=== PATIENT | female | born 1975 | race Caucasian/White ===

== ENCOUNTER 2023-01-22 12:26 | Outpatient (REF) | payer OTHER, SELFPAY ==
[2023-01-23 13:19] LABS: Candida species Negative (Negative); Gardnerella vaginalis Negative (Negative); Trichomonas vaginalis Negative (Negative)
[2023-01-25 17:07] LABS: Age Gdln ACOG Testing Note (.); HPV Aptima Positive (Negative); IGP, Aptima HPV, rfx 16/18,45 Note (.)
== END 2023-01-22 12:27 | disposition home or self-care (01) ==
LOC: LAB 12:26
PROVIDERS: PCP Family Medicine; Visit Provider Nurse Practitioner
DX: Z01.419 Encounter for gynecological examination (general) (routine) without abnormal findings (principal); N89.8 Other specified noninflammatory disorders of vagina
CPT/HCPCS: 87480; 87491; 87510; 87591; 87660; G0145

== ENCOUNTER 2023-01-30 09:51 | Outpatient (OUT) | payer OTHER, SELFPAY ==
[2023-01-30 10:27] LABS: Estimated Average Glucose 137 mg/dL; Glycohemoglobin A1C 6.4 % (4.5-6.2)
[2023-01-30 10:36] LABS: Basophils Absolute Auto 0.1 10^3/uL (0.0-0.1); Basophils Percent Auto 1.1 % (0.2-2.0); Eosinophils Absolute Auto 0.2 10^3/uL (0.0-0.7); Hematocrit 44.4 % (36.0-48.0); Hemoglobin 14.5 g/dL (12.0-16.0); Immature Granulocytes Abs Auto 0.04 10^3/uL (0.00-0.03); Immature Granulocytes Pct Auto 0.5 % (0.0-0.5); Lymphocytes Absolute Auto 2.1 10^3/uL (1.2-3.8); Lymphocytes Percent Auto 25.6 % (20.5-60.0); Mean Corpuscular HGB Conc 32.7 g/dL (29.9-35.2); Mean Corpuscular Hemoglobin 27.6 pg (26.7-34.0); Mean Corpuscular Volume 84.6 fL (81.0-99.0); Monocytes Absolute Auto 0.7 10^3/uL (0.3-0.8); Monocytes Percent Auto 8.4 % (1.7-12.0); Neutrophils Absolute Auto 5.1 10^3/uL (1.4-6.5); Neutrophils Percent Auto 62.4 % (43.0-75.0); Platelet Count 279 10^3/uL (150-450); Red Blood Count 5.25 10^6/uL (4.20-5.40); Red Cell Distribution Width 14.6 % (11.0-15.0); White Blood Count 8.1 10^3/uL (4.0-11.0)
[2023-01-30 11:03] LABS: Free T4 1.07 ng/dL (0.76-1.46)
[2023-01-30 11:07] LABS: Alanine Aminotransferase 24 U/L (14-59); Albumin Globulin Ratio 0.9; Albumin Level 3.6 g/dL (3.4-5.0); Alkaline Phosphatase 93 U/L (46-116); Aspartate Amino Transferase 13 U/L (15-37); BUN Creatinine Ratio 19.5; Bilirubin Direct 0.1 mg/dL (0.0-0.2); Bilirubin Total 0.3 mg/dL (0.2-1.0); Calcium 9.5 mg/dL (8.5-10.1); Carbon Dioxide 29.5 mmol/L (21.0-32.0); Chloride 100 mmol/L (98-107); Chol HDL Ratio 5.8; Cholesterol 261 mg/dL (<=200); Estimated GFR (African America >60 (>=60); Estimated GFR (Non-African Ame >60 (>=60); Free T3 2.87 pg/mL (2.18-3.98); Globulin 4.2 g/dL; Glucose 107 mg/dL (74-106); HDL Cholesterol 45 mg/dL (40-60); Potassium 4.5 mmol/L (3.5-5.1); Sodium 137 mmol/L (136-145); Thyroid Stimulating Hormone 1.911 uIU/mL (0.358-3.740); Total Protein 7.8 g/dL (6.4-8.2); Triglycerides 177 mg/dL (<=150); VLDL CHOLESTEROL 35.4 mg/dL
== END 2023-01-30 09:52 | disposition home or self-care (01) ==
LOC: LAB 09:53
PROVIDERS: PCP Family Medicine; Visit Provider Family Medicine
DX: Z00.00 Encounter for general adult medical examination without abnormal findings (principal); E55.9 Vitamin D deficiency, unspecified
CPT/HCPCS: 36415; 80048; 80061; 80076; 82306; 83036; 84439; 84443; 84481; 85025

== ENCOUNTER 2023-02-05 18:36 | Outpatient (OUT) | payer OTHER, SELFPAY ==
--- NOTE | 2023-02-05 19:08 | US_ITS ---
The [address] [address] Patient Name: JANET DIOP MRN: [id number] date: 1975 Sex: F Assigned Patient Location: US Current Patient Location: Accession/Order Number: [id number] Exam Date: 02/05/2023 19:10 Report Date: 02/06/2023 07:13 At the request of: STEPHIE REYES Procedure: US pelvis w/ transvaginal EXAM: US pelvis w/ transvaginal HISTORY: AMENORRHEA N91.2 COMPARISON: None. TECHNIQUE: Pelvic sonography was performed utilizing grayscale and color Doppler technique. FINDINGS: Anteverted uterus measures 6.7 x 3.5 x 3.9 cm. Uterine endometrial stripe measures 0.2 cm in thickness. Right ovary not visualized. Left ovary measures 1.7 x 1.7 x 1.2 cm. Normal left ovarian parenchyma. No significant free fluid within the pelvis. US/US pelvis w/ transvaginal IMPRESSION: 1. Normal uterus and left upper. 2. Right ovary not visualized. Electronically authenticated by: ROSALINDA MA Date: 02/06/2023 07:13
== END 2023-02-05 18:37 | disposition home or self-care (01) ==
PROVIDERS: PCP Family Medicine; Visit Provider Nurse Practitioner
DX: Z12.31 Encounter for screening mammogram for malignant neoplasm of breast (principal); N91.2 Amenorrhea, unspecified
CPT/HCPCS: 76830; 76856

== ENCOUNTER 2023-03-16 09:17 | Outpatient (OUT) | payer OTHER, SELFPAY ==
--- NOTE | 2023-03-16 09:20 | MM_ITS ---
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 Order #: [id number] CLICK HERE TO VIEW EXAM RADIOLOGY REPORT PROCEDURE: MM TOMOSYNTHESIS SCREENING BI COMPARISON: MG MAMM SCREEN 3D PILY CAD, 03/13/2022. INDICATIONS: Screening Calculator Name NCI Breast Cancer Risk Assessment Tool 5 Year Breast Cancer Risk 1.00% Lifetime Breast Cancer Risk 9.10% Personal Breast Cancer No Personal Ovarian Cancer No Treatments None Family Cancers None LOCATION: [facility] BREAST COMPOSITION: Scattered areas fibroglandular density. FINDINGS: DIAGNOSTIC CATEGORY 2--BENIGN FINDING. NO CHANGE FROM COMPARISON. Scattered benign-appearing nodules are present. Scattered benign-appearing calcifications are present. Scattered benign-appearing lymph nodes are present. RIGHT BREAST: No significant suspicious finding. LEFT BREAST: No significant suspicious finding. RECOMMENDATIONS: ROUTINE MAMMOGRAM AND CLINICAL EVALUATION IN 12 MONTHS. PLEASE NOTE: A NORMAL MAMMOGRAM DOES NOT EXCLUDE THE POSSIBILITY OF BREAST CANCER. A CLINICALLY SUSPICIOUS PALPABLE LUMP SHOULD BE BIOPSIED. Dictated by: Iggy Patterson MD on 03/16/2023 at 12:16 Approved by: Iggy Patterson MD on 03/16/2023 at 12:20
== END 2023-03-16 09:18 | disposition home or self-care (01) ==
LOC: MAMMO 09:17
PROVIDERS: PCP Family Medicine; Visit Provider Nurse Practitioner
DX: Z12.31 Encounter for screening mammogram for malignant neoplasm of breast (principal)
CPT/HCPCS: 77063; 77067

== ENCOUNTER 2023-04-27 07:37 | Outpatient (OUT) | payer OTHER, SELFPAY ==
--- NOTE | 2023-04-27 07:58 | XR_ITS ---
The [address] [address] Patient Name: AJNET DIOP MRN: [id number] date: 1975 Sex: F Assigned Patient Location: [facility] Current Patient Location: [facility] Accession/Order Number: [id number] Exam Date: 04/27/2023 08:50 Report Date: 04/27/2023 09:36 At the request of: JOSI YOUSIF Procedure: XR chest 2V EXAM: XR chest 2V HISTORY: Preop exam COMPARISON: None. TECHNIQUE: PA and lateral views of the chest. FINDINGS: The cardiomediastinal silhouette is normal. No focal consolidation is identified. There is no pneumothorax. No pleural effusion is noted. The osseous structures are intact. XR/XR chest 2V IMPRESSION: No acute cardiopulmonary process. Electronically authenticated by: MILKA BENITEZ Date: 04/27/2023 09:36
--- NOTE | 2023-04-27 07:58 | ECG_ITS ---
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
[2023-04-27 08:57] LABS: Anion Gap 13.6; BUN Creatinine Ratio 12.7; Calcium 9.1 mg/dL (8.5-10.1); Carbon Dioxide 26.8 mmol/L (21.0-32.0); Chloride 101 mmol/L (98-107); Estimated GFR (African America >60 (>=60); Estimated GFR (Non-African Ame >60 (>=60); Glucose 106 mg/dL (74-106); Potassium 4.4 mmol/L (3.5-5.1); Sodium 137 mmol/L (136-145)
== END 2023-04-27 07:38 | disposition home or self-care (01) ==
LOC: PST 07:37
PROVIDERS: PCP Family Medicine; Visit Provider Obstetrics & Gynecology
DX: Z01.812 Encounter for preprocedural laboratory examination (principal); Z01.810 Encounter for preprocedural cardiovascular examination; R87.612 Low grade squamous intraepithelial lesion on cytologic smear of cervix (LGSIL); J44.9 Chronic obstructive pulmonary disease, unspecified
CPT/HCPCS: 36415; 71046; 80048; 93005

== ENCOUNTER 2023-05-11 07:17 | Day surgery (SDC) | payer OTHER, SELFPAY ==
[2023-04-27 08:35] VITALS: BP 129/81; PULSE 79; RESP 20; TEMP 36.3; O2SAT 94; BMI 41.0
[2023-05-11] VITALS (13 sets, daily range): BP systolic 115–165; BP diastolic 66–107; PULSE 75–104; RESP 10–21; TEMP 36.1–36.6; O2SAT 86–96; BMI 42.1
[2023-05-11 07:27] LABS: Basophils Absolute Auto 0.1 10^3/uL (0.0-0.1); Basophils Percent Auto 0.8 % (0.2-2.0); Eosinophils Absolute Auto 0.1 10^3/uL (0.0-0.7); Eosinophils Percent Auto 0.4 % (0.9-7.0); Hematocrit 47.1 % (36.0-48.0); Hemoglobin 15.1 g/dL (12.0-16.0); Immature Granulocytes Abs Auto 0.05 10^3/uL (0.00-0.03); Immature Granulocytes Pct Auto 0.4 % (0.0-0.5); Lymphocytes Absolute Auto 2.2 10^3/uL (1.2-3.8); Lymphocytes Percent Auto 16.9 % (20.5-60.0); Mean Corpuscular HGB Conc 32.1 g/dL (29.9-35.2); Mean Corpuscular Hemoglobin 27.2 pg (26.7-34.0); Mean Corpuscular Volume 84.9 fL (81.0-99.0); Mean Platelet Volume 9.5 fL (9.5-13.5); Monocytes Absolute Auto 0.5 10^3/uL (0.3-0.8); Monocytes Percent Auto 3.6 % (1.7-12.0); Neutrophils Absolute Auto 10.3 10^3/uL (1.4-6.5); Neutrophils Percent Auto 77.9 % (43.0-75.0); Platelet Count 319 10^3/uL (150-450); Red Blood Count 5.55 10^6/uL (4.20-5.40); Red Cell Distribution Width 14.9 % (11.0-15.0); White Blood Count 13.2 10^3/uL (4.0-11.0)
[2023-05-11] MEDS: LACTATED RINGER'S SOLUTION 1,000 ML 50 ML IV (07:41)
[2023-05-11 07:45] LABS: HCG Quantitative 2 mIU/mL
[2023-05-11] MEDS: IODINE/POTASSIUM IODIDE 8 ML SOLUTION TOPICAL (09:34)
[2023-05-11] MEDS: FERRIC SUBSULFATE 8 ML SOLUTION TOPICAL (09:42)
--- NOTE | 2023-05-11 09:49 | PM.ONB ---
Brief Operative Note Date of procedure: 05/11/23 Pre-op diagnosis: cervical dysplasia Post-op diagnosis: same as pre-op Procedure: NAME OF PROCEDURE: [leep ] PROCEDURE: Patient was taken back to the Operating Room where she was given general anesthesia without difficulty. She was then placed in the dorsal lithotomy position. She was then prepped and draped in the normal sterile fashion. A weighted speculum was placed into the patient's vagina. The anterior lip of the cervix was identified and grasped with a single-tooth tenaculum. The patient's cervix was then copiously irrigated using vinegar.? Then, a Lugol Solution was also placed onto the patient's cervix which demonstrated increased uptake of the Lugol solution at the [3? ] o?clock and [?9 ] o?clock positions.? At that time, the LEEP portion of the procedure was performed, including both the [?3 ] o?clock and [?9] o?clock positions. The ectocervix was sent out to Pathology. The patient's cervix was then coagulated using suction cautery. Excellent hemostasis was assured.? Monsel Solution was then placed onto the patient's cervix to help maintain adequate hemostasis. All instruments were removed from the patient's vagina. The anterior lip of the cervix demonstrated excellent hemostasis.? The patient tolerated the procedure well. Sponge, lap, and needle counts were correct x 2. The patient was taken to Recovery Room in stable condition. Anesthesia: JOANN Surgeon: Chandrakant Pereyra Estimated blood loss (mL): 5 Pathology: other (ectocervical tissue) Condition: stable Disposition: PACU
== END 2023-05-11 10:53 | disposition home or self-care (01) ==
PROVIDERS: PCP Family Medicine; Visit Provider Obstetrics & Gynecology
PROC: (CPT 940; principal; 2023-05-11 08:40)
DX: R87.612 Low grade squamous intraepithelial lesion on cytologic smear of cervix (LGSIL) (principal); E11.9 Type 2 diabetes mellitus without complications; J44.9 Chronic obstructive pulmonary disease, unspecified; Z79.84 Long term (current) use of oral hypoglycemic drugs; M50.30 Other cervical disc degeneration, unspecified cervical region; M51.36 Other intervertebral disc degeneration, lumbar region; E78.5 Hyperlipidemia, unspecified; F41.1 Generalized anxiety disorder; K21.9 Gastro-esophageal reflux disease without esophagitis; F32.9 Major depressive disorder, single episode, unspecified; N39.46 Mixed incontinence; N92.4 Excessive bleeding in the premenopausal period; Z68.41 Body mass index [BMI] 40.0-44.9, adult; E66.01 Morbid (severe) obesity due to excess calories
CPT/HCPCS: 57522; 36415; 84702; 85025; 88307; 88341; 88342; J2704

== ENCOUNTER 2023-05-28 12:04 | Outpatient (OUT) | payer OTHER, SELFPAY ==
--- NOTE | 2023-05-28 | ECG_ITS ---
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
== END 2023-05-28 12:05 | disposition home or self-care (01) ==
PROVIDERS: PCP Family Medicine; Visit Provider Family Medicine
DX: R94.31 Abnormal electrocardiogram [ECG] [EKG] (principal)
CPT/HCPCS: 93005

== ENCOUNTER 2023-08-09 09:47 | Outpatient (OUT) | payer OTHER, SELFPAY ==
[2023-08-09 10:24] LABS: Basophils Absolute Auto 0.1 10^3/uL (0.0-0.1); Eosinophils Absolute Auto 0.1 10^3/uL (0.0-0.7); Eosinophils Percent Auto 1.3 % (0.9-7.0); Hematocrit 45.1 % (36.0-48.0); Hemoglobin 14.5 g/dL (12.0-16.0); Immature Granulocytes Abs Auto 0.03 10^3/uL (0.00-0.03); Immature Granulocytes Pct Auto 0.3 % (0.0-0.5); Lymphocytes Percent Auto 30.2 % (20.5-60.0); Mean Corpuscular HGB Conc 32.2 g/dL (29.9-35.2); Mean Corpuscular Hemoglobin 27.1 pg (26.7-34.0); Mean Corpuscular Volume 84.3 fL (81.0-99.0); Mean Platelet Volume 9.3 fL (9.5-13.5); Monocytes Absolute Auto 0.6 10^3/uL (0.3-0.8); Monocytes Percent Auto 6.3 % (1.7-12.0); Neutrophils Absolute Auto 6.1 10^3/uL (1.4-6.5); Neutrophils Percent Auto 60.9 % (43.0-75.0); Platelet Count 293 10^3/uL (150-450); Red Blood Count 5.35 10^6/uL (4.20-5.40); Red Cell Distribution Width 15.6 % (11.0-15.0)
[2023-08-09 10:59] LABS: Alanine Aminotransferase 20 U/L (14-59); Albumin Globulin Ratio 0.9; Albumin Level 3.4 g/dL (3.4-5.0); Alkaline Phosphatase 81 U/L (46-116); Aspartate Amino Transferase 10 U/L (15-37); BUN Creatinine Ratio 15.9; Bilirubin Direct 0.1 mg/dL (0.0-0.2); Bilirubin Total 0.3 mg/dL (0.2-1.0); Calcium 9.2 mg/dL (8.5-10.1); Carbon Dioxide 27.3 mmol/L (21.0-32.0); Chloride 103 mmol/L (98-107); Estimated GFR (African America >60 (>=60); Estimated GFR (Non-African Ame >60 (>=60); Glucose 106 mg/dL (74-106); Potassium 4.3 mmol/L (3.5-5.1); Sodium 137 mmol/L (136-145); Total Protein 7.4 g/dL (6.4-8.2)
[2023-08-09 11:08] LABS: INR 0.93; Partial Thromboplastin Time 29.4 sec (22.3-36.2); Prothrombin Time 9.9 sec (9.0-11.6)
== END 2023-08-09 09:48 | disposition home or self-care (01) ==
LOC: PST 09:47
PROVIDERS: PCP Family Medicine; Visit Provider Obstetrics & Gynecology
DX: Z01.812 Encounter for preprocedural laboratory examination (principal); R10.2 Pelvic and perineal pain; N92.0 Excessive and frequent menstruation with regular cycle; N94.6 Dysmenorrhea, unspecified; N94.10 Unspecified dyspareunia; Z98.890 Other specified postprocedural states; R87.612 Low grade squamous intraepithelial lesion on cytologic smear of cervix (LGSIL)
CPT/HCPCS: 80048; 80076; 85025; 85610; 85730

== ENCOUNTER 2023-08-20 09:01 | Outpatient (OUT) | payer OTHER, SELFPAY ==
--- OUTSIDE RECORDS SUMMARY | 2023-08-20 09:05 | XMS_ITS | CCD ---
Author Name Unknown Address [address] [place] [id number] Organization [facility] Care Team Providers Care Machine Operations Supervisor Name Role Phone MARISELA, DR JADEN Ledesma Primary Care Unavailable MARISELA, DR JADEN Ledesma Admitting Unavailable MARISELA, DR JADEN Ledesma Attending Unavailable MARISELA, DR JADEN Ledesma Consulting Unavailable MARISELA, DR JADEN Ledesma Primary Care Unavailable MARISELA, DR JADEN Ledesma Admitting Unavailable MARISELA, DR JADEN Ledesma Attending Unavailable DORON, DR NATE Morales Consulting Unavailable MARISELA, DR JADEN Ledesma Consulting Unavailable Kimberly Scott Unavailable JOSI PEREYRA Attending Unavailable YULY JARQUIN Attending Unavailable MARISELA, JADEN Attending Unavailable Jaden Antonio MD Primary Care Provider Allergies Allergy Classification Reported Allergen(s) Allergy Type Date of Onset Reaction(s) Facility (2 sources) predniSONE Drug Allergy Unknown [facility] Other Medications Current Medications Medication Drug Class(es) Dates Sig (Normalized) Sig (Original) albuterol 0.83 mg/ml inhalation solution (8 sources) beta2-Adrenergic Agonist Start: 06-18-2023 albuterol (2.5 MG/3ML) 0.083% nebulizer solution Indications: Chronic obstructive pulmonary disease, unspecified COPD type ([facility]/HCC) Take 3 mL (2.5 mg) by nebulization every 4 (four) hours if needed for wheezing 75 mL 3 06/18/2023 Active take 2 puff(s) by in halation every four hours for wheezing albuterol HFA 90 mcg/act inhaler Inhale 2 puffs every 4 (four) hours if needed for wheezing 0 Active Albuterol Sulfat e (2.5 MG/3ML) 0.083% 3 mL as needed Inhalation every 6 hrs Active take 1 puff(s) by in halation every four hours as needed Ventolin HFA 108 (90 Base) MCG/ACT 1 puf f as needed Inhalation every 4 hrs Active Albuterol Sulfat e (2.5 MG/3ML) 0.083% 3 mL as needed Inhalation every 6 hrs Active ALPRAZolam 0.5 mg oral tablet (4 sources) Benzodiazepine Start: 06-18-2023 take 1 tablet by mouth three times daily as needed for anxiety ALPRAZolam (Xanax) 0.5 MG tablet Indications: Generalized anxiety disorder (CMS/HCC) Take 1 tablet (0.5 mg) by mouth 3 (three) times a day as needed for anxiety 30 tablet 0 06/18/2023 Active take 1 tablet by ramakrishna th every twelve hours ALPRAZolam 0.5 MG 1 tablet Orally Twice a day Active celecoxib 200 mg oral capsule (1 source) Nonsteroidal Anti-inflammatory Drug Start: 06-18-2023 take 1 capsule by mouth twice daily as needed for pain celecoxib (CeleBREX) 200 MG capsule Indications: DDD (degenerative disc disease), cervical Take 1 capsule (200 mg) by mouth 2 (two) times a day as needed for mild pain 60 capsule 3 06/18/2023 Active cetirizine hydrochloride 10 mg oral tablet (3 sources) Histamine-1 Receptor Antagonist Start: 12-05-2022 take 1 tablet by mouth every twelve hours Cetirizine HCl 10 MG 1 tablet Orally Twice a day for 7 days Nov, Active cholecalciferol 0.125 mg oral tablet (2 sources) Vitamin D take 1 tablet by mouth once daily Vitamin D3 125 MCG (5000 UT) TAKE 1 TABLET BY MOUTH DAILY Oral for 30 Days Active dextromethorphan hydrobromide 15 mg / guaiFENesin 400 mg / pseudoephedrine hydrochloride 60 mg oral tablet (2 sources) alpha-Adrenergic Agonist, Uncompetitive T-xnhops-E-aspartate Receptor Antagonist, Sigma-1 Agonist Start: 07-03-2023 take 4 tablets by mouth every twenty-four hours as needed Capmist DM 60-15-400 MG as needed Orally every 4-6 hours as needed, max 4 tablets in 24 hours for 5 days Jul, Active estradiol 0.5 mg oral tablet (3 sources) Estrogen Start: 05-28-2023 End: 05-27-2024 take 1 tablet by mouth in the morning estradiol (Estrace) 0.5 MG tablet Indications: Hormone imbalance Take 1 tablet (0.5 mg) by mouth in the morning. 30 tablet 11 05/28/2023 05/27/2024 Active famotidine 20 mg oral tablet (4 sources) Histamine-2 Receptor Antagonist famotidine (Pepcid) 20 MG tablet Take 20 mg by mouth if needed for heartburn 0 Active fluticasone propionate 0.05 mg/actuat metered dose nasal spray (4 sources) Corticosteroid take 2 spray(s) nasal route once daily fluticasone (Flonase) 50 MCG/ACT nasal spray instill 2 (TWO) spray nasally DAILY 0 Active Fluticasone Prop ionate 50 MCG/ACT Nasal for 30 Days Active Fluticasone Prop ionate 50 MCG/ACT Nasal for 30 Days Active loratadine 10 mg oral tablet (4 sources) take 1 tablet by ramakrishna th in the morning loratadine (Claritin) 10 MG tablet Take 10 mg by mouth in the morning. 0 Active Loratadine 10 MG Oral for 30 Days Active 24 hr metFORMIN hydrochloride 500 mg extended release oral tablet (1 source) Biguanide Start: 03-08-2023 End: 03-07-2024 take 1 tablet by mouth every twenty-four hours at mealtime metFORMIN XR (Glucophage-XR) 500 MG 24 hr tablet Indications: Insulin resistance Take 1 tablet (500 mg) by mouth in the evening. Take with meals. Do not crush, chew, or split. 30 tablet 11 03/08/2023 03/07/2024 Active 24 hr mirabegron 50 mg extended release oral tablet (1 source) beta3-Adrenergic Agonist take 1 tablet by mouth at bedtime, then take 1 tablet by mouth every twenty-four hours mirabegron ER (Myrbetriq) 50 MG 24 hr tablet Take 50 mg by mouth at bedtime Do not crush, chew, or split. 0 Active montelukast 10 mg oral tablet (1 source) Leukotriene Receptor Antagonist Start: 06-24-2023 take 1 tablet by mouth at bedtime montelukast (Singulair) 10 MG tablet Indications: Allergic rhinitis due to pollen TAKE 1 TABLET BY MOUTH AT BEDTIME 30 tablet 5 06/24/2023 Active naproxen 500 mg oral tablet (3 sources) Nonsteroidal Anti-inflammatory Drug take 1 tablet by mouth every twelve hours at mealtime as needed Naproxen 500 MG 1 tablet with food or milk as needed Orally every 12 hrs Active norethindrone 0.35 mg oral tablet (4 sources) Start: 07-16-2023 take 1 tablet by mouth once daily norethindrone (Milagros) 0.35 MG tablet Indications: Excessive bleeding in the premenopausal period TAKE 1 TABLET BY MOUTH DAILY 28 tablet 12 07/16/2023 Active Deblitane 0.35 M G Oral for 28 Days Active omeprazole 40 mg delayed release oral capsule (4 sources) Proton Pump Inhibitor take 1 capsule by mouth in the morning omeprazole (PriLOSEC) [address] capsule Take 40 mg by mouth in the morning. 0 Active 24 hr oxybutynin chloride 15 mg extended release oral tablet (1 source) Cholinergic Muscarinic Antagonist take 1 tablet by mouth every twenty-four hours in the morning oxybutynin XL (Ditropan-XL) 15 MG 24 hr tablet Take 15 mg by mouth in the morning. Do not crush, chew, or split.. 0 Active Respiratory Therapy Supplies (Full Kit Nebulizer Set) misc (1 source) Start: 07-13-19 Respiratory Therapy Supplies (Full Kit Nebulizer Set) misc Indications: Chronic obstructive pulmonary disease, unspecified COPD type (CMS/HCC) USE DIRECTED WITH compressor 1 each 0 07/13/2023 Active tiotropium 0.018 mg inhalation powder (4 sources) Anticholinergic Start: 08-06-19 take 1 capsule by inhalation once daily Spiriva HandiHaler 18 MCG inhalation capsule Indications: Chronic obstructive pulmonary disease, unspecified (CMS/HCC) INHALE CONTENTS OF 1 (ONE) CAPSULE VIA HANDIHALER DAILY 30 capsule 5 08/06/2023 Active Spiriva HandiHal er 18 MCG Inhalation for 30 Days Active Spiriva HandiHal er 18 MCG Inhalation for 30 Days Active Vitamin D3 125 MCG (5000 UT) (1 source) take 1 tablet by ramakrishna th once daily Vitamin D3 125 MCG (5000 UT) TAKE 1 TABLET BY MOUTH DAILY Oral for 30 Days Active Completed/Discontinued Medications Medication Drug Class(es) Dates Sig (Normalized) Sig (Original) methylPREDNISolone 4 mg oral tablet (3 sources) Corticosteroid Start: 06-06-202 3 methylPREDNISolone 4 MG as directed Orally for daily dose take half with breakfast, half with dinner for 6 days Nov, Not-Taking/PRN Problems Active Problems Problem Classification Problem Date Documented Date Episodic/Chronic Anxiety disorders (1 source) Generalized anxiety disorder; Translations: [Generalized anxiety disorder] Onset: 06-18-2023 06-18-2023 Chronic Chronic obstructive pulmonary disease and bronchiectasis (1 source) Chronic obstructive lung disease; Translations: [Chronic obstructive pulmonary disease, unspecified] Onset: 06-18-2023 06-18-2023 Chronic Diabetes mellitus without complication (1 source) Prediabetes; Translations: [Prediabetes] Onset: 06-18-2023 06-18-2023 Episodic Disorders of lipid metabolism (1 source) Dyslipidemia; Translations: [Hyperlipidemia, unspecified] Onset: 06-18-2023 06-18-2023 Chronic Esophageal disorders (1 source) Gastroesophageal reflux disease without esophagitis; Translations: [Gastro-esophageal reflux disease without esophagitis] Onset: 06-18-2023 06-18-2023 Chronic Genitourinary symptoms and ill-defined conditions (1 source) Incontinence; Translations: [Mixed incontinence] Onset: 06-18-2023 06-18-2023 Chronic Headache; including migraine (1 source) Migraine without aura, not refractory ; Translations: [Chronic migraine without aura, not intractable, without status migrainosus] Onset: 06-18-2023 06-18-2023 Chronic Menopausal disorders (1 source) Menorrhagia; Translations: [Excessive bleeding in the premenopausal period] Onset: 06-18-2023 06-18-2023 Chronic Menstrual disorders (1 source) Amenorrhea; Translations: [Amenorrhea, unspecified] Onset: 06-18-2023 06-18-2023 Chronic Mood disorders (1 source) Recurrent major depressive episodes, mild ; Translations: [Major depressive disorder, recurrent, mild] Onset: 06-18-2023 06-18-2023 Chronic Nutritional deficiencies (2 sources) Vitamin D deficiency, unspecified; Translations: [Vitamin D deficiency] Onset: 05-28-2021 06-18-2023 Chronic Other non-traumatic joint disorders (1 source) Pain in left knee; Translations: [Pain in joint, lower leg] Onset: 06-18-2023 06-18-2023 Episodic Other screening for suspected conditions (not mental disorders or infectious disease) (4 sources) Encounter for screening mammogram for malignant neoplasm of breast; Translations: [ENC SCR MAMMO MALIG NEOPLASM BREAST] Onset: 03-13-2022 Episodic Other skin disorders (1 source) Rash and other nonspecific skin eruption Episodic Other skin disorders (1 source) Hidradenitis suppurativa; Translations: [Hidradenitis suppurativa] Onset: 06-18-2023 06-18-2023 Episodic Other upper respiratory disease (1 source) Allergic rhinitis due to pollen; Translations: [Allergic rhinitis due to pollen] Onset: 06-18-2023 06-18-2023 Chronic Residual codes; unclassified (2 sources) Generalized aches and pains; Translations: [Pain, unspecified] Episodic Residual codes; unclassified (1 source) Pain, unspecified Episodic Spondylosis; intervertebral disc disorders; other back problems (2 sources) Degeneration of cervical intervertebral disc; Translations: [Other cervical disc degeneration, unspecified cervical region] Onset: 06-18-2023 06-18-2023 Chronic Past or Other Problems Problem Classification Problem Date Documented Da te Episodic/Chronic Viral infection (1 source) COVID-19 Results Test Name Value Interpretation Reference Range Facility ALL CBC WITH AUTO DIFFon BASOPHILS ABSOLUTE AUTO 0.1 [facility] Basophils/100 WBC (Bld) 1.0 % 0.2 - 2.0 % [facility] Eosinophils/100 WBC (Bld) 1.3 % 0.9 - 7.0 % [facility] Erythrocyte distribution width (RBC) [Ratio] 15.6 % High 11.0 - 15.0 % [facility] Hematocrit (Bld) [Volume fraction] 45.1 % 36.0 - 48.0 % [facility] [Mass/Vol] 14.5 g/dL 12.0 - 16.0 g/dL [facility] IMMATURE GRANULOCYTES ABS AUTO 0.03 [facility] Immature granulocytes/100 WBC (Bld) 0.3 % 0.0 - 0.5 % [facility] Interpretation and review of laboratory results Abnormal [facility] LYMPHOCYTES ABSOLUTE AUTO 3.0 [facility] Lymphocytes/100 WBC (Bld) 30.2 % 20.5 - 60.0 % [facility] MCH (RBC) [Entitic mass] 27.1 pg 26.7 - 34.0 pg [facility] MCHC (RBC) [Mass/Vol] 32.2 g/dL 29.9 - 35.2 g/dL [facility] MCV (RBC) [Entitic vol] 84.3 fL 81.0 - 99.0 fL [facility] MONOCYTES ABSOLUTE AUTO 0.6 [facility] Monocytes/100 WBC (Bld) 6.3 % 1.7 - 12.0 % [facility] NEUTROPHILS ABSOLUTE AUTO 6.1 [facility] Neutrophils/100 WBC (Bld) 60.9 % 43.0 - 75.0 % [facility] Platelet mean volume (Bld) [Entitic vol] 9.3 fL Low 9.5 - 13.5 fL [facility] EO # 0.1 [facility] PLT 293 [facility] RBC 5.35 [facility] WBC 10.0 [facility] COVID + FLU Quick Testingon 07-03-2023 SARS-CoV-2 (COVID-19) RNA JESSIE+probe Ql (Unsp spec) Positive [facility] Other COVID + FLU Quick Testing Negative [facility] Other MG MAMM SCREEN 3D PILY CADon 03-13-2022 MG MAMM SCREEN 3D PILY CAD Patient: JENN MCCANN Exam Date: 03/13/2022 : 1975 Gender:F Ordering : DR JADEN ANTONIO . Admission #: [id number] Family : Order #: [id number] CLICK HERE TO VIEW EXAM RADIOLOGY REPORT PROCEDURE: MAMMOGRAM SCREENING 3D BILATERAL CAD COMPARISON: MG MAMM SCREEN PILY W CAD, 03/09/2020. MG MAMM SCREEN PILY W CAD, 03/04/2019. MAMMO PILY SCREEN, 02/22/2015. MG MAMM SCREEN 3D PILY CAD, 03/10/2021. INDICATIONS: Screening mammography Calculator Name NCI Breast Cancer Risk Assessment Tool 5 Year Breast Cancer Risk 0.90% Lifetime Breast Cancer Risk 9.20% Personal Breast Cancer No Personal Ovarian Cancer No Treatments None Family Cancers None LOCATION: [facility] BREAST COMPOSITION: Scattered areas fibroglandular density. FINDINGS: DIAGNOSTIC CATEGORY 2--BENIGN FINDING: RIGHT BREAST: No significant suspicious finding. Scattered benign-appearing nodules are present. No significant change has occurred. LEFT BREAST: No significant suspicious finding. No significant change has occurred. RECOMMENDATIONS: ROUTINE MAMMOGRAM AND CLINICAL EVALUATION IN 12 MONTHS. PLEASE NOTE: A NORMAL MAMMOGRAM DOES NOT EXCLUDE THE POSSIBILITY OF BREAST CANCER. A CLINICALLY SUSPICIOUS PALPABLE LUMP SHOULD BE BIOPSIED. Dictated by: Nate Duran M.D. on 03/14/2022 at 08:48 Approved by: Nate Duran M.D. on 03/14/2022 at 08:50 Normal [facility] CBC AUTO DIFFon 05-19-2021 BASO # 0.1 103/ul Normal 0.0-0.1 [facility] Comment on above: Performed By: #### C BC #### [facility] [address] [address] [address] Dashawn Mayo Basophils/100 WBC (Bld) 0.9 % Normal 0.2-2.0 [facility] Comment on above: Performed By: #### C BC #### [facility] [address] [address] [address] Dashawn Mayo EO # 0.2 103/ul Normal 0.0-0.7 [facility] Comment on above: Performed By: #### C BC #### [facility] [address] [address] [address] Dashawn Mayo Eosinophils/100 WBC (Bld) 2.3 % Normal 0.9-7.0 [facility] Comment on above: Performed By: #### C BC #### [facility] [address] [address] [address] Dashawn Mayo Erythrocyte distribution width (RBC) [Ratio] 15.2 % Critically high 11.0-15.0 [facility] Comment on above: Performed By: #### C BC #### [facility] [address] [place] [address] Dr. Dashawn Mayo Hematocrit (Bld) [Volume fraction] 45.5 % Normal 36.0-48.0 [facility] Comment on above: Performed By: #### C BC #### [facility] [address] [place] [address] Dr. Dashawn Mayo Hemoglobin (Bld) [Mass/Vol] 14.4 g/dL Normal 12.0-16.0 [facility] Comment on above: Performed By: #### C BC #### [facility] [address] [place] [address] Dr. Dashawn Mayo IG # 0.03 10e3/ul Normal 0.00-0.03 [facility] Comment on above: Performed By: #### C BC #### [facility] [address] [place] [address] Dr. Dashawn Mayo IG % 0.3 % Normal 0.0-0.5 [facility] Comment on above: Performed By: #### C BC #### [facility] [address] [place] [address] Dr. Dashawn Mayo LYMPH # 2.8 103/ul Normal 1.2-3.8 [facility] Comment on above: Performed By: #### C BC #### [facility] [address] [place] [address] Dr. Dashwan Mayo Lymphocytes/100 WBC (Bld) 27.4 % Normal 20.5-60.0 [facility] Comment on above: Performed By: #### C BC #### [facility] [address] [place] [address] Dr. Dashawn Mayo MANUAL DIFF REQ NO Normal [facility] Comment on above: Performed By: #### C BC #### [facility] [address] [place] [address] Dr. Dashawn Mayo MCH (RBC) [Entitic mass] 27.2 pg Normal 26.7-34.0 [facility] Comment on above: Performed By: #### C BC #### [facility] [address] [place] [address] Dr. Dashawn Mayo MCHC (RBC) [Mass/Vol] 31.6 g/dL Normal 29.9-35.2 [facility] Comment on above: Performed By: #### C BC #### [facility] [address] [place] [address] Dr. Dashawn Mayo MCV (RBC) [Entitic vol] 85.8 fL Normal 81.0-99.0 [facility] Comment on above: Performed By: #### C BC #### [facility] [address] [place] [address] Dr. Dashawn Mayo MONO # 0.5 103/ul Normal 0.3-0.8 [facility] Comment on above: Performed By: #### C BC #### [facility] [address] [place] [address] Dr. Dashawn Mayo Monocytes/100 WBC (Bld) 4.5 % Normal 1.7-12.0 [facility] Comment on above: Performed By: #### C BC #### [facility] [address] [place] [address] Dr. Dashawn Mayo NEUT # 6.7 103/ul Critically high 1.4-6.5 [facility] Comment on above: Performed By: #### C BC #### [facility] [address] [place] [address] Dr. Dashawn Mayo Neutrophils/100 WBC (Bld) 64.6 % Normal 43.0-75.0 [facility] Comment on above: Performed By: #### C BC #### [facility] [address] [place] [address] Dr. Dashawn Mayo Platelet mean volume (Bld) [Entitic vol] 10.3 fL Normal 9.5-13.5 [facility] Comment on above: Performed By: #### C BC #### [facility] [address] [place] [address] Dr. Dashawn Mayo PLT 295 103/ul Normal 150-450 [facility] Comment on above: Performed By: #### C BC #### [facility] [address] [place] [address] Dr. Dashawn Mayo RBC 5.30 106/ul Normal 4.20-5.40 [facility] Comment on above: Performed By: #### C BC #### [facility] [address] [place] [address] Dr. Dashawn Mayo WBC 10.4 103/ul Normal 4.0-11.0 [facility] Comment on above: Performed By: #### C BC #### [facility] [address] [address] [address] Dashawn Mayo FREE T3on 05-19-2021 FREE T3 2.20 pg/mlL Critically low 2.77-5.27 [facility] Comment on above: Performed By: #### L IVER, LIPID, FT3, BMP, TSH #### [facility] [address] [address] [address] Dashawn Mayo FREE T4on 05-19-2021 Free T4 [Mass/Vol] 0.97 ng/dL Normal 0.78-2.19 [facility] Comment on above: Performed By: #### V ITAD, FT4 #### [facility] [address] [address] [address] Dashawn Mayo GLYCOHEMOGLOBIN A1Con 2020 ADA RECOMMENDATION ADA THERAPEUTIC TARGET 6.0 - 7.0 ACTION SUGGESTED > 7.0 Normal [facility] Comment on above: Performed By: #### A 1C #### [facility] [address] [address] [address] Dashawn Mayo Glucose [Mass/Vol] 126 mg/dL Normal [facility] Comment on above: Performed By: #### A 1C #### [facility] [address] [place] [address] Dr. Dashawn Mayo HbA1c (Bld) [Mass fraction] 6.0 % Normal <=6.0 [facility] Comment on above: Performed By: #### A 1C #### [facility] [address] [place] [address] Dr. Dashawn Mayo LIPID PROFILEon 05-19-2021 CHOL-HDL RATIO NORM SEE BELOW Normal [facility] Comment on above: Result Comment: 3.3 - 4.4 LOW RISK 4.4 - 7.1 AVERAGE RISK 7.1 - 11.0 MODERATE RISK >11.0 HIGH RISK Performed By: #### L IVER, LIPID, FT3, BMP, TSH #### [facility] [address] [place] [address] Dr. Dashawn Mayo Cholesterol [Mass/Vol] 250 mg/dL Critically high <=200 [facility] Comment on above: Performed By: #### L IVER, LIPID, FT3, BMP, TSH #### [facility] [address] [address] [address] Dashawn Mayo Cholesterol in HDL [Mass/Vol] 41 mg/dL Normal [facility] Comment on above: Performed By: #### L IVER, LIPID, FT3, BMP, TSH #### [facility] [address] [address] [address] Dashawn Mayo Cholesterol in LDL [Mass/Vol] 188.2 mg/dL Normal [facility] Comment on above: Performed By: #### L IVER, LIPID, FT3, BMP, TSH #### [facility] [address] [place] [address] Dr. Dashawn Mayo Cholesterol.total/Ch olesterol in HDL [Mass ratio] 6.1 {ratio} Normal [facility] Comment on above: Performed By: #### L IVER, LIPID, FT3, BMP, TSH #### [facility] [address] [address] [address] Dashawn Mayo HDL NORMAL > or = 60 mg/dl - LOW CARDIOVASCULAR RISK <40 mg/dl - HIGH CARDIOVASCULAR RISK Normal [facility] Comment on above: Performed By: #### L IVER, LIPID, FT3, BMP, TSH #### [facility] [address] [place] [address] Dr. Dashawn Mayo LDL CALC NORMAL SEE BELOW Normal [facility] Comment on above: Result Comment: <100 mg/dl OPTIMAL 100 - 129 mg/dl NEAR OR ABOVE OPTIMAL 130 - 159 mg/dl BORDERLINE HIGH 160 - 189 mg/dl HIGH >190 mg/dl VERY HIGH Performed By: #### L IVER, LIPID, FT3, BMP, TSH #### [facility] [address] [address] [address] Dashawn Mayo Triglyceride [Mass/Vol] 104 mg/dL Normal <=150 [facility] Comment on above: Performed By: #### L IVER, LIPID, FT3, BMP, TSH #### [facility] [address] [address] [address] Dashawn Mayo VLDL CALC 20.8 mg/dL Normal [facility] Comment on above: Performed By: #### L IVER, LIPID, FT3, BMP, TSH #### [facility] [address] [address] [address] Dashawn Mayo LIVER PROFILEon 05-19-2021 Albumin [Mass/Vol] 3.6 g/dL Normal 3.5-5.0 [facility] Comment on above: Performed By: #### L IVER, LIPID, FT3, BMP, TSH #### [facility] [address] [place] [address] Dr. Dashawn Mayo Albumin/Globulin [Mass ratio] 0.9 {ratio} Normal [facility] Comment on above: Performed By: #### L IVER, LIPID, FT3, BMP, TSH #### [facility] [address] [place] [address] Dr. Dashawn Mayo ALP [Catalytic activity/Vol] 72 U/L Normal 38-126 [facility] Comment on above: Performed By: #### L IVER, LIPID, FT3, BMP, TSH #### [facility] [address] [place] [address] Dr. Dashawn Mayo ALT [Catalytic activity/Vol] 16 U/L Normal 9-52 [facility] Comment on above: Performed By: #### L IVER, LIPID, FT3, BMP, TSH #### [facility] [address] [place] [address] Dr. Dashawn Mayo AST [Catalytic activity/Vol] 13 U/L Critically low 14-36 [facility] Comment on above: Performed By: #### L IVER, LIPID, FT3, BMP, TSH #### [facility] [address] [place] [address] Dr. Dashawn Mayo BILI, CONJUGATED 0.0 mg/dL Normal 0.0-0.3 [facility] Comment on above: Performed By: #### L IVER, LIPID, FT3, BMP, TSH #### [facility] [address] [place] [address] Dr. Dashawn Mayo Bilirubin [Mass/Vol] 0.3 mg/dL Normal 0.2-1.3 [facility] Comment on above: Performed By: #### L IVER, LIPID, FT3, BMP, TSH #### [facility] [address] [place] [address] Dr. Dashawn Mayo Globulin (S) [Mass/Vol] 4.0 g/dL Normal [facility] Comment on above: Performed By: #### L IVER, LIPID, FT3, BMP, TSH #### [facility] [address] [place] [address] Dr. Dashawn Mayo Protein [Mass/Vol] 7.6 g/dL Normal 6.1-8.2 [facility] Comment on above: Performed By: #### L IVER, LIPID, FT3, BMP, TSH #### [facility] [address] [place] [address] Dr. Dashawn Mayo PROF CHEM 8 (BAS METB)on Anion gap [Moles/Vol] 12.6 mmol/L Normal [facility] Comment on above: Performed By: #### L IVER, LIPID, FT3, BMP, TSH #### [facility] [address] [place] [address] Dr. Dashawn Mayo Calcium [Mass/Vol] 9.1 mg/dL Normal 8.4-10.2 [facility] Comment on above: Performed By: #### L IVER, LIPID, FT3, BMP, TSH #### [facility] [address] [place] [address] Dr. Dashawn Mayo Chloride [Moles/Vol] 102 mmol/L Normal 98-107 [facility] Comment on above: Performed By: #### L IVER, LIPID, FT3, BMP, TSH #### [facility] [address] [place] [address] Dr. Dashawn Mayo CO2 [Moles/Vol] 27.9 mmol/L Normal 22.0-30.0 [facility] Comment on above: Performed By: #### L IVER, LIPID, FT3, BMP, TSH #### [facility] [address] [place] [address] Dr. Dashawn Mayo Creatinine [Mass/Vol] 0.81 mg/dL Normal 0.52-1.04 [facility] Comment on above: Performed By: #### L IVER, LIPID, FT3, BMP, TSH #### [facility] [address] [place] [address] Dr. Dashwan Mayo EGFR-AF MACANESE >60 Normal >=60 [facility] Comment on above: Performed By: #### L IVER, LIPID, FT3, BMP, TSH #### [facility] [address] [place] [address] Dr. Dashawn Mayo EGFR-NON AF MACANESE >60 Normal >=60 [facility] Comment on above: Performed By: #### L IVER, LIPID, FT3, BMP, TSH #### [facility] [address] [place] [address] Dr. Dashawn Mayo Glucose [Mass/Vol] 94 mg/dL Normal 74-106 [facility] Comment on above: Performed By: #### L IVER, LIPID, FT3, BMP, TSH #### [facility] [address] [place] [address] Dr. Dashawn Mayo Potassium [Moles/Vol] 4.5 mmol/L Normal 3.4-5.0 [facility] Comment on above: Performed By: #### L IVER, LIPID, FT3, BMP, TSH #### [facility] [address] [place] [address] Dr. Dashawn Mayo Sodium [Moles/Vol] 138 mmol/L Normal 137-145 [facility] Comment on above: Performed By: #### L IVER, LIPID, FT3, BMP, TSH #### [facility] [address] [place] [address] Dr. Dashawn Mayo Urea nitrogen [Mass/Vol] 8.0 mg/dL Normal 7.0-17.0 [facility] Comment on above: Performed By: #### L IVER, LIPID, FT3, BMP, TSH #### [facility] [address] [address] [address] Dashawn Mayo Urea nitrogen/Creatinine [Mass ratio] 9.9 mg/mg Normal [facility] Comment on above: Performed By: #### L IVER, LIPID, FT3, BMP, TSH #### [facility] [address] [place] [address] Dr. Dashawn Mayo TSHon 05-19-2021 TSH 1.888 uIU/mL Normal 0.470-4.680 [facility] Comment on above: Performed By: #### L IVER, LIPID, FT3, BMP, TSH #### [facility] [address] [place] [address] Dr. Dashawn Mayo TSH RANGE SEE BELOW Normal [facility] Comment on above: Result Comment: <0.3 4 UIU/ml HYPERTHYROID 0.34-5.60 UIU/ml EUTHYROID >5.60 UIU/ml HYPOTHYROID Performed By: #### L IVER, LIPID, FT3, BMP, TSH #### [facility] [address] [place] [address] Dr. Dashawn Mayo VITAMIN D 25 OHon 05-19-2021 VIT D 25-OH 97.4 ng/mL Normal [facility] Comment on above: Performed By: #### V ITAD, FT4 #### [facility] [address] [place] [address] Dr. Dashawn Mayo VIT D RANGES SEE BELOW Normal [facility] Comment on above: Result Comment: <20 ng/mL Vit D deficient 20 - <30 ng/mL Vit D insufficient 30 - 100 ng/mL Vit D sufficient >100 ng/mL Potential Toxicity Performed By: #### V ITAD, FT4 #### [facility] [address] [place], [place] [id number] Dr. Dashawn Mayo Vital Signs Date Time Vital Sign Value Performing Clinician Facility 07-03-2023 14:40-0500 Body height 160.02 cm Kimberly Scott Other [facility] Other 07-03-2023 14:40-0500 Body mass index (BMI) [Ratio] 41.45 kg/m2 Kimberly Scott Other [facility] Other 07-03-2023 14:40-0500 Body temperature 100.9 [degF] Kimberly Scott Other [facility] Other 07-03-2023 14:40-0500 Body weight 106.14 kg Kimberly Scott Other [facility] Other 07-03-2023 14:40-0500 Respiratory rate 18 /min Kimberly Scott Other [facility] Other 07-03-2023 14:40-0500 SaO2% (BldA) [Mass fraction] 95 % Kimberly Scott Other [facility] Other 12-05-2022 17:40-0400 Body height 160.02 cm Kimberly Scott Other [facility] Other 12-05-2022 17:40-0400 Body mass index (BMI) [Ratio] 45.7 kg/m2 Kimberly Scott Other [facility] Other 12-05-2022 17:40-0400 Body temperature 98.6 [degF] Kimberly Scott Other [facility] Other 12-05-2022 17:40-0400 Body weight 117.03 kg Kimberly Scott Other [facility] Other 12-05-2022 17:40-0400 Diastolic blood pressure 86 mm[Hg] Kimberly Scott Other [facility] Other 12-05-2022 17:40-0400 Respiratory rate 18 /min Kimberly Scott Other [facility] Other 12-05-2022 17:40-0400 SaO2% (BldA) [Mass fraction] 97 % Kimberly Scott Other [facility] Other 12-05-2022 17:40-0400 Systolic blood pressure 145 mm[Hg] Kimberly Scott Other [facility] Other Encounters Encounter Date Encounter Type Care Provider Facility Start: 08-09-2023 [facility] Result Encounter Generic External Data Provider [facility] External Department Unsolicited Start: 08-09-2023 [facility] Result Encounter Generic External Data Provider [facility] External Department Unsolicited Start: 07-24-2023 End: 07-24-2023 ambulatory JOSI VELARDEO Not Available Start: 07-03-2023 End: 07-03-2023 ambulatory Kimberly Scott Other [facility] Other Start: 07-03-2023 Office outpatient vi sit 25 minutes Kimberly Scott [facility] Start: 07-03-2023 Telephone encounter Kimberly Scott [facility] [address] Start: 06-18-2023 End: 06-18-2023 ambulatory JADEN ANTONIO Not Available Start: 05-28-2023 End: 05-28-2023 ambulatory YULY JARQUIN Not Available Start: 12-05-2022 End: 12-05-2022 ambulatory Kimberly Scott Other [facility] Other Start: 12-05-2022 Office outpatient ne w 20 minutes Kimberly Scott [facility] Start: 03-13-2022 End: 03-14-[address] JADEN ANTONIO Facility:[facility] Start: 05-28-2021 Encounter for genera l adult medical examination without abnormal findings DR JADEN ANTONIO [facility] Start: 05-19-2021 End: 05-20-[address] JADEN ANTONIO Facility:[facility] Start: 05-19-2021 End: 05-20-2021 Encounter for general adult medical examination without abnormal findings DR JADEN ANTONIO Facility:[facility] Procedures Date Procedure Procedure Detail Performing Clinician Start: 08-09-2023 ALL CBC WITH AUTO DIFF Josi Pereyra DO Work Phone: Start: 01-22-2023 Microscopic observat ion [Identifier] in Cervix by Cyto stain Generic Provider Plan of Treatment Date Care Activity Detail Author Start: 02-01-2026 Screening for malign ant neoplasm of colon [facility] Start: 01-22-2026 Screening for malign ant neoplasm of cervix [facility] Start: 09-10-2023 End: 09-10-2023 Patient encounter procedure 09/10/2023 9:45 AM EDT Office Visit [facility] [address] [place] [id number] Jaden Antonio MD [address] [place] [phone] [facility] Start: 08-30-2023 End: 08-30-2023 Patient encounter procedure 08/30/2023 10:30 AM EST Office Visit [facility] [address] [address] Yuly Jarquin PA [address] [place], [place] [id number] [facility] Start: 2023 Influenza vaccination Influenza Vacc ine (#1) [facility] Start: 2013 Screening for malign ant neoplasm of breast Mammogram [facility] Start: 2003 Screening for malign ant neoplasm of cervix HPV/Cotest [facility] Start: 1973 Screening for malign ant neoplasm of colon [facility] Payers Date Payer Category Payer Medicaid [id number] 2016 Medicaid [employer] [place] [id number] 2016-Present [address] [place] [address] [id number] 1973 Unknown [id number] 1973 Unknown [id number] 1973 Unknown [id number] 1973 Unknown [id number] 1973 Unknown [id number] 1959 Unknown [id number] Unknown [id number] Social History Date Type Detail Facility Start: 06-18-2023 Sex Assigned At N [facility] Other Start: 06-18-2023 Tobacco smoking stat [facility] Smokes tobacco daily [facility] History of tobacco use Cigarette Smoker N [facility] Start: 06-18-2023 Cigarettes smoked current (pack per day) - Reported 1.5 [facility] Start: 06-18-2023 Tobacco use and exposure Smokeless tobacco non-user [facility] Start: 07-20-2023 Alcohol intake Lifetime non-d marva (finding) [facility] Start: 1975 Sex Assigned At Not on file N [facility] Evaluation note 07-03-2023 Note Date & Type Note Facility 07-03-2023 Evaluation note Encounter Date Diagnosis Assessment Notes Jul, Body aches (ICD-10 - R52) Jul, COVID-19 (ICD-10 - U07.1) Rapid COVID test performed in office today. Advised patient that test was positive. Instructed patient to isolate per CDC guidelines for 5 days from symptom onset, mask 5 days following. May return to work/activities outside home after isolation period as long as symptoms are improving and has been afebrile for 24 hours without use of antipyretic. Advised patient that treatment of COVID is with viral supportive care, rx of Capmist, Tylenol/Motrin as needed for body aches/fever. Increase fluids and rest. Encouraged use of cool mist humidifier. Follow-up with PCP to advise of positive result and further management. Immediate eval for SOB, difficulty, chest pain, fevers that do not break with antipyretic or any other concerning symptoms as reviewed on patient education handout. Patient verbalizes understanding and is agreeable to treatment plan. Patient left in stable condition [facility] Other Evaluation note 12-05-2022 Note Date & Type Note Facility 12-05-2022 Evaluation note Encounter Date Diagnosis Assessment Notes Nov, Rash and nonspecific skin eruption (ICD-10 - R21) Discussed diagnosis with patient today in office. Advised patient that I only appreciate mild reaction, however, since rash is present on face patient requesting oral steroids in case that it gets worse. Advised to start with cetirizine, and take steroid if needed. Advised patient to avoid hot water, may use cool compresses. Follow-up with PCP if symptoms do not improve. Immediate evaluation in ER for signs/symptoms as discussed. Patient verbalizes understanding and is agreeable with treatment plan [facility] Other Evaluation note Note Date & Type Note Facility Evaluation note No Information [employer] Other History general Narrative - Reported Note Date & Type Note Facility History general Narrative - Reported Type Medical History Asthma Medical History acid reflux Medical History seasonal allergies Medical History ptsd Medical History depression/anxiety [facility] Other History general Narrative - Reported Note Date & Type Note Facility History general Narrative - Reported Type Medical History Asthma Medical History acid reflux Medical History seasonal allergies Medical History ptsd Medical History depression/anxiety Medical History lupus Surgical History uterine ablation [facility] Other Summary Purpose Family History No Family History Records FoundNo Family History Records Found Advance Directives No Advanced Directives Records FoundNo Advanced Directives Records Found Additional Source Comments INFORMATION SOURCE (unrecogn ized section and content) DATE CREATED AUTHOR 04/01/2022 [facility] DATE CREATED AUTHOR AUTHOR'S ORGANIZ ATION 07/25/2023 [facility] EPIC REASON FOR VISIT (unrecogniz ed section and content) Rash on facePRESCRIPTIONSHEA DACHE, COLD, BONES HURT, COUGHING UP PHLEM Care Teams (unrecognized sec tion and content) 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 This clinical summary was aggregated from multiple sources. Caution should be exercised in using it in the provision of clinical care. This summary normalizes information from multiple sources, and as a consequence, information in this document may materially change the coding, format and clinical context of patient data. In addition, data may be omitted in some cases. CLINICAL DECISIONS SHOULD BE BASED ON THE PRIMARY CLINICAL RECORDS. [employer] provides no warranty or guarantee of the accuracy or completeness of information in this document.
== END 2023-08-20 09:02 | disposition home or self-care (01) ==
LOC: LAB 09:01
PROVIDERS: PCP Family Medicine; Visit Provider Obstetrics & Gynecology
DX: Z01.812 Encounter for preprocedural laboratory examination (principal); R10.2 Pelvic and perineal pain; N92.0 Excessive and frequent menstruation with regular cycle; N94.6 Dysmenorrhea, unspecified; N94.10 Unspecified dyspareunia; Z98.890 Other specified postprocedural states; R87.612 Low grade squamous intraepithelial lesion on cytologic smear of cervix (LGSIL)
CPT/HCPCS: 36415; 86850; 86900; 86901

== ENCOUNTER 2023-08-23 10:44 | Day surgery (SDC) | payer OTHER, SELFPAY ==
[2023-08-09 10:18] VITALS: BP 130/80; PULSE 95; RESP 20; TEMP 36.5; O2SAT 95; BMI 41.2
[2023-08-09 16:45] VITALS: BP 119/71; PULSE 59; RESP 18; O2SAT 90
[2023-08-23] VITALS (23 sets, daily range): BP systolic 113–165; BP diastolic 67–100; PULSE 59–103; RESP 15–23; TEMP 36.3–36.7; O2SAT 80–95; BMI 39.0
--- OUTSIDE RECORDS SUMMARY | 2023-08-23 10:48 | XMS_ITS | CCD ---
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 Name Role Phone MARISELA, DR JADEN Ledesma [...] Facility (2 sources) pred[facility]SONE Drug Allergy Unknown [facility] Other Medications Current Medications Medication Drug Class(es) Dates Sig (Normalized) Sig (Original) albuterol 0.83 mg/ml inhalation solution (8 sources) beta2-Adrenergic Agonist Start: 06-18-2023 albuterol (2.5 MG/3ML) 0.083% nebulizer solution Indications: Chronic obstructive pulmonary disease, unspecified COPD type ([facility]/HCC) Take 3 mL (2.5 mg) by nebulization [...] oral tablet (2 sources) alpha-Adrenergic Agonist, Uncompetitive D-rwrcld-L-aspartate Receptor Antagonist, Sigma-1 Agonist Start: 07-03-2023 take [...] WITH AUTO DIFFon BASOPHILS ABSOLUTE AUTO 0.1 [facility] Basophils/100 WBC (Bld) 1.0 % 0.2 - 2.0 % [facility] Eosinophils/100 WBC (Bld) 1.3 % 0.9 - 7.0 % [facility] Erythrocyte distribution width (RBC) [Ratio] 15.6 % High 11.0 - 15.0 % [facility] Hematocrit (Bld) [Volume fraction] 45.1 % 36.0 - 48.0 % [facility] (Bld[facility] [Mass/Vol] 14.5 g/dL 12.0 - 16.0 g/dL [facility] IMMATURE GRANULOCYTES ABS AUTO 0.03 [facility] Immature granulocytes/100 WBC (Bld) 0.3 % 0.0 - 0.5 % [facility] Interpretation and review of laboratory results Abnormal [facility] LYMPHOCYTES ABSOLUTE AUTO 3.0 [facility] Lymphocytes/100 WBC (Bld) 30.2 % 20.5 - 60.0 % [facility] MCH (RBC) [Entitic mass] 27.1 pg 26.7 - 34.0 pg [facility] MCHC (RBC) [Mass/Vol] 32.2 g/dL 29.9 - 35.2 g/dL [facility] MCV (RBC) [Entitic vol] 84.3 fL 81.0 - 99.0 fL [facility] MONOCYTES ABSOLUTE AUTO 0.6 [facility] Monocytes/100 WBC (Bld) 6.3 % 1.7 - 12.0 % [facility] NEUTROPHILS ABSOLUTE AUTO 6.1 [facility] Neutrophils/100 WBC (Bld) 60.9 % 43.0 - 75.0 % [facility] Platelet mean volume (Bld) [Entitic vol] 9.3 fL Low 9.5 - 13.5 fL [facility] EO # 0.1 [facility] PLT 293 [facility] RBC 5.35 [facility] WBC 10.0 [facility] COVID + FLU Quick Testingon 07-03-2023 SARS-CoV-2 (COVID-19) RNA JESSIE+probe Ql (Unsp spec) Positive [facility] Other COVID + FLU Quick Testing Negative [facility] Other MG MAMM SCREEN 3D PILY CADon 03-13-2022 MG MAMM SCREEN 3D PILY CAD Patient: JENN MCCANN Exam Date: 03/13/2022 : 1975 Gender:F Ordering : DR JADEN ANTONIO . Admission #: [id number] Family : Order #: [id number] CLICK HERE TO VIEW EXAM RADIOLOGY REPORT [...] Treatments None Family Cancers None LOCATION: [facility] BREAST COMPOSITION: Scattered areas fibroglandular density. FINDINGS: [...] M.D. on 03/14/2022 at 08:50 Normal [facility] CBC AUTO DIFFon 05-19-2021 BASO # 0.1 103/ul Normal 0.0-0.1 [facility] Comment on above: Performed By: #### C BC #### [facility] [address] [address] [address] Dashawn Mayo Basophils/100 WBC (Bld) 0.9 % Normal 0.2-2.0 [facility] Comment on above: Performed By: #### C BC #### [facility] [address] [address] [address] Dashawn Mayo EO # 0.2 103/ul Normal 0.0-0.7 [facility] Comment on above: Performed By: #### C BC #### [facility] [address] [address] [address] Dashawn Mayo Eosinophils/100 WBC (Bld) 2.3 % Normal 0.9-7.0 [facility] Comment on above: Performed By: #### C BC #### [facility] [address] [address] [address] Dashawn Mayo Erythrocyte distribution width (RBC) [Ratio] 15.2 % Critically high 11.0-15.0 [facility] Comment on above: Performed By: #### C BC #### [facility] [address] [place] [address] Dr. Dashawn Mayo Hematocrit (Bld) [Volume fraction] 45.5 % Normal 36.0-48.0 [facility] Comment on above: Performed By: #### C BC #### [facility] [address] [place] [address] Dr. Dashawn Mayo Hemoglobin (Bld) [Mass/Vol] 14.4 g/dL Normal 12.0-16.0 [facility] Comment on above: Performed By: #### C BC #### [facility] [address] [place] [address] Dr. Dashawn Mayo IG # 0.03 10e3/ul Normal 0.00-0.03 [facility] Comment on above: Performed By: #### C BC #### [facility] [address] [place] [address] Dr. Dashawn Mayo IG % 0.3 % Normal 0.0-0.5 [facility] Comment on above: Performed By: #### C BC #### [facility] [address] [place] [address] Dr. Dashawn Mayo LYMPH # 2.8 103/ul Normal 1.2-3.8 [facility] Comment on above: Performed By: #### C BC #### [facility] [address] [place] [address] Dr. Dashawn Mayo Lymphocytes/100 WBC (Bld) 27.4 % Normal 20.5-60.0 [facility] Comment on above: Performed By: #### C BC #### [facility] [address] [place] [address] Dr. Dashawn Mayo MANUAL DIFF REQ NO Normal [facility] Comment on above: Performed By: #### C BC #### [facility] [address] [place] [address] Dr. Dashawn Mayo MCH (RBC) [Entitic mass] 27.2 pg Normal 26.7-34.0 [facility] Comment on above: Performed By: #### C BC #### [facility] [address] [place] [address] Dr. Dashawn Mayo MCHC (RBC) [Mass/Vol] 31.6 g/dL Normal 29.9-35.2 [facility] Comment on above: Performed By: #### C BC #### [facility] [address] [place] [address] Dr. Dashawn Mayo MCV (RBC) [Entitic vol] 85.8 fL Normal 81.0-99.0 [facility] Comment on above: Performed By: #### C BC #### [facility] [address] [place] [address] Dr. Dashawn Mayo MONO # 0.5 103/ul Normal 0.3-0.8 [facility] Comment on above: Performed By: #### C BC #### [facility] [address] [place] [address] Dr. Dashawn Mayo Monocytes/100 WBC (Bld) 4.5 % Normal 1.7-12.0 [facility] Comment on above: Performed By: #### C BC #### [facility] [address] [place] [address] Dr. Dashawn Mayo NEUT # 6.7 103/ul Critically high 1.4-6.5 [facility] Comment on above: Performed By: #### C BC #### [facility] [address] [place] [address] Dr. Dashawn Mayo Neutrophils/100 WBC (Bld) 64.6 % Normal 43.0-75.0 [facility] Comment on above: Performed By: #### C BC #### [facility] [address] [place] [address] Dr. Dashawn Mayo Platelet mean volume (Bld) [Entitic vol] 10.3 fL Normal 9.5-13.5 [facility] Comment on above: Performed By: #### C BC #### [facility] [address] [place] [address] Dr. Dashawn Mayo PLT 295 103/ul Normal 150-450 [facility] Comment on above: Performed By: #### C BC #### [facility] [address] [place] [address] Dr. Dashawn Mayo RBC 5.30 106/ul Normal 4.20-5.40 [facility] Comment on above: Performed By: #### C BC #### [facility] [address] [place] [address] Dr. Dashawn Mayo WBC 10.4 103/ul Normal 4.0-11.0 [facility] Comment on above: Performed By: #### C BC #### [facility] [address] [address] [address] Dashawn Mayo FREE T3on 05-19-2021 FREE T3 2.20 pg/mlL Critically low 2.77-5.27 [facility] Comment on above: Performed By: #### L IVER, LIPID, FT3, BMP, TSH #### [facility] [address] [address] [address] Dashawn Mayo FREE T4on 05-19-2021 Free T4 [Mass/Vol] 0.97 ng/dL Normal 0.78-2.19 [facility] Comment on above: Performed By: #### V ITAD, FT4 #### [facility] [address] [address] [address] Dashawn Mayo GLYCOHEMOGLOBIN A1Con 2020 ADA RECOMMENDATION ADA THERAPEUTIC TARGET 6.0 - 7.0 ACTION SUGGESTED > 7.0 Normal [facility] Comment on above: Performed By: #### A 1C #### [facility] [address] [address] [address] Dashawn Mayo Glucose [Mass/Vol] 126 mg/dL Normal [facility] Comment on above: Performed By: #### A 1C #### [facility] [address] [place] [address] Dr. Dashawn Mayo HbA1c (Bld) [Mass fraction] 6.0 % Normal <=6.0 [facility] Comment on above: Performed By: #### A 1C #### [facility] [address] [place] [address] Dr. Dashawn Mayo LIPID PROFILEon 05-19-2021 CHOL-HDL RATIO NORM SEE BELOW Normal [facility] Comment on above: Result Comment: 3.3 - 4.4 LOW RISK 4.4 - 7.1 AVERAGE RISK 7.1 - 11.0 MODERATE RISK >11.0 HIGH RISK Performed By: #### L IVER, LIPID, FT3, BMP, TSH #### [facility] [address] [place] [address] Dr. Dashawn Mayo Cholesterol [Mass/Vol] 250 mg/dL Critically high <=200 [facility] Comment on above: Performed By: #### L IVER, LIPID, FT3, BMP, TSH #### [facility] [address] [address] [address] Dashawn Mayo Cholesterol in HDL [Mass/Vol] 41 mg/dL Normal [facility] Comment on above: Performed By: #### L IVER, LIPID, FT3, BMP, TSH #### [facility] [address] [address] [address] Dashawn Mayo Cholesterol in LDL [Mass/Vol] 188.2 mg/dL Normal [facility] Comment on above: Performed By: #### L IVER, LIPID, FT3, BMP, TSH #### [facility] [address] [place] [address] Dr. Dashawn Mayo Cholesterol.total/Ch olesterol in HDL [Mass ratio] 6.1 {ratio} Normal [facility] Comment on above: Performed By: #### L IVER, LIPID, FT3, BMP, TSH #### [facility] [address] [address] [address] Dashawn Mayo HDL NORMAL > or = 60 mg/dl - LOW CARDIOVASCULAR RISK <40 mg/dl - HIGH CARDIOVASCULAR RISK Normal [facility] Comment on above: Performed By: #### L IVER, LIPID, FT3, BMP, TSH #### [facility] [address] [place] [address] Dr. Dashawn Mayo LDL CALC NORMAL SEE BELOW Normal [facility] Comment on above: Result Comment: <100 mg/dl OPTIMAL 100 - 129 mg/dl NEAR OR ABOVE OPTIMAL 130 - 159 mg/dl BORDERLINE HIGH 160 - 189 mg/dl HIGH >190 mg/dl VERY HIGH Performed By: #### L IVER, LIPID, FT3, BMP, TSH #### [facility] [address] [address] [address] Dashawn Mayo Triglyceride [Mass/Vol] 104 mg/dL Normal <=150 [facility] Comment on above: Performed By: #### L IVER, LIPID, FT3, BMP, TSH #### [facility] [address] [address] [address] Dashawn Mayo VLDL CALC 20.8 mg/dL Normal [facility] Comment on above: Performed By: #### L IVER, LIPID, FT3, BMP, TSH #### [facility] [address] [address] [address] Dashawn Mayo LIVER PROFILEon 05-19-2021 Albumin [Mass/Vol] 3.6 g/dL Normal 3.5-5.[address] [facility] Comment on above: Performed By: #### L IVER, LIPID, FT3, BMP, TSH #### [facility] [address] [place] [address] Dr. Dashawn Mayo Albumin/Globulin [Mass ratio] 0.9 {ratio} Normal [facility] Comment on above: Performed By: #### L IVER, LIPID, FT3, BMP, TSH #### [facility] [address] [place] [address] Dr. Dashawn Mayo ALP [Catalytic activity/Vol] 72 U/L Normal 38-126 [facility] Comment on above: Performed By: #### L IVER, LIPID, FT3, BMP, TSH #### [facility] [address] [place] [address] Dr. Dashawn Mayo ALT [Catalytic activity/Vol] 16 U/L Normal 9-52 [facility] Comment on above: Performed By: #### L IVER, LIPID, FT3, BMP, TSH #### [facility] [address] [place] [address] Dr. Dashawn Mayo AST [Catalytic activity/Vol] 13 U/L Critically low 14-36 [facility] Comment on above: Performed By: #### L IVER, LIPID, FT3, BMP, TSH #### [facility] [address] [place] [address] Dr. Dashawn Mayo BILI, CONJUGATED 0.0 mg/dL Normal 0.0-0.3 [facility] Comment on above: Performed By: #### L IVER, LIPID, FT3, BMP, TSH #### [facility] [address] [place] [address] Dr. Dashawn Mayo Bilirubin [Mass/Vol] 0.3 mg/dL Normal 0.2-1.3 [facility] Comment on above: Performed By: #### L IVER, LIPID, FT3, BMP, TSH #### [facility] [address] [place] [address] Dr. Dashawn Mayo Globulin (S) [Mass/Vol] 4.0 g/dL Normal [facility] Comment on above: Performed By: #### L IVER, LIPID, FT3, BMP, TSH #### [facility] [address] [place] [address] Dr. Dashawn Mayo Protein [Mass/Vol] 7.6 g/dL Normal 6.1-8.2 [facility] Comment on above: Performed By: #### L IVER, LIPID, FT3, BMP, TSH #### [facility] [address] [place] [address] Dr. Dashawn Mayo PROF CHEM 8 (BAS METB)on Anion gap [Moles/Vol] 12.6 mmol/L Normal [facility] Comment on above: Performed By: #### L IVER, LIPID, FT3, BMP, TSH #### [facility] [address] [place] [address] Dr. Dashawn Mayo Calcium [Mass/Vol] 9.1 mg/dL Normal 8.4-10.2 [facility] Comment on above: Performed By: #### L IVER, LIPID, FT3, BMP, TSH #### [facility] [address] [place] [address] Dr. Dashawn Mayo Chloride [Moles/Vol] 102 mmol/L Normal 98-107 [facility] Comment on above: Performed By: #### L IVER, LIPID, FT3, BMP, TSH #### [facility] [address] [place] [address] Dr. Dashawn Mayo CO2 [Moles/Vol] 27.9 mmol/L Normal 22.0-30.0 [facility] Comment on above: Performed By: #### L IVER, LIPID, FT3, BMP, TSH #### [facility] [address] [place] [address] Dr. Dashawn Mayo Creatinine [Mass/Vol] 0.81 mg/dL Normal 0.52-1.04 [facility] Comment on above: Performed By: #### L IVER, LIPID, FT3, BMP, TSH #### [facility] [address] [place] [address] Dr. Dashawn Mayo EGFR-AF EGYPTIAN >60 Normal >=60 [facility] Comment on above: Performed By: #### L IVER, LIPID, FT3, BMP, TSH #### [facility] [address] [place] [address] Dr. Dashawn Mayo EGFR-NON AF EGYPTIAN >60 Normal >=60 [facility] Comment on above: Performed By: #### L IVER, LIPID, FT3, BMP, TSH #### [facility] [address] [place] [address] Dr. Dashawn Mayo Glucose [Mass/Vol] 94 mg/dL Normal 74-106 [facility] Comment on above: Performed By: #### L IVER, LIPID, FT3, BMP, TSH #### [facility] [address] [place] [address] Dr. Dashawn Mayo Potassium [Moles/Vol] 4.5 mmol/L Normal 3.4-5.0 [facility] Comment on above: Performed By: #### L IVER, LIPID, FT3, BMP, TSH #### [facility] [address] [place] [address] Dr. Dashawn Mayo Sodium [Moles/Vol] 138 mmol/L Normal 137-145 [facility] Comment on above: Performed By: #### L IVER, LIPID, FT3, BMP, TSH #### [facility] [address] [place] [address] Dr. Dashawn Mayo Urea nitrogen [Mass/Vol] 8.0 mg/dL Normal 7.0-17.0 [facility] Comment on above: Performed By: #### L IVER, LIPID, FT3, BMP, TSH #### [facility] [address] [address] [address] Dashawn Mayo Urea nitrogen/Creatinine [Mass ratio] 9.9 mg/mg Normal [facility] Comment on above: Performed By: #### L IVER, LIPID, FT3, BMP, TSH #### [facility] [address] [place] [address] Dr. Dashawn Mayo TSHon 05-19-2021 TSH 1.888 uIU/mL Normal 0.470-4.680 [facility] Comment on above: Performed By: #### L IVER, LIPID, FT3, BMP, TSH #### [facility] [address] [place] [address] Dr. Dashawn Mayo TSH RANGE SEE BELOW Normal [facility] Comment on above: Result Comment: <0.3 4 UIU/ml HYPERTHYROID 0.34-5.60 UIU/ml EUTHYROID >5.60 UIU/ml HYPOTHYROID Performed By: #### L IVER, LIPID, FT3, BMP, TSH #### [facility] [address] [place] [address] Dr. Dashawn Mayo VITAMIN D 25 OHon 05-19-2021 VIT D 25-OH 97.4 ng/mL Normal [facility] Comment on above: Performed By: #### V ITAD, FT4 #### [facility] [address] [place] [address] Dr. Dashawn Mayo VIT D RANGES SEE BELOW Normal [facility] Comment on above: Result Comment: <20 ng/mL Vit D deficient 20 - <30 ng/mL Vit D insufficient 30 - 100 ng/mL Vit D sufficient >100 ng/mL Potential Toxicity Performed By: #### V ITAD, FT4 #### [facility] [address] [place], [place] [id number] Dr. Dashawn Mayo Vital Signs Date Time Vital Sign Value Performing Clinician Facility 07-03-2023 14:40-0500 Body height 160.02 cm Kimberly Scott Other [facility] Other 07-03-2023 14:40-0500 Body mass index (BMI) [Ratio] 41.45 kg/m2 Kimberly Scott Other [facility] Other 07-03-2023 14:40-0500 Body temperature 100.9 [degF] Kimberly Scott Other [facility] Other 07-03-2023 14:40-0500 Body weight 106.14 kg Kimberly Scott Other [facility] Other 07-03-2023 14:40-0500 Respiratory rate 18 /min Kimberly Scott Other [facility] Other 07-03-2023 14:40-0500 SaO2% (BldA) [Mass fraction] 95 % Kimberly Scott Other [facility] Other 12-05-2022 17:40-0400 Body height 160.02 cm Kimberly Scott Other [facility] Other 12-05-2022 17:40-0400 Body mass index (BMI) [Ratio] 45.7 kg/m2 Kimberly Scott Other [facility] Other 12-05-2022 17:40-0400 Body temperature 98.6 [degF] Kimberly Scott Other [facility] Other 12-05-2022 17:40-0400 Body weight 117.03 kg Kimberly Scott Other [facility] Other 12-05-2022 17:40-0400 Diastolic blood pressure 86 mm[Hg] Kimberly Scott Other [facility] Other 12-05-2022 17:40-0400 Respiratory rate 18 /min Kimberly Scott Other [facility] Other 12-05-2022 17:40-0400 SaO2% (BldA) [Mass fraction] 97 % Kimberly Scott Other [facility] Other 12-05-2022 17:40-0400 Systolic blood pressure 145 mm[Hg] Kimberly Scott Other [facility] Other Encounters Encounter Date Encounter Type Care Provider Facility Start: 08-09-2023 [facility] Result Encounter Generic External Data Provider [facility] External Department Unsolicited Start: 08-09-2023 [facility] Result Encounter Generic External Data Provider [facility] External Department Unsolicited Start: 07-24-2023 End: 07-24-2023 ambulatory JOSI VELARDEO Not Available Start: 07-03-2023 End: 07-03-2023 ambulatory Kimberly Scott Other [facility] Other Start: 07-03-2023 Office outpatient vi sit 25 minutes Kimberly Scott [facility] Start: 07-03-2023 Telephone encounter Kimberly Scott [facility] [address] Start: 06-18-2023 End: 06-18-2023 ambulatory JADEN ANTONIO Not Available Start: 05-28-2023 End: 05-28-2023 ambulatory YULY JARQUIN Not Available Start: 12-05-2022 End: 12-05-2022 ambulatory Kimberly Scott Other [facility] Other Start: 12-05-2022 Office outpatient ne w 20 minutes Kimberly Scott [facility] Start: 03-13-2022 End: 03-14-[address] JADEN ANTONIO Facility:[facility] Start: 05-28-2021 Encounter for genera l adult medical examination without abnormal findings DR JADEN ANTONIO [facility] Start: 05-19-2021 End: 05-20-[address] JADEN [...] Screening for malign ant neoplasm of colon [facility] Start: 01-22-2026 Screening for malign ant neoplasm of cervix [facility] Start: 09-10-2023 End: 09-10-2023 Patient encounter procedure 09/10/2023 9:45 AM EDT Office Visit [facility] [address] [place] [id number] Jaden Antonio MD [address] [place] [phone] [facility] Start: 08-30-2023 End: 08-30-2023 Patient encounter procedure 08/30/2023 10:30 AM EST Office Visit [facility] [address] [place] [address] Yuly Jarquin PA [address] [place], [place] [id number] [facility] Start: 2023 Influenza vaccination Influenza Vacc ine (#1) [facility] Start: 2013 Screening for malign ant neoplasm of breast Mammogram [facility] Start: 2003 Screening for malign ant neoplasm of cervix HPV/Cotest [facility] Start: 1973 Screening for malign ant neoplasm of colon [facility] Payers Date Payer Category Payer Medicaid [id number] 2016 Medicaid [employer] [place] [id number] 2016-Present [address] [place] [address] [id number] 1975 Unknown [id number] 1975 Unknown [id number] 1975 Unknown [id number] 1975 Unknown [id number] 1975 Unknown [id number] 1961 Unknown [id number] Unknown [id number] Social History Date Type Detail Facility Start: 06-18-2023 Sex Assigned At N [facility] Other Start: 06-18-2023 Tobacco smoking stat [facility] Smokes tobacco daily [facility] History of tobacco use Cigarette Smoker N [facility] Start: 06-18-2023 Cigarettes smoked current (pack per day) - Reported 1.5 [facility] Start: 06-18-2023 Tobacco use and exposure Smokeless tobacco non-user [facility] Start: 07-20-2023 Alcohol intake Lifetime non-d marva (finding) [facility] Start: 1975 Sex Assigned At Not on file N [facility] Evaluation note 07-03-2023 Note Date & [...] treatment plan. Patient left in stable condition [facility] Other Evaluation note 12-05-2022 Note Date & [...] understanding and is agreeable with treatment plan [facility] Other Evaluation note Note Date & Type Note Facility Evaluation note No Information [facility] Other History general Narrative - Reported Note Date & Type Note Facility History general Narrative - Reported Type Medical History Asthma Medical History acid reflux Medical History seasonal allergies Medical History ptsd Medical History depression/anxiety [facility] Other History general Narrative - Reported Note Date & Type Note Facility History general Narrative - Reported Type Medical History Asthma Medical History acid reflux Medical History seasonal allergies Medical History ptsd Medical History depression/anxiety Medical History lupus Surgical History uterine ablation [facility] Other Summary Purpose Family History No Family History Records FoundNo Family History Records Found Advance Directives No Advanced Directives Records FoundNo Advanced Directives Records Found Additional Source Comments INFORMATION SOURCE (unrecogn ized section and content) DATE CREATED AUTHOR 04/01/2022 [facility] DATE CREATED AUTHOR AUTHOR'S ORGANIZ ATION 07/25/2023 [facility] EPIC REASON FOR VISIT (unrecogniz ed section and content) Rash on facePRESCRIPTIONSHEA DACHE, COLD, BONES HURT, COUGHING UP PHLEM Care Teams (unrecognized sec tion and content) 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 [employer] provides no warranty or guarantee of the accuracy or completeness of information in this document.
[2023-08-23 10:56] LABS: Basophils Absolute Auto 0.1 10^3/uL (0.0-0.1); Basophils Percent Auto 0.9 % (0.2-2.0); Eosinophils Absolute Auto 0.1 10^3/uL (0.0-0.7); Eosinophils Percent Auto 0.7 % (0.9-7.0); Hematocrit 47.3 % (36.0-48.0); Hemoglobin 15.2 g/dL (12.0-16.0); Immature Granulocytes Abs Auto 0.02 10^3/uL (0.00-0.03); Immature Granulocytes Pct Auto 0.2 % (0.0-0.5); Lymphocytes Absolute Auto 2.4 10^3/uL (1.2-3.8); Lymphocytes Percent Auto 23.4 % (20.5-60.0); Mean Corpuscular HGB Conc 32.1 g/dL (29.9-35.2); Mean Corpuscular Hemoglobin 27.1 pg (26.7-34.0); Mean Corpuscular Volume 84.3 fL (81.0-99.0); Mean Platelet Volume 9.2 fL (9.5-13.5); Monocytes Absolute Auto 0.5 10^3/uL (0.3-0.8); Monocytes Percent Auto 4.6 % (1.7-12.0); Neutrophils Absolute Auto 7.1 10^3/uL (1.4-6.5); Neutrophils Percent Auto 70.2 % (43.0-75.0); Platelet Count 319 10^3/uL (150-450); Red Blood Count 5.61 10^6/uL (4.20-5.40); Red Cell Distribution Width 15.3 % (11.0-15.0); White Blood Count 10.1 10^3/uL (4.0-11.0)
[2023-08-23 11:20] LABS: Glucometer 114 mg/dL (74-106)
[2023-08-23 11:24] LABS: HCG Quantitative 3 mIU/mL
[2023-08-23] MEDS: LACTATED RINGER'S SOLUTION 1,000 ML 50 ML IV ×2 (11:31→14:07)
[2023-08-23] MEDS: CEFAZOLIN SODIUM/DEXTROSE,ISO 2 GM/50 ML PIGGYBACK IV ×2 (12:54→18:12)
[2023-08-23] MEDS: ALBUTEROL SULFATE 2.5 MG/3 ML VIAL NEB IH (13:09)
--- NOTE | 2023-08-23 14:44 | P.ON_ITS ---
Brief Operative Note Date of procedure: 08/23/23 Pre-op diagnosis: menorrhagia, dysemenorrhea Post-op diagnosis: same as pre-op Procedure: NAME OF PROCEDURE: ? Robotic assisted laparoscopic hysterectomy with cystoscopy, bilateral salpingectomy PROCEDURE:? The patient was taken back to the operating room, where she was prepped and draped in the normal sterile fashion after being placed in the dorsal lithotomy position.? Patient?s anesthesia was found to be adequate.? Surgical timeout was performed using two patient identifiers.? SCDs were on and in place.? Two grams of Ancef were given prior to the surgery.? Sterile Lombardi catheter was inserted.? Standard size VCare was secured to the uterine cervix and the surgeon changed gloves.? Attention then was turned to the patient's abdomen, where a supraumbilical incision was then made.? Two S retractors were used to identify the patient?s fascia.? The fascia was then tented up using Arias clamps and the patient?s fascia was incised sharply.? Patient?s abdomen was identified and entered bluntly.? The patient had the trocar placed and a pneumoperitoneum was obtained.? Approximately 4 liters of CO2 gas was used.? The camera was then placed through the trocar.? At this time, two robot trocars were placed in the patient?s left and right side, two hand widths from the midline, and this was placed under direct visualization.? The patient?s tube on the right side was tented up and the vessel sealer was then used to come across the mesosalpinx, and this was carried down to the uterine ovarian ligament.? The vessel sealer was carried down serially to the broad ligament, to the area of the bladder flap, which was then created anteriorly, and the uterine arteries were skeletonized and sealed using the vessel sealer.? The colpotomy was made using the monopolar cautery on cut, and this was carried circumferentially, posteriorly to anteriorly, until the uterus was amputated.? The specimen was then removed intact through the vagina, without difficulty.? The vagina was then closed using two running V-Loc in a non-lock fashion.? The robot was undocked.? The abdomen was desufflated.? The skin defects were closed using 4-0 Vicryl.? Please note, the fascia was closed using 0 Vicryl.? Sponge, lap and needle counts were correct x2.? Patient was taken to recovery room in stable condition.? The patient was awakened by Anesthesia first.? Patient tolerated procedure well.??Please note left ovarian cystectomy was performed using the vessel sealer Anesthesia: JOANN Surgeon: Chandrakant Pereyra [employer] Production Technician: Gaby Vargas Estimated blood loss (mL): 100 Pathology: other (uterus and tubwes) Condition: stable Disposition: PACU Urinary Catheter Management Urinary Catheter Management Urethral: Cath placed during this visit: no
[2023-08-23] MEDS: LACTATED RINGER'S SOLUTION 1,000 ML 125 ML IV (19:12)
[2023-08-23] MEDS: IBUPROFEN 400 MG TABLET 800 MG PO (20:16)
[2023-08-23 20:33] LABS: Basophils Percent Auto 0.3 % (0.2-2.0); Hemoglobin 14.2 g/dL (12.0-16.0); Immature Granulocytes Abs Auto 0.07 10^3/uL (0.00-0.03); Immature Granulocytes Pct Auto 0.5 % (0.0-0.5); Lymphocytes Absolute Auto 0.9 10^3/uL (1.2-3.8); Lymphocytes Percent Auto 6.2 % (20.5-60.0); Mean Corpuscular HGB Conc 32.3 g/dL (29.9-35.2); Mean Corpuscular Hemoglobin 27.5 pg (26.7-34.0); Mean Corpuscular Volume 85.1 fL (81.0-99.0); Mean Platelet Volume 9.6 fL (9.5-13.5); Monocytes Absolute Auto 0.2 10^3/uL (0.3-0.8); Monocytes Percent Auto 1.5 % (1.7-12.0); Neutrophils Absolute Auto 13.8 10^3/uL (1.4-6.5); Neutrophils Percent Auto 91.5 % (43.0-75.0); Platelet Count 302 10^3/uL (150-450); Red Blood Count 5.17 10^6/uL (4.20-5.40); Red Cell Distribution Width 15.5 % (11.0-15.0); White Blood Count 15.1 10^3/uL (4.0-11.0)
== END 2023-08-23 22:11 | disposition home or self-care (01) ==
LOC: SURGOUT 12:53 → MS 15:58
PROVIDERS: PCP Family Medicine; Visit Provider Obstetrics & Gynecology
PROC: (CPT 840; principal; 2023-08-23 12:30)
DX: R10.2 Pelvic and perineal pain (principal); N92.0 Excessive and frequent menstruation with regular cycle; N94.6 Dysmenorrhea, unspecified; J44.9 Chronic obstructive pulmonary disease, unspecified; E78.5 Hyperlipidemia, unspecified; F41.1 Generalized anxiety disorder; K21.9 Gastro-esophageal reflux disease without esophagitis; E55.9 Vitamin D deficiency, unspecified; F33.9 Major depressive disorder, recurrent, unspecified; R73.03 Prediabetes; F17.210 Nicotine dependence, cigarettes, uncomplicated; E66.01 Morbid (severe) obesity due to excess calories; Z68.41 Body mass index [BMI] 40.0-44.9, adult
CPT/HCPCS: 58571; 36415; 82948; 84702; 85025; 88307; 94640; 94667; 99999; J1094; J1170; J2704

== ENCOUNTER 2024-02-11 19:11 | Outpatient (REF) | payer OTHER, SELFPAY ==
--- OUTSIDE RECORDS SUMMARY | 2024-02-11 19:17 | XMS_ITS | CCD ---
Author Organization [facility] Care Team Providers Care Marketing Support Manager Name Role Phone DR JADEN ANTONIO Primary Care Unavailable MARISELA, DR JADEN Ledesma Admitting Unavailable MARISELA, DR JADEN Ledesma Attending Unavailable MARISELA, DR JADEN Ledesma Consulting Unavailable MARISELA, DR JADEN Ledesma Primary Care Unavailable MARISELA, DR JADEN Ledesma Admitting Unavailable MARISELA, DR JADEN Ledesma Attending Unavailable DORON, DR NATE Morales Consulting Unavailable MARISELA, DR JADEN Ledesma Consulting Unavailable Kimberly Scott Unavailable Jaden Antonio MD Primary Care Provider MD Jaden Antonio Primary Care Provider Josi Pereyra Attending Provider Jaden Antonio Primary Care Unavailable Josi Pereyra Attending Unavailable Josi Pereyra Admitting Unavailable JOSI PEREYRA Attending Unavailable YULY JARQUIN Attending Unavailable JADEN ANTONIO Attending Unavailable JOSI PEREYRA Attending Unavailable YULY JARQUIN Attending Unavailable JADEN ANTONIO Attending Unavailable Allergies Allergy Classification Reported Allergen(s) Allergy Type Date of Onset Reaction(s) Facility (3 sources) predniSONE; Translations: [prednisone] Drug Allergy 07-03-2023 Unknown [facility] Repository Medications Current Medications Medication Drug Class(es) Dates Sig (Normalized) Sig (Original) albuterol 0.83 mg/ml inhalation solution (8 sources) beta2-Adrenergic Agonist Start: 06-18-2023 albuterol (2.5 MG/3ML) 0.083% nebulizer solution Indications: Chronic obstructive pulmonary disease, unspecified COPD type ([facility]) Take 3 mL (2.5 mg) by nebulization [...] oral tablet (2 sources) alpha-Adrenergic Agonist, Uncompetitive P-viyzkm-D-aspartate Receptor Antagonist, Sigma-1 Agonist Start: 07-03-2023 take [...] by mouth in the morning. 30 tablet 05/28/2023 05/27/2024 Active famotidine 20 mg oral [...] not crush, chew, or split. 30 tablet 03/08/2023 03/07/2024 Active 24 hr mirabegron 50 [...] Respiratory Therapy Supplies (Full Kit Nebulizer Set) [facility] [place] (1 source) Start: 07-13-19 Respiratory Therapy Supplies (Full Kit Nebulizer Set) [facility] [place] Indications: Chronic obstructive pulmonary disease, unspecified COPD [...] mg oral tablet (3 sources) Corticosteroid Start: methylPREDNISolone 4 MG as directed Orally for [...] Test Name Value Interpretation Reference Range Facility [facility] 08-23-2023 L Specimen: [id number] Received: 08/24/23 Status: BRITTA Lewis Num: [id number] Spec Type: Surgical Subm Dr: Josi Pereyra Tissues: A Uterus w/ or w/o tubes ovaries except neoplastic or prolap (UTERUS PILY FT) Procedures: /12, Gross/Micro L5 Age/ Patient Sex Location Account Attending Physician Jenn Mccann 48/F [place] [id number] Josi Pereyra SPEC NUM: [id number] RECD: 08/24/23 STATUS: BRITTA LEWIS NUM: [id number] EVI: 08/23/[address]: Josi Pereyra ENTERED: 08/24/[address] [facility] [address]: Slade Hadley SPEC TYPE: Surgical DEPT: CIRA MACHADO ORDERED: , Gross/Micro L5 ORDERED: , Gross/Micro L5 Pathological Diagnosis Uterus, Bilateral Tubes, Hystrectomy: Uterus: Unremarkable Cervix: Unremarkable. Fallopian Tubes: Unremarkable. Clinical Information Menorrhagia, pelvic pain Gross Description Received in formalin labeled with the patient's name, date of and uterus, bilateral fallopian tubes is an intact 53.0 g 7.2 x 5 x 3.5 cm uterus. The fallopian tubes are received detached and with no laterality specified. The serosa is landrum-purple and dull. The cervix is 3 cm in diameter with a valentin-landrum dull ectocervical mucosa. There is a 0.3 cm linear os and a discrete transition zone leading into a trabeculated 2.5 cm long endocervical canal. The endometrial cavity is 2.7 cm cornu to cornu by 3.2 cm fundus to lower uterine segment. The endometrium is 0.1 cm thick red-brown and velvety. The myometrium is 1.3 cm thick with no well-circumscribed nodules or areas of markedly prominent trabeculation identified. The detached segments of fallopian tube are 5 x 0.5 cm and 6.2 x 0.5 cm. Bilaterally, the serosa is purple-landrum and dull. The fimbria are soft and unremarkable. Sectioning demonstrates a central lumen. [employer] sections are submitted in 6 cassettes as follows: A1 - Posterior cul-de-sac serosa A2 - Anterior and posterior cervix Specimen: [id number] Received: 08/24/23 Status: BRITTA Lewis Num: [id number] Spec Type: Surgical Subm : Josi Pereyra Tissues: A Uterus w/ or w/o tubes ovaries except neoplastic or prolap (UTERUS PILY FT) Procedures: , Gross/Micro L5 Patient: Jenn Mccann [id number] (Continued) Specimen: [id number] Received: 08/24/23 (Continued) Gross Description (Continued) Signed (signatur e on file) Arminda Vegas MD 08/30/23 2234 Specimen: [id number] Received: 08/24/23 Status: BRITTA Lewis Num: [id number] Spec Type: Surgical Subm Dr: Josi Pereyra Tissues: A Uterus w/ or w/o tubes ovaries except neoplastic or prolap (UTERUS PILY FT) Procedures: , Gross/Micro L5 Patient: Jenn Mccann [id number] (Continued) Specimen: [id number] Received: 08/24/23 (Continued) Gross Description (Continued) A3 - Anterior endomyometrium A4 - Posterior endomyometrium A5 - Pixley segment of fallopian tube with fimbria entirely submitted A6 - Longer segment of fallopian tube with fimbria entirely submitted CPT Codes 65141 Specimen: [id number] Received: 08/24/23 Status: BRITTA Lewis Num: [id number] Spec Type: Surgical Subm Dr: Josi Pereyra Tissues: A Uterus w/ or w/o tubes ovaries except neoplastic or prolap (UTERUS PILY FT) Procedures: , Gross/Micro L5 Patient: Jenn Mccann [id number] (Continued) Signed (signatur e on file) Arminda Vegas MD 08/30/232233 [facility] ALL CBC WITH AUTO DIFFon BASOPHILS ABSOLUTE AUTO 0.1 [facility] Basophils/100 WBC (Bld) 1.0 % 0.2 - 2.0 % [facility] Eosinophils/100 WBC (Bld) 1.3 % 0.9 - 7.0 % [facility] Erythrocyte distribution width (RBC) [Ratio] 15.6 % High 11.0 - 15.0 % [facility] Hematocrit (Bld) [Volume fraction] 45.1 % 36.0 - 48.0 % [facility] Hem[facility] (Bld) [Mass/Vol] 14.5 g/dL 12.0 - 16.0 g/dL [facility] IMMATURE GRANULOCYTES ABS AUTO 0.03 [facility] Immature granulocytes/100 WBC (Bld) 0.3 % 0.0 - 0.5 % [facility] Interpretation and review of laboratory results Abnormal [facility] LYMPHOCYTES ABSOLUTE AUTO 3.0 [facility] Lymphocytes/100 WBC (Bld) 30.2 % 20.5 - 60.0 % [facility] MCH (RBC) [Entitic mass] 27.1 pg 26.7 - 34.0 pg [facility] MCHC (RBC) [Mass/Vol] 32.2 g/dL 29.9 - 35.2 g/dL [facility] MCV (RBC) [Entitic vol] 84.3 fL 81.0 - 99.0 fL [facility] MONOCYTES ABSOLUTE AUTO 0.6 [facility] Monocytes/100 WBC (Bld) 6.3 % 1.7 - 12.0 % [facility] NEUTROPHILS ABSOLUTE AUTO 6.1 [facility] Neutrophils/100 WBC (Bld) 60.9 % 43.0 - 75.0 % [facility] Platelet mean volume (Bld) [Entitic vol] 9.3 fL Low 9.5 - 13.5 fL [facility] EO # 0.1 [facility] PLT 293 [facility] RBC 5.35 [facility] WBC 10.0 [facility] COVID + FLU Quick Testingon 07-03-2023 SARS-CoV-2 (COVID-19) RNA JESSIE+probe Ql (Unsp spec) Positive [facility] Other COVID + FLU Quick Testing Negative [facility] Other MG MAMM SCREEN 3D PILY CADon 03-13-2022 MG MAMM SCREEN 3D PILY CAD Patient: JENN MCCANN Exam Date: 03/13/2022 : 1975 Gender:F Ordering : DR JADEN ANTONIO . Admission #: [id number] Family : Order #: [id number] CLICK HERE TO VIEW EXAM RADIOLOGY REPORT [...] Treatments None Family Cancers None LOCATION: [facility] BREAST COMPOSITION: Scattered areas fibroglandular density. [...] M.D. on 03/14/2022 at 08:50 Normal [facility] CBC AUTO DIFFon 05-19-2021 BASO # 0.1 103/ul Normal 0.0-0.1 [facility] Comment on above: Performed By: #### C BC #### [facility] [address] [address] [address] Dashawn Mayo Basophils/100 WBC (Bld) 0.9 % Normal 0.2-2.0 [facility] Comment on above: Performed By: #### C BC #### [facility] [address] [address] [address] Dashawn Mayo EO # 0.2 103/ul Normal 0.0-0.7 [facility] Comment on above: Performed By: #### C BC #### [facility] [address] [address] [address] Dashawn Mayo Eosinophils/100 WBC (Bld) 2.3 % Normal 0.9-7.0 [facility] Comment on above: Performed By: #### C BC #### [facility] [address] [address] [address] Dashawn Mayo Erythrocyte distribution width (RBC) [Ratio] 15.2 % Critically high 11.0-15.0 [facility] Comment on above: Performed By: #### C BC #### [facility] [address] [address] [address] Dashawn Mayo Hematocrit (Bld) [Volume fraction] 45.5 % Normal 36.0-48.0 [facility] Comment on above: Performed By: #### C BC #### [facility] [address] [address] [address] Dashawn Mayo Hemoglobin (Bld) [Mass/Vol] 14.4 g/dL Normal 12.0-16.0 [facility] Comment on above: Performed By: #### C BC #### [facility] [address] [place] [address] Dr. Dashawn Mayo IG # 0.03 10e3/ul Normal 0.00-0.03 [facility] Comment on above: Performed By: #### C BC #### [facility] [address] [place] [address] Dr. Dashawn Mayo IG % 0.3 % Normal 0.0-0.5 [facility] Comment on above: Performed By: #### C BC #### [facility] [address] [place] [address] Dr. Dashawn Mayo LYMPH # 2.8 103/ul Normal 1.2-3.8 [facility] Comment on above: Performed By: #### C BC #### [facility] [address] [place] [address] Dr. Dashawn Mayo Lymphocytes/100 WBC (Bld) 27.4 % Normal 20.5-60.0 [facility] Comment on above: Performed By: #### C BC #### [facility] [address] [place] [address] Dr. Dashawn Mayo MANUAL DIFF REQ NO Normal [facility] Comment on above: Performed By: #### C BC #### [facility] [address] [place] [address] Dr. Dashawn Mayo MCH (RBC) [Entitic mass] 27.2 pg Normal 26.7-34.0 [facility] Comment on above: Performed By: #### C BC #### [facility] [address] [place] [address] Dr. Dashawn Mayo MCHC (RBC) [Mass/Vol] 31.6 g/dL Normal 29.9-35.2 [facility] Comment on above: Performed By: #### C BC #### [facility] [address] [place] [address] Dr. Dashawn Mayo MCV (RBC) [Entitic vol] 85.8 fL Normal 81.0-99.0 [facility] Comment on above: Performed By: #### C BC #### [facility] [address] [place] [address] Dr. Dashawn Mayo MONO # 0.5 103/ul Normal 0.3-0.8 [facility] Comment on above: Performed By: #### C BC #### [facility] [address] [place] [address] Dr. Dashawn Mayo Monocytes/100 WBC (Bld) 4.5 % Normal 1.7-12.0 [facility] Comment on above: Performed By: #### C BC #### [facility] [address] [place] [address] Dr. Dashawn Mayo NEUT # 6.7 103/ul Critically high 1.4-6.5 [facility] Comment on above: Performed By: #### C BC #### [facility] [address] [place] [address] Dr. Dashawn Mayo Neutrophils/100 WBC (Bld) 64.6 % Normal 43.0-75.0 [facility] Comment on above: Performed By: #### C BC #### [facility] [address] [place] [address] Dr. Dashawn Mayo Platelet mean volume (Bld) [Entitic vol] 10.3 fL Normal 9.5-13.5 [facility] Comment on above: Performed By: #### C BC #### [facility] [address] [place] [address] Dr. Dashawn Mayo PLT 295 103/ul Normal 150-450 [facility] Comment on above: Performed By: #### C BC #### [facility] [address] [place] [address] Dr. Dashawn Mayo RBC 5.30 106/ul Normal 4.20-5.40 [facility] Comment on above: Performed By: #### C BC #### [facility] [address] [place] [address] Dr. Dashawn Mayo WBC 10.4 103/ul Normal 4.0-11.0 [facility] Comment on above: Performed By: #### C BC #### [facility] [address] [address] [address] Dashawn Mayo FREE T3on 05-19-2021 FREE T3 2.20 pg/mlL Critically low 2.77-5.27 [facility] Comment on above: Performed By: #### L IVER, LIPID, FT3, BMP, TSH #### [facility] [address] [address] [address] Dashawn Mayo FREE T4on 05-19-2021 Free T4 [Mass/Vol] 0.97 ng/dL Normal 0.78-2.19 [facility] Comment on above: Performed By: #### V ITAD, FT4 #### [facility] [address] [address] [address] Dashawn Mayo GLYCOHEMOGLOBIN A1Con 2020 ADA RECOMMENDATION ADA THERAPEUTIC TARGET 6.0 - 7.0 ACTION SUGGESTED > 7.0 Normal [facility] Comment on above: Performed By: #### A 1C #### [facility] [address] [place] [address] Dr. Dashawn Mayo Glucose [Mass/Vol] 126 mg/dL Normal [facility] Comment on above: Performed By: #### A 1C #### [facility] [address] [place] [address] Dr. Dashawn Mayo HbA1c (Bld) [Mass fraction] 6.0 % Normal <=6.0 [facility] Comment on above: Performed By: #### A 1C #### [facility] [address] [place] [address] Dr. Dashawn Mayo LIPID PROFILEon 05-19-2021 CHOL-HDL RATIO NORM SEE BELOW Normal [facility] Comment on above: Result Comment: 3.3 - 4.4 LOW RISK 4.4 - 7.1 AVERAGE RISK 7.1 - 11.0 MODERATE RISK >11.0 HIGH RISK Performed By: #### L IVER, LIPID, FT3, BMP, TSH #### [facility] [address] [place] [address] Dr. Dashawn Mayo Cholesterol [Mass/Vol] 250 mg/dL Critically high <=200 [facility] Comment on above: Performed By: #### L IVER, LIPID, FT3, BMP, TSH #### [facility] [address] [address] [address] Dashawn Mayo Cholesterol in HDL [Mass/Vol] 41 mg/dL Normal [facility] Comment on above: Performed By: #### L IVER, LIPID, FT3, BMP, TSH #### [facility] [address] [address] [address] Dashawn Mayo Cholesterol in LDL [Mass/Vol] 188.2 mg/dL Normal [facility] Comment on above: Performed By: #### L IVER, LIPID, FT3, BMP, TSH #### [facility] [address] [address] [address] Dashawn Mayo Cholesterol.total/Ch olesterol in HDL [Mass ratio] 6.1 {ratio} Normal [facility] Comment on above: Performed By: #### L IVER, LIPID, FT3, BMP, TSH #### [facility] [address] [address] [address] Dashawn Myao HDL NORMAL > or = 60 mg/dl - LOW CARDIOVASCULAR RISK <40 mg/dl - HIGH CARDIOVASCULAR RISK Normal [facility] Comment on above: Performed By: #### L IVER, LIPID, FT3, BMP, TSH #### [facility] [address] [address] [address] Dashawn Mayo LDL CALC NORMAL SEE BELOW Normal [facility] Comment on above: Result Comment: <100 mg/dl OPTIMAL 100 - 129 mg/dl NEAR OR ABOVE OPTIMAL 130 - 159 mg/dl BORDERLINE HIGH 160 - 189 mg/dl HIGH >190 mg/dl VERY HIGH Performed By: #### L IVER, LIPID, FT3, BMP, TSH #### [facility] [address] [address] [address] Dashawn Mayo Triglyceride [Mass/Vol] 104 mg/dL Normal <=150 [facility] Comment on above: Performed By: #### L IVER, LIPID, FT3, BMP, TSH #### [facility] [address] [address] [address] Dashawn Mayo VLDL CALC 20.8 mg/dL Normal [facility] Comment on above: Performed By: #### L IVER, LIPID, FT3, BMP, TSH #### [facility] [address] [address] [address] Dashawn Mayo LIVER PROFILEon 05-19-2021 Albumin [Mass/Vol] 3.6 g/dL Normal 3.5-5.0 [facility] Comment on above: Performed By: #### L IVER, LIPID, FT3, BMP, TSH #### [facility] [address] [place] [address] Dr. Dashawn Mayo Albumin/Globulin [Mass ratio] 0.9 {ratio} Normal [facility] Comment on above: Performed By: #### L IVER, LIPID, FT3, BMP, TSH #### [facility] [address] [place] [address] Dr. Dashawn Mayo ALP [Catalytic activity/Vol] 72 U/L Normal 38-126 [facility] Comment on above: Performed By: #### L IVER, LIPID, FT3, BMP, TSH #### [facility] [address] [place] [address] Dr. Dashawn Mayo ALT [Catalytic activity/Vol] 16 U/L Normal 9-52 [facility] Comment on above: Performed By: #### L IVER, LIPID, FT3, BMP, TSH #### [facility] [address] [place] [address] Dr. Dashawn Mayo AST [Catalytic activity/Vol] 13 U/L Critically low 14-36 [facility] Comment on above: Performed By: #### L IVER, LIPID, FT3, BMP, TSH #### [facility] [address] [place] [address] Dr. Dashawn Mayo BILI, CONJUGATED 0.0 mg/dL Normal 0.0-0.3 [facility] Comment on above: Performed By: #### L IVER, LIPID, FT3, BMP, TSH #### [facility] [address] [place] [address] Dr. Dashawn Mayo Bilirubin [Mass/Vol] 0.3 mg/dL Normal 0.2-1.3 [facility] Comment on above: Performed By: #### L IVER, LIPID, FT3, BMP, TSH #### [facility] [address] [address] [address] Dashawn Mayo Globulin (S) [Mass/Vol] 4.0 g/dL Normal [facility] Comment on above: Performed By: #### L IVER, LIPID, FT3, BMP, TSH #### [facility] [address] [place] [address] Dr. Dashawn Mayo Protein [Mass/Vol] 7.6 g/dL Normal 6.1-8.2 [facility] Comment on above: Performed By: #### L IVER, LIPID, FT3, BMP, TSH #### [facility] [address] [place] [address] Dr. Dashawn Mayo PROF CHEM 8 (BAS METB)on Anion gap [Moles/Vol] 12.6 mmol/L Normal [facility] Comment on above: Performed By: #### L IVER, LIPID, FT3, BMP, TSH #### [facility] [address] [place] [address] Dr. Dashawn Mayo Calcium [Mass/Vol] 9.1 mg/dL Normal 8.4-10.2 [facility] Comment on above: Performed By: #### L IVER, LIPID, FT3, BMP, TSH #### [facility] [address] [place] [address] Dr. Dashawn Mayo Chloride [Moles/Vol] 102 mmol/L Normal 98-107 [facility] Comment on above: Performed By: #### L IVER, LIPID, FT3, BMP, TSH #### [facility] [address] [place] [address] Dr. Dashawn Mayo CO2 [Moles/Vol] 27.9 mmol/L Normal 22.0-30.0 [facility] Comment on above: Performed By: #### L IVER, LIPID, FT3, BMP, TSH #### [facility] [address] [place] [address] Dr. Dashawn Mayo Creatinine [Mass/Vol] 0.81 mg/dL Normal 0.52-1.04 [facility] Comment on above: Performed By: #### L IVER, LIPID, FT3, BMP, TSH #### [facility] [address] [address] [address] Dashawn Mayo EGFR-AF BAHRAINI >60 Normal >=60 [facility] Comment on above: Performed By: #### L IVER, LIPID, FT3, BMP, TSH #### [facility] [address] [address] [address] Dashawn Mayo EGFR-NON AF BAHRAINI >60 Normal >=60 [facility] Comment on above: Performed By: #### L IVER, LIPID, FT3, BMP, TSH #### [facility] [address] [address] [address] Dashawn Mayo Glucose [Mass/Vol] 94 mg/dL Normal 74-106 [facility] Comment on above: Performed By: #### L IVER, LIPID, FT3, BMP, TSH #### [facility] [address] [place] [address] Dr. Dashawn Mayo Potassium [Moles/Vol] 4.5 mmol/L Normal 3.4-5.0 [facility] Comment on above: Performed By: #### L IVER, LIPID, FT3, BMP, TSH #### [facility] [address] [address] [address] Dashawn Mayo Sodium [Moles/Vol] 138 mmol/L Normal 137-145 [facility] Comment on above: Performed By: #### L IVER, LIPID, FT3, BMP, TSH #### [facility] [address] [place] [address] Dr. Dashawn Mayo Urea nitrogen [Mass/Vol] 8.0 mg/dL Normal 7.0-17.0 [facility] Comment on above: Performed By: #### L IVER, LIPID, FT3, BMP, TSH #### [facility] [address] [place] [address] Dr. Dashawn Mayo Urea nitrogen/Creatinine [Mass ratio] 9.9 mg/mg Normal [facility] Comment on above: Performed By: #### L IVER, LIPID, FT3, BMP, TSH #### [facility] [address] [address] [address] Dashawn Mayo TSHon 05-19-2021 TSH 1.888 uIU/mL Normal 0.470-4.680 [facility] Comment on above: Performed By: #### L IVER, LIPID, FT3, BMP, TSH #### [facility] [address] [place] [address] Dr. Dashawn Mayo TSH RANGE SEE BELOW Normal [facility] Comment on above: Result Comment: <0.3 4 UIU/ml HYPERTHYROID 0.34-5.60 UIU/ml EUTHYROID >5.60 UIU/ml HYPOTHYROID Performed By: #### L IVER, LIPID, FT3, BMP, TSH #### [facility] [address] [place] [address] Dr. Dashawn Mayo VITAMIN D 25 OHon 05-19-2021 VIT D 25-OH 97.4 ng/mL Normal [facility] Comment on above: Performed By: #### V ITAD, FT4 #### [facility] [address] [place] [address] Dr. Dashawn Mayo VIT D RANGES SEE BELOW Normal [facility] Comment on above: Result Comment: <20 ng/mL Vit D deficient 20 - <30 ng/mL Vit D insufficient 30 - 100 ng/mL Vit D sufficient >100 ng/mL Potential Toxicity Performed By: #### V ITAD, FT4 #### [facility] [address] [place] [address] Dr. Dashawn Mayo Vital Signs Date Time Vital Sign Value Performing Clinician Facility 07-03-2023 14:40-0500 Body height 160.02 cm Kimberly Scott Other [facility] 07-03-2023 14:40-0500 Body mass index (BMI) [Ratio] 41.45 kg/m2 Kimberly Scott Other [facility] Other 07-03-2023 14:40-0500 Body temperature 100.9 [degF] Kimberly Scott Other [facility] Other 07-03-2023 14:40-0500 Body weight 106.14 kg Kimberly Scott Other [facility] 07-03-2023 14:40-0500 Respiratory rate 18 /min Kimberly Scott Other [facility] Other 07-03-2023 14:40-0500 SaO2% (BldA) [Mass fraction] 95 % Kimberly Scott Other [facility] Other 12-05-2022 17:40-0400 Body height 160.02 cm Kimberly Scott Other [facility] Other 12-05-2022 17:40-0400 Body mass index (BMI) [Ratio] 45.7 kg/m2 Kimberly Csott Other [facility] Other 12-05-2022 17:40-0400 Body temperature 98.6 [degF] Kimberly Scott Other [facility] Other 12-05-2022 17:40-0400 Body weight 117.03 kg Kimberly Scott Other [facility] Other 12-05-2022 17:40-0400 Diastolic blood pressure 86 mm[Hg] Kimberly Scott Other [facility] Other 12-05-2022 17:40-0400 Respiratory rate 18 /min Kimberly Scott Other [facility] Other 12-05-2022 17:40-0400 SaO2% (BldA) [Mass fraction] 97 % Kimberly Scott Other [employer] Other 12-05-2022 17:40-0400 Systolic blood pressure 145 mm[Hg] Kimberly Scott Other [employer] Other Encounters Encounter Date Encounter Type Care Provider Facility Start: 10-04-2023 End: 10-04-2023 ambulatory JOSI BENJA Not Available Start: 09-10-2023 End: 09-10-2023 ambulatory JADEN ANTONIO Not Available Start: 08-30-2023 End: 08-30-2023 ambulatory YULY MILKA Not Available Start: 08-23-2023 End: 08-23-2023 ambulatory Jaden Antonio Facility:[facility] Start: 08-23-2023 End: 08-23-2023 ambulatory MD Jaden Antonio Work Phone: [facility] Work Phone: Start: 08-23-2023 End: 08-23-2023 Departed Referred MD Jaden Antonio Work Phone: [facility] Start: 08-09-2023 Clinisync Result Encounter Generic External Data Provider [facility] External Department Unsolicited Start: 08-09-2023 Clinisync Result Encounter Generic External Data Provider [facility] External Department Unsolicited Start: 07-24-2023 End: 07-24-2023 ambulatory JOSI BENJA Not Available Start: 07-03-2023 End: 07-03-2023 ambulatory Kimberly Scott Other [employer] Other Start: 07-03-2023 Office outpatient vi sit 25 minutes Kimberly Scott [facility] Start: 07-03-2023 Telephone encounter Kimberly Scott [facility] [address] Start: 07-03-2023 End: 07-03-2023 Patient encounter procedure MD Jaden Antonio Work Phone: [facility] Work Phone: Start: 06-18-2023 End: 06-18-2023 ambulatory JADEN ANTONIO Not Available Start: 05-28-2023 End: 05-28-2023 ambulatory YULY JARQUIN Not Available Start: 12-05-2022 End: 12-05-2022 ambulatory Kimberly Scott Other [place] [employer] Other Start: 12-05-2022 Office outpatient ne w 20 minutes Kimberly Scott [facility] Start: 03-13-2022 End: 03-14-[address] JADEN ANTONIO Facility:[facility] Start: 05-28-2021 Encounter for genera l adult medical examination without abnormal findings DR JADEN ANTONIO [facility] Start: 05-19-2021 End: 05-20-[address] JADEN [...] Screening for malign ant neoplasm of colon [facility] Start: 01-22-2026 Screening for malign ant neoplasm of cervix [facility] Start: 09-10-2023 End: 09-10-2023 Patient encounter procedure 09/10/2023 9:45 AM EDT Office Visit [facility] [address] [place] [id number] Jaden Antonio MD [address] [place] [id number] [facility] Start: 08-30-2023 End: 08-30-2023 Patient encounter procedure 08/30/2023 10:30 AM EST Office Visit [facility] [address] [place] [address] Yuly Jarquin, PA [address] [place] [address] [facility] Start: 2023 Influenza vaccination Influenza Vacc ine (#1) [facility] Start: 2013 Screening for malign ant neoplasm of breast Mammogram [facility] Start: 2003 Screening for malign ant neoplasm of cervix HPV/Cotest [facility] Start: 1973 Screening for malign ant neoplasm of colon [facility] Payers Date Payer Category Payer Self-pay 2016 Medicaid [id number] 2016 Medicaid [employer] [place] [id number] 2016-Present [address] [place] [address] [id number] 1973 Unknown [id number] 1973 Unknown [id number] 1973 Unknown [id number] [id number] 1973 Unknown [id number] [id number] 1973 Unknown [id number] 1973 Unknown [id number] [id number] 1973 Unknown [id number] [id number] 1973 Unknown [id number] 1959 Unknown [id number] Unknown [id number] Social History Date Type Detail Facility Start: 06-18-2023 Sex Assigned At N [facility] [email or web address] Other Start: 06-18-2023 [facility] History of tobacco use Cigarette Smoker [facility] Start: 06-18-2023 Cigarettes smoked current (pack per day) - Reported 1.5 [facility] Start: 06-18-2023 Tobacco use and exposure Smokeless tobacco non-user [facility] Start: 07-20-2023 Alcohol intake Lifetime non-d marva (finding) [facility] Start: 1975 Sex Assigned At Not on file [facility] Start: 1975 Sex Assigned At Female F [facility] Evaluation note 07-03-2023 Note Date & Type [...] treatment plan. Patient left in stable condition [facility] Other Evaluation note 12-05-2022 Note Date & [...] understanding and is agreeable with treatment plan [facility] [email or web address] Other Evaluation note Note Date & Type Note Facility Evaluation note No Information [facility] [employer] Other Evaluation note Note Date & Type Note Facility Evaluation note No assessment information availa [facility] Work Phone: History general Narrative - Reported Note Date & Type Note Facility History general Narrative - Reported Type Medical History Asthma Medical History acid reflux Medical History seasonal allergies Medical History ptsd Medical History depression/anxiety [facility] [email or web address] Other History general Narrative - Reported Note Date & Type Note Facility History general Narrative - Reported Type Medical History Asthma Medical History acid reflux Medical History seasonal allergies Medical History ptsd Medical History depression/anxiety Medical History lupus Surgical History uterine ablation [facility] [email or web address] Other Summary Purpose Family History No Family History Records Found Relationship Condition Age at Onset Recorded Date/T melinda Not Specified Unknown Advance Directives No Advanced Directives Records FoundNo Advanced Directives Records FoundNo Advanced Directives Records Found Additional Source Comments INFORMATION SOURCE (unrecogn ized section and content) DATE CREATED AUTHOR 04/01/2022 [facility] DATE CREATED AUTHOR AUTHOR'S ORGANIZ ATION 09/01/2023 [facility] DATE CREATED AUTHOR AUTHOR'S ORGANIZ ATION 10/05/2023 [facility] EPIC REASON FOR VISIT (unrecogniz ed section and content) Rash on facePRESCRIPTIONSHEA DACHE, COLD, BONES HURT, COUGHING UP PHLEM Care Teams (unrecognized sec tion and content) Marketing Support Manager Relationship Specialty Start Date End Date Jaden Antonio MD [address] [place] [address] PCP - General Family Medicine 07/24/23 Team Status: Active Member Role Status Dates Jaden Antonio MD Primary Care Provider Active Team Status: Inactive Member Role Status Dates Kimberly Scott APRN Attending Provider Active Start: July 03, 2023 End: July 03, 2023 Team Status: Inactive Member Role Status Dates Jaden Antonio MD Primary Care Provider Active S tart: August 23, 2023 End: August 23, 2023 Josi Pereyra Attending Provider Active Start: 2023 End: August 23, 2023 Goals (unrecognized section and content) Goals may be documented in a n alternate section FOR RECORDS PERTAINING TO PATIENTS WHO ARE [...] BE BASED ON THE PRIMARY CLINICAL RECORDS. [employer] provides no warranty or guarantee of the accuracy or completeness of information in this document.
== END 2024-02-11 19:12 | disposition home or self-care (01) ==
LOC: LAB 19:11
PROVIDERS: PCP Family Medicine; Visit Provider Obstetrics & Gynecology
DX: Z01.419 Encounter for gynecological examination (general) (routine) without abnormal findings (principal)
CPT/HCPCS: 87624; 88175

== ENCOUNTER 2024-03-17 07:13 | Outpatient (OUT) | payer OTHER, SELFPAY ==
--- OUTSIDE RECORDS SUMMARY | 2024-03-17 07:16 | XMS_ITS | CCD ---
Author Organization 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 Slotter Feeder Name Role Phone DR JADEN ANTONIO Primary Care Unavailable MARISELA, DR AJDEN Ledesma Admitting Unavailable MARISELA, DR JADEN Ledesma Attending Unavailable MARISELA, DR JADEN Ledesma Consulting Unavailable MARISELA, DR JADEN Ledesma Primary Care Unavailable MARISELA, DR JADEN Ledesma Admitting Unavailable MARISELA, DR JADEN Ledesma Attending Unavailable DORON, DR NATE Morales Consulting Unavailable MARISELA, DR JADEN Ledesma Consulting Unavailable Kimberly Scott Unavailable Jaden Antonio MD Primary Care Provider [phone] MD Jaden Antonio Primary Care Provider [phone] Josi Pereyra Attending Provider [phone] Jaden Antonio Primary Care Unavailable Josi Pereyra Attending Unavailable Josi Pereyra Admitting Unavailable JOSI PEREYRA Attending Unavailable YULY JARQUIN Attending Unavailable JADEN ANTONIO Attending Unavailable JOSI PEREYRA Attending Unavailable YULY JARQUIN Attending Unavailable JOSI PEREYRA Attending Unavailable MARISELA, JADEN Attending Unavailable MARISELA, JADEN Attending Unavailable Allergies Allergy Classification Reported Allergen(s) Allergy Type Date of Onset Reaction(s) Facility (3 sources) predniSONE; Translations: [prednisone] Drug Allergy 07-03-2023 Unknown [facility] Repository Medications Current Medications Medication Drug Class(es) Dates Sig (Normalized) Sig (Original) albuterol 0.83 mg/ml inhalation solution (8 sources) beta2-Adrenergic Agonist Start: 06-18-2023 albuterol (2.5 MG/3ML) 0.083% nebulizer solution Indications: Chronic obstructive pulmonary disease, unspecified COPD type ([facility]/HCC) Take 3 mL (2.5 mg) by nebulization [...] oral tablet (2 sources) alpha-Adrenergic Agonist, Uncompetitive X-jiawwb-Q-aspartate Receptor Antagonist, Sigma-1 Agonist Start: 07-03-2023 take [...] Respiratory Therapy Supplies (Full Kit Nebulizer Set) [facility] (1 source) Start: 07-13-19 Respiratory Therapy Supplies (Full Kit Nebulizer Set) [facility] Indications: Chronic obstructive pulmonary disease, unspecified COPD [...] [place]) (1 source) take 1 tablet by th once daily Vitamin D3 125 MCG [...] Test Name Value Interpretation Reference Range Facility [facility] 08-23-2023 L Specimen: [id number] Received: 08/24/23 Status: BRITTA Lewis Num: [id number] Spec Type: Surgical Subm Dr: Josi Pereyra Tissues: A Uterus w/ or w/o tubes ovaries except neoplastic or prolap (UTERUS PILY FT) Procedures: /, Gross/Micro L5 Age/ Patient Sex Location Account Attending Physician Jenn Mccann 48/F LABELL [id number] Josi Pereyra SPEC NUM: [id number] RECD: 08/24/23 STATUS: BRITTA LEWIS NUM: [id number] EVI: 08/23/[address]: Josi Pereyra ENTERED: 08/24/23 [facility] DR: Slade Hadley SPEC TYPE: [...] and unremarkable. Sectioning demonstrates a central lumen. [employer] sections are submitted in 6 cassettes as follows: A1 - Posterior cul-de-sac serosa A2 - Anterior and posterior cervix Specimen: [id number] Received: 08/24/23 Status: BRITTA Lewis Num: [id number] Spec Type: Surgical Subm Dr: Josi Pereyra Tissues: A Uterus w/ or w/o tubes ovaries except neoplastic or prolap (UTERUS PILY FT) Procedures: Amor/Katarina L5 Patient: Jenn Mccann [id number] (Continued) Specimen: [id number] Received: 08/24/23 (Continued) Gross Description (Continued) Signed (signatur e on file) Arminda Vegas MD 08/30/23 2234 Specimen: [id number] Received: 08/24/23 Status: BRITTA Lewis Num: [id number] Spec Type: Surgical Subm Dr: Josi Pereyra Tissues: A Uterus w/ or w/o tubes ovaries except neoplastic or prolap (UTERUS PILY FT) Procedures: Amor/Katarina L5 Patient: Jenn Mccann [id number] (Continued) Specimen: [id number] Received: 08/24/23 (Continued) Gross Description (Continued) A3 - Anterior endomyometrium A4 - Posterior endomyometrium A5 - [place] segment of fallopian tube with fimbria entirely submitted A6 - Longer segment of fallopian tube with fimbria entirely submitted CPT Codes 00551 Specimen: [id number] Received: 08/24/23 Status: BRITTA Lewis Num: [id number] Spec Type: Surgical Subm Dr: Josi Pereyra Tissues: A Uterus w/ or w/o tubes ovaries except neoplastic or prolap (UTERUS PILY FT) Procedures: , Gross/Micro L5 Patient: Jenn Mccann [id number] (Continued) Signed (signatur e on file) Arminda Vegas MD 08/30/23 2940 [facility] ALL CBC WITH AUTO DIFFon BASOPHILS ABSOLUTE AUTO 0.1 [facility] Basophils/100 WBC (Bld) 1.0 % 0.2 - 2.0 % [facility] Eosinophils/100 WBC (Bld) 1.3 % 0.9 - 7.0 % [facility] Erythrocyte distribution width (RBC) [Ratio] 15.6 % High 11.0 - 15.0 % [facility] Hematocrit (Bld) [Volume fraction] 45.1 % 36.0 - 48.0 % [facility] [Mass/Vol] 14.5 g/dL 12.0 - 16.0 g/dL [facility] IMMATURE GRANULOCYTES ABS AUTO 0.03 [facility] Immature granulocytes/100 WBC (Bld) 0.3 % 0.0 - 0.5 % [facility] Interpretation and review of laboratory results Abnormal [facility] LYMPHOCYTES ABSOLUTE AUTO 3.0 [facility] Lymphocytes/100 WBC (Bld) 30.2 % 20.5 - 60.0 % [facility] MCH (RBC) [Entitic mass] 27.1 pg 26.7 - 34.0 pg [facility] MCHC (RBC) [Mass/Vol] 32.2 g/dL 29.9 - 35.2 g/dL [facility] MCV (RBC) [Entitic vol] 84.3 fL 81.0 - 99.0 fL [facility] MONOCYTES ABSOLUTE AUTO 0.6 [facility] Monocytes/100 WBC (Bld) 6.3 % 1.7 - 12.0 % [facility] NEUTROPHILS ABSOLUTE AUTO 6.1 [facility] Neutrophils/100 WBC (Bld) 60.9 % 43.0 - 75.0 % [facility] Platelet mean volume (Bld) [Entitic vol] 9.3 fL Low 9.5 - 13.5 fL [facility] EO # 0.1 [facility] PLT 293 [facility] RBC 5.35 [facility] WBC 10.0 [facility] COVID + FLU Quick Testingon 07-03-2023 SARS-CoV-2 (COVID-19) RNA JESSIE+probe Ql (Unsp spec) Positive [facility] Other COVID + FLU Quick Testing Negative [facility] Other MG MAMM SCREEN 3D PILY CADon 03-13-2022 MG MAMM SCREEN 3D PILY CAD Patient: JENN MCCANN Exam Date: 03/13/2022 : 1975 Gender:F Ordering : DR JADEN ANTONIO . Admission #: [id number] Family : Order #: [id number] CLICK HERE TO VIEW EXAM RADIOLOGY REPORT [...] Treatments None Family Cancers None LOCATION: [facility] BREAST COMPOSITION: Scattered areas fibroglandular density. [...] M.D. on 03/14/2022 at 08:50 Normal [facility] CBC AUTO DIFFon 05-19-2021 BASO # 0.1 103/ul Normal 0.0-0.1 [facility] Comment on above: Performed By: #### C BC #### [facility] [address] [place] [address] Dr. Dashawn Mayo Basophils/100 WBC (Bld) 0.9 % Normal 0.2-2.0 [facility] Comment on above: Performed By: #### C BC #### [facility] [address] [place] [address] Dr. Dashawn Mayo EO # 0.2 103/ul Normal 0.0-0.7 [facility] Comment on above: Performed By: #### C BC #### [facility] [address] [place] [address] Dr. Dashawn Mayo Eosinophils/100 WBC (Bld) 2.3 % Normal 0.9-7.0 [facility] Comment on above: Performed By: #### C BC #### [facility] [address] [place] [address] Dr. Dashawn Mayo Erythrocyte distribution width (RBC) [Ratio] 15.2 % Critically high 11.0-15.0 [facility] Comment on above: Performed By: #### C BC #### [facility] [address] [place] [address] Dr. Dashawn Mayo Hematocrit (Bld) [Volume fraction] 45.5 % Normal 36.0-48.0 [facility] Comment on above: Performed By: #### C BC #### [facility] [address] [place] [address] Dr. Dashawn Mayo Hemoglobin (Bld) [Mass/Vol] 14.4 g/dL Normal 12.0-16.0 [facility] Comment on above: Performed By: #### C BC #### [facility] [address] [place] [address] Dr. Dashawn Mayo IG # 0.03 10e3/ul Normal 0.00-0.03 [facility] Comment on above: Performed By: #### C BC #### [facility] [address] [place] [address] Dr. Dashawn Mayo IG % 0.3 % Normal 0.0-0.5 [facility] Comment on above: Performed By: #### C BC #### [facility] [address] [place] [address] Dr. Dashawn Mayo LYMPH # 2.8 103/ul Normal 1.2-3.8 [facility] Comment on above: Performed By: #### C BC #### [facility] [address] [place] [address] Dr. Dashawn Mayo Lymphocytes/100 WBC (Bld) 27.4 % Normal 20.5-60.0 [facility] Comment on above: Performed By: #### C BC #### [facility] [address] [place] [address] Dr. Dashawn Mayo MANUAL DIFF REQ NO Normal [facility] Comment on above: Performed By: #### C BC #### [facility] [address] [place] [address] Dr. Dashawn Mayo MCH (RBC) [Entitic mass] 27.2 pg Normal 26.7-34.0 [facility] Comment on above: Performed By: #### C BC #### [facility] [address] [place] [address] Dr. Dashawn Mayo MCHC (RBC) [Mass/Vol] 31.6 g/dL Normal 29.9-35.2 [facility] Comment on above: Performed By: #### C BC #### [facility] [address] [place] [address] Dr. Dashawn Mayo MCV (RBC) [Entitic vol] 85.8 fL Normal 81.0-99.0 [facility] Comment on above: Performed By: #### C BC #### [facility] [address] [address] [address] Dashawn Mayo MONO # 0.5 103/ul Normal 0.3-0.8 [facility] Comment on above: Performed By: #### C BC #### [facility] [address] [address] [address] Dashawn Mayo Monocytes/100 WBC (Bld) 4.5 % Normal 1.7-12.0 [facility] Comment on above: Performed By: #### C BC #### [facility] [address] [place] [address] Dr. Dashawn Mayo NEUT # 6.7 103/ul Critically high 1.4-6.5 [facility] Comment on above: Performed By: #### C BC #### [facility] [address] [place] [address] Dr. Dashawn Mayo Neutrophils/100 WBC (Bld) 64.6 % Normal 43.0-75.0 [facility] Comment on above: Performed By: #### C BC #### [facility] [address] [place] [address] Dr. Dashawn Mayo Platelet mean volume (Bld) [Entitic vol] 10.3 fL Normal 9.5-13.5 [facility] Comment on above: Performed By: #### C BC #### [facility] [address] [place] [address] Dr. Dashawn Mayo PLT 295 103/ul Normal 150-450 [facility] Comment on above: Performed By: #### C BC #### [facility] [address] [place] [address] Dr. Dashawn Mayo RBC 5.30 106/ul Normal 4.20-5.40 [facility] Comment on above: Performed By: #### C BC #### [facility] [address] [place] [address] Dr. Dashawn Mayo WBC 10.4 103/ul Normal 4.0-11.0 [facility] Comment on above: Performed By: #### C BC #### [facility] [address] [address] [address] Dashawn Mayo FREE T3on 05-19-2021 FREE T3 2.20 pg/mlL Critically low 2.77-5.27 [facility] Comment on above: Performed By: #### L IVER, LIPID, FT3, BMP, TSH #### [facility] [address] [address] [address] Dashawn Mayo FREE T4on 05-19-2021 Free T4 [Mass/Vol] 0.97 ng/dL Normal 0.78-2.19 [facility] Comment on above: Performed By: #### V ITAD, FT4 #### [facility] [address] [address] [address] Dashawn Mayo GLYCOHEMOGLOBIN A1Con 2020 ADA RECOMMENDATION ADA THERAPEUTIC TARGET 6.0 - 7.0 ACTION SUGGESTED > 7.0 Normal [facility] Comment on above: Performed By: #### A 1C #### [facility] [address] [address] [address] Dashawn Mayo Glucose [Mass/Vol] 126 mg/dL Normal [facility] Comment on above: Performed By: #### A 1C #### [facility] [address] [address] [address] Dashawn Mayo HbA1c (Bld) [Mass fraction] 6.0 % Normal <=6.0 [facility] Comment on above: Performed By: #### A 1C #### [facility] [address] [address] [address] Dashawn Mayo LIPID PROFILEon 05-19-2021 CHOL-HDL RATIO NORM SEE BELOW Normal [facility] Comment on above: Result Comment: 3.3 - 4.4 LOW RISK 4.4 - 7.1 AVERAGE RISK 7.1 - 11.0 MODERATE RISK >11.0 HIGH RISK Performed By: #### L IVER, LIPID, FT3, BMP, TSH #### [facility] [address] [address] [address] Dashawn Mayo Cholesterol [Mass/Vol] 250 mg/dL Critically high <=200 [facility] Comment on above: Performed By: #### L IVER, LIPID, FT3, BMP, TSH #### [facility] [address] [address] [address] Dashawn Mayo Cholesterol in HDL [Mass/Vol] 41 mg/dL Normal [facility] Comment on above: Performed By: #### L IVER, LIPID, FT3, BMP, TSH #### [facility] [address] [address] [address] Dashawn Mayo Cholesterol in LDL [Mass/Vol] 188.2 mg/dL Normal [facility] Comment on above: Performed By: #### L IVER, LIPID, FT3, BMP, TSH #### [facility] [address] [place] [address] Dr. Dashawn Mayo Cholesterol.total/Ch olesterol in HDL [Mass ratio] 6.1 {ratio} Normal [facility] Comment on above: Performed By: #### L IVER, LIPID, FT3, BMP, TSH #### [facility] [address] [place] [address] Dr. Dashawn Mayo HDL NORMAL > or = 60 mg/dl - LOW CARDIOVASCULAR RISK <40 mg/dl - HIGH CARDIOVASCULAR RISK Normal [facility] Comment on above: Performed By: #### L IVER, LIPID, FT3, BMP, TSH #### [facility] [address] [place] [address] Dr. Dashawn Mayo LDL CALC NORMAL SEE BELOW Normal [facility] Comment on above: Result Comment: <100 mg/dl OPTIMAL 100 - 129 mg/dl NEAR OR ABOVE OPTIMAL 130 - 159 mg/dl BORDERLINE HIGH 160 - 189 mg/dl HIGH >190 mg/dl VERY HIGH Performed By: #### L IVER, LIPID, FT3, BMP, TSH #### [facility] [address] [place] [address] Dr. Dashawn Mayo Triglyceride [Mass/Vol] 104 mg/dL Normal <=150 [facility] Comment on above: Performed By: #### L IVER, LIPID, FT3, BMP, TSH #### [facility] [address] [place] [address] Dr. Dashawn Mayo VLDL CALC 20.8 mg/dL Normal [facility] Comment on above: Performed By: #### L IVER, LIPID, FT3, BMP, TSH #### [facility] [address] [address] [address] Dashawn Mayo LIVER PROFILEon 05-19-2021 Albumin [Mass/Vol] 3.6 g/dL Normal 3.5-5.0 [facility] Comment on above: Performed By: #### L IVER, LIPID, FT3, BMP, TSH #### [facility] [address] [address] [address] Dashawn Mayo Albumin/Globulin [Mass ratio] 0.9 {ratio} Normal [facility] Comment on above: Performed By: #### L IVER, LIPID, FT3, BMP, TSH #### [facility] [address] [place] [address] Dr. Dashawn Mayo ALP [Catalytic activity/Vol] 72 U/L Normal 38-126 [facility] Comment on above: Performed By: #### L IVER, LIPID, FT3, BMP, TSH #### [facility] [address] [address] [address] Dashawn Mayo ALT [Catalytic activity/Vol] 16 U/L Normal 9-52 [facility] Comment on above: Performed By: #### L IVER, LIPID, FT3, BMP, TSH #### [facility] [address] [address] [address] Dashawn Mayo AST [Catalytic activity/Vol] 13 U/L Critically low 14-36 [facility] Comment on above: Performed By: #### L IVER, LIPID, FT3, BMP, TSH #### [facility] [address] [address] [address] Dashawn Mayo BILI, CONJUGATED 0.0 mg/dL Normal 0.0-0.3 [facility] Comment on above: Performed By: #### L IVER, LIPID, FT3, BMP, TSH #### [facility] [address] [address] [address] Dashawn Mayo Bilirubin [Mass/Vol] 0.3 mg/dL Normal 0.2-1.3 [facility] Comment on above: Performed By: #### L IVER, LIPID, FT3, BMP, TSH #### [facility] [address] [place] [address] Dr. Dashawn Mayo Globulin (S) [Mass/Vol] 4.0 g/dL Normal [facility] Comment on above: Performed By: #### L IVER, LIPID, FT3, BMP, TSH #### [facility] [address] [place] [address] Dr. Dashawn Mayo Protein [Mass/Vol] 7.6 g/dL Normal 6.1-8.2 [facility] Comment on above: Performed By: #### L IVER, LIPID, FT3, BMP, TSH #### [facility] [address] [place] [address] Dr. Dashawn Mayo PROF CHEM 8 (BAS METB)on Anion gap [Moles/Vol] 12.6 mmol/L Normal [facility] Comment on above: Performed By: #### L IVER, LIPID, FT3, BMP, TSH #### [facility] [address] [place] [address] Dr. Dashawn Mayo Calcium [Mass/Vol] 9.1 mg/dL Normal 8.4-10.2 [facility] Comment on above: Performed By: #### L IVER, LIPID, FT3, BMP, TSH #### [facility] [address] [place] [address] Dr. Dashawn Mayo Chloride [Moles/Vol] 102 mmol/L Normal 98-107 [facility] Comment on above: Performed By: #### L IVER, LIPID, FT3, BMP, TSH #### [facility] [address] [place] [address] Dr. Dashawn Mayo CO2 [Moles/Vol] 27.9 mmol/L Normal 22.0-30.0 [facility] Comment on above: Performed By: #### L IVER, LIPID, FT3, BMP, TSH #### [facility] [address] [place] [address] Dr. Dashawn Mayo Creatinine [Mass/Vol] 0.81 mg/dL Normal 0.52-1.04 [facility] Comment on above: Performed By: #### L IVER, LIPID, FT3, BMP, TSH #### [facility] [address] [address] [address] Dashawn Mayo EGFR-AF SINGAPOREAN >60 Normal >=60 [facility] Comment on above: Performed By: #### L IVER, LIPID, FT3, BMP, TSH #### [facility] [address] [address] [address] Dashawn Mayo EGFR-NON AF SINGAPOREAN >60 Normal >=60 [facility] Comment on above: Performed By: #### L IVER, LIPID, FT3, BMP, TSH #### [facility] [address] [address] [address] Dashawn Mayo Glucose [Mass/Vol] 94 mg/dL Normal 74-106 [facility] Comment on above: Performed By: #### L IVER, LIPID, FT3, BMP, TSH #### [facility] [address] [address] [address] Dashawn Mayo Potassium [Moles/Vol] 4.5 mmol/L Normal 3.4-5.0 [facility] Comment on above: Performed By: #### L IVER, LIPID, FT3, BMP, TSH #### [facility] [address] [address] [address] Dashawn Mayo Sodium [Moles/Vol] 138 mmol/L Normal 137-145 [facility] Comment on above: Performed By: #### L IVER, LIPID, FT3, BMP, TSH #### [facility] [address] [address] [address] Dashawn Mayo Urea nitrogen [Mass/Vol] 8.0 mg/dL Normal 7.0-17.0 [facility] Comment on above: Performed By: #### L IVER, LIPID, FT3, BMP, TSH #### [facility] [address] [address] [address] Dashawn Mayo Urea nitrogen/Creatinine [Mass ratio] 9.9 mg/mg Normal [facility] Comment on above: Performed By: #### L IVER, LIPID, FT3, BMP, TSH #### [facility] [address] [place] [address] Dr. Dashawn Mayo TSHon 05-19-2021 TSH 1.888 uIU/mL Normal 0.470-4.680 [facility] Comment on above: Performed By: #### L IVER, LIPID, FT3, BMP, TSH #### [facility] [address] [place] [address] Dr. Dashawn Mayo TSH RANGE SEE BELOW Normal [facility] Comment on above: Result Comment: <0.3 4 UIU/ml HYPERTHYROID 0.34-5.60 UIU/ml EUTHYROID >5.60 UIU/ml HYPOTHYROID Performed By: #### L IVER, LIPID, FT3, BMP, TSH #### [facility] [address] [place] [address] Dr. Dashawn Mayo VITAMIN D 25 OHon 05-19-2021 VIT D 25-OH 97.4 ng/mL Normal [facility] Comment on above: Performed By: #### V ITAD, FT4 #### [facility] [address] [place] [address] Dr. Dashawn Mayo VIT D RANGES SEE BELOW Normal [facility] Comment on above: Result Comment: <20 ng/mL Vit D deficient 20 - <30 ng/mL Vit D insufficient 30 - 100 ng/mL Vit D sufficient >100 ng/mL Potential Toxicity Performed By: #### V ITAD, FT4 #### [facility] [address] [place] [address] Dr. Dashawn Mayo Vital Signs Date Time Vital Sign Value Performing Clinician Facility 07-03-2023 14:40-0500 Body height 160.02 cm Kimberly Scott Other [facility] 07-03-2023 14:40-0500 Body mass index (BMI) [Ratio] 41.45 kg/m2 Kimberly Scott Other [facility] Other 07-03-2023 14:40-0500 Body temperature 100.9 [degF] Kimberly Scott Other [facility] Other 07-03-2023 14:40-0500 Body weight 106.14 kg Kimberly Scott Other [facility] 07-03-2023 14:40-0500 Respiratory rate 18 /min Kimberly Scott Other [facility] Other 07-03-2023 14:40-0500 SaO2% (BldA) [Mass fraction] 95 % Kimberly Scott Other [facility] Other 12-05-2022 17:40-0400 Body height 160.02 cm Kimberly Scott Other [facility] Other 12-05-2022 17:40-0400 Body mass index (BMI) [Ratio] 45.7 kg/m2 Kimberly Scott Other [facility] Other 12-05-2022 17:40-0400 Body temperature 98.6 [degF] Kimberly Scott Other [facility] Other 12-05-2022 17:40-0400 Body weight 117.03 kg Kimberly Scott Other [facility] Other 12-05-2022 17:40-0400 Diastolic blood pressure 86 mm[Hg] Kimberly Scott Other [facility] Other 12-05-2022 17:40-0400 Respiratory rate 18 /min Kimberly Scott Other [facility] Other 12-05-2022 17:40-0400 SaO2% (BldA) [Mass fraction] 97 % Kimberly Scott Other [facility] Other 12-05-2022 17:40-0400 Systolic blood pressure 145 mm[Hg] Kimberly Scott Other [facility] Other Encounters Encounter Date Encounter Type Care Provider Facility Start: 03-04-2024 End: 03-04-2024 ambulatory JADEN ANTONIO Not Available Start: 02-11-2024 End: 02-11-2024 ambulatory JOSI BENJA Not Available Start: 10-04-2023 End: 10-04-2023 ambulatory JOSI BENJA Not Available Start: 09-10-2023 End: 09-10-2023 ambulatory JADEN ANTONIO Not Available Start: 08-30-2023 End: 08-30-2023 ambulatory YULY JARQUIN Not Available Start: 08-23-2023 End: 08-23-2023 ambulatory Jaden Antonio Facility:[facility] Start: 08-23-2023 End: 08-23-2023 ambulatory MD Jaden Antonio Work Phone: [facility] Work Phone: Start: 08-23-2023 End: 08-23-2023 Departed Referred MD Jaden Antonio Work Phone: [facility] Start: 08-09-2023 [facility] Result Encounter Generic External Data Provider [facility] Unsolicited Start: 08-09-2023 [facility] Result Encounter Generic External Data Provider [facility] Unsolicited Start: 07-24-2023 End: 07-24-2023 ambulatory JOSI BENJA Not Available Start: 07-03-2023 End: 07-03-2023 ambulatory Kimberly Scott Other [facility] Other Start: 07-03-2023 Office outpatient vi sit 25 minutes Kimberly Scott [facility] Start: 07-03-2023 Telephone encounter Kimberly Scott [facility] [address] Start: 07-03-2023 End: 07-03-2023 Patient encounter procedure MD Jaden Antonio Work Phone: [facility] Work Phone: Start: 06-18-2023 End: 06-18-2023 ambulatory JADEN ANTONIO Not Available Start: 05-28-2023 End: 05-28-2023 ambulatory YULY JARQUIN Not Available Start: 12-05-2022 End: 12-05-2022 ambulatory Kimberly Scott Other [facility] Other Start: 12-05-2022 Office outpatient ne w 20 minutes Kimberly Tyler [facility] Start: 03-13-2022 End: 03-14-[address] JADEN ANTONIO Facility:[facility] Start: 05-28-2021 Encounter for genera l adult medical examination without abnormal findings DR JADEN ANTONIO [facility] Start: 05-19-2021 End: 05-20-[address] [...] Screening for malign ant neoplasm of colon [facility] Start: 01-22-2026 Screening for malign ant neoplasm of cervix [facility] Start: 09-10-2023 End: 09-10-2023 Patient encounter procedure 09/10/2023 9:45 AM EDT Office Visit [facility] [address] [place] [id number] Jaden Antonio MD [address] [place] [phone] [facility] Start: 08-30-2023 End: 08-30-2023 Patient encounter procedure 08/30/2023 10:30 AM EST Office Visit [facility] [address] [address] [facility] [address] [place], [place] [id number] Yuly Jarquin PA [address] [place] [address] [facility] Start: 2023 Influenza vaccination Influenza Vacc ine (#1) [facility] Start: 2013 Screening for malign ant neoplasm of breast Mammogram [facility] Start: 2003 Screening for malign ant neoplasm of cervix HPV/Cotest [facility] Start: 1973 Screening for malign ant neoplasm of colon [facility] Payers Date Payer Category Payer Self-pay 2016 Medicaid [facility] [employer] [place] [id number] 2016-Present [address] [place] [address] [id number] 2016 Medicaid [id number] [id number] 1973 Unknown [id number] 2.16.840.1.624570.3.579.2.593 1973 Unknown [id number] 2.16.840.1.939443.3.579.2.593 1973 Unknown [id number] 2.16.840.1.732524.3.579.2.1259 1973 Unknown [id number] 2.16.840.1.864178.3.579.2.9 1973 Unknown [id number] 2.16.840.1.115017.3.579.2.9 1973 Unknown [id number] 2.16.840.1.357389.3.579.2.9 1973 Unknown [id number] 2.16.840.1.676208.3.579.2.1259 1973 Unknown [id number] 2.16.840.1.470609.3.579.2.9 1973 Unknown [id number] 2.16.840.1.125550.3.579.2.9 1973 Unknown [id number] 2.16.840.1.814383.3.579.2.9 1959 Unknown [id number] Unknown [id number] 2.16.840.1.328366.19 Social History Date Type Detail Facility Start: 06-18-2023 Sex Assigned At N [facility] [employer] Other Start: 06-18-2023 Tobacco smoking stat [facility] Smokes tobacco daily [facility] History of [...] Start: 1975 Sex Assigned At Female F [facility] Evaluation note 07-03-2023 Note Date & Type [...] treatment plan. Patient left in stable condition [facility] Other Evaluation note 12-05-2022 Note Date & [...] understanding and is agreeable with treatment plan [facility] Other Evaluation note Note Date & Type Note Facility Evaluation note No Information [facility] [employer] Other Evaluation note Note Date & Type Note Facility Evaluation note No assessment [facility]: History general Narrative - Reported Note Date & Type Note Facility History general Narrative - Reported Type Medical History Asthma Medical History acid reflux Medical History seasonal allergies Medical History ptsd Medical History depression/anxiety [facility] Other History general Narrative - Reported Note Date & Type Note Facility History general Narrative - Reported Type Medical History Asthma Medical History acid reflux Medical History seasonal allergies Medical History ptsd Medical History depression/anxiety Medical History lupus Surgical History uterine ablation [facility] Other Summary Purpose Family History No Family History Records Found Relationship Condition Age at Onset Recorded Date/T melinda Not Specified Unknown Advance Directives No Advanced Directives Records FoundNo Advanced Directives Records FoundNo Advanced Directives Records Found Additional Source Comments INFORMATION SOURCE (unrecogn ized section and content) DATE CREATED AUTHOR 04/01/2022 [facility] DATE CREATED AUTHOR AUTHOR'S ORGANIZ ATION 09/01/2023 [facility] DATE CREATED AUTHOR AUTHOR'S ORGANIZ ATION 03/04/2024 [facility] EPIC REASON FOR VISIT (unrecogniz ed section and content) Rash on facePRESCRIPTIONSHEA DACHE, COLD, BONES HURT, COUGHING UP PHLEM Care Teams (unrecognized sec tion and content) [employer] Relationship Specialty Start Date End Date Jaden Antonio MD [address] [place] [id number] PCP - General Family Medicine 07/24/23 Team [...] 2023 Josi Pereyra Attending Provider Active Start: [facility] 2023 End: August 23, 2023 Goals (unrecognized [...] BE BASED ON THE PRIMARY CLINICAL RECORDS. [employer] provides no warranty or guarantee of the accuracy or completeness of information in this document.
--- NOTE | 2024-03-17 07:40 | MM_ITS ---
Patient Name: JANET DIPO MR#: [id number] : 1975 Exam Date: 03/17/2024 Ordering Doctor: DR Chandrakant Pereyra . RADIOLOGY REPORT PROCEDURE: MM TOMOSYNTHESIS SCREENING BI COMPARISON: MG MAMM SCREEN 3D PILY CAD, 03/13/2022. MM TOMOSYNTHESIS SCREENING BI, 03/16/2023. INDICATIONS: Screening Calculator Name NCI Breast Cancer Risk Assessment Tool 5 Year Breast Cancer Risk 1.00% Lifetime Breast Cancer Risk 8.90% Personal Breast Cancer No Personal Ovarian Cancer No Treatments None Family Cancers None LOCATION: [facility] BREAST COMPOSITION: There are scattered areas of fibroglandular density. FINDINGS: DIAGNOSTIC CATEGORY 2--BENIGN FINDING. NO CHANGE FROM COMPARISON. Scattered benign-appearing calcifications are present. Scattered benign-appearing lymph nodes are present. Scattered benign-appearing nodules are present. RIGHT BREAST: No significant suspicious finding. LEFT BREAST: No significant suspicious finding. RECOMMENDATIONS: ROUTINE MAMMOGRAM AND CLINICAL EVALUATION IN 12 MONTHS. PLEASE NOTE: A NORMAL MAMMOGRAM DOES NOT EXCLUDE THE POSSIBILITY OF BREAST CANCER. A CLINICALLY SUSPICIOUS PALPABLE LUMP SHOULD BE BIOPSIED. Dictated by: Iggy Patterson MD on 03/17/2024 at 10:52 Approved by: Iggy Patterson MD on 03/17/2024 at 10:54
== END 2024-03-17 07:14 | disposition home or self-care (01) ==
LOC: MAMMO 07:13
PROVIDERS: PCP Family Medicine; Visit Provider Obstetrics & Gynecology
DX: Z00.00 Encounter for general adult medical examination without abnormal findings (principal); Z12.31 Encounter for screening mammogram for malignant neoplasm of breast; M81.0 Age-related osteoporosis without current pathological fracture
CPT/HCPCS: 36415; 77063; 77067; 80048; 80061; 80076; 83036; 84443; 85025

== ENCOUNTER 2024-03-17 07:17 | Outpatient (OUT) | payer OTHER, SELFPAY ==
--- OUTSIDE RECORDS SUMMARY | 2024-03-17 07:20 | XMS_ITS | CCD ---
Author Organization [facility] Care Team Providers Care Public Housing Interviewer Name Role Phone DR JADEN ANTONIO Primary Care Unavailable MARISELA, DR JADEN Ledesma Admitting Unavailable MARISELA, DR JADEN Ledesma Attending Unavailable MARISELA, DR JDAEN Ledesma Consulting Unavailable MARISELA, DR JADEN Ledesma [...] predniSONE; Translations: [prednisone] Drug Allergy 07-03-2023 Unknown [facility] Repository Medications Current Medications Medication Drug Class(es) Dates Sig (Normalized) Sig (Original) albuterol 0.83 mg/ml inhalation solution (8 sources) beta2-Adrenergic Agonist Start: 06-18-2023 albuterol (2.5 MG/3ML) 0.083% nebulizer solution Indications: Chronic obstructive pulmonary disease, unspecified COPD type ([facility]/HCC) Take 3 mL (2.5 mg) by nebulization [...] oral tablet (2 sources) alpha-Adrenergic Agonist, Uncompetitive H-bjjqse-P-aspartate Receptor Antagonist, Sigma-1 Agonist Start: 07-03-2023 take [...] Respiratory Therapy [place] [facility] [place] Start: 07-13-19 Respiratory Therapy Supplies (Full Kit Nebulizer Set[place] [facility] [place] Indications: Chronic obstructive pulmonary disease, unspecified COPD [...] Test Name Value Interpretation Reference Range Facility [facility] 08-23-2023 L Specimen: [id number] Received: 08/24/23 Status: BRITTA Lewis Num: [id number] Spec Type: Surgical Subm Dr: Josi Pereyra Tissues: A Uterus w/ or w/o tubes ovaries except neoplastic or prolap (UTERUS PILY FT) Procedures: /, Gross/Micro L5 Age/ Patient Sex Location Account Attending Physician Jenn Mccann 48/F [place]ELL [id number] Josi Pereyra SPEC NUM: [id number] RECD: 08/24/23 STATUS: BRITTA LEWIS NUM: [id number] EVI: 08/23/[address]: Josi Pereyra ENTERED: 08/24/23 [facility] DR: Slade Hadley SPEC TYPE: [...] and unremarkable. Sectioning demonstrates a central lumen. Burnishing Machine Operator sections are submitted in 6 cassettes as follows: A1 - Posterior cul-de-sac serosa A2 - Anterior and posterior cervix Specimen: [id number] Received: 08/24/23 Status: BRITTA Lewis Num: [id number] Spec Type: Surgical Subm Dr: Josi Pereyra Tissues: A Uterus w/ or w/o tubes ovaries except neoplastic or prolap (UTERUS PILY FT) Procedures: Amor/Katarina L5 Patient: Jenn Mccann [id number] (Continued) Specimen: [id number] Received: 08/24/23 (Continued) Gross Description (Continued) Signed (signatur e on file) Arminda Vegas MD 08/30/23 2234 Specimen: [id number] Received: 08/24/23 Status: BRITTA Lewis Num: [id number] Spec Type: Surgical Subm Dr: Josi Pereyra Tissues: A Uterus w/ or w/o tubes ovaries except neoplastic or prolap (UTERUS PILY FT) Procedures: Amor/Ktaarina L5 Patient: Jenn Mccann [id number] (Continued) Specimen: [id number] Received: 08/24/23 (Continued) Gross Description (Continued) A3 - Anterior endomyometrium A4 - Posterior endomyometrium A5 - [place] segment of fallopian tube with fimbria entirely submitted A6 - Longer segment of fallopian tube with fimbria entirely submitted CPT Codes 24566 Specimen: [id number] Received: 08/24/23 Status: BRITTA Lewis Num: [id number] Spec Type: Surgical Subm Dr: Josi Pereyra Tissues: A Uterus w/ or w/o tubes ovaries except neoplastic or prolap (UTERUS PILY FT) Procedures: , Gross/Micro L5 Patient: Jenn Mccann [id number] (Continued) Signed (signatur e on file) Arminda Vegas MD 08/30/23 1019 [facility] ALL CBC WITH AUTO DIFFon BASOPHILS ABSOLUTE AUTO 0.1 [facility] Basophils/100 WBC (Bld) 1.0 % 0.2 - 2.0 % [facility] Eosinophils/100 WBC (Bld) 1.3 % 0.9 - 7.0 % [facility] Erythrocyte distribution width (RBC) [Ratio] 15.6 % High 11.0 - 15.0 % [facility] Hematocrit (Bld) [Volume fraction] 45.1 % 36.0 - 48.0 % [facility] ([facility]ld[facility] [Mass/Vol] 14.5 g/dL 12.0 - 16.0 g/dL [facility] IMMATURE GRANULOCYTES ABS AUTO 0.03 [facility] Immature granulocytes/100 WBC (Bld) 0.3 % 0.0 - 0.5 % [facility] Interpretation and review of laboratory results Abnormal [facility] LYMPHOCYTES ABSOLUTE AUTO 3.0 [facility] Lymphocytes/100 WBC (Bld) 30.2 % 20.5 - 60.0 % [facility] MCH (RBC) [Entitic mass] 27.1 pg 26.7 - 34.0 pg [facility] MCHC (RBC) [Mass/Vol] 32.2 g/dL 29.9 [...] (COVID-19) RNA JESSIE+probe Ql (Unsp spec) Positive [facility] Other COVID + FLU Quick Testing Negative [facility] Other MG MAMM SCREEN 3D PILY CADon 03-13-2022 MG MAMM SCREEN 3D PILY CAD Patient: JENN MCCANN Exam Date: 03/13/2022 : 1975 Gender:F Ordering : DR JADEN ANTONIO . Admission #: [id number] Family : Order #: [id number] CLICK HERE TO VIEW EXAM RADIOLOGY REPORT [...] Treatments None Family Cancers None LOCATION: [facility] BREAST COMPOSITION: Scattered areas fibroglandular density. FINDINGS: [...] M.D. on 03/14/2022 at 08:50 Normal [facility] CBC AUTO DIFFon 05-19-2021 BASO # 0.1 103/ul Normal 0.0-0.1 [facility] Comment on above: Performed By: #### C BC #### [facility] [address] [place] [address] Dr. Dashawn Mayo Basophils/100 WBC (Bld) 0.9 % Normal 0.2-2.0 [facility] Comment on above: Performed By: #### C BC #### [facility] [address] [place] [address] Dr. Dashawn Mayo EO # 0.2 103/ul Normal 0.0-0.7 [facility] Comment on above: Performed By: #### C BC #### [facility] [address] [place] [address] Dr. Dashawn Mayo Eosinophils/100 WBC (Bld) 2.3 % Normal 0.9-7.0 [facility] Comment on above: Performed By: #### C BC #### [facility] [address] [place] [address] Dr. Dashawn Mayo Erythrocyte distribution width (RBC) [Ratio] 15.2 % Critically high 11.0-15.0 [facility] Comment on above: Performed By: #### C BC #### [facility] [address] [place] [address] Dr. Dashawn Mayo Hematocrit (Bld) [Volume fraction] 45.5 % Normal 36.0-48.0 [facility] Comment on above: Performed By: #### C BC #### [facility] [address] [place] [address] Dr. Dashawn Mayo Hemoglobin (Bld) [Mass/Vol] 14.4 g/dL Normal 12.0-16.0 [facility] Comment on above: Performed By: #### C BC #### [facility] [address] [place] [address] Dr. Dashawn Mayo IG # 0.03 10e3/ul Normal 0.00-0.03 [facility] Comment on above: Performed By: #### C BC #### [facility] [address] [place] [address] Dr. Dashawn Mayo IG % 0.3 % Normal 0.0-0.5 [facility] Comment on above: Performed By: #### C BC #### [facility] [address] [place] [address] Dr. Dashawn Mayo LYMPH # 2.8 103/ul Normal 1.2-3.8 [facility] Comment on above: Performed By: #### C BC #### [facility] [address] [place] [address] Dr. Dashawn Mayo Lymphocytes/100 WBC (Bld) 27.4 % Normal 20.5-60.0 [facility] Comment on above: Performed By: #### C BC #### [facility] [address] [place] [address] Dr. Dashawn Mayo MANUAL DIFF REQ NO Normal [facility] Comment on above: Performed By: #### C BC #### [facility] [address] [place] [address] Dr. Dashawn Mayo MCH (RBC) [Entitic mass] 27.2 pg Normal 26.7-34.0 [facility] Comment on above: Performed By: #### C BC #### [facility] [address] [place] [address] Dr. Dashawn Mayo MCHC (RBC) [Mass/Vol] 31.6 g/dL Normal 29.9-35.2 [facility] Comment on above: Performed By: #### C BC #### [facility] [address] [place] [address] Dr. Dashawn Mayo MCV (RBC) [Entitic vol] 85.8 fL Normal 81.0-99.0 [facility] Comment on above: Performed By: #### C BC #### [facility] [address] [address] [address] Dashawn Mayo MONO # 0.5 103/ul Normal 0.3-0.8 [facility] Comment on above: Performed By: #### C BC #### [facility] [address] [address] [address] Dashawn Mayo Monocytes/100 WBC (Bld) 4.5 % Normal 1.7-12.0 [facility] Comment on above: Performed By: #### C BC #### [facility] [address] [place] [address] Dr. Dashawn Mayo NEUT # 6.7 103/ul Critically high 1.4-6.5 [facility] Comment on above: Performed By: #### C BC #### [facility] [address] [place] [address] Dr. Dashawn Mayo Neutrophils/100 WBC (Bld) 64.6 % Normal 43.0-75.0 [facility] Comment on above: Performed By: #### C BC #### [facility] [address] [place] [address] Dr. Dashawn Mayo Platelet mean volume (Bld) [Entitic vol] 10.3 fL Normal 9.5-13.5 [facility] Comment on above: Performed By: #### C BC #### [facility] [address] [place] [address] Dr. Dashawn Mayo PLT 295 103/ul Normal 150-450 [facility] Comment on above: Performed By: #### C BC #### [facility] [address] [place] [address] Dr. Dashawn Mayo RBC 5.30 106/ul Normal 4.20-5.40 [facility] Comment on above: Performed By: #### C BC #### [facility] [address] [place] [address] Dr. Dashawn Mayo WBC 10.4 103/ul Normal 4.0-11.0 [facility] Comment on above: Performed By: #### C BC #### [facility] [address] [address] [address] Dashawn Mayo FREE T3on 05-19-2021 FREE T3 2.20 pg/mlL Critically low 2.77-5.27 [facility] Comment on above: Performed By: #### L IVER, LIPID, FT3, BMP, TSH #### [facility] [address] [address] [address] Dashawn Mayo FREE T4on 05-19-2021 Free T4 [Mass/Vol] 0.97 ng/dL Normal 0.78-2.19 [facility] Comment on above: Performed By: #### V ITAD, FT4 #### [facility] [address] [address] [address] Dashawn Mayo GLYCOHEMOGLOBIN A1Con 2020 ADA RECOMMENDATION ADA THERAPEUTIC TARGET 6.0 - 7.0 ACTION SUGGESTED > 7.0 Normal [facility] Comment on above: Performed By: #### A 1C #### [facility] [address] [address] [address] Dashawn Mayo Glucose [Mass/Vol] 126 mg/dL Normal [facility] Comment on above: Performed By: #### A 1C #### [facility] [address] [address] [address] Dashawn Mayo HbA1c (Bld) [Mass fraction] 6.0 % Normal <=6.0 [facility] Comment on above: Performed By: #### A 1C #### [facility] [address] [address] [address] Dashawn Mayo LIPID PROFILEon 05-19-2021 CHOL-HDL RATIO NORM SEE BELOW Normal [facility] Comment on above: Result Comment: 3.3 - 4.4 LOW RISK 4.4 - 7.1 AVERAGE RISK 7.1 - 11.0 MODERATE RISK >11.0 HIGH RISK Performed By: #### L IVER, LIPID, FT3, BMP, TSH #### [facility] [address] [address] [address] Dashawn Mayo Cholesterol [Mass/Vol] 250 mg/dL Critically high <=200 [facility] Comment on above: Performed By: #### L IVER, LIPID, FT3, BMP, TSH #### [facility] [address] [address] [address] Dashawn Mayo Cholesterol in HDL [Mass/Vol] 41 mg/dL Normal [facility] Comment on above: Performed By: #### L IVER, LIPID, FT3, BMP, TSH #### [facility] [address] [address] [address] Dashawn Mayo Cholesterol in LDL [Mass/Vol] 188.2 mg/dL Normal [facility] Comment on above: Performed By: #### L IVER, LIPID, FT3, BMP, TSH #### [facility] [address] [place] [address] Dr. Dashawn Mayo Cholesterol.total/Ch olesterol in HDL [Mass ratio] 6.1 {ratio} Normal [facility] Comment on above: Performed By: #### L IVER, LIPID, FT3, BMP, TSH #### [facility] [address] [place] [address] Dr. Dashawn aMyo HDL NORMAL > or = 60 mg/dl - LOW CARDIOVASCULAR RISK <40 mg/dl - HIGH CARDIOVASCULAR RISK Normal [facility] Comment on above: Performed By: #### L IVER, LIPID, FT3, BMP, TSH #### [facility] [address] [place] [address] Dr. Dashawn Mayo LDL CALC NORMAL SEE BELOW Normal [facility] Comment on above: Result Comment: <100 mg/dl OPTIMAL 100 - 129 mg/dl NEAR OR ABOVE OPTIMAL 130 - 159 mg/dl BORDERLINE HIGH 160 - 189 mg/dl HIGH >190 mg/dl VERY HIGH Performed By: #### L IVER, LIPID, FT3, BMP, TSH #### [facility] [address] [place] [address] Dr. Dashawn Mayo Triglyceride [Mass/Vol] 104 mg/dL Normal <=150 [facility] Comment on above: Performed By: #### L IVER, LIPID, FT3, BMP, TSH #### [facility] [address] [place] [address] Dr. Dashawn Mayo VLDL CALC 20.8 mg/dL Normal [facility] Comment on above: Performed By: #### L IVER, LIPID, FT3, BMP, TSH #### [facility] [address] [address] [address] Dashawn Mayo LIVER PROFILEon 05-19-2021 Albumin [Mass/Vol] 3.6 g/dL Normal 3.5-5.0 [facility] Comment on above: Performed By: #### L IVER, LIPID, FT3, BMP, TSH #### [facility] [address] [address] [address] Dashawn Mayo Albumin/Globulin [Mass ratio] 0.9 {ratio} Normal [facility] Comment on above: Performed By: #### L IVER, LIPID, FT3, BMP, TSH #### [facility] [address] [place] [address] Dr. Dashawn Mayo ALP [Catalytic activity/Vol] 72 U/L Normal 38-126 [facility] Comment on above: Performed By: #### L IVER, LIPID, FT3, BMP, TSH #### [facility] [address] [address] [address] Dashawn Mayo ALT [Catalytic activity/Vol] 16 U/L Normal 9-52 [facility] Comment on above: Performed By: #### L IVER, LIPID, FT3, BMP, TSH #### [facility] [address] [address] [address] Dashawn Mayo AST [Catalytic activity/Vol] 13 U/L Critically low 14-36 [facility] Comment on above: Performed By: #### L IVER, LIPID, FT3, BMP, TSH #### [facility] [address] [address] [address] Dashawn Mayo BILI, CONJUGATED 0.0 mg/dL Normal 0.0-0.3 [facility] Comment on above: Performed By: #### L IVER, LIPID, FT3, BMP, TSH #### [facility] [address] [address] [address] Dashawn Mayo Bilirubin [Mass/Vol] 0.3 mg/dL Normal 0.2-1.3 [facility] Comment on above: Performed By: #### L IVER, LIPID, FT3, BMP, TSH #### [facility] [address] [place] [address] Dr. Dashawn Mayo Globulin (S) [Mass/Vol] 4.0 g/dL Normal [facility] Comment on above: Performed By: #### L IVER, LIPID, FT3, BMP, TSH #### [facility] [address] [place] [address] Dr. Dashawn Mayo Protein [Mass/Vol] 7.6 g/dL Normal 6.1-8.2 [facility] Comment on above: Performed By: #### L IVER, LIPID, FT3, BMP, TSH #### [facility] [address] [place] [address] Dr. Dashawn Mayo PROF CHEM 8 (BAS METB)on Anion gap [Moles/Vol] 12.6 mmol/L Normal [facility] Comment on above: Performed By: #### L IVER, LIPID, FT3, BMP, TSH #### [facility] [address] [place] [address] Dr. Dashawn Mayo Calcium [Mass/Vol] 9.1 mg/dL Normal 8.4-10.2 [facility] Comment on above: Performed By: #### L IVER, LIPID, FT3, BMP, TSH #### [facility] [address] [place] [address] Dr. Dashawn Mayo Chloride [Moles/Vol] 102 mmol/L Normal 98-107 [facility] Comment on above: Performed By: #### L IVER, LIPID, FT3, BMP, TSH #### [facility] [address] [place] [address] Dr. Dashawn Mayo CO2 [Moles/Vol] 27.9 mmol/L Normal 22.0-30.0 [facility] Comment on above: Performed By: #### L IVER, LIPID, FT3, BMP, TSH #### [facility] [address] [place] [address] Dr. Dashawn Mayo Creatinine [Mass/Vol] 0.81 mg/dL Normal 0.52-1.04 [facility] Comment on above: Performed By: #### L IVER, LIPID, FT3, BMP, TSH #### [facility] [address] [address] [address] Dashawn Mayo EGFR-AF SOMALI >60 Normal >=60 [facility] Comment on above: Performed By: #### L IVER, LIPID, FT3, BMP, TSH #### [facility] [address] [address] [address] Dashawn Mayo EGFR-NON AF SOMALI >60 Normal >=60 [facility] Comment on above: Performed By: #### L IVER, LIPID, FT3, BMP, TSH #### [facility] [address] [address] [address] Dashawn Mayo Glucose [Mass/Vol] 94 mg/dL Normal 74-106 [facility] Comment on above: Performed By: #### L IVER, LIPID, FT3, BMP, TSH #### [facility] [address] [address] [address] Dashawn Mayo Potassium [Moles/Vol] 4.5 mmol/L Normal 3.4-5.0 [facility] Comment on above: Performed By: #### L IVER, LIPID, FT3, BMP, TSH #### [facility] [address] [address] [address] Dashawn Mayo Sodium [Moles/Vol] 138 mmol/L Normal 137-145 [facility] Comment on above: Performed By: #### L IVER, LIPID, FT3, BMP, TSH #### [facility] [address] [address] [address] Dashawn Mayo Urea nitrogen [Mass/Vol] 8.0 mg/dL Normal 7.0-17.0 [facility] Comment on above: Performed By: #### L IVER, LIPID, FT3, BMP, TSH #### [facility] [address] [address] [address] Dashawn Mayo Urea nitrogen/Creatinine [Mass ratio] 9.9 mg/mg Normal [facility] Comment on above: Performed By: #### L IVER, LIPID, FT3, BMP, TSH #### [facility] [address] [place] [address] Dr. Dashawn Mayo TSHon 05-19-2021 TSH 1.888 uIU/mL Normal 0.470-4.680 [facility] Comment on above: Performed By: #### L IVER, LIPID, FT3, BMP, TSH #### [facility] [address] [place] [address] Dr. Dashawn Mayo TSH RANGE SEE BELOW Normal [facility] Comment on above: Result Comment: <0.3 4 UIU/ml HYPERTHYROID 0.34-5.60 UIU/ml EUTHYROID >5.60 UIU/ml HYPOTHYROID Performed By: #### L IVER, LIPID, FT3, BMP, TSH #### [facility] [address] [place] [address] Dr. Dashawn Mayo VITAMIN D 25 OHon 05-19-2021 VIT D 25-OH 97.4 ng/mL Normal [facility] Comment on above: Performed By: #### V ITAD, FT4 #### [facility] [address] [place] [address] Dr. Dashawn Mayo VIT D RANGES SEE BELOW Normal [facility] Comment on above: Result Comment: <20 ng/mL Vit D deficient 20 - <30 ng/mL Vit D insufficient 30 - 100 ng/mL Vit D sufficient >100 ng/mL Potential Toxicity Performed By: #### V ITAD, FT4 #### [facility] [address] [place] [address] Dr. Dashawn Mayo Vital Signs Date Time Vital Sign Value Performing Clinician Facility 07-03-2023 14:40-0500 Body height 160.02 cm Kimberly Scott Other [facility] 07-03-2023 14:40-0500 Body mass index (BMI) [Ratio] 41.45 kg/m2 Kimberly Scott Other [facility] Other 07-03-2023 14:40-0500 Body temperature 100.9 [degF] Kimberly Scott Other [facility] Other 07-03-2023 14:40-0500 Body weight 106.14 kg Kimberly Scott Other [facility] 07-03-2023 14:40-0500 Respiratory rate 18 /min Kimberly Scott Other [facility] Other 07-03-2023 14:40-0500 SaO2% (BldA) [Mass fraction] 95 % Kimberly Scott Other [facility] Other 12-05-2022 17:40-0400 Body height 160.02 cm Kimberly Scott Other [facility] Other 12-05-2022 17:40-0400 Body mass index (BMI) [Ratio] 45.7 kg/m2 Kimberly Scott Other [facility] Other 12-05-2022 17:40-0400 Body temperature 98.6 [degF] Kimberly Scott Other [facility] Other 12-05-2022 17:40-0400 Body weight 117.03 kg Kimberly Scott Other [facility] Other 12-05-2022 17:40-0400 Diastolic blood pressure 86 mm[Hg] Kimberly Scott Other [facility] Other 12-05-2022 17:40-0400 Respiratory rate 18 /min Kimberly Scott Other [facility] Other 12-05-2022 17:40-0400 SaO2% (BldA) [Mass fraction] 97 % Kimberly Scott Other [facility] Other 12-05-2022 17:40-0400 Systolic blood pressure 145 mm[Hg] Kimberly Scott Other [facility] Other Encounters Encounter Date Encounter Type Care Provider Facility Start: 03-04-2024 End: 03-04-2024 ambulatory JADEN ANTONIO Not Available Start: 02-11-2024 End: 02-11-2024 ambulatory JOSI BENJA Not Available Start: 10-04-2023 End: 10-04-2023 ambulatory JOSI BENJA Not Available Start: 09-10-2023 End: 09-10-2023 ambulatory JADEN ANTONIO Not Available Start: 08-30-2023 End: 08-30-2023 ambulatory YULY JARQUIN Not Available Start: 08-23-2023 End: 08-23-2023 ambulatory Jaden Antonio Facility:[facility] Start: 08-23-2023 End: 08-23-2023 ambulatory MD Jaden Antonio Work Phone: [facility] Work Phone: Start: 08-23-2023 End: 08-23-2023 Departed Referred MD Jaden Antonio Work Phone: [facility] Start: 08-09-2023 [facility] Result Encounter Generic External Data Provider [facility] External Department Unsolicited Start: 08-09-2023 [facility] Result Encounter Generic External Data Provider [facility] External Department Unsolicited Start: 07-24-2023 End: 07-24-2023 ambulatory JOSI BENJA Not Available Start: 07-03-2023 End: 07-03-2023 ambulatory Kimberly Scott Other [facility] Other Start: 07-03-2023 Office outpatient vi sit 25 minutes Kimberly Scott [facility] Start: 07-03-2023 Telephone encounter Kimberly Scott [facility] Start: 07-03-2023 End: 07-03-2023 Patient encounter procedure MD Jaden Antonio Work Phone: [facility] Work Phone: Start: 06-18-2023 End: 06-18-2023 ambulatory JADEN ANTONIO Not Available Start: 05-28-2023 End: 05-28-2023 ambulatory YULY JARQUIN Not Available Start: 12-05-2022 End: 12-05-2022 ambulatory Kimberly Scott Other [facility] Other Start: 12-05-2022 Office outpatient ne w 20 minutes Kimberly Tyler [facility] Start: 03-13-2022 End: 03-14-[address] JADEN ANTONIO Facility:[facility] Start: 05-28-2021 Encounter for genera l adult medical examination without abnormal findings DR JADEN ANTONIO [facility] [facility] Start: 05-19-2021 End: 05-20-[address] [...] Screening for malign ant neoplasm of colon [facility] Start: 01-22-2026 Screening for malign ant neoplasm of cervix [facility] Start: 09-10-2023 End: 09-10-2023 Patient encounter procedure 09/10/2023 9:45 AM EDT Office Visit [facility] [address] [place] [phone] Jaden Antonio MD [address] [place] [phone] [facility] Start: 08-30-2023 End: 08-30-2023 Patient encounter procedure 08/30/2023 10:30 AM EST Office Visit [facility] [address] [place] [phone] Yuly Jarquin PA [address] [place] [address] [facility] Start: 2023 Influenza vaccination Influenza Vacc ine (#1) [facility] Start: 2013 Screening for malign ant neoplasm of breast Mammogram [facility] Start: 2003 Screening for malign ant neoplasm of cervix HPV/Cotest [facility] Start: 1973 Screening for malign ant neoplasm of colon [facility] Payers Date Payer Category Payer Self-pay 2016 Medicaid [facility] [employer] [place] [id number] 2016-Present [address] [id number] 2016 Medicaid [id number] 1973 Unknown [id number] 2.16.840.1.890108.3.579.2.593 1973 Unknown [id number] 2.16.840.1.651152.3.579.2.593 1973 Unknown [id number] 2.16.840.1.613895.3.579.2.1259 1973 Unknown [id number] 2.16.840.1.931615.3.579.2.9 1973 Unknown [id number] 2.16.840.1.177845.3.579.2.9 1973 Unknown [id number] 2.16.840.1.421890.3.579.2.9 1973 Unknown [id number] 2.16.840.1.442760.3.579.2.1259 1973 Unknown [id number] 2.16.840.1.496828.3.579.2.9 1973 Unknown [id number] 2.16.840.1.587741.3.579.2.9 1973 Unknown [id number] 2.16.840.1.869837.3.579.2.9 1959 Unknown [id number] Unknown [id number] 2.16.840.1.507564.19 Social History Date Type Detail Facility Start: 06-18-2023 Sex Assigned At N [facility] [place] Other Start: 06-18-2023 Tobacco smoking stat [facility] Smokes tobacco daily [facility] History of [...] Start: 1975 Sex Assigned At Female F [facility] Evaluation note 07-03-2023 Note Date & Type [...] treatment plan. Patient left in stable condition [facility] Other Evaluation note 12-05-2022 Note Date & [...] understanding and is agreeable with treatment plan [facility] Other Evaluation note Note Date & Type Note Facility Evaluation note No Information [facility] [employer] Other Evaluation note Note Date & Type Note Facility Evaluation note [facility]: History general Narrative - Reported Note Date & Type Note Facility History general Narrative - Reported Type Medical History Asthma Medical History acid reflux Medical History seasonal allergies Medical History ptsd Medical History depression/anxiety [facility] Other History general Narrative - Reported Note Date & Type Note Facility History general Narrative - Reported Type Medical History Asthma Medical History acid reflux Medical History seasonal allergies Medical History ptsd Medical History depression/anxiety Medical History lupus Surgical History uterine ablation [facility] Other Summary Purpose Family History No Family History Records Found Relationship Condition Age at Onset Recorded Date/T melinda Not Specified Unknown Advance Directives No Advanced Directives Records FoundNo Advanced Directives Records FoundNo Advanced Directives Records Found Additional Source Comments INFORMATION SOURCE (unrecogn ized section and content) DATE CREATED AUTHOR 04/01/2022 [facility] DATE CREATED AUTHOR AUTHOR'S ORGANIZ ATION 09/01/2023 [facility] DATE CREATED AUTHOR AUTHOR'S ORGANIZ ATION 03/04/2024 [facility] EPIC REASON FOR VISIT (unrecogniz ed section and content) Rash on facePRESCRIPTIONSHEA DACHE, COLD, BONES HURT, COUGHING UP PHLEM Care Teams (unrecognized sec tion and content) Public Housing Interviewer Relationship Specialty Start Date End Date Jaden Antonio MD [address] [place] [phone] PCP - General Family Medicine 07/24/23 Team [...] 2023 Josi Pereyra Attending Provider Active Start: [facility] 2023 End: August 23, 2023 Goals (unrecognized [...] BE BASED ON THE PRIMARY CLINICAL RECORDS. [employer] provides no warranty or guarantee of the accuracy or completeness of information in this document.
[2024-03-17 07:39] LABS: Basophils Absolute Auto 0.1 10^3/uL (0.0-0.1); Basophils Percent Auto 1.1 % (0.2-2.0); Eosinophils Absolute Auto 0.2 10^3/uL (0.0-0.7); Eosinophils Percent Auto 2.1 % (0.9-7.0); Hemoglobin 14.3 g/dL (12.0-16.0); Immature Granulocytes Abs Auto 0.02 10^3/uL (0.00-0.03); Immature Granulocytes Pct Auto 0.2 % (0.0-0.5); Lymphocytes Absolute Auto 2.5 10^3/uL (1.2-3.8); Lymphocytes Percent Auto 30.8 % (20.5-60.0); Mean Corpuscular HGB Conc 32.5 g/dL (29.9-35.2); Mean Corpuscular Hemoglobin 27.8 pg (26.7-34.0); Mean Corpuscular Volume 85.4 fL (81.0-99.0); Mean Platelet Volume 9.5 fL (9.5-13.5); Monocytes Absolute Auto 0.5 10^3/uL (0.3-0.8); Monocytes Percent Auto 5.4 % (1.7-12.0); Neutrophils Percent Auto 60.4 % (43.0-75.0); Platelet Count 280 10^3/uL (150-450); Red Blood Count 5.15 10^6/uL (4.20-5.40); Red Cell Distribution Width 15.2 % (11.0-15.0); White Blood Count 8.3 10^3/uL (4.0-11.0)
[2024-03-17 07:48] LABS: Estimated Average Glucose 120 mg/dL; Glycohemoglobin A1C 5.8 % (4.5-6.2)
[2024-03-17 08:44] LABS: Alanine Aminotransferase 21 U/L (14-59); Albumin Level 3.6 g/dL (3.4-5.0); Alkaline Phosphatase 75 U/L (46-116); Anion Gap 14.5; Aspartate Amino Transferase 13 U/L (15-37); BUN Creatinine Ratio 14.3; Bilirubin Direct 0.1 mg/dL (0.0-0.2); Bilirubin Total 0.3 mg/dL (0.2-1.0); Calcium 9.1 mg/dL (8.5-10.1); Carbon Dioxide 25.7 mmol/L (21.0-32.0); Chloride 101 mmol/L (98-107); Cholesterol 288 mg/dL (<=200); Estimated GFR (African America >60 (>=60); Estimated GFR (Non-African Ame >60 (>=60); Globulin 3.7 g/dL; Glucose 107 mg/dL (74-106); HDL Cholesterol 48 mg/dL (40-60); Potassium 4.2 mmol/L (3.5-5.1); Sodium 137 mmol/L (136-145); Total Protein 7.3 g/dL (6.4-8.2); Triglycerides 114 mg/dL (<=150); VLDL CHOLESTEROL 22.8 mg/dL
== END 2024-03-17 07:18 | disposition home or self-care (01) ==
LOC: LAB 07:17
PROVIDERS: PCP Family Medicine; Visit Provider Family Medicine
DX: Z00.00 Encounter for general adult medical examination without abnormal findings (principal)
CPT/HCPCS: 36415; 80048; 80061; 80076; 83036; 84443; 85025

== ENCOUNTER 2024-04-10 08:45 | Outpatient (OUT) | payer OTHER, SELFPAY ==
--- NOTE | 2024-04-10 08:49 | XR_ITS ---
The [address] [address] Patient Name: JANET DIOP MRN: [id number] date: 1975 Sex: F Assigned Patient Location: [facility] Current Patient Location: [facility] Accession/Order Number: [id number] Exam Date: 04/10/2024 08:53 Report Date: 04/10/2024 09:11 At the request of: JOSI YOUSIF Procedure: XR DEXA axial skeleton EXAMINATION: XR DEXA axial skeleton HISTORY: Osteoporosis COMPARISON: No relevant comparison available. TECHNIQUE: Dual-energy X-ray absorptiometry (DXA) was performed. FINDINGS: SPINE ANALYSIS: Average bone mineral density is 1.379 g/cm2. T-score (standard deviation relative to young adult mean): 1.7 . HIP ANALYSIS: Lowest bone mineral density is within the left femoral neck, 0.974 g/cm2. T-score (standard deviation relative to young adult mean): -0.5 . XR/XR DEXA axial skeleton IMPRESSION: World Health Organization Classification: Normal - Low Fracture Risk FRAX: Cannot be calculated. Pharmacologic treatment recommendations * No uniform recommendation applies to all patients. Management plans must be individualized. * Consider initiating pharmacologic treatment in postmenopausal women and men >= 50 years of age who have the following: Primary fracture prevention: * T-score <= - 2.5 at the femoral neck, total hip, lumbar spine, 33% radius (some uncertainty with existing data) by DXA. * Low bone mass (osteopenia: T-score between - 1.0 and - 2.5) at the femoral neck or total hip by DXA with a 10-year hip fracture risk >= 3% or a 10-year major osteoporosis-related fracture risk >= 20% (i.e., clinical vertebral, hip, forearm, or proximal humerus) based on the [place]-adapted FRAXregistered model. Secondary fracture prevention: * Fracture of the hip or vertebra regardless of BMD [4, 5]. * Fracture of proximal humerus, pelvis, or distal forearm in persons with low bone mass (osteopenia: T-score between - 1.0 and - 2.5). The decision to treat should be individualized in persons with a fracture of the proximal humerus, pelvis, or distal forearm who do not have osteopenia or low BMD [12, 13]. Gael MS, Alma SL, Kimi KL, Ellen EM, Brendan KG, AJ, Radha ES. The clinician's guide to prevention and treatment of osteoporosis. Osteoporos Int. 2021;33(10):4748-4566. doi: 10.1007/e39740-101-14329-a. Epub 2021Oct 27. Erratum in: Osteoporos Int. 2021Jan 26;: PMID: [id number]; PMCID: [id number]. Electronically authenticated by: ZEINAB SAL Date: 04/10/2024 09:11
--- OUTSIDE RECORDS SUMMARY | 2024-04-10 08:50 | XMS_ITS | CCD ---
Author Organization [facility] Care Team Providers Care Clinical Trials Manager Name Role Phone DR JADEN ANTONIO [...] Primary Care Provider Josi Pereyra Attending Provider [phone] Jaden Antonio Primary Care Unavailable Josi [...] predniSONE; Translations: [prednisone] Drug Allergy 07-03-2023 Unknown [facility] Medications Current Medications Medication Drug Class(es) Dates Sig (Normalized) Sig (Original) albuterol 0.83 mg/ml inhalation solution (8 sources) beta2-Adrenergic Agonist Start: 06-18-2023 albuterol (2.5 MG/3ML) 0.083% nebulizer solution Indications: Chronic obstructive pulmonary disease, unspecified COPD type ([facility]/HCC) Take 3 mL (2.5 mg) by [...] oral tablet (2 sources) alpha-Adrenergic Agonist, Uncompetitive A-elmaqw-Y-aspartate Receptor Antagonist, Sigma-1 Agonist Start: 07-03-2023 take [...] Respiratory Therapy [place] [facility] [place] Start: 07-13-19 Respiratory Therapy Supp[place] [facility] [place] Indications: Chronic obstructive pulmonary disease, unspecified COPD [...] Test Name Value Interpretation Reference Range Facility [facility] 08-23-2023 L Specimen: [id number] Received: 08/24/23 Status: BRITTA Lewis Num: [id number] Spec Type: Surgical Subm Dr: Josi Pereyra Tissues: A Uterus w/ or w/o tubes ovaries except neoplastic or prolap (UTERUS PILY FT) Procedures: /, Gross/Micro L5 Age/ Patient Sex Location Account Attending Physician Jenn Mccann 48/F LABELL [id number] Josi Pereyra SPEC NUM: [id number] RECD: 08/24/23 STATUS: BRITTA LEWIS NUM: [id number] EVI: 08/23/[address]: Josi Pereyra ENTERED: 08/24/[address] [facility] [address]: Slade Hadley SPEC TYPE: Surgical DEPT: [...] and unremarkable. Sectioning demonstrates a central lumen. Marine Engineering Consultant sections are submitted in 6 cassettes as follows: A1 - Posterior cul-de-sac serosa A2 - Anterior and posterior cervix Specimen: [id number] Received: 08/24/23 Status: BRITTA Lewis Num: [id number] Spec Type: Surgical Subm Dr: Josi Pereyra Tissues: A Uterus w/ or w/o tubes ovaries except neoplastic or prolap (UTERUS PILY FT) Procedures: Amor/Katarina L5 Patient: Jenn Mccann [id number] (Continued) Specimen: [id number] Received: 08/24/23 (Continued) Gross Description (Continued) Signed (signatur e on file) Arminda Vegas MD 08/30/23 2234 Specimen: [id number] Received: 08/24/23 Status: BRITTA Lewis Num: [id number] Spec Type: Surgical Subm Dr: Josi Pereyra Tissues: A Uterus w/ or w/o tubes ovaries except neoplastic or prolap (UTERUS PILY FT) Procedures: Amor/Katarina L5 Patient: Jenn Mccann [id number] (Continued) Specimen: [id number] Received: 08/24/23 (Continued) Gross Description (Continued) A3 - Anterior endomyometrium A4 - Posterior endomyometrium A5 - [place] segment of fallopian tube with fimbria entirely submitted A6 - Longer segment of fallopian tube with fimbria entirely submitted CPT Codes 79886 Specimen: [id number] Received: 08/24/23 Status: BRITTA Lewis Num: [id number] Spec Type: Surgical Subm Dr: Josi Pereyra Tissues: A Uterus w/ or w/o tubes ovaries except neoplastic or prolap (UTERUS PILY FT) Procedures: , Gross/Micro L5 Patient: Jenn Mccann [id number] (Continued) Signed (signatur e on file) Arminda Vegas MD 08/30/23 8651 [facility] ALL CBC WITH AUTO DIFFon BASOPHILS ABSOLUTE [...] fraction] 45.1 % 36.0 - 48.0 % [facility] (Bld[facility] [Mass/Vol] 14.5 g/dL 12.0 [...] mass] 27.1 pg 26.7 - 34.0 pg [facility] MCHC (RBC) [Mass/Vol] 32.2 g/dL [...] (COVID-19) RNA JESSIE+probe Ql (Unsp spec) Positive [facility] Other COVID + FLU Quick Testing Negative [facility] Other MG MAMM SCREEN 3D PILY CADon 03-13-2022 MG MAMM SCREEN 3D PILY CAD Patient: JENN MCCANN Exam Date: 03/13/2022 : 1975 Gender:F Ordering : DR JADEN ANTONIO . Admission #: [id number] Family : Order #: [id number] CLICK HERE TO VIEW EXAM RADIOLOGY REPORT [...] Treatments None Family Cancers None LOCATION: [facility] BREAST COMPOSITION: Scattered areas fibroglandular [...] M.D. on 03/14/2022 at 08:50 Normal [facility] CBC AUTO DIFFon 05-19-2021 BASO # 0.1 103/ul Normal 0.0-0.1 [facility] Comment on above: Performed By: #### C BC #### [facility] [address] [place] [address] Dr. Dashawn Mayo Basophils/100 WBC (Bld) 0.9 % Normal 0.2-2.0 [facility] Comment on above: Performed By: #### C BC #### [facility] [address] [place] [address] Dr. Dashawn Mayo EO # 0.2 103/ul Normal 0.0-0.7 [facility] Comment on above: Performed By: #### C BC #### [facility] [address] [place] [address] Dr. Dashawn Mayo Eosinophils/100 WBC (Bld) 2.3 % Normal 0.9-7.0 [facility] Comment on above: Performed By: #### C BC #### [facility] [address] [place] [address] Dr. Dashawn Mayo Erythrocyte distribution width (RBC) [Ratio] 15.2 % Critically high 11.0-15.0 [facility] Comment on above: Performed By: #### C BC #### [facility] [address] [place] [address] Dr. Dashawn Mayo Hematocrit (Bld) [Volume fraction] 45.5 % Normal 36.0-48.0 [facility] Comment on above: Performed By: #### C BC #### [facility] [address] [place] [address] Dr. Dashawn Mayo Hemoglobin (Bld) [Mass/Vol] 14.4 g/dL Normal 12.0-16.0 [facility] Comment on above: Performed By: #### C BC #### [facility] [address] [place] [address] Dr. Dashawn Maoy IG # 0.03 10e3/ul Normal 0.00-0.03 [facility] Comment on above: Performed By: #### C BC #### [facility] [address] [place] [address] Dr. Dashawn Mayo IG % 0.3 % Normal 0.0-0.5 [facility] Comment on above: Performed By: #### C BC #### [facility] [address] [place] [address] Dr. Dashawn Mayo LYMPH # 2.8 103/ul Normal 1.2-3.8 [facility] Comment on above: Performed By: #### C BC #### [facility] [address] [place] [address] Dr. Dashawn Mayo Lymphocytes/100 WBC (Bld) 27.4 % Normal 20.5-60.0 [facility] Comment on above: Performed By: #### C BC #### [facility] [address] [place] [address] Dr. Dashawn Mayo MANUAL DIFF REQ NO Normal [facility] Comment on above: Performed By: #### C BC #### [facility] [address] [place] [address] Dr. Dashawn Mayo MCH (RBC) [Entitic mass] 27.2 pg Normal 26.7-34.0 [facility] Comment on above: Performed By: #### C BC #### [facility] [address] [place] [address] Dr. Dashawn Mayo MCHC (RBC) [Mass/Vol] 31.6 g/dL Normal 29.9-35.2 [facility] Comment on above: Performed By: #### C BC #### [facility] [address] [place] [address] Dr. Dashawn Mayo MCV (RBC) [Entitic vol] 85.8 fL Normal 81.0-99.0 [facility] Comment on above: Performed By: #### C BC #### [facility] [address] [address] [address] Dashawn Mayo MONO # 0.5 103/ul Normal 0.3-0.8 [facility] Comment on above: Performed By: #### C BC #### [facility] [address] [address] [address] Dashawn Mayo Monocytes/100 WBC (Bld) 4.5 % Normal 1.7-12.0 [facility] Comment on above: Performed By: #### C BC #### [facility] [address] [place] [address] Dr. Dashawn Mayo NEUT # 6.7 103/ul Critically high 1.4-6.5 [facility] Comment on above: Performed By: #### C BC #### [facility] [address] [place] [address] Dr. Dashawn Mayo Neutrophils/100 WBC (Bld) 64.6 % Normal 43.0-75.0 [facility] Comment on above: Performed By: #### C BC #### [facility] [address] [place] [address] Dr. Dashawn Mayo Platelet mean volume (Bld) [Entitic vol] 10.3 fL Normal 9.5-13.5 [facility] Comment on above: Performed By: #### C BC #### [facility] [address] [place] [address] Dr. Dashawn Mayo PLT 295 103/ul Normal 150-450 [facility] Comment on above: Performed By: #### C BC #### [facility] [address] [place] [address] Dr. Dashawn Mayo RBC 5.30 106/ul Normal 4.20-5.40 [facility] Comment on above: Performed By: #### C BC #### [facility] [address] [place] [address] Dr. Dashawn Mayo WBC 10.4 103/ul Normal 4.0-11.0 [facility] Comment on above: Performed By: #### C BC #### [facility] [address] [address] [address] Dashawn Mayo FREE T3on 05-19-2021 FREE T3 2.20 pg/mlL Critically low 2.77-5.27 [facility] Comment on above: Performed By: #### L IVER, LIPID, FT3, BMP, TSH #### [facility] [address] [address] [address] Dashawn Mayo FREE T4on 05-19-2021 Free T4 [Mass/Vol] 0.97 ng/dL Normal 0.78-2.19 [facility] Comment on above: Performed By: #### V ITAD, FT4 #### [facility] [address] [address] [address] Dashawn Mayo GLYCOHEMOGLOBIN A1Con 2020 ADA RECOMMENDATION ADA THERAPEUTIC TARGET 6.0 - 7.0 ACTION SUGGESTED > 7.0 Normal [facility] Comment on above: Performed By: #### A 1C #### [facility] [address] [address] [address] Dashawn Mayo Glucose [Mass/Vol] 126 mg/dL Normal [facility] Comment on above: Performed By: #### A 1C #### [facility] [address] [address] [address] Dashawn Mayo HbA1c (Bld) [Mass fraction] 6.0 % Normal <=6.0 [facility] Comment on above: Performed By: #### A 1C #### [facility] [address] [address] [address] Dashawn Mayo LIPID PROFILEon 05-19-2021 CHOL-HDL RATIO NORM SEE BELOW Normal [facility] Comment on above: Result Comment: 3.3 - 4.4 LOW RISK 4.4 - 7.1 AVERAGE RISK 7.1 - 11.0 MODERATE RISK >11.0 HIGH RISK Performed By: #### L IVER, LIPID, FT3, BMP, TSH #### [facility] [address] [address] [address] Dashawn Mayo Cholesterol [Mass/Vol] 250 mg/dL Critically high <=200 [facility] Comment on above: Performed By: #### L IVER, LIPID, FT3, BMP, TSH #### [facility] [address] [address] [address] Dashawn Mayo Cholesterol in HDL [Mass/Vol] 41 mg/dL Normal [facility] Comment on above: Performed By: #### L IVER, LIPID, FT3, BMP, TSH #### [facility] [address] [address] [address] Dashawn Mayo Cholesterol in LDL [Mass/Vol] 188.2 mg/dL Normal [facility] Comment on above: Performed By: #### L IVER, LIPID, FT3, BMP, TSH #### [facility] [address] [place] [address] Dr. Dashawn Mayo Cholesterol.total/Ch olesterol in HDL [Mass ratio] 6.1 {ratio} Normal [facility] Comment on above: Performed By: #### L IVER, LIPID, FT3, BMP, TSH #### [facility] [address] [place] [address] Dr. Dashawn Mayo HDL NORMAL > or = 60 mg/dl - LOW CARDIOVASCULAR RISK <40 mg/dl - HIGH CARDIOVASCULAR RISK Normal [facility] Comment on above: Performed By: #### L IVER, LIPID, FT3, BMP, TSH #### [facility] [address] [place] [address] Dr. Dashawn Mayo LDL CALC NORMAL SEE BELOW Normal [facility] Comment on above: Result Comment: <100 mg/dl OPTIMAL 100 - 129 mg/dl NEAR OR ABOVE OPTIMAL 130 - 159 mg/dl BORDERLINE HIGH 160 - 189 mg/dl HIGH >190 mg/dl VERY HIGH Performed By: #### L IVER, LIPID, FT3, BMP, TSH #### [facility] [address] [place] [address] Dr. Dashawn Mayo Triglyceride [Mass/Vol] 104 mg/dL Normal <=150 [facility] Comment on above: Performed By: #### L IVER, LIPID, FT3, BMP, TSH #### [facility] [address] [place] [address] Dr. Dashawn Mayo VLDL CALC 20.8 mg/dL Normal [facility] Comment on above: Performed By: #### L IVER, LIPID, FT3, BMP, TSH #### [facility] [address] [address] [address] Dashawn Mayo LIVER PROFILEon 05-19-2021 Albumin [Mass/Vol] 3.6 g/dL Normal 3.5-5.0 [facility] Comment on above: Performed By: #### L IVER, LIPID, FT3, BMP, TSH #### [facility] [address] [address] [address] Dashawn Mayo Albumin/Globulin [Mass ratio] 0.9 {ratio} Normal [facility] Comment on above: Performed By: #### L IVER, LIPID, FT3, BMP, TSH #### [facility] [address] [place] [address] Dr. Dashawn Mayo ALP [Catalytic activity/Vol] 72 U/L Normal 38-126 [facility] Comment on above: Performed By: #### L IVER, LIPID, FT3, BMP, TSH #### [facility] [address] [address] [address] Dashawn Mayo ALT [Catalytic activity/Vol] 16 U/L Normal 9-52 [facility] Comment on above: Performed By: #### L IVER, LIPID, FT3, BMP, TSH #### [facility] [address] [address] [address] Dashawn Mayo AST [Catalytic activity/Vol] 13 U/L Critically low 14-36 [facility] Comment on above: Performed By: #### L IVER, LIPID, FT3, BMP, TSH #### [facility] [address] [address] [address] Dashawn Mayo BILI, CONJUGATED 0.0 mg/dL Normal 0.0-0.3 [facility] Comment on above: Performed By: #### L IVER, LIPID, FT3, BMP, TSH #### [facility] [address] [address] [address] Dashawn Mayo Bilirubin [Mass/Vol] 0.3 mg/dL Normal 0.2-1.3 [facility] Comment on above: Performed By: #### L IVER, LIPID, FT3, BMP, TSH #### [facility] [address] [place] [address] Dr. Dashawn Mayo Globulin (S) [Mass/Vol] 4.0 g/dL Normal [facility] Comment on above: Performed By: #### L IVER, LIPID, FT3, BMP, TSH #### [facility] [address] [place] [address] Dr. Dashawn Mayo Protein [Mass/Vol] 7.6 g/dL Normal 6.1-8.2 [facility] Comment on above: Performed By: #### L IVER, LIPID, FT3, BMP, TSH #### [facility] [address] [place] [address] Dr. Dashawn Mayo PROF CHEM 8 (BAS METB)on Anion gap [Moles/Vol] 12.6 mmol/L Normal [facility] Comment on above: Performed By: #### L IVER, LIPID, FT3, BMP, TSH #### [facility] [address] [place] [address] Dr. Dashawn Mayo Calcium [Mass/Vol] 9.1 mg/dL Normal 8.4-10.2 [facility] Comment on above: Performed By: #### L IVER, LIPID, FT3, BMP, TSH #### [facility] [address] [place] [address] Dr. Dashawn Mayo Chloride [Moles/Vol] 102 mmol/L Normal 98-107 [facility] Comment on above: Performed By: #### L IVER, LIPID, FT3, BMP, TSH #### [facility] [address] [place] [address] Dr. Dashawn Mayo CO2 [Moles/Vol] 27.9 mmol/L Normal 22.0-30.0 [facility] Comment on above: Performed By: #### L IVER, LIPID, FT3, BMP, TSH #### [facility] [address] [place] [address] Dr. Dashawn Mayo Creatinine [Mass/Vol] 0.81 mg/dL Normal 0.52-1.04 [facility] Comment on above: Performed By: #### L IVER, LIPID, FT3, BMP, TSH #### [facility] [address] [address] [address] Dashawn Mayo EGFR-AF MOZAMBICAN >60 Normal >=60 [facility] Comment on above: Performed By: #### L IVER, LIPID, FT3, BMP, TSH #### [facility] [address] [address] [address] Dashawn Mayo EGFR-NON AF MOZAMBICAN >60 Normal >=60 [facility] Comment on above: Performed By: #### L IVER, LIPID, FT3, BMP, TSH #### [facility] [address] [address] [address] Dashawn Mayo Glucose [Mass/Vol] 94 mg/dL Normal 74-106 [facility] Comment on above: Performed By: #### L IVER, LIPID, FT3, BMP, TSH #### [facility] [address] [address] [address] Dashawn Mayo Potassium [Moles/Vol] 4.5 mmol/L Normal 3.4-5.0 [facility] Comment on above: Performed By: #### L IVER, LIPID, FT3, BMP, TSH #### [facility] [address] [address] [address] Dashawn Myao Sodium [Moles/Vol] 138 mmol/L Normal 137-145 [facility] Comment on above: Performed By: #### L IVER, LIPID, FT3, BMP, TSH #### [facility] [address] [address] [address] Dashawn Mayo Urea nitrogen [Mass/Vol] 8.0 mg/dL Normal 7.0-17.0 [facility] Comment on above: Performed By: #### L IVER, LIPID, FT3, BMP, TSH #### [facility] [address] [address] [address] Dashawn Mayo Urea nitrogen/Creatinine [Mass ratio] 9.9 mg/mg Normal [facility] Comment on above: Performed By: #### L IVER, LIPID, FT3, BMP, TSH #### [facility] [address] [place] [address] Dr. Dashawn Mayo TSHon 05-19-2021 TSH 1.888 uIU/mL Normal 0.470-4.680 [facility] Comment on above: Performed By: #### L IVER, LIPID, FT3, BMP, TSH #### [facility] [address] [place] [address] Dr. Dashawn Mayo TSH RANGE SEE BELOW Normal [facility] Comment on above: Result Comment: <0.3 4 UIU/ml HYPERTHYROID 0.34-5.60 UIU/ml EUTHYROID >5.60 UIU/ml HYPOTHYROID Performed By: #### L IVER, LIPID, FT3, BMP, TSH #### [facility] [address] [place] [address] Dr. Dashawn Mayo VITAMIN D 25 OHon 05-19-2021 VIT D 25-OH 97.4 ng/mL Normal [facility] Comment on above: Performed By: #### V ITAD, FT4 #### [facility] [address] [place] [address] Dr. Dashawn Mayo VIT D RANGES SEE BELOW Normal [facility] Comment on above: Result Comment: <20 ng/mL Vit D deficient 20 - <30 ng/mL Vit D insufficient 30 - 100 ng/mL Vit D sufficient >100 ng/mL Potential Toxicity Performed By: #### V ITAD, FT4 #### [facility] [address] [place] [address] Dr. Dashawn Mayo Vital Signs Date Time Vital Sign Value Performing Clinician Facility 07-03-2023 14:40-0500 Body height 160.02 cm Kimberly Scott Other [facility] 07-03-2023 14:40-0500 Body mass index (BMI) [Ratio] 41.45 kg/m2 Kimberly Scott Other [facility] Other 07-03-2023 14:40-0500 Body temperature 100.9 [degF] Kimberly Scott Other [facility] Other 07-03-2023 14:40-0500 Body weight 106.14 kg Kimberly Scott Other [facility] 07-03-2023 14:40-0500 Respiratory rate 18 /min Kimberly Scott Other [facility] Other 07-03-2023 14:40-0500 SaO2% (BldA) [Mass fraction] 95 % Kimberly Scott Other [facility] Other 12-05-2022 17:40-0400 Body height 160.02 cm Kimberly Scott Other [facility] Other 12-05-2022 17:40-0400 Body mass index (BMI) [Ratio] 45.7 kg/m2 Kimberly Scott Other [facility] Other 12-05-2022 17:40-0400 Body temperature 98.6 [degF] Kimberly Scott Other [facility] Other 12-05-2022 17:40-0400 Body weight 117.03 kg Kimberly Scott Other [facility] Other 12-05-2022 17:40-0400 Diastolic blood pressure 86 mm[Hg] Kimberly Scott Other [facility] Other 12-05-2022 17:40-0400 Respiratory rate 18 /min Kimberly Scott Other [facility] Other 12-05-2022 17:40-0400 SaO2% (BldA) [Mass fraction] 97 % Kimberly Scott Other [facility] Other 12-05-2022 17:40-0400 Systolic blood pressure 145 mm[Hg] Kimberly Scott Other [facility] Other Encounters Encounter Date Encounter Type Care Provider Facility Start: 03-04-2024 End: 03-04-2024 ambulatory JADEN ANTONIO Not Available Start: 02-11-2024 End: 02-11-2024 ambulatory JOSI BENJA Not Available Start: 10-04-2023 End: 10-04-2023 ambulatory JOSI BENJA Not Available Start: 09-10-2023 End: 09-10-2023 ambulatory JADEN ANTONIO Not Available Start: 08-30-2023 End: 08-30-2023 ambulatory YULY JARQUIN Not Available Start: 08-23-2023 End: 08-23-2023 ambulatory Jaden Antonio Facility:[facility] Start: 08-23-2023 End: 08-23-2023 ambulatory MD Jaden Antonio Work Phone: [facility] Work Phone: Start: 08-23-2023 End: 08-23-2023 Departed Referred MD Jaden Antonio Work Phone: [facility] Start: 08-09-2023 [facility] Result Encounter Generic External Data Provider [facility] External Department Unsolicited Start: 08-09-2023 [facility] Result Encounter Generic External Data Provider [facility] External Department Unsolicited Start: 07-24-2023 End: 07-24-2023 ambulatory JOSI BENJA Not Available Start: 07-03-2023 End: 07-03-2023 ambulatory Kimberly Scott Other [facility] Other Start: 07-03-2023 Office outpatient vi sit 25 minutes Kimberly Scott [facility] Start: 07-03-2023 Telephone encounter Kimberly Scott [facility] [address] Start: 07-03-2023 End: 07-03-2023 Patient encounter procedure MD Jaden Antonio Work Phone: [facility] [place] Work Phone: Start: 06-18-2023 End: 06-18-2023 ambulatory JADEN ANTONIO Not Available Start: 05-28-2023 End: 05-28-2023 ambulatory YULY JARQUIN Not Available Start: 12-05-2022 End: 12-05-2022 ambulatory Kimberly Scott Other [facility] Other Start: 12-05-2022 Office outpatient ne w 20 minutes Kibmerly Tyler [facility] Start: 03-13-2022 End: 03-14-[address] JADEN ANTONIO Facility:[facility] Start: 05-28-2021 Encounter for genera l adult medical examination without abnormal findings DR JADEN ANTONIO [facility] Start: 05-19-2021 End: 05-20-[address] JADEN [...] Screening for malign ant neoplasm of colon [facility] Start: 01-22-2026 Screening for malign ant neoplasm of cervix [facility] Start: 09-10-2023 End: 09-10-2023 Patient encounter procedure 09/10/2023 9:45 AM EDT Office Visit [facility] [address] [place] [phone] Jaden Antonio MD [address] [place] [phone] [facility] Start: 08-30-2023 End: 08-30-2023 Patient encounter procedure 08/30/2023 10:30 AM EST Office Visit [facility] [address] [place] [id number] Yuly Jarquin PA [address] [place] [address] [facility] Start: 2023 Influenza vaccination Influenza Vacc ine (#1) [facility] Start: 2013 Screening for malign ant neoplasm of breast Mammogram [facility] Start: 2003 Screening for malign ant neoplasm of cervix HPV/Cotest [facility] Start: 1973 Screening for malign ant neoplasm of colon [facility] Payers Date Payer Category Payer Self-pay 2016 Medicaid [facility] [employer] [place] [id number] 2016-Present [address] [place] [address] [id number] 2016 Medicaid [id number] 1973 Unknown [id number] 2.16.840.1.335418.3.579.2.593 1973 Unknown [id number] 2.16.840.1.389749.3.579.2.593 1973 Unknown [id number] 2.16.840.1.653728.3.579.2.1259 1973 Unknown [id number] 2.16.840.1.690397.3.579.2.9 1973 Unknown [id number] 2.16.840.1.773155.3.579.2.9 1973 Unknown [id number] 2.16.840.1.189955.3.579.2.9 1973 Unknown [id number] 2.16.840.1.633931.3.579.2.1259 1973 Unknown [id number] 2.16.840.1.480691.3.579.2.9 1973 Unknown [id number] 2.16.840.1.272804.3.579.2.9 1973 Unknown [id number] 2.16.840.1.531945.3.579.2.9 1959 Unknown [id number] Unknown [id number] 2.16.840.1.577712.19 Social History Date Type Detail Facility Start: 06-18-2023 Sex Assigned At N [facility] Other Start: 06-18-2023 Tobacco smoking stat [facility] Smokes tobacco daily [facility] History [...] Start: 1975 Sex Assigned At Female F [facility] Evaluation note 07-03-2023 Note Date & [...] treatment plan. Patient left in stable condition [facility] Other Evaluation note 12-05-2022 Note Date & [...] understanding and is agreeable with treatment plan [facility] Other Evaluation note Note Date & Type Note Facility Evaluation note No Information [facility] Other Evaluation note Note Date & Type Note Facility Evaluation note [facility] Phone: History general Narrative - Reported Note Date & Type Note Facility History general Narrative - Reported Type Medical History Asthma Medical History acid reflux Medical History seasonal allergies Medical History ptsd Medical History depression/anxiety [facility] Other History general Narrative - Reported Note Date & Type Note Facility History general Narrative - Reported Type Medical History Asthma Medical History acid reflux Medical History seasonal allergies Medical History ptsd Medical History depression/anxiety Medical History lupus Surgical History uterine ablation [facility] Other Summary Purpose Family History No Family History Records Found Relationship Condition Age at Onset Recorded Date/T melinda Not Specified Unknown Advance Directives No Advanced Directives Records FoundNo Advanced Directives Records FoundNo Advanced Directives Records Found Additional Source Comments INFORMATION SOURCE (unrecogn ized section and content) DATE CREATED AUTHOR 04/01/2022 [facility] DATE CREATED AUTHOR AUTHOR'S ORGANIZ ATION 09/01/2023 [facility] DATE CREATED AUTHOR AUTHOR'S ORGANIZ ATION 03/04/2024 [facility] EPIC REASON FOR VISIT (unrecogniz ed section and content) Rash on facePRESCRIPTIONSHEA DACHE, COLD, BONES HURT, COUGHING UP PHLEM Care Teams (unrecognized sec tion and content) Clinical Trials Manager Relationship Specialty Start Date End Date Jaden Antonio MD [address] [place] [id number] PCP - General Family Medicine 07/24/23 Team Status: Active Member Role Status Dates Jaden Antonio MD Primary Care Provider Active Team Status: Inactive Member Role Status Dates Kimebrly Scott APRN Attending Provider Active Start: July 03, 2023 End: July 03, 2023 Team Status: Inactive Member Role Status Dates Jaden Antonio MD Primary Care Provider Active S tart: August 23, 2023 End: August 23, 2023 Josi Pereyra Attending Provider Active Start: [facility] 2023 End: August 23, 2023 [...] BE BASED ON THE PRIMARY CLINICAL RECORDS. [employer] provides no warranty or guarantee of the accuracy or completeness of information in this document.
== END 2024-04-10 08:46 | disposition home or self-care (01) ==
LOC: RAD 08:45
PROVIDERS: PCP Family Medicine; Visit Provider Obstetrics & Gynecology
DX: M81.0 Age-related osteoporosis without current pathological fracture (principal)
CPT/HCPCS: 77080

== ENCOUNTER 2024-06-13 10:56 | Outpatient (OUT) | payer OTHER, SELFPAY ==
--- OUTSIDE RECORDS SUMMARY | 2024-06-13 11:17 | XMS_ITS | CCD ---
Author Organization [facility] Care Team Providers Care Broadcast Program Director Name Role Phone DR JADEN ANTONIO Primary [...] PEREYRA Attending Unavailable YULY JARQUIN Attending Unavailable YULY JARQUIN Attending Unavailable JADEN ANTONIO Attending Unavailable JOSI PEREYRA Attending Unavailable JOSI PEREYRA Attending Unavailable MARISELA, JADEN Attending Unavailable MARISELA, JADEN Attending Unavailable Allergies Allergy Classification Reported Allergen(s) Allergy Type Date of Onset Reaction(s) Facility (3 sources) predniSONE; Translations: [prednisone] Drug Allergy 07-03-2023 Unknown [facility] Repository Medications Current Medications Medication Drug Class(es) Dates Sig (Normalized) Sig (Original) albuterol 0.83 mg/ml inhalation solution (12 sources) beta2-Adrenergic Agonist Start: 06-18-2023 albuterol (2.5 MG/3ML) 0.083% nebulizer solution Indications: Chronic obstructive pulmonary disease, unspecified COPD type ([facility]/HCC) Take 3 mL (2.5 mg) by nebulization every 4 (four) hours if needed for wheezing 75 mL 3 06/18/2023 Active take 2 puff(s) by in halation every four hours for wheezing albuterol HFA 90 mcg/act inhaler Inhale 2 puffs every 4 (four) hours if needed for wheezing Active Albuterol Sulfat e (2.5 MG/3ML) 0.083% 3 mL as needed Inhalation every 6 hrs Active take 1 puff(s) by in halation every four hours as needed Ventolin HFA 108 (90 Base) MCG/ACT 1 puf f as needed Inhalation every 4 hrs Active Albuterol Sulfat e (2.5 MG/3ML) 0.083% 3 mL as needed Inhalation every 6 hrs Active ALPRAZolam 0.5 mg oral tablet (6 sources) Benzodiazepine Start: 06-18-2023 take 1 tablet by mouth three times daily as needed for anxiety ALPRAZolam (Xanax) 0.5 MG tablet Indications: Generalized anxiety disorder (CMS/HCC) Take 1 tablet (0.5 mg) by mouth 3 (three) times a day as needed for anxiety 30 tablet 06/18/2023 Active take 1 tablet by ramakrishna every twelve hours ALPRAZolam 0.5 MG 1 tablet Orally Twice a day Active atorvastatin 40 mg oral tablet (1 source) HMG-CoA Reductase Inhibitor Start: 03-17-2024 take 1 tablet by mouth at bedtime atorvastatin (Lipitor) 40 MG tablet Indications: Dyslipidemia (CMS/HCC) Take 1 tablet (40 mg) by mouth at bedtime 30 tablet 5 03/17/2024 Active celecoxib 200 mg oral capsule (3 sources) Nonsteroidal Anti-inflammatory Drug Start: 01-14-2024 take 1 capsule by mouth twice daily as needed for pain celecoxib (CeleBREX) 200 MG capsule Indications: DDD (degenerative disc disease), cervical TAKE 1 CAPSULE BY MOUTH TWICE DAILY NEEDED for mild pain 60 capsule 3 01/14/2024 Active Start: 06-18-2023 take 1 capsule by mo [facility] twice daily as needed for pain celecoxib [...] Nov, Active cholecalciferol 0.125 mg oral tablet (4 sources) Vitamin D Start: 12-17-2023 take 1 tablet by mouth once daily D-5000 125 MCG (5000 UT) tablet Indications: Vitamin D deficiency, unspecified TAKE 1 TABLET BY MOUTH DAILY 30 tablet 5 12/17/2023 Active take 1 tablet by mouth once cheng y Vitamin D3 125 MCG (5000 UT) TAKE 1 TABLET BY MOUTH DAILY Oral for 30 Days Active dextromethorphan hydrobromide 15 mg / guaiFENesin 400 mg / pseudoephedrine hydrochloride 60 mg oral tablet (2 sources) alpha-Adrenergic Agonist, Uncompetitive X-nfdbem-W-aspartate Receptor Antagonist, Sigma-1 Agonist Start: 07-03-2023 take 4 tablets by mouth every twenty-four hours as needed Capmist DM 60-15-400 MG as needed Orally every 4-6 hours as needed, max 4 tablets in 24 hours for 5 days Jul, Active estradiol 0.5 mg oral tablet (5 sources) Estrogen Start: 05-28-2023 End: 05-27-2024 take 1 tablet by mouth in the morning estradiol (Estrace) 0.5 MG tablet Indications: Hormone imbalance Take 1 tablet (0.5 mg) by mouth in the morning. 30 tablet 05/28/2023 05/27/2024 Active famotidine 20 mg oral tablet (6 sources) Histamine-2 Receptor Antagonist Start: 11-13-2023 famotidine (Pepcid) 20 MG tablet Indications: Gastroesophageal reflux disease without esophagitis Take 1 tablet (20 mg) by mouth if needed for heartburn 30 tablet 5 11/13/2023 Active famotidine (Pepc id) 20 MG tablet Take 20 mg by mouth if needed for heartburn 0 Active fluticasone propionate 0.05 mg/actuat metered dose nasal spray (6 sources) Corticosteroid take 2 spray(s) nasa l route once daily fluticasone (Flonase) 50 MCG/ACT nasal spray instill 2 (TWO) spray nasally DAILY Active Fluticasone Prop ionate 50 MCG/ACT Nasal for 30 Days Active Fluticasone Prop ionate 50 MCG/ACT Nasal for 30 Days Active loratadine 10 mg oral tablet (6 sources) Start: 10-16-2023 End: 10-15-2024 take 1 tablet by mouth once daily loratadine (Claritin) 10 MG tablet Indications: Seasonal allergic rhinitis due to pollen Take 1 tablet (10 mg) by mouth Daily 30 tablet 11 10/16/2023 10/15/2024 Active take 1 tablet by mouth in the mo rning loratadine (Claritin) 10 MG tablet Take 10 mg by mouth in the morning. 0 Active 24 hr metFORMIN hydrochloride 500 mg extended release oral tablet (3 sources) Biguanide Start: 03-08-2023 End: 03-07-2024 take 1 tablet by mouth every twenty-four hours at mealtime metFORMIN XR (Glucophage-XR) 500 MG 24 hr tablet Indications: Insulin resistance TAKE 1 TABLET BY MOUTH IN THE EVENING WITH A MEAL *do not crush, chew, or split* 30 tablet 11 02/21/2024 Active 24 hr mirabegron 50 mg extended release oral tablet (3 sources) beta3-Adrenergi c Agonist Start: 09-10-2023 take 1 tablet by mouth every twenty-four hours at bedtime mirabegron ER (Myrbetriq) 50 MG 24 hr tablet Indications: Mixed incontinence urge and stress (male)(female) Take 1 tablet (50 mg) by mouth at bedtime Do not crush, chew, or split. 30 tablet 5 09/10/2023 Active take 1 tablet by ramakrishna th at bedtime, then take 1 tablet by mouth every twenty-four hours mirabegron ER (Myrbetriq) 50 MG 24 hr tablet Take 50 mg by mouth at bedtime Do not crush, chew, or split. 0 Active montelukast 10 mg oral tablet (3 sources) Leukotriene Receptor Antagonist Start: 12-24-2023 take 1 tablet by mouth at bedtime montelukast (Singulair) 10 MG tablet Indications: Allergic rhinitis due to pollen TAKE 1 TABLET BY MOUTH AT BEDTIME 30 tablet 5 12/24/2023 Active Start: 06-24-2023 take 1 tablet by ramakrishna th at bedtime montelukast (Singulair) 10 MG tablet [...] 0.35 mg oral tablet (4 sources) Start: take 1 tablet by mouth once daily norethindrone (Milagros) 0.35 MG tablet Indications: Excessive bleeding in the premenopausal period TAKE 1 TABLET BY MOUTH DAILY 28 tablet 12 07/16/2023 Active Deblitane 0.35 M G Oral for 28 Days Active omeprazole 40 mg delayed release oral capsule (6 sources) Proton Pump Inhibitor Start: 03-04-2024 take 1 capsule by mouth once daily omeprazole (PriLOSEC) [address] capsule Indications: Seasonal allergic rhinitis due to pollen TAKE 1 CAPSULE BY MOUTH DAILY 30 capsule 3 03/04/2024 Active take 1 capsule by mouth in the m orning omeprazole (PriLOSEC) [address] capsule Take [...] Respiratory Therapy Supplies (Full Kit Nebulizer Set) [facility] (3 sources) Start: 07-13-19 Respiratory Therapy Supplies (Full Kit Nebulizer Set) [facility] Indications: Chronic obstructive pulmonary disease, unspecified COPD type (CMS/HCC) USE DIRECTED WITH compressor 1 each 07/13/2023 Active Start: 07-13-2023 Respiratory Th erapy Supplies (Full Kit Nebulizer Set) [facility] Indications: Chronic obstructive pulmonary disease, unspecified COPD type (CMS/HCC) USE DIRECTED WITH compressor 1 each 0 07/13/2023 Active tiotropium 0.018 mg inhalation powder (6 sources) Anticholinergic Start: 01-21-2024 take 1 capsule by inhalation once daily Spiriva HandiHaler 18 MCG inhalation capsule Indications: Chronic obstructive pulmonary disease, unspecified (CMS/HCC) INHALE CONTENTS OF 1 (ONE) CAPSULE VIA HANDIHALER DAILY 30 capsule 5 01/21/2024 Active Start: 08-06-2023 take 1 capsule by in halation once daily Spiriva HandiHaler 18 MCG inhalation [...] Problem Date Documented Date Episodic/Chronic Anxiety disorders (3 sources) Generalized anxiety disorder; Translations: [Generalized anxiety disorder] Onset: 06-18-2023 06-18-2023 Chronic Chronic obstructive pulmonary disease and bronchiectasis (3 sources) Chronic obstructive lung disease; Translations: [Chronic obstructive pulmonary disease, unspecified] Onset: 06-18-2023 06-18-2023 Chronic Disorders of lipid metabolism (4 sources) Dyslipidemia; Translations: [Hyperlipidemia, unspecified] Onset: 06-18-2023 06-18-2023 Chronic Esophageal disorders (3 sources) Gastroesophageal reflux disease without esophagitis; Translations: [Gastro-esophageal reflux disease without esophagitis] Onset: 06-18-2023 06-18-2023 Chronic Genitourinary symptoms and ill-defined conditions (3 sources) Incontinence; Translations: [Mixed incontinence] Onset: 06-18-2023 06-18-2023 Chronic Headache; including migraine (3 sources) Migraine without aura, not refractory ; Translations: [Chronic migraine without aura, not intractable, without status migrainosus] Onset: 06-18-2023 06-18-2023 Chronic Menopausal disorders (3 sources) Menorrhagia; Translations: [Excessive bleeding in the premenopausal period] Onset: 06-18-2023 06-18-2023 Chronic Menstrual disorders (3 sources) Amenorrhea; Translations: [Amenorrhea, unspecified] Onset: 06-18-2023 06-18-2023 Chronic Mood disorders (3 sources) Recurrent major depressive episodes, mild ; Translations: [Major depressive disorder, recurrent, mild] Onset: 06-18-2023 06-18-2023 Chronic Nutritional deficiencies (4 sources) Vitamin D deficiency, unspecified; Translations: [Vitamin D deficiency] Onset: 05-28-2021 06-18-2023 Chronic Other nutritional; endocrine; and metabolic disorders (2 sources) Body mass index 30+ - obesity; Translations: [Obesity, unspecified] Onset: 09-10-2023 09-10-2023 Chronic Other screening for suspected conditions (not mental disorders or infectious disease) (4 sources) Encounter for screening mammogram for malignant neoplasm of breast; Translations: [ENC SCR MAMMO MALIG NEOPLASM BREAST] Onset: 03-13-2022 Episodic Other skin disorders (1 source) Rash and other nonspecific skin eruption Episodic Other upper respiratory disease (3 sources) Allergic rhinitis due to pollen; Translations: [Allergic rhinitis due to pollen] Onset: 06-18-2023 06-18-2023 Chronic Residual codes; unclassified (2 sources) Generalized aches and pains; Translations: [Pain, unspecified] Episodic Residual codes; unclassified (1 source) Pain, unspecified Episodic Spondylosis; intervertebral disc disorders; other back problems (6 sources) Degeneration of cervical intervertebral disc; Translations: [Other cervical disc degeneration, unspecified cervical region] Onset: 06-18-2023 06-18-2023 Chronic Past or Other Problems Problem Classification Problem Date Documented Da te Episodic/Chronic Diabetes mellitus without complication (3 sources) Prediabetes; Translations: [Prediabetes] Onset: 06-18-2023 06-18-2023 Episodic Other non-traumatic joint disorders (3 sources) Pain in left knee; Translations: [Pain in joint, lower leg] Onset: 06-18-2023 06-18-2023 Episodic Other skin disorders (3 sources) Hidradenitis suppurativa; Translations: [Hidradenitis suppurativa] Onset: 06-18-2023 06-18-2023 Episodic Viral infection (1 source) COVID-19 Results Test Name Value Interpretation Reference Range Facility ALL CBC WITH AUTO DIFFon BASOPHILS ABSOLUTE AUTO 0.1 [facility] Basophils/100 WBC (Bld) 1.1 % 0.2 - 2.0 % [facility] Eosinophils/100 WBC (Bld) 2.1 % 0.9 - 7.0 % [facility] Erythrocyte distribution width (RBC) [Ratio] 15.2 % High 11.0 - 15.0 % [facility] Hematocrit (Bld) [Volume fraction] 44.0 % 36.0 - 48.0 % [facility] Hemoglobin (Bld) [Mass/Vol] 14.3 g/dL 12.0 - 16.0 g/dL [facility] IMMATURE GRANULOCYTES ABS AUTO 0.02 [facility] Immature granulocytes/100 WBC (Bld) 0.2 % 0.0 - 0.5 % [facility] Interpretation and review of laboratory results Abnormal [facility] LYMPHOCYTES ABSOLUTE AUTO 2.5 [facility] Lymphocytes/100 WBC (Bld) 30.8 % 20.5 - 60.0 % [facility] MCH (RBC) [Entitic mass] 27.8 pg 26.7 - 34.0 pg [facility] MCHC (RBC) [Mass/Vol] 32.5 g/dL 29.9 - 35.2 g/dL [facility] MCV (RBC) [Entitic vol] 85.4 fL 81.0 - 99.0 fL [facility] MONOCYTES ABSOLUTE AUTO 0.5 [facility] Monocytes/100 WBC (Bld) 5.4 % 1.7 - 12.0 % [facility] NEUTROPHILS ABSOLUTE AUTO 5.0 [facility] Neutrophils/100 WBC (Bld) 60.4 % 43.0 - 75.0 % [facility] Platelet mean volume (Bld) [Entitic vol] 9.5 fL 9.5 - 13.5 fL [facility] PLT 280 [facility] RBC 5.15 [facility] WBC 8.3 [facility] MLR HEMOGLOBIN A1Con 024 Glucose [Mass/Vol] 120 mg/dL [facility] HbA1c (Bld) [Mass fraction] 5.8 % 4.5 - 6.2 % [facility] Comment on above: ADA RECOMMENDED LIMI T 4.0 - 6.0 ADA THERAPEUTIC TARGET < 7.0 ACTION SUGGESTED > 7.0 [facility] [place] 08-23-2023 L Specimen: [id number] Received: 08/24/23 Status: BRITTA Lewis Num: [id number] Spec Type: Surgical Subm Dr: Josi Pereyra Tissues: A Uterus w/ or w/o tubes ovaries except neoplastic or prolap (UTERUS PILY FT) Procedures: HE/12, Gross/Micro L5 Age/ Patient Sex Location Account Attending Physician RamyJenn Ledesma 48/F LABELL [id number] Josi Pereyra SPEC NUM: [id number] RECD: 08/24/23 STATUS: BRITTA LEWIS NUM: [id number] EVI: 08/23/[address]: Josi Pereyra ENTERED: 08/24/[address]: Leonie,Lab SPEC TYPE: Surgical DEPT: CIRA MACHADO ORDERED: HE/12, Gross/Micro L5 ORDERED: HE/12, Gross/Micro L5 Pathological Diagnosis Uterus, Bilateral Tubes, [...] and unremarkable. Sectioning demonstrates a central lumen. Vegetable Preparer sections are submitted in 6 cassettes as follows: A1 - Posterior cul-de-sac serosa A2 - Anterior and posterior cervix Specimen: [id number] Received: 08/24/23 Status: BRITTA Lewis Num: [id number] Spec Type: Surgical Subm Dr: Josi Pereyra Tissues: A Uterus w/ or w/o tubes ovaries except neoplastic or prolap (UTERUS PILY FT) Procedures: , Gross/Micro L5 Patient: Jenn Mccann [id number] (Continued) Specimen: [id number] Received: 08/24/23 (Continued) Gross Description (Continued) Signed (signatur e on file) Arminda Vegas MD 08/30/23 2234 Specimen: [id number] Received: 08/24/23 Status: BRITTA Lewis Num: [id number] Spec Type: Surgical Subm Dr: Josi Pereyra Tissues: A Uterus w/ or w/o tubes ovaries except neoplastic or prolap (UTERUS PILY FT) Procedures: , Gross/Micro L5 Patient: Jenn Mccann [id number] (Continued) Specimen: [id number] Received: 08/24/23 (Continued) Gross Description (Continued) A3 - Anterior endomyometrium A4 - Posterior endomyometrium A5 - Fenwick segment of fallopian tube with fimbria entirely submitted A6 - Longer segment of fallopian tube with fimbria entirely submitted CPT Codes 79065 Specimen: [id number] Received: 08/24/23-124 Status: BRITTA Lewis Num: [id number] Spec Type: Surgical Subm Dr: Josi Pereyra Tissues: A Uterus w/ or w/o tubes ovaries except neoplastic or prolap (UTERUS PILY FT) Procedures: , Gross/Micro L5 Patient: Jenn Mccann [id number] (Continued) Signed (signatur e on file) Arminda Vegas MD 08/30/239 [facility] ALL CBC WITH AUTO DIFFon BASOPHILS ABSOLUTE AUTO 0.1 [facility] Basophils/100 WBC (Bld) 1.0 % 0.2 - 2.0 % [facility] Eosinophils/100 WBC (Bld) 1.3 % 0.9 - 7.0 % [facility] Erythrocyte distribution width (RBC) [Ratio] 15.6 % High 11.0 - 15.0 % [facility] Hematocrit (Bld) [Volume fraction] 45.1 % 36.0 - 48.0 % [facility] Hemoglobin (Bld) [Mass/Vol] 14.5 g/dL 12.0 - 16.0 g/dL [facility] IMMATURE GRANULOCYTES ABS AUTO 0.03 [facility] Immature granulocytes/100 WBC (Bld) 0.3 % 0.0 - 0.5 % [facility] Interpretation and review of laboratory results [facility] LYMPH[facility]TES ABSOLUTE AUTO 3.0 [facility] Lymphocytes/100 WBC (Bld) 30.2 % 20.5 - 60.0 % [facility] MCH (RBC) [Entitic mass] 27.1 pg 26.7 - 34.0 pg [facility] MCHC (RBC) [Mass/Vol] 32.2 g/dL 29.9 - 35.2 g/dL [facility] MCV (RBC) [Entitic vol] 84.3 fL 81.0 - 99.0 fL [facility] MONOCYTES ABSOLUTE AUTO 0.6 [facility] Monocytes/100 WBC (Bld) 6.3 % 1.7 - 12.0 % [facility] NEUTROPHILS ABSOLUTE AUTO 6.1 [facility] Neutrophils/100 WBC (Bld) 60.9 % 43.0 - 75.0 % [facility] Platelet mean volume (Bld) [Entitic vol] 9.3 fL Low 9.5 - 13.5 fL [facility] EO # 0.1 [facility] TB PLT 293 [facility] TB RBC 5.35 [facility] TB WBC 10.0 [facility] COVID + FLU Quick Testingon 07-03-2023 SARS-CoV-2 (COVID-19) RNA JESSIE+probe Ql (Unsp spec) Positive ensembli Other COVID + FLU Quick Testing Negative ensembli Other MG MAMM SCREEN 3D PILY CADon 03-13-2022 MG MAMM SCREEN 3D PILY CAD Patient: JENN MCCANN Exam Date: 03/13/2022 : 1975 Gender:F Ordering : DR JADEN ANTONIO . Admission #: [id number] Family : Order #: [id number] CLICK HERE TO VIEW EXAM RADIOLOGY REPORT [...] Treatments None Family Cancers None LOCATION: [facility] BREAST COMPOSITION: Scattered areas fibroglandular density. FINDINGS: [...] M.D. on 03/14/2022 at 08:50 Normal [facility] CBC AUTO DIFFon 05-19-2021 BASO # 0.1 103/ul Normal 0.0-0.1 [facility] Comment on above: Performed By: #### C BC #### [facility] [address] [address] [address] Dashawn Mayo Basophils/100 WBC (Bld) 0.9 % Normal 0.2-2.0 [facility] Comment on above: Performed By: #### C BC #### [facility] [address] [address] [address] Dashawn Mayo EO # 0.2 103/ul Normal 0.0-0.7 [facility] Comment on above: Performed By: #### C BC #### [facility] [address] [address] [address] Dashawn Mayo Eosinophils/100 WBC (Bld) 2.3 % Normal 0.9-7.0 [facility] Comment on above: Performed By: #### C BC #### [facility] [address] [place] [address] Dr. Dashawn Mayo Erythrocyte distribution width (RBC) [Ratio] 15.2 % Critically high 11.0-15.0 [facility] Comment on above: Performed By: #### C BC #### [facility] [address] [place] [address] Dr. Dashawn Mayo Hematocrit (Bld) [Volume fraction] 45.5 % Normal 36.0-48.0 [facility] Comment on above: Performed By: #### C BC #### [facility] [address] [place] [address] Dr. Dashawn Mayo Hemoglobin (Bld) [Mass/Vol] 14.4 g/dL Normal 12.0-16.0 [facility] Comment on above: Performed By: #### C BC #### [facility] [address] [place] [address] Dr. Dashawn Mayo IG # 0.03 10e3/ul Normal 0.00-0.03 [facility] Comment on above: Performed By: #### C BC #### [facility] [address] [place] [address] Dr. Dashawn Mayo IG % 0.3 % Normal 0.0-0.5 [facility] Comment on above: Performed By: #### C BC #### [facility] [address] [place] [address] Dr. Dashawn Mayo LYMPH # 2.8 103/ul Normal 1.2-3.8 [facility] Comment on above: Performed By: #### C BC #### [facility] [address] [place] [address] Dr. Dashawn Mayo Lymphocytes/100 WBC (Bld) 27.4 % Normal 20.5-60.0 [facility] Comment on above: Performed By: #### C BC #### [facility] [address] [place] [address] Dr. Dashawn Mayo MANUAL DIFF REQ NO Normal [facility] Comment on above: Performed By: #### C BC #### [facility] [address] [address] [address] Dashawn Mayo MCH (RBC) [Entitic mass] 27.2 pg Normal 26.7-34.0 [facility] Comment on above: Performed By: #### C BC #### [facility] [address] [place] [address] Dr. Dashawn Mayo MCHC (RBC) [Mass/Vol] 31.6 g/dL Normal 29.9-35.2 [facility] Comment on above: Performed By: #### C BC #### [facility] [address] [place] [address] Dr. Dashawn Mayo MCV (RBC) [Entitic vol] 85.8 fL Normal 81.0-99.0 [facility] Comment on above: Performed By: #### C BC #### [facility] [address] [place] [address] Dr. Dashawn Mayo MONO # 0.5 103/ul Normal 0.3-0.8 [facility] Comment on above: Performed By: #### C BC #### [facility] [address] [place] [address] Dr. Dashawn Mayo Monocytes/100 WBC (Bld) 4.5 % Normal 1.7-12.0 [facility] Comment on above: Performed By: #### C BC #### [facility] [address] [place] [address] Dr. Dashawn Mayo NEUT # 6.7 103/ul Critically high 1.4-6.5 [facility] Comment on above: Performed By: #### C BC #### [facility] [address] [place] [address] Dr. Dashawn Mayo Neutrophils/100 WBC (Bld) 64.6 % Normal 43.0-75.0 [facility] Comment on above: Performed By: #### C BC #### [facility] [address] [place] [address] Dr. Dashawn Mayo Platelet mean volume (Bld) [Entitic vol] 10.3 fL Normal 9.5-13.5 [facility] Comment on above: Performed By: #### C BC #### [facility] [address] [address] [address] Dashawn Mayo PLT 295 103/ul Normal 150-450 [facility] Comment on above: Performed By: #### C BC #### [facility] [address] [address] [address] Dashawn Mayo RBC 5.30 106/ul Normal 4.20-5.40 [facility] Comment on above: Performed By: #### C BC #### [facility] [address] [address] [address] Dashawn Mayo WBC 10.4 103/ul Normal 4.0-11.0 [facility] Comment on above: Performed By: #### C BC #### [facility] [address] [address] [address] Dashawn Mayo FREE T3on 05-19-2021 FREE T3 2.20 pg/mlL Critically low 2.77-5.27 [facility] Comment on above: Performed By: #### L IVER, LIPID, FT3, BMP, TSH #### [facility] [address] [address] [address] Dashawn Mayo FREE T4on 05-19-2021 Free T4 [Mass/Vol] 0.97 ng/dL Normal 0.78-2.19 [facility] Comment on above: Performed By: #### V ITAD, FT4 #### [facility] [address] [address] [address] Dashawn Mayo GLYCOHEMOGLOBIN A1Con 2020 ADA RECOMMENDATION ADA THERAPEUTIC TARGET 6.0 - 7.0 ACTION SUGGESTED > 7.0 Normal [facility] Comment on above: Performed By: #### A 1C #### [facility] [address] [address] [address] Dashawn Mayo Glucose [Mass/Vol] 126 mg/dL Normal [facility] Comment on above: Performed By: #### A 1C #### [facility] [address] [address] [address] Dashawn Mayo HbA1c (Bld) [Mass fraction] 6.0 % Normal <=6.0 [facility] Comment on above: Performed By: #### A 1C #### [facility] [address] [address] [address] Dashawn Mayo LIPID PROFILEon 05-19-2021 CHOL-HDL RATIO NORM SEE BELOW Normal [facility] Comment on above: Result Comment: 3.3 - 4.4 LOW RISK 4.4 - 7.1 AVERAGE RISK 7.1 - 11.0 MODERATE RISK >11.0 HIGH RISK Performed By: #### L IVER, LIPID, FT3, BMP, TSH #### [facility] [address] [address] [address] Dashawn Mayo Cholesterol [Mass/Vol] 250 mg/dL Critically high <=200 [facility] Comment on above: Performed By: #### L IVER, LIPID, FT3, BMP, TSH #### [facility] [address] [place] [address] Dr. Dashawn Mayo Cholesterol in HDL [Mass/Vol] 41 mg/dL Normal [facility] Comment on above: Performed By: #### L IVER, LIPID, FT3, BMP, TSH #### [facility] [address] [address] [address] Dashawn Mayo Cholesterol in LDL [Mass/Vol] 188.2 mg/dL Normal [facility] Comment on above: Performed By: #### L IVER, LIPID, FT3, BMP, TSH #### [facility] [address] [place] [address] Dr. Dashawn Mayo Cholesterol.total/Ch olesterol in HDL [Mass ratio] 6.1 {ratio} Normal [facility] Comment on above: Performed By: #### L IVER, LIPID, FT3, BMP, TSH #### [facility] [address] [place] [address] Dr. Dashawn Mayo HDL NORMAL > or = 60 mg/dl - LOW CARDIOVASCULAR RISK <40 mg/dl - HIGH CARDIOVASCULAR RISK Normal [facility] Comment on above: Performed By: #### L IVER, LIPID, FT3, BMP, TSH #### [facility] [address] [place] [address] Dr. Dashawn Mayo LDL CALC NORMAL SEE BELOW Normal [facility] Comment on above: Result Comment: <100 mg/dl OPTIMAL 100 - 129 mg/dl NEAR OR ABOVE OPTIMAL 130 - 159 mg/dl BORDERLINE HIGH 160 - 189 mg/dl HIGH >190 mg/dl VERY HIGH Performed By: #### L IVER, LIPID, FT3, BMP, TSH #### [facility] [address] [address] [address] Dashawn Mayo Triglyceride [Mass/Vol] 104 mg/dL Normal <=150 [facility] Comment on above: Performed By: #### L IVER, LIPID, FT3, BMP, TSH #### [facility] [address] [address] [address] Dashawn Mayo VLDL CALC 20.8 mg/dL Normal [facility] Comment on above: Performed By: #### L IVER, LIPID, FT3, BMP, TSH #### [facility] [address] [place] [address] Dr. Dashawn Mayo LIVER PROFILEon 05-19-2021 Albumin [Mass/Vol] 3.6 g/dL Normal 3.5-5.0 [facility] Comment on above: Performed By: #### L IVER, LIPID, FT3, BMP, TSH #### [facility] [address] [address] [address] Dashawn Mayo Albumin/Globulin [Mass ratio] 0.9 {ratio} Normal [facility] Comment on above: Performed By: #### L IVER, LIPID, FT3, BMP, TSH #### [facility] [address] [address] [address] Dashawn Mayo ALP [Catalytic activity/Vol] 72 U/L Normal 38-126 [facility] Comment on above: Performed By: #### L IVER, LIPID, FT3, BMP, TSH #### [facility] [address] [address] [address] Dashawn Mayo ALT [Catalytic activity/Vol] 16 U/L Normal 9-52 [facility] Comment on above: Performed By: #### L IVER, LIPID, FT3, BMP, TSH #### [facility] [address] [place] [address] Dr. Dashawn Mayo AST [Catalytic activity/Vol] 13 U/L Critically low 14-36 [facility] Comment on above: Performed By: #### L IVER, LIPID, FT3, BMP, TSH #### [facility] [address] [place] [address] Dr. Dashawn Mayo BILI, CONJUGATED 0.0 mg/dL Normal 0.0-0.3 [facility] Comment on above: Performed By: #### L IVER, LIPID, FT3, BMP, TSH #### [facility] [address] [place] [address] Dr. Dashawn Mayo Bilirubin [Mass/Vol] 0.3 mg/dL Normal 0.2-1.3 The [facility] Comment on above: Performed By: #### L IVER, LIPID, FT3, BMP, TSH #### [facility] [address] [place] [address] Dr. Dashawn Mayo Globulin (S) [Mass/Vol] 4.0 g/dL Normal The [facility] Comment on above: Performed By: #### L IVER, LIPID, FT3, BMP, TSH #### [facility] [address] [place] [address] Dr. Dashawn Mayo Protein [Mass/Vol] 7.6 g/dL Normal 6.1-8.2 [facility] Comment on above: Performed By: #### L IVER, LIPID, FT3, BMP, TSH #### [facility] [address] [place] [address] Dr. Dashawn Mayo PROF CHEM 8 (BAS METB)on Anion gap [Moles/Vol] 12.6 mmol/L Normal The [facility] Comment on above: Performed By: #### L IVER, LIPID, FT3, BMP, TSH #### [facility] [address] [place] [address] Dr. Dashawn Mayo Calcium [Mass/Vol] 9.1 mg/dL Normal 8.4-10.2 [facility] Comment on above: Performed By: #### L IVER, LIPID, FT3, BMP, TSH #### [facility] [address] [address] [address] Dashawn Mayo Chloride [Moles/Vol] 102 mmol/L Normal 98-107 [facility] Comment on above: Performed By: #### L IVER, LIPID, FT3, BMP, TSH #### [facility] [address] [address] [address] Dashawn Mayo CO2 [Moles/Vol] 27.9 mmol/L Normal 22.0-30.0 [facility] Comment on above: Performed By: #### L IVER, LIPID, FT3, BMP, TSH #### [facility] [address] [address] [address] Dashawn Mayo Creatinine [Mass/Vol] 0.81 mg/dL Normal 0.52-1.04 [facility] Comment on above: Performed By: #### L IVER, LIPID, FT3, BMP, TSH #### [facility] [address] [address] [address] Dashawn Mayo EGFR-AF SAMMARINESE >60 Normal >=60 [facility] Comment on above: Performed By: #### L IVER, LIPID, FT3, BMP, TSH #### [facility] [address] [place] [address] Dr. Dashawn Mayo EGFR-NON AF SAMMARINESE >60 Normal >=60 [facility] Comment on above: Performed By: #### L IVER, LIPID, FT3, BMP, TSH #### [facility] [address] [address] [address] Dashawn Mayo Glucose [Mass/Vol] 94 mg/dL Normal 74-106 [facility] Comment on above: Performed By: #### L IVER, LIPID, FT3, BMP, TSH #### [facility] [address] [place] [address] Dr. Dashawn Mayo Potassium [Moles/Vol] 4.5 mmol/L Normal 3.4-5.0 [facility] Comment on above: Performed By: #### L IVER, LIPID, FT3, BMP, TSH #### [facility] [address] [address] [address] Dashawn Mayo Sodium [Moles/Vol] 138 mmol/L Normal 137-145 [facility] Comment on above: Performed By: #### L IVER, LIPID, FT3, BMP, TSH #### [facility] [address] [place] [address] Dr. Dashawn Mayo Urea nitrogen [Mass/Vol] 8.0 mg/dL Normal 7.0-17.0 [facility] Comment on above: Performed By: #### L IVER, LIPID, FT3, BMP, TSH #### [facility] [address] [address] [address] Dashawn Mayo Urea nitrogen/Creatinine [Mass ratio] 9.9 mg/mg Normal [facility] Comment on above: Performed By: #### L IVER, LIPID, FT3, BMP, TSH #### [facility] [address] [place] [address] Dr. Dashawn Mayo TSHon 05-19-2021 TSH 1.888 uIU/mL Normal 0.470-4.680 [facility] Comment on above: Performed By: #### L IVER, LIPID, FT3, BMP, TSH #### [facility] [address] [place] [address] Dr. Dashawn Mayo TSH RANGE SEE BELOW Normal [facility] Comment on above: Result Comment: <0.3 4 UIU/ml HYPERTHYROID 0.34-5.60 UIU/ml EUTHYROID >5.60 UIU/ml HYPOTHYROID Performed By: #### L IVER, LIPID, FT3, BMP, TSH #### [facility] [address] [place] [address] Dr. Dashawn Mayo VITAMIN D 25 OHon 05-19-2021 VIT D 25-OH 97.4 ng/mL Normal [facility] Comment on above: Performed By: #### V ITAD, FT4 #### [facility] [address] [place] [address] Dr. Dashawn Mayo VIT D RANGES SEE BELOW Normal [facility] Comment on above: Result Comment: <20 ng/mL Vit D deficient 20 - <30 ng/mL Vit D insufficient 30 - 100 ng/mL Vit D sufficient >100 ng/mL Potential Toxicity Performed By: #### V ITAD, FT4 #### [facility] [address] [place] [address] Dr. Dashawn Mayo Vital Signs Date Time Vital Sign Value Performing Clinician Facility 07-03-2023 14:40-0500 Body height 160.02 cm Kimberly Scott Other [facility] 07-03-2023 14:40-0500 Body mass index (BMI) [Ratio] 41.45 kg/m2 Kimberly Scott Other [facility] Other 07-03-2023 14:40-0500 Body temperature 100.9 [degF] Kimberly Scott Other [facility] Other 07-03-2023 14:40-0500 Body weight 106.14 kg Kimberly Scott Other [facility] 07-03-2023 14:40-0500 Respiratory rate 18 /min Kimberly Scott Other [facility] Other 07-03-2023 14:40-0500 SaO2% (BldA) [Mass fraction] 95 % Kimberly Scott Other [facility] Other 12-05-2022 17:40-0400 Body height 160.02 cm Kimberly Scott Other [facility] Other 12-05-2022 17:40-0400 Body mass index (BMI) [Ratio] 45.7 kg/m2 Kimberly Scott Other [facility] Other 12-05-2022 17:40-0400 Body temperature 98.6 [degF] Kimberly Scott Other [facility] Other 12-05-2022 17:40-0400 Body weight 117.03 kg Kimberly Scott Other [facility] Other 12-05-2022 17:40-0400 Diastolic blood pressure 86 mm[Hg] Kimberly Scott Other [facility] Other 12-05-2022 17:40-0400 Respiratory rate 18 /min Kimberly Scott Other [facility] Other 12-05-2022 17:40-0400 SaO2% (BldA) [Mass fraction] 97 % Kimberly Scott Other [facility] Other 12-05-2022 17:40-0400 Systolic blood pressure 145 mm[Hg] Kimberly Scott Other [facility] Other Encounters Encounter Date Encounter Type Care Provider Facility Start: 04-11-2024 End: 04-11-2024 ambulatory JOSI RODDY Not Available Start: 03-17-2024 End: 03-17-2024 Clinisync Result Encounter Jaden Antonio MD Work Phone: [facility] Unsolicited Start: 03-17-2024 End: 03-17-2024 Clinisync Result Encounter Jaden Antonio MD Work Phone: [facility] Unsolicited Start: 03-17-2024 End: 03-17-2024 Orders Only Jaden Antonio MD Work Phone: [facility] Comment on above: Dyslipidemia (CMS/HC C) (Primary Dx) Start: 03-04-2024 Patient encounter procedure Jaden Antonio MD Work Phone: [facility] Start: 03-04-2024 End: 03-04-2024 ambulatory JADEN ANTONIO Not Available Start: 02-11-2024 End: 02-11-2024 ambulatory JOSI RODDY Not Available Start: 10-04-2023 End: 10-04-2023 ambulatory JOSI RODDY Not Available Start: 09-10-2023 End: 09-10-2023 ambulatory JADEN ANTONIO Not Available Start: 08-30-2023 End: 08-30-2023 ambulatory YULY JARQUIN Not Available Start: 08-23-2023 End: 08-23-2023 ambulatory Jaden Antonio Facility:[facility] Start: 08-23-2023 End: 08-23-2023 ambulatory MD Jaden Antonio Work Phone: [facility] Work Phone: Start: 08-23-2023 End: 08-23-2023 Departed Referred MD Jaden Antonio Work Phone: [facility] Start: 08-09-2023 Clinisync Result Encounter Generic External Data Provider [facility] Unsolicited Start: 08-09-2023 Clinisync Result Encounter Generic External Data Provider [facility] Unsolicited Start: 07-24-2023 End: 07-24-2023 ambulatory JOSI RODDY Not Available Start: 07-03-2023 End: 07-03-2023 ambulatory Kimberly Scott Other [facility] Other Start: 07-03-2023 Office outpatient vi sit 25 minutes Kimberly Scott [facility] Start: 07-03-2023 Telephone encounter Kimberly Scott [facility] [address] Start: 07-03-2023 End: 07-03-2023 Patient encounter procedure MD Jaden Antonio Work Phone: [facility] Work Phone: Start: 06-18-2023 End: 06-18-2023 ambulatory JADEN ANTONIO Not Available Start: 05-28-2023 End: 05-28-2023 ambulatory YULY JARQUIN Not Available Start: 12-05-2022 End: 12-05-2022 ambulatory Kimberly Scott Other [facility] Other Start: 12-05-2022 Office outpatient ne w 20 minutes Kimberly Scott [facility] Start: 03-13-2022 End: 03-14-[address] JADEN ANTONIO Facility:[facility] Start: 05-28-2021 Encounter for genera l adult medical examination without abnormal findings DR JADEN ANTONIO [facility] Start: 05-19-2021 End: 05-20-[address] JADEN ANTONIO Facility:[facility] Start: 05-19-2021 End: 05-20-2021 Encounter for general adult medical examination without abnormal findings DR JADEN ANTONIO Facility:[facility] Procedures Date Procedure Procedure Detail Performing Clinician Start: 03-17-2024 ALL CBC WITH AUTO DIFF Jaden Antonio MD Work Phone: Start: 03-17-2024 MLR HEMOGLOBIN A1C Jaden Antonio MD Work Phone: Start: 03-17-2024 Mammography Jaden swanson MD Work Phone: Start: 08-09-2023 ALL CBC WITH AUTO DIFF Josi Roddy DO Work Phone: Start: 03-16-2023 Mammography Jaden swanson MD Work Phone: Start: 01-22-2023 Microscopic observat ion [Identifier] in Cervix by Cyto stain Generic Provider Plan of Treatment Date Care Activity Detail Author Start: 02-01-2026 Screening for malign ant neoplasm of colon [facility] Start: 01-22-2026 Screening for malign ant neoplasm of cervix [facility] Start: 03-17-2025 Screening for malign ant neoplasm of breast Mammogram [facility] Start: 02-10-2025 End: 02-10-2025 Patient encounter procedure 02/10/2025 9:00 AM EDT Office Visit [facility] [address] [place] [phone] Josi Pereyra, DO [address] [place] [address] [facility] Start: 09-02-2024 End: 09-02-2024 Patient encounter procedure 09/02/2024 9:00 AM EST [facility] [address] [place] [phone] Jaden Antonio MD [address] [place] [phone] [facility] Start: 03-16-2024 Screening for malign ant neoplasm of breast Mammogram [facility] Start: 2024 Influenza vaccination Influenza Vacc ine (#1) [facility] Start: 09-10-2023 End: 09-10-2023 Patient encounter procedure 09/10/2023 9:45 AM EDT Office Visit [facility] [address] [place] [phone] Jaden Antonio MD [address] [place] [phone] [facility] Start: 08-30-2023 End: 08-30-2023 Patient encounter procedure 08/30/2023 10:30 AM EST Office Visit [facility] [address] [place] [phone] Yuly Jarquin PA [address] [facility] [place] [address] [facility] Start: 2023 Influenza vaccination Influenza Vacc ine (#1) [facility] Start: 2013 Screening for malign ant neoplasm of breast Mammogram [facility] Start: 2003 Screening for malign ant neoplasm of cervix HPV/Cotest [facility] Start: 1973 Screening for malign ant neoplasm of colon [facility] Payers Date Payer Category Payer Self-pay 2016 Medicaid [employer] [place] [id number] 2016-Present [address] [place] [address] [id number] 2016 Medicaid [id number] 1973 Unknown [id number] 1973 Unknown [id number] 1973 Unknown [id number] 1973 Unknown [id number] 1973 Unknown [id number] [id number] 1973 Unknown [id number] [id number] 1973 Unknown [id number] [id number] 1973 Unknown [id number] [id number] 1973 Unknown [id number] [id number] 1973 Unknown [id number] [id number] 1973 Unknown [id number] [id number] 1959 Unknown [id number] Unknown [id number] Social History Date Type Detail Facility Start: 06-18-2023 End: 03-04-2024 Sex Assigned At [facility] [email or web address] Other Start: 06-18-2023 End: 02-11-2024 Tobacco smoking status [facility] Smokes tobacco daily [facility] History of tobacco use Cigarette Smoker [facility] Start: 06-18-2023 End: 03-04-2024 Cigarettes smoked current (pack per day) - Reported 1.5 [facility] Start: 06-18-2023 End: 02-11-2024 Tobacco use and exposure Smokeless tobacco non-user [facility] Start: 07-20-2023 End: 03-04-2024 Alcohol intake Lifetime non-drinker (finding) [facility] Start: 1975 Sex Assigned At Not on file N [facility] Start: 1975 Sex Assigned At Female F [facility] Medical Equipment Procedure Code Equipment Code Equipment Origin al Text Equipment Identifier Dates USE DIRECTED DAILY [id number] Start: 10-09-2023 Evaluation note 07-03-2023 Note Date & Type [...] treatment plan. Patient left in stable condition [facility] Other Evaluation note 12-05-2022 Note Date & [...] understanding and is agreeable with treatment plan [facility] Other Evaluation note Note Date & Type Note Facility Evaluation note No Information [facility] Other Evaluation note Note Date & Type Note Facility Evaluation note No assessment information availa [facility] Work Phone: Evaluation note Note Date & Type Note Facility Evaluation note Diagnosis Dyslipidemia (CMS/HCC)- Primary Other and unspecified hyperlipidemia documented in this encounter [facility] History general Narrative - Reported Note Date & Type Note Facility History general Narrative - Reported Type Medical History Asthma Medical History acid reflux Medical History seasonal allergies Medical History ptsd Medical History depression/anxiety [employer] [facility] [employer] Other History general Narrative - Reported Note Date & Type Note Facility History general Narrative - Reported Type Medical History Asthma Medical History acid reflux Medical History seasonal allergies Medical History ptsd Medical History depression/anxiety Medical History lupus Surgical History uterine ablation [facility] [employer] Other Summary Purpose Family History Relationship Condition Age at Onset Recorded Date/T melinda Not Specified Unknown Advance Directives No Advanced Directives Records FoundNo Advanced Directives Records FoundNo Advanced Directives Records Found Additional Source Comments INFORMATION SOURCE (unrecogn ized section and content) DATE CREATED AUTHOR 04/01/2022 [facility] DATE CREATED AUTHOR AUTHOR'S ORGANIZ ATION 09/01/2023 [facility] DATE CREATED AUTHOR AUTHOR'S ORGANIZ ATION 04/13/2024 [facility] EPIC REASON FOR VISIT (unrecogniz ed section and content) Rash on facePRESCRIPTIONSHEA DACHE, COLD, BONES HURT, COUGHING UP PHLEM Care Teams (unrecognized sec tion and content) Broadcast Program Director Relationship Specialty Start Date End Date Jaden Antonio MD [address] [place] [address] PCP - General Family Medicine 07/24/23 Team [...] 23, 2023 End: August 23, 2023 Josi Roddy Attending Provider Active Start: [facility] 2023 End: August 23, 2023 Broadcast Program Director Relationship Specialty Start Date End Date Jaden Antonio MD [address] [place] [phone] PCP - General Family Medicine 07/24/23 Broadcast Program Director Relationship Specialty Start Date End Date Jaden Antonio MD [address] [place] [phone] PCP - General Family Medicine 07/24/23 Goals (unrecognized section and content) Goals may [...] BE BASED ON THE PRIMARY CLINICAL RECORDS. [facility] [employer] [facility]. provides no warranty or guarantee of the accuracy or completeness of information in this document.
[2024-06-13 11:22] LABS: Bilirubin Urine NEGATIVE (NEGATIVE); Blood Urine NEGATIVE (NEGATIVE); Clarity Urine CLEAR (CLEAR); Color Urine LT. YELLOW (YELLOW); Glucose Urine UA NEGATIVE (NEGATIVE); Ketones Urine NEGATIVE (NEGATIVE); Leukocyte Esterase Urine NEGATIVE (NEGATIVE); Nitrite Urine NEGATIVE (NEGATIVE); Protein Urine NEGATIVE (NEG/TRACE); Specific Gravity Urine <=1.005 (1.005-1.025); Urobilinogen Urine 0.2 EU/dL (0.2-1.0); pH Urine 6.5 (5.0-9.0)
[2024-06-13 11:27] LABS: Urine Microscopic Indicated NO
== END 2024-06-13 10:57 | disposition home or self-care (01) ==
LOC: LAB 10:57
PROVIDERS: PCP Family Medicine; Visit Provider Family Medicine
DX: N39.0 Urinary tract infection, site not specified (principal)
CPT/HCPCS: 81003; 87086

== ENCOUNTER 2024-07-25 11:18 | Emergency (ER) | payer OTHER, SELFPAY ==
[2024-07-25 11:27] VITALS: BP 153/100; PULSE 99; TEMP 36.5; O2SAT 99; BMI 42.9
--- NOTE | 2024-07-25 11:38 | XR_ITS ---
The [address] [address] Patient Name: JANET DIOP MRN: [id number] date: 1975 Sex: F Assigned Patient Location: ER Current Patient Location: ER Accession/Order Number: [id number] Exam Date: 07/25/2024 11:44 Report Date: 07/25/2024 12:06 At the request of: ROCHELLE SOARES Procedure: XR foot RT min 3V EXAM: XR foot RT min 3V HISTORY: injury, pain COMPARISON: Right ankle series dated 07/25/2024. TECHNIQUE: AP, oblique and lateral views of the right foot performed. FINDINGS: The bony alignment and mineralization are normal. There is no fracture. The joint spaces are maintained. Small foci of cortical hypertrophy along the dorsal margin of the talar head and navicular. Small enthesophytes at the calcaneal attachment of the Achilles tendon and plantar fascia. There is no soft tissue abnormality. XR/XR foot RT min 3V IMPRESSION: There is no acute process. There is no fracture. Electronically authenticated by: ZAFAR GOMEZ Date: 07/25/2024 12:06
--- NOTE | 2024-07-25 11:38 | XR_ITS ---
The [address] [address] Patient Name: JANET DIOP MRN: [id number] date: 1975 Sex: F Assigned Patient Location: ER Current Patient Location: ER Accession/Order Number: [id number] Exam Date: 07/25/2024 11:44 Report Date: 07/25/2024 12:03 At the request of: ROCHELLE SOARES Procedure: XR ankle RT min 3V EXAM: XR ankle RT min 3V HISTORY: injury, pain COMPARISON: Right foot series dated 07/25/2024. TECHNIQUE: AP, mortise and lateral views of the right ankle performed. FINDINGS: The bony alignment and mineralization are normal. There is no fracture. The plafond and talar dome are smoothly marginated. The ankle mortise is anatomic. There is mild cortical hypertrophy along the dorsal margin of the talar head and navicular. There are small enthesophytes at the calcaneal attachment of the Achilles tendon and plantar fascia. The soft tissues are unremarkable. XR/XR ankle RT min 3V IMPRESSION: There is no acute process. There is no fracture. Electronically authenticated by: ZAFAR GOMEZ Date: 07/25/2024 12:03
--- NOTE | 2024-07-25 11:43 | ED.LOWEXI1 ---
HPI HPI - Extremity Injury (Lower) General Chief Complaint: Extremity Injury, Lower Stated Complaint: pain in lower extremity Time Seen by Provider: 07/25/24 11:25 Source: patient Mode of arrival: walk-in Limitations: no limitations History of Present Illness HPI Narrative: 2 weeks ago the patient slipped in the snow and twisted her right foot and ankle. She continues to have pain to the midfoot extending into the ankle. She is prescribed Celebrex for pain and last filled a prescription on July 20, 2024. She told me she has not taken anything else for pain and did not take anything this morning for pain. No additional injuries. She has not had any other evaluation for this. Related Data Home Medications ?Medication ?Instructions ?Recorded ?Confirmed albuterol sulfate 90 mcg/actuation 2 inh inhalation Q6H PRN shortness 04/27/23 08/09/23 aerosol inhaler (ProAir HFA) of breath or wheezing celecoxib 200 mg capsule 200 mg PO Q12H 04/27/23 08/09/23 cholecalciferol (vitamin D3) 125 125 mcg PO DAILY 04/27/23 08/09/23 mcg (5,000 unit) tablet fluticasone propionate 50 1 spray intranasal Q12H 04/27/23 08/09/23 mcg/actuation nasal spray,suspension loratadine 10 mg tablet 10 mg PO Q24H 04/27/23 08/09/23 metformin 500 mg tablet,extended 500 mg PO DAILY 04/27/23 08/09/23 release 24 hr montelukast 10 mg tablet 10 mg PO QDAY 04/27/23 08/09/23 norethindrone (contraceptive) 0.35 0.35 mg PO DAILY 04/27/23 08/09/23 mg tablet (Milagros) tiotropium bromide 18 mcg capsule 1 cap inhalation DAILY 04/27/23 08/09/23 with inhalation device (Spiriva with HandiHaler) albuterol sulfate 2.5 mg/3 mL 2.5 mg inhalation Q4H PRN 08/09/23 08/09/23 (0.083 %) solution for nebulization shortness of breath or wheezing alprazolam 0.5 mg tablet 0.5 mg PO TID PRN anxiety 08/09/23 08/09/23 calcium 100 mg capsule mg PO 08/09/23 docusate sodium 50 mg capsule 50 mg PO DAILY 08/09/23 08/09/23 (Stool Softener) estradiol 0.5 mg tablet 0.5 mg PO DAILY 08/09/23 08/09/23 magnesium 200 mg tablet 400 mg PO DAILY 08/09/23 08/09/23 omega 1-wif-ldy-fish oil 1,000 mg 1 cap PO DAILY 08/09/23 08/09/23 (120 mg-180 mg) capsule (Fish Oil) Previous Rx's ?Medication ?Instructions ?Recorded ibuprofen 800 mg tablet 800 mg PO Q8H PRN pain 14 days #40 08/23/23 tabs oxycodone-acetaminophen 5 mg-325 1 tab PO Q6H PRN pain 7 days #28 08/23/23 mg tablet (Percocet) tabs Allergies Allergy/AdvReac Type Severity Reaction Status Date / Time No Known Drug Allergies Allergy Verified 07/25/24 11:30 Opioid HPI Opioid Management Most Recent Pain and Opioid Data: Last Pain Scale 0 08/23/23 21:35 08/23/23 [facility] Medical History (Updated 07/25/24 @ 12:21 by Corbin Dobbins) DDD (degenerative disc disease) Back pain ?M54.9 - Dorsalgia, unspecified (ICD-10) Seasonal allergies ?J30.2 - Other seasonal allergic rhinitis (ICD-10) Anemia ?D64.9 - Anemia, unspecified (ICD-10) Depression ?F32.A - Depression, unspecified (ICD-10) Anxiety ?F41.9 - Anxiety disorder, unspecified (ICD-10) Bronchitis ?J40 - Bronchitis, not specified as acute or chronic (ICD-10) Chronic obstructive pulmonary disease ?J44.9 - Chronic obstructive pulmonary disease, unspecified (ICD-10) Asthma ?J45.909 - Unspecified asthma, uncomplicated (ICD-10) GERD (gastroesophageal reflux disease) ?K21.9 - Gastro-esophageal reflux disease without esophagitis (ICD-10) Prediabetes ?R73.03 - Prediabetes (ICD-10) LGSIL on Pap smear of cervix ?R87.612 - Low grade squamous intraepithelial lesion on cytologic smear of cervix (LGSIL) (ICD-10) Surgical History (Updated 08/09/23 @ 09:58 by Elizabeth Frederick NP) H/O LEEP (05/11/23) ?Z98.890 - Other specified postprocedural states (ICD-10) History of foot surgery ?Z98.890 - Other specified postprocedural states (ICD-10) History of dilation and curettage ?Z98.890 - Other specified postprocedural states (ICD-10) Social History (Updated 04/27/23 @ 08:22 by Elizabeth Frederick NP) Within the past year, how often did you have a drink containing alcohol: never Score interpretation: A score less than 3 is consistent with normal alcohol consumption. Smoking status: Current every day smoker What tobacco products do you use: cigarettes Cigarettes per day: 30 Years smoked: 30 Smoking pack-years: 45.00 Highest level of school completed/degree received: high school graduate Little interest or pleasure in doing things: not at all Feeling down, depressed, or hopeless: not at all Exam Narrative Exam Narrative: Vital signs reviewed and nurse's notes. The patient is not hypoxic. General: Alert, no acute distress, patient resting comfortably Skin: warm, intact, no pallor noted Head: Normocephalic, atraumatic Eye: Normal conjunctiva Respiratory: No acute distress Musculoskeletal: No evidence of deformity to the R foot or ankle. There is no swelling. There is no ecchymosis, erythema or warmth noted. DP and PT pulses are intact 2+. Normal sensation, normal capillary refill less than 2 seconds. There is no cyanosis or mottling noted. The patient has tenderness to the medial and lateral malleolus of the ankle as well as the midfoot of the right lower extremity. The patient was able to dorsiflex and plantarflex although with pain. Patient was able to extend leg off the cart without difficulty. No tenderness noted to the 5th MT or proximal fibular area. There is no pain with calcaneal squeeze, achilles tendon is intact and no defect is palpated. Neurological: alert and orient x4, normal sensory and motor observed. Psychiatric: Cooperative Constitutional Vital Signs, click to edit/add: Last Vital Signs Temp 97.7 F 07/25/24 11:27 Pulse 99 H 07/25/24 11:27 Resp 20 07/25/24 11:27 BP 153/100 H 07/25/24 11:27 Pulse Ox 99 07/25/24 11:27 Course Vital Signs Vital signs: Vital Signs Temperature 97.7 F 07/25/24 11:27 Pulse Rate 99 H 07/25/24 11:27 Respiratory Rate 20 07/25/24 11:27 Blood Pressure 153/100 H 07/25/24 11:27 Pulse Oximetry 99 07/25/24 11:27 Temperature 97.7 F 07/25/24 11:27 Pulse Rate 99 H 07/25/24 11:27 Respiratory Rate 20 07/25/24 11:27 Blood Pressure 153/100 H 07/25/24 11:27 Pulse Oximetry 99 07/25/24 11:27 MDM - Extremity Injury (Lower) MDM Narrative Medical decision making narrative: The patient could not remember what pain medicine she is on. We looked online and found that she was prescribed Celebrex. She was given Tylenol in the emergency department for her pain. X-rays of the right foot and right ankle were obtained. N acute fracture or other bony abnormality identified on xrays of the right foot and ankle. ED nurse applied an shyla wrap to the patient's right foot and ankle after pt was informed of negative rad findings. pt discharged home with recommendation to continue to take her celebrex for pain, add tylenol as needed, caution and limitation with weight bearing on right LE until pain subsides. Imaging Data xr foot & xr ankle: Radiologist's impression: ITS Impressions Ankle X-Ray 07/25/24 11:38 IMPRESSION: There is no acute process. There is no fracture. Electronically authenticated by: ZAFAR GOMEZ Date: 07/25/2024 12:03 Foot X-Ray 07/25/24 11:38 IMPRESSION: There is no acute process. There is no fracture. Electronically authenticated by: ZAFAR GOMEZ Date: 07/25/2024 12:06 Discharge Plan Discharge Chief Complaint: Extremity Injury, Lower Clinical Impression: Sprain of foot, right, Ankle sprain and strain Patient Disposition: Home, Self-Care Time of Disposition Decision: 12:21 Prescriptions / Home Meds: No Action celecoxib 200 mg capsule 200 mg PO Q12H cholecalciferol (vitamin D3) 125 mcg (5,000 unit) tablet 125 mcg PO DAILY fluticasone propionate 50 mcg/actuation spray,suspension 1 spray INTRANASAL Q12H loratadine 10 mg tablet 10 mg PO Q24H metformin 500 mg tablet extended release 24 hr 500 mg PO DAILY montelukast 10 mg tablet 10 mg PO QDAY norethindrone (contraceptive) [Milagros] 0.35 mg tablet 0.35 mg PO DAILY tiotropium bromide [Spiriva with HandiHaler] 18 mcg capsule, w/inhalation device 1 cap INHALATION DAILY albuterol sulfate [ProAir HFA] 90 mcg/actuation HFA aerosol inhaler 2 inh inhalation Q6H PRN (Reason: shortness of breath or wheezing) albuterol sulfate 2.5 mg /3 mL (0.083 %) solution for nebulization 2.5 mg inhalation Q4H PRN (Reason: shortness of breath or wheezing) alprazolam 0.5 mg tablet 0.5 mg PO TID PRN (Reason: anxiety) estradiol 0.5 mg tablet 0.5 mg PO DAILY calcium 100 mg capsule PO omega 9-vua-ltt-fish oil [Fish Oil] 1,000 mg (120 mg-180 mg) capsule 1 cap PO DAILY magnesium 200 mg tablet 400 mg PO DAILY Stool Softener 50 mg capsule 50 mg PO DAILY ibuprofen 800 mg tablet 800 mg PO Q8H PRN (Reason: pain) 14 Days Qty: 40 0RF oxycodone-acetaminophen [Percocet] 5-325 mg tablet 1 tab PO Q6H PRN (Reason: pain) 7 Days Qty: 28 0RF Print Language: Moldovan Instructions: Ankle Sprain (ED), Foot Sprain (ED) Referrals: Jaden Chew MD [Primary Care Provider] - 1 week
--- OUTSIDE RECORDS SUMMARY | 2024-07-25 11:51 | XMS_ITS | CCD ---
Author Organization [facility] Care Team Providers Care Horse Shoer Name Role Phone DR JADEN ANTONIO Primary [...] Pereyra Attending Unavailable Josi Pereyra Admitting Unavailable Dino Pereyra DOy Unavailable JOSI PEREYRA Attending Unavailable YULY JARQUIN Attending Unavailable JADEN ANTONIO Attending Unavailable JOSI PEREYRA Attending Unavailable JOSI PEREYRA Attending Unavailable JADEN ANTONIO Attending Unavailable JADEN ANTONIO Attending Unavailable JADEN ANTONIO Attending Unavailable Allergies Allergy Classification Reported Allergen(s) Allergy Type Date of Onset Reaction(s) Facility (3 sources) predniSONE; Translations: [prednisone] Drug Allergy 07-03-2023 Unknown [facility] Repository Medications Current Medications Medication Drug Class(es) Dates Sig (Normalized) Sig (Original) albuterol 0.83 mg/ml inhalation solution (20 sources) beta2-Adrenergic Agonist Start: 06-18-2023 albuterol (2.5 MG/3ML) 0.083% nebulizer solution Indications: Chronic obstructive pulmonary disease, unspecified COPD type ([facility]) Take 3 mL (2.5 mg) by nebulization [...] hrs Active ALPRAZolam 0.5 mg oral tablet (12 sources) Benzodiazepine Start: 06-18-2023 take 1 tablet [...] day Active atorvastatin 40 mg oral tablet (5 sources) HMG-CoA Reductase Inhibitor Start: 03-17-2024 take 1 tablet by mouth at bedtime atorvastatin (Lipitor) 40 MG tablet Indications: Dyslipidemia (CMS/HCC) Take 1 tablet (40 mg) by mouth at bedtime 30 tablet 5 03/17/2024 Active celecoxib 200 mg oral capsule (9 sources) Nonsteroidal Anti-inflammatory Drug Start: 05-13-2024 take 1 capsule by mouth twice daily as needed for pain celecoxib (CeleBREX) 200 MG capsule Indications: DDD (degenerative disc disease), cervical TAKE 1 CAPSULE BY MOUTH TWICE DAILY NEEDED for mild pain 60 capsule 3 05/13/2024 Active Start: 01-14-2024 take 1 capsule by mo uth twice daily as needed for pain celecoxib (CeleBREX) 200 MG capsule Indications: DDD (degenerative disc disease), cervical TAKE 1 CAPSULE BY MOUTH TWICE DAILY NEEDED for mild pain 60 capsule 3 01/14/2024 Active Start: 06-18-2023 take 1 capsule by mo uth twice daily as needed for pain celecoxib [...] Nov, Active cholecalciferol 0.125 mg oral tablet (10 sources) Vitamin D Start: 06-02-2024 take 1 tablet by mouth once daily D-5000 125 MCG (5000 UT) tablet Indications: Vitamin D deficiency, unspecified TAKE 1 TABLET BY MOUTH DAILY 30 tablet 5 06/02/2024 Active Start: 12-17-2023 take 1 tablet by ramakrishna th once daily D-5000 125 MCG (5000 UT) tablet Indications: Vitamin D deficiency, unspecified TAKE 1 TABLET BY MOUTH DAILY 30 tablet 5 12/17/2023 Active take 1 tablet by ramakrishna once daily Vitamin D3 125 MCG (5000 UT) TAKE 1 TABLET BY MOUTH DAILY Oral for 30 Days Active dextromethorphan hydrobromide 15 mg / guaiFENesin 400 mg / pseudoephedrine hydrochloride 60 mg oral tablet (2 sources) alpha-Adrenergic Agonist, Uncompetitive N-uxjpvt-D-aspartate Receptor Antagonist, Sigma-1 Agonist Start: 07-03-2023 take 4 tablets by mouth every twenty-four hours as needed Capmist DM 60-15-400 MG as needed Orally every 4-6 hours as needed, max 4 tablets in 24 hours for 5 days Jul, Active estradiol 0.5 mg oral tablet (11 sources) Estrogen Start: 05-28-2023 End: 05-27-2024 take 1 tablet by mouth in the morning estradiol (Estrace) 0.5 MG tablet Indications: Hormone imbalance TAKE 1 TABLET BY MOUTH IN THE MORNING 30 tablet 05/20/2024 Active famotidine 20 mg oral tablet (12 sources) Histamine-2 Receptor Antagonist Start: 11-13-2023 famotidine (Pepcid) 20 MG tablet Indications: Gastroesophageal reflux disease without esophagitis Take 1 tablet (20 mg) by mouth if needed for heartburn 30 tablet 5 11/13/2023 Active famotidine (Pepc id) 20 MG tablet Take 20 mg by mouth if needed for heartburn 0 Active fluticasone propionate 0.05 mg/actuat metered dose nasal spray (12 sources) Corticosteroid take 2 spray(s) nasa l route once daily fluticasone (Flonase) 50 MCG/ACT nasal spray instill 2 (TWO) spray nasally DAILY Active Fluticasone Prop ionate 50 MCG/ACT Nasal for 30 Days Active Fluticasone Prop ionate 50 MCG/ACT Nasal for 30 Days Active loratadine 10 mg oral tablet (12 sources) Start: 10-16-2023 End: 10-15-2024 take 1 [...] hydrochloride 500 mg extended release oral tablet (9 sources) Biguanide Start: 03-08-2023 End: 03-07-2024 take 1 tablet by mouth every twenty-four hours at mealtime metFORMIN XR (Glucophage-XR) 500 MG 24 hr tablet Indications: Insulin resistance TAKE 1 TABLET BY MOUTH IN THE EVENING WITH A MEAL *do not crush, chew, or split* 30 tablet 11 02/21/2024 Active 24 hr mirabegron 50 mg extended release oral tablet (9 sources) beta3-Adrenergi c Agonist Start: 09-10-2023 take 1 tablet by mouth every twenty-four hours at bedtime Myrbetriq 50 MG 24 hr tablet Indications: Mixed incontinence urge and stress (male)(female) TAKE 1 TABLET BY MOUTH AT BEDTIME DO NOT CRUSH 30 tablet 5 03/18/2024 Active take 1 tablet by ramakrishna th at bedtime, then take 1 tablet by mouth every twenty-four hours mirabegron ER (Myrbetriq) 50 MG 24 hr tablet Take 50 mg by mouth at bedtime Do not crush, chew, or split. 0 Active montelukast 10 mg oral tablet (9 sources) Leukotriene Receptor Antagonist Start: 06-09-2024 take 1 tablet by mouth at bedtime montelukast (Singulair) 10 MG tablet Indications: Allergic rhinitis due to pollen TAKE 1 TABLET BY MOUTH AT BEDTIME 30 tablet 5 06/09/2024 Active Start: 12-24-2023 take 1 tablet by ramakrishna th at [...] as needed Orally every 12 hrs Active nitrofurantoin, macrocrystals 25 mg / nitrofurantoin, monohydrate 75 mg oral capsule (3 sources) Nitrofuran Antibacterial Start: End: take 1 capsule by mouth in the morning nitrofurantoin, macrocrystal-monohy drate, (Macrobid) 100 MG capsule Indications: Acute UTI Take 1 capsule (100 mg) by mouth in the morning and 1 capsule (100 mg) before bedtime. Do all this for 7 days. 14 capsule 06/12/2024 06/19/2024 Active norethindrone 0.35 mg oral tablet (4 sources) Start: take 1 tablet by mouth once daily norethindrone (Milagros) 0.35 MG tablet Indications: Excessive bleeding in the premenopausal period TAKE 1 TABLET BY MOUTH DAILY 28 tablet 12 07/16/2023 Active Deblitane 0.35 M G Oral for 28 Days Active omeprazole 40 mg delayed release oral capsule (12 sources) Proton Pump Inhibitor Start: 11-19-2023 take 1 capsule by mouth once daily [...] Respiratory Therapy Supplies (Full Kit Nebulizer Set) [facility] (9 sources) Start: 07-13-19 Respiratory Therapy Supplies (Full Kit Nebulizer Set) [facility] Indications: Chronic obstructive pulmonary disease, unspecified COPD type (CMS/HCC) USE DIRECTED WITH compressor 1 each 07/13/2023 Active Start: 07-13-2023 Respiratory Th erapy Supplies (Full Kit Nebulizer Set) [facility] Indications: Chronic obstructive pulmonary disease, unspecified COPD type (CMS/HCC) USE DIRECTED WITH compressor 1 each 0 07/13/2023 Active tiotropium 0.018 mg inhalation powder (12 sources) Anticholinergic Start: 01-21-2024 take 1 capsule [...] mg oral tablet (3 sources) Corticosteroid Start: 3 methylPREDNISolone 4 MG as directed Orally for daily dose take half with breakfast, half with dinner for 6 days Nov, Not-Taking/PRN Problems Active Problems Problem Classification Problem Date Documented Date Episodic/Chronic Anxiety disorders (11 sources) Generalized anxiety disorder; Translations: [Generalized anxiety disorder] Onset: 06-18-2023 06-18-2023 Chronic Chronic obstructive pulmonary disease and bronchiectasis (11 sources) Chronic obstructive lung disease; Translations: [Chronic obstructive pulmonary disease, unspecified] Onset: 06-18-2023 06-18-2023 Chronic Disorders of lipid metabolism (12 sources) Dyslipidemia; Translations: [Hyperlipidemia, unspecified] Onset: 06-18-2023 06-18-2023 Chronic Esophageal disorders (11 sources) Gastroesophageal reflux disease without esophagitis; Translations: [Gastro-esophageal reflux disease without esophagitis] Onset: 06-18-2023 06-18-2023 Chronic Genitourinary symptoms and ill-defined conditions (11 sources) Incontinence; Translations: [Mixed incontinence] Onset: 06-18-2023 06-18-2023 Chronic Headache; including migraine (9 sources) Migraine without aura, not refractory ; Translations: [Chronic migraine without aura, not intractable, without status migrainosus] Onset: 06-18-2023 06-18-2023 Chronic Menopausal disorders (9 sources) Menorrhagia; Translations: [Excessive bleeding in the premenopausal period] Onset: 06-18-2023 06-18-2023 Chronic Menstrual disorders (9 sources) Amenorrhea; Translations: [Amenorrhea, unspecified] Onset: 06-18-2023 06-18-2023 Chronic Mood disorders (11 sources) Recurrent major depressive episodes, mild ; Translations: [Major depressive disorder, recurrent, mild] Onset: 06-18-2023 06-18-2023 Chronic Nutritional deficiencies (10 sources) Vitamin D deficiency, unspecified; Translations: [Vitamin D deficiency] Onset: 05-28-2021 06-18-2023 Chronic Other nutritional; endocrine; and metabolic disorders (7 sources) Body mass index 30+ - obesity; Translations: [Obesity, unspecified] Onset: 09-10-2023 09-10-2023 Chronic Other nutritional; endocrine; and metabolic disorders (5 sources) Severe obesity; Translations: [Class 2 severe obesity due to excess calories with serious comorbidity and body mass index (BMI) of 39.0 to 39.9 in adult ([facility])] Onset: 09-10-2023 06-12-2024 Chronic Other screening for suspected conditions (not mental disorders or infectious disease) (4 sources) Encounter for screening mammogram for malignant neoplasm of breast; Translations: [ENC SCR MAMMO MALIG NEOPLASM BREAST] Onset: 03-13-2022 Episodic Other skin disorders (1 source) Rash and other nonspecific skin eruption Episodic Other upper respiratory disease (9 sources) Allergic rhinitis due to pollen; Translations: [Allergic rhinitis due to pollen] Onset: 06-18-2023 06-18-2023 Chronic Residual codes; unclassified (2 sources) Generalized aches and pains; Translations: [Pain, unspecified] Episodic Residual codes; unclassified (1 source) Pain, unspecified Episodic Spondylosis; intervertebral disc disorders; other back problems (20 sources) Degeneration of cervical intervertebral disc; Translations: [Other cervical disc degeneration, unspecified cervical region] Onset: 06-18-2023 06-18-2023 Chronic Urinary tract infections (5 sources) Acute urinary tract infection; Translations: [Urinary tract infection, site not specified] Onset: 06-12-2024 06-12-2024 Episodic Past or Other Problems Problem Classification Problem Date Documented Da te Episodic/Chronic Diabetes mellitus without complication (9 sources) Prediabetes; Translations: [Prediabetes] Onset: 06-18-2023 06-18-2023 Episodic Other non-traumatic joint disorders (9 sources) Pain in left knee; Translations: [Pain in joint, lower leg] Onset: 06-18-2023 06-18-2023 Episodic Other skin disorders (9 sources) Hidradenitis suppurativa; Translations: [Hidradenitis suppurativa] Onset: 06-18-2023 06-18-2023 Episodic Viral infection (1 source) COVID-19 Results Test Name Value Interpretation Reference Range Facility [facility] UA (CLEAN/CATCH) MICROSC OPIC IF INDICATEon 06-13-2024 BILIRUBIN URINE Negative NEGATIVE [facility] BLOOD URINE Negative NEGATIVE [facility] Clarity (U) CLEAR CLEAR [facility] Color (U) LT. YELLOW YELLOW [facility] GLUCOSE URINE UA Negative NEGATIVE mg/dL [facility] Interpretation and review of laboratory results Abnormal [facility] Ketones Ql (U) Negative NEGATIVE mg/dL [facility] Leukocyte esterase Test strip Ql (U) Negative NEGATIVE [facility] NITRITE URINE Negative NEGATIVE [facility] pH (U) 6.5 [pH] 5.0 - 9.0 [facility] PROTEIN URINE Negative NEG/TRACE mg/dL [facility] SPECIFIC GRAVITY URINE <=1.005 Abnormal 1.005 - 1.025 [facility] URINE MICROSCOPIC INDICATED NO [facility] UROBILINOGEN URINE 0.2 EU/dL 0.2 - 1.0 EU/dL [facility] ALL CBC WITH AUTO DIFFon BASOPHILS ABSOLUTE AUTO 0.1 [facility] Basophils/100 WBC (Bld) 1.1 % 0.2 - 2.0 % [facility] Eosinophils/100 WBC (Bld) 2.1 % 0.9 - 7.0 % [facility] Erythrocyte distribution width (RBC) [Ratio] 15.2 % High 11.0 - 15.0 % [facility] Hematocrit (Bld) [Volume fraction] 44.0 % 36.0 - 48.0 % [facility] e Hemoglobin (Bld) [Mass/Vol] 14.3 g/dL 12.0 - 16.0 g/dL [facility] IMMATURE GRANULOCYTES ABS AUTO 0.02 [facility] Immature granulocytes/100 WBC (Bld) 0.2 % 0.0 - 0.5 % [facility] Interpretation and review of laboratory results Abnormal [facility] LYMPHOCYTES ABSOLUTE AUTO 2.5 [facility] Lymphocytes/100 WBC (Bld) 30.8 % 20.5 - 60.0 % [facility] MCH (RBC) [Entitic mass] 27.8 pg 26.7 - 34.0 pg [facility] MCHC (RBC) [Mass/Vol] 32.5 g/dL 29.9 - 35.2 g/dL [facility] MCV (RBC) [Entitic vol] 85.4 fL 81.0 - 99.0 fL [facility] MONOCYTES ABSOLUTE AUTO 0.5 [facility] Monocytes/100 WBC (Bld) 5.4 % 1.7 - 12.0 % [facility] NEUTROPHILS ABSOLUTE AUTO 5.0 [facility] Neutrophils/100 WBC (Bld) 60.4 % 43.0 - 75.0 % [facility] Platelet mean volume (Bld) [Entitic vol] 9.5 fL 9.5 - 13.5 fL [facility] # 0.2 [facility] PLT 280 [facility] RBC 5.15 [facility] WBC 8.3 [facility] MLR HEMOGLOBIN A1Con 024 Glucose [Mass/Vol] 120 mg/dL [facility] HbA1c (Bld) [Mass fraction] 5.8 % 4.5 - 6.2 % [facility] Comment on above: ADA RECOMMENDED LIMI T 4.0 - 6.0 ADA THERAPEUTIC TARGET < 7.0 ACTION SUGGESTED > 7.0 [facility] Ishan 08-23-2023 L Specimen: [id number] Received: 08/24/23 Status: [facility] Num: [id number] Spec Type: Surgical Subm Dr: Josi Pereyra Tissues: A Uterus w/ or w/o tubes ovaries except neoplastic or prolap (UTERUS PILY FT) Procedures: HE/12, Gross/Micro L5 Age/ Patient Sex Location Account Attending Physician Jenn Mccann 48/F LABELL [id number] Josi Pereyra SPEC NUM: [id number] RECD: 08/24/23 STATUS: [facility] NUM: [id number] EVI: 08/23/[address]: Josi Pereyra ENTERED: 08/24/[address]: Leonie,Lab SPEC TYPE: Surgical DEPT: CIRA [...] and unremarkable. Sectioning demonstrates a central lumen. Nurseryman Assistant sections are submitted in 6 cassettes as follows: A1 - Posterior cul-de-sac serosa A2 - Anterior and posterior cervix Specimen: [id number] Received: 08/24/23 Status: [facility] Num: [id number] Spec Type: Surgical Subm Dr: Josi Pereyra Tissues: A Uterus w/ or w/o tubes ovaries except neoplastic or prolap (UTERUS PILY FT) Procedures: , Gross/Micro L5 Patient: MccannJenn A [id number] (Continued) Specimen: [id number] Received: 08/24/23 (Continued) Gross Description (Continued) Signed (signatur e on file) Arminda Vegas MD 08/30/23 2234 Specimen: [id number] Received: 08/24/23 Status: [facility] Num: [id number] Spec Type: Surgical Subm Dr: Josi Pereyra Tissues: A Uterus w/ or w/o tubes ovaries except neoplastic or prolap (UTERUS PILY FT) Procedures: , Gross/Micro L5 Patient: Jenn Mccann [id number] (Continued) Specimen: [id number] Received: 08/24/23 (Continued) Gross Description (Continued) A3 - Anterior endomyometrium A4 - Posterior endomyometrium A5 - [place] segment of fallopian tube with fimbria entirely submitted A6 - Longer segment of fallopian tube with fimbria entirely submitted CPT Codes 74887 Specimen: [id number] Received: 08/24/23 Status: [facility] Num: [id number] Spec Type: Surgical Subm Dr: Josi Pereyra Tissues: A Uterus w/ or w/o tubes ovaries except neoplastic or prolap (UTERUS PILY FT) Procedures: Amor/Micro L5 Patient: Jenn Mccann [id number] (Continued) Signed (signatur e on file) Arminda Vegas MD 08/30/232233 [facility] ALL CBC WITH AUTO DIFFon BASOPHILS [...] fraction] 45.1 % 36.0 - 48.0 % [facility] Health[facility] e Hemoglobin (Bld) [Mass/Vol] 14.5 g/dL [...] [Mass/Vol] 32.2 g/dL 29.9 - 35.2 g/dL [facility] MCV (RBC) [Entitic vol] 84.3 fL 81.0 - 99.0 fL [facility] MONOCYTES ABSOLUTE AUTO 0.6 [facility] Monocytes/100 WBC (Bld) 6.3 % 1.7 - 12.0 % [facility] NEUTROPHILS ABSOLUTE AUTO 6.1 [facility] Neutrophils/100 WBC (Bld) 60.9 % 43.0 - 75.0 % [facility] Platelet mean volume (Bld) [Entitic vol] 9.3 fL Low 9.5 - 13.5 fL [facility] EO # 0.1 [facility] PLT 293 [facility] TB RBC 5.35 [facility] TBH WBC 10.0 [facility] COVID + FLU Quick Testingon 07-03-2023 SARS-CoV-2 (COVID-19) RNA JESSIE+probe Ql (Unsp spec) Positive [employer] Other COVID + FLU Quick Testing Negative [employer] Other MG MAMM SCREEN 3D PILY CADon 03-13-2022 MG MAMM SCREEN 3D PILY CAD Patient: JENN MCCANN Exam Date: 03/13/2022 : 1975 Gender:F Ordering : DR JADEN ANTONIO . Admission #: [id number] Family : Order #: [id number] CLICK HERE TO VIEW EXAM RADIOLOGY REPORT [...] Treatments None Family Cancers None LOCATION: [facility] BREAST COMPOSITION: Scattered areas fibroglandular density. [...] M.D. on 03/14/2022 at 08:50 Normal [facility] CBC AUTO DIFFon 05-19-2021 BASO # 0.1 103/ul Normal 0.0-0.1 [facility] Comment on above: Performed By: #### C BC #### [facility] [address] [address] [address] Dashawn Mayo Basophils/100 WBC (Bld) 0.9 % Normal 0.2-2.0 [facility] Comment on above: Performed By: #### C BC #### [facility] [address] [address] [address] Dashawn Mayo EO # 0.2 103/ul Normal 0.0-0.7 [facility] Comment on above: Performed By: #### C BC #### [facility] [address] [place] [address] Dr. Dashawn Mayo Eosinophils/100 WBC (Bld) 2.3 % Normal 0.9-7.0 [facility] Comment on above: Performed By: #### C BC #### [facility] [address] [place] [address] Dr. Dashawn Mayo Erythrocyte distribution width (RBC) [Ratio] 15.2 % Critically high 11.0-15.0 [facility] Comment on above: Performed By: #### C BC #### [facility] [address] [place] [address] Dr. Dashawn Mayo Hematocrit (Bld) [Volume fraction] 45.5 % Normal 36.0-48.0 [facility] Comment on above: Performed By: #### C BC #### [facility] [address] [place] [address] Dr. Dashawn Mayo Hemoglobin (Bld) [Mass/Vol] 14.4 g/dL Normal 12.0-16.0 [facility] Comment on above: Performed By: #### C BC #### [facility] [address] [place] [address] Dr. Dashawn Mayo IG # 0.03 10e3/ul Normal 0.00-0.03 [facility] Comment on above: Performed By: #### C BC #### [facility] [address] [place] [address] Dr. Dashawn Mayo IG % 0.3 % Normal 0.0-0.5 [facility] Comment on above: Performed By: #### C BC #### [facility] [address] [place] [address] Dr. Dashawn Mayo LYMPH # 2.8 103/ul Normal 1.2-3.8 [facility] Comment on above: Performed By: #### C BC #### [facility] [address] [place] [address] Dr. Dashawn Mayo Lymphocytes/100 WBC (Bld) 27.4 % Normal 20.5-60.0 [facility] Comment on above: Performed By: #### C BC #### [facility] [address] [place] [address] Dr. Dashawn Mayo MANUAL DIFF REQ NO Normal [facility] Comment on above: Performed By: #### C BC #### [facility] [address] [place] [address] Dr. Dashawn Mayo MCH (RBC) [Entitic mass] 27.2 pg Normal 26.7-34.0 [facility] Comment on above: Performed By: #### C BC #### [facility] [address] [place] [address] Dr. Dashawn Mayo MCHC (RBC) [Mass/Vol] 31.6 g/dL Normal 29.9-35.2 [facility] Comment on above: Performed By: #### C BC #### [facility] [address] [place] [address] Dr. Dashawn aMyo MCV (RBC) [Entitic vol] 85.8 fL Normal 81.0-99.0 [facility] Comment on above: Performed By: #### C BC #### [facility] [address] [place] [address] Dr. Dashawn Mayo MONO # 0.5 103/ul Normal 0.3-0.8 [facility] Comment on above: Performed By: #### C BC #### [facility] [address] [place] [address] Dr. Dashawn Mayo Monocytes/100 WBC (Bld) 4.5 % Normal 1.7-12.0 [facility] Comment on above: Performed By: #### C BC #### [facility] [address] [place] [address] Dr. Dashawn Mayo NEUT # 6.7 103/ul Critically high 1.4-6.5 [facility] Comment on above: Performed By: #### C BC #### [facility] [address] [place] [address] Dr. Dashawn Mayo Neutrophils/100 WBC (Bld) 64.6 % Normal 43.0-75.0 [facility] Comment on above: Performed By: #### C BC #### [facility] [address] [address] [address] Dashawn Mayo Platelet mean volume (Bld) [Entitic vol] 10.3 fL Normal 9.5-13.5 [facility] Comment on above: Performed By: #### C BC #### [facility] [address] [address] [address] Dashawn Mayo PLT 295 103/ul Normal 150-450 [facility] Comment on above: Performed By: #### C BC #### [facility] [address] [place] [address] Dr. Dashawn Mayo RBC 5.30 106/ul Normal 4.20-5.40 [facility] Comment on above: Performed By: #### C BC #### [facility] [address] [place] [address] Dr. Dashawn Mayo WBC 10.4 103/ul Normal 4.0-11.0 [facility] Comment on above: Performed By: #### C BC #### [facility] [address] [place] [address] Dr. Dashawn Mayo FREE T3on 05-19-2021 FREE T3 2.20 pg/mlL Critically low 2.77-5.[address] [facility] Comment on above: Performed By: #### L IVER, LIPID, FT3, BMP, TSH #### [facility] [address] [place] [address] Dr. Dashawn Mayo FREE T4on 05-19-2021 Free T4 [Mass/Vol] 0.97 ng/dL Normal 0.78-2.19 [facility] Comment on above: Performed By: #### V ITAD, FT4 #### [facility] [address] [place] [address] Dr. Dashawn Mayo GLYCOHEMOGLOBIN A1Con 2020 ADA RECOMMENDATION ADA THERAPEUTIC TARGET 6.0 - 7.0 ACTION SUGGESTED > 7.0 Normal [facility] Comment on above: Performed By: #### A 1C #### [facility] [address] [place] [address] Dr. Dashawn Mayo Glucose [Mass/Vol] 126 mg/dL Normal [facility] Comment on above: Performed By: #### A 1C #### [facility] [address] [place] [address] Dr. Dashawn Mayo HbA1c (Bld) [Mass fraction] 6.0 % Normal <=6.0 [facility] Comment on above: Performed By: #### A 1C #### [facility] [address] [place] [address] Dr. Dashawn Mayo LIPID PROFILEon 05-19-2021 CHOL-HDL RATIO NORM SEE BELOW Normal [facility] Comment on above: Result Comment: 3.3 - 4.4 LOW RISK 4.4 - 7.1 AVERAGE RISK 7.1 - 11.0 MODERATE RISK >11.0 HIGH RISK Performed By: #### L IVER, LIPID, FT3, BMP, TSH #### [facility] [address] [place] [address] Dr. Dashawn Mayo Cholesterol [Mass/Vol] 250 mg/dL Critically high <=200 [facility] Comment on above: Performed By: #### L IVER, LIPID, FT3, BMP, TSH #### [facility] [address] [place] [address] Dr. Dashawn Mayo Cholesterol in HDL [Mass/Vol] 41 mg/dL Normal [facility] Comment on above: Performed By: #### L IVER, LIPID, FT3, BMP, TSH #### [facility] [address] [place] [address] Dr. Dashawn Mayo Cholesterol in LDL [Mass/Vol] 188.2 mg/dL Normal [facility] Comment on above: Performed By: #### L IVER, LIPID, FT3, BMP, TSH #### [facility] [address] [place] [address] Dr. Dashawn Mayo Cholesterol.total/Ch olesterol in HDL [Mass ratio] 6.1 {ratio} Normal [facility] Comment on above: Performed By: #### L IVER, LIPID, FT3, BMP, TSH #### [facility] [address] [place] [address] Dr. Dashawn Mayo HDL NORMAL > or = 60 mg/dl - LOW CARDIOVASCULAR RISK <40 mg/dl - HIGH CARDIOVASCULAR RISK Normal [facility] Comment on above: Performed By: #### L IVER, LIPID, FT3, BMP, TSH #### [facility] [address] [address] [address] Dashawn Mayo LDL CALC NORMAL SEE BELOW Normal [facility] Comment on above: Result Comment: <100 mg/dl OPTIMAL 100 - 129 mg/dl NEAR OR ABOVE OPTIMAL 130 - 159 mg/dl BORDERLINE HIGH 160 - 189 mg/dl HIGH >190 mg/dl VERY HIGH Performed By: #### L IVER, LIPID, FT3, BMP, TSH #### [facility] [address] [address] [address] Dashawn Mayo Triglyceride [Mass/Vol] 104 mg/dL Normal <=150 [facility] Comment on above: Performed By: #### L IVER, LIPID, FT3, BMP, TSH #### [facility] [address] [address] [address] Dashawn Mayo VLDL CALC 20.8 mg/dL Normal [facility] Comment on above: Performed By: #### L IVER, LIPID, FT3, BMP, TSH #### [facility] [address] [address] [address] Dashawn Mayo LIVER PROFILEon 05-19-2021 Albumin [Mass/Vol] 3.6 g/dL Normal 3.5-5.0 [facility] Comment on above: Performed By: #### L IVER, LIPID, FT3, BMP, TSH #### [facility] [address] [address] [address] Dashawn Mayo Albumin/Globulin [Mass ratio] 0.9 {ratio} Normal [facility] Comment on above: Performed By: #### L IVER, LIPID, FT3, BMP, TSH #### [facility] [address] [address] [address] Dashawn Mayo ALP [Catalytic activity/Vol] 72 U/L Normal 38-126 [facility] Comment on above: Performed By: #### L IVER, LIPID, FT3, BMP, TSH #### [facility] [address] [place] [address] Dr. Dashawn Mayo ALT [Catalytic activity/Vol] 16 U/L Normal 9-52 [facility] Comment on above: Performed By: #### L IVER, LIPID, FT3, BMP, TSH #### [facility] [address] [place] [address] Dr. Dashawn Mayo AST [Catalytic activity/Vol] 13 U/L Critically low 14-36 [facility] Comment on above: Performed By: #### L IVER, LIPID, FT3, BMP, TSH #### [facility] [address] [place] [address] Dr. Dashawn Mayo BILI, CONJUGATED 0.0 mg/dL Normal 0.0-0.[address] [facility] Comment on above: Performed By: #### L IVER, LIPID, FT3, BMP, TSH #### [facility] [address] [place] [address] Dr. Dashawn Mayo Bilirubin [Mass/Vol] 0.3 mg/dL Normal 0.2-1.3 [facility] Comment on above: Performed By: #### L IVER, LIPID, FT3, BMP, TSH #### [facility] [address] [place] [address] Dr. Dashawn Mayo Globulin (S) [Mass/Vol] 4.0 g/dL Normal [facility] Comment on above: Performed By: #### L IVER, LIPID, FT3, BMP, TSH #### [facility] [address] [place] [address] Dr. Dashawn Mayo Protein [Mass/Vol] 7.6 g/dL Normal 6.1-8.2 [facility] Comment on above: Performed By: #### L IVER, LIPID, FT3, BMP, TSH #### [facility] [address] [place] [address] Dr. Dashawn Mayo PROF CHEM 8 (BAS METB)on Anion gap [Moles/Vol] 12.6 mmol/L Normal [facility] Comment on above: Performed By: #### L IVER, LIPID, FT3, BMP, TSH #### [facility] [address] [address] [address] Dashawn Mayo Calcium [Mass/Vol] 9.1 mg/dL Normal 8.4-10.2 [facility] Comment on above: Performed By: #### L IVER, LIPID, FT3, BMP, TSH #### [facility] [address] [address] [address] Dashawn Mayo Chloride [Moles/Vol] 102 mmol/L Normal 98-107 [facility] Comment on above: Performed By: #### L IVER, LIPID, FT3, BMP, TSH #### [facility] [address] [place] [address] Dr. Dashawn Mayo CO2 [Moles/Vol] 27.9 mmol/L Normal 22.0-30.[address] [facility] Comment on above: Performed By: #### L IVER, LIPID, FT3, BMP, TSH #### [facility] [address] [address] [address] Dashawn Mayo Creatinine [Mass/Vol] 0.81 mg/dL Normal 0.52-1.04 [facility] Comment on above: Performed By: #### L IVER, LIPID, FT3, BMP, TSH #### [facility] [address] [place] [address] Dr. Dashawn Mayo EGFR-AF FINNISH >60 Normal >=60 [facility] Comment on above: Performed By: #### L IVER, LIPID, FT3, BMP, TSH #### [facility] [address] [place] [address] Dr. Dashawn Mayo EGFR-NON AF FINNISH >60 Normal >=60 [facility] Comment on above: Performed By: #### L IVER, LIPID, FT3, BMP, TSH #### [facility] [address] [place] [address] Dr. Dashawn Maoy Glucose [Mass/Vol] 94 mg/dL Normal 74-106 [facility] Comment on above: Performed By: #### L IVER, LIPID, FT3, BMP, TSH #### [facility] [address] [place] [address] Dr. Dashawn Mayo Potassium [Moles/Vol] 4.5 mmol/L Normal 3.4-5.0 [facility] Comment on above: Performed By: #### L IVER, LIPID, FT3, BMP, TSH #### [facility] [address] [place] [address] Dr. Dashawn Mayo Sodium [Moles/Vol] 138 mmol/L Normal 137-145 [facility] Comment on above: Performed By: #### L IVER, LIPID, FT3, BMP, TSH #### [facility] [address] [place] [address] Dr. Dashawn Mayo Urea nitrogen [Mass/Vol] 8.0 mg/dL Normal 7.0-17.0 [facility] Comment on above: Performed By: #### L IVER, LIPID, FT3, BMP, TSH #### [facility] [address] [place] [address] Dr. Dashawn Mayo Urea nitrogen/Creatinine [Mass ratio] 9.9 mg/mg Normal [facility] Comment on above: Performed By: #### L IVER, LIPID, FT3, BMP, TSH #### [facility] [address] [place] [address] Dr. Dashawn Mayo TSHon 05-19-2021 TSH 1.888 uIU/mL Normal 0.470-4.680 [facility] Comment on above: Performed By: #### L IVER, LIPID, FT3, BMP, TSH #### [facility] [address] [place] [address] Dr. Dashawn Mayo TSH RANGE SEE BELOW Normal [facility] Comment on above: Result Comment: <0.3 4 UIU/ml HYPERTHYROID 0.34-5.60 UIU/ml EUTHYROID >5.60 UIU/ml HYPOTHYROID Performed By: #### L IVER, LIPID, FT3, BMP, TSH #### [facility] [address] [place] [address] Dr. Dashawn Mayo VITAMIN D 25 OHon 05-19-2021 VIT D 25-OH 97.4 ng/mL Normal [facility] Comment on above: Performed By: #### V ITAD, FT4 #### [facility] [address] [address] [address] Dashawn Mayo VIT D RANGES SEE BELOW Normal [facility] Comment on above: Result Comment: <20 ng/mL Vit D deficient 20 - <30 ng/mL Vit D insufficient 30 - 100 ng/mL Vit D sufficient >100 ng/mL Potential Toxicity Performed By: #### V ITAD, FT4 #### [facility] [address] [id number] Dashawn Mayo Vital Signs Date Time Vital Sign Value Performing Clinician Facility 06-12-2024 14:-0500 Body height 165.1 cm Jaden Antonio MD Work Phone: [facility] 06-12-2024 14:26-0500 Body mass index (BMI) [Ratio] 39.61 kg/m2 Jaden Antonio MD Work Phone: [facility] 06-12-2024 14:26-0500 Body temperature 96.6 [degF] Jaden Antonio MD Work Phone: [facility] 06-12-2024 14:-0500 Body weight 107.96 kg Jaden Antonio MD Work Phone: [facility] 06-12-2024 14:26-0500 Diastolic blood pressure 68 mm[Hg] Jaden Antonio MD Work Phone: [facility] 06-12-2024 14:26-0500 Heart rate 107 /min Jaden Antonio MD Work Phone: [facility] 06-12-2024 14:26-0500 Respiratory rate 20 /min Jaden Antonio MD Work Phone: [facility] 06-12-2024 14:26-0500 SaO2% (BldA) [Mass fraction] 93 % Jaden Antonio MD Work Phone: [facility] 06-12-2024 14:26-0500 Systolic blood pressure 136 mm[Hg] Jaden Antonio MD Work Phone: [facility] 03-04-2024 09:42-0400 Body height 165.1 cm Jaden Antonio MD Work Phone: [facility] 03-04-2024 09:42-0400 Body mass index (BMI) [Ratio] 39.27 kg/m2 Jaden Antonio MD Work Phone: [facility] 03-04-2024 09:42-0400 Body temperature 97.5 [degF] Jaden Antonio MD Work Phone: [facility] 03-04-2024 09:42-0400 Body weight 107.05 kg Jaden Antonio MD Work Phone: [facility] 03-04-2024 09:42-0400 Diastolic blood pressure 72 mm[Hg] Jaden Antonio MD Work Phone: [facility] 03-04-2024 09:42-0400 Heart rate 102 /min Jaden Antonio MD Work Phone: [facility] 03-04-2024 09:42-0400 Respiratory rate 20 /min Jaden Antonio MD Work Phone: [facility] 03-04-2024 09:42-0400 SaO2% (BldA) [Mass fraction] 93 % Jaden Antonio MD Work Phone: [facility] 03-04-2024 09:42-0400 Systolic blood pressure 130 mm[Hg] Jaden Antonio MD Work Phone: [facility] 07-03-2023 14:40-0500 Body height 160.02 cm Kimberly Scott Other [facility] 07-03-2023 14:40-0500 Body mass index (BMI) [Ratio] 41.45 kg/m2 Kimberly Scott Other [facility] [employer] Other 07-03-2023 14:40-0500 Body temperature 100.9 [degF] Kimberly Scott Other [employer] Other 07-03-2023 14:40-0500 Body weight 106.14 kg Kimberly Scott Other [facility] 07-03-2023 14:40-0500 Respiratory rate 18 /min Kimberly Scott Other [employer] Other 07-03-2023 14:40-0500 SaO2% (BldA) [Mass fraction] 95 % Kimberly Scott Other [employer] Other 12-05-2022 17:40-0400 Body height 160.02 cm Kimberly Scott Other [employer] Other 12-05-2022 17:40-0400 Body mass index (BMI) [Ratio] 45.7 kg/m2 Kimberly Scott Other [employer] Other 12-05-2022 17:40-0400 Body temperature 98.6 [degF] Kimberly Scott Other [employer] Other 12-05-2022 17:40-0400 Body weight 117.03 kg Kimberly Scott Other [employer] Other 12-05-2022 17:40-0400 Diastolic blood pressure 86 mm[Hg] Kimberly Scott Other [employer] Other 12-05-2022 17:40-0400 Respiratory rate 18 /min Kimberly Scott Other [employer] Other 12-05-2022 17:40-0400 SaO2% (BldA) [Mass fraction] 97 % Kimberly Scott Other [employer] Other 12-05-2022 17:40-0400 Systolic blood pressure 145 mm[Hg] Kimberly Scott Other [employer] Other Encounters Encounter Date Encounter Type Care Provider Facility Start: 06-13-2024 End: 06-13-2024 Clinisync Result Encounter Jaden Antonio MD Work Phone: [facility] Unsolic[facility] Start: 06-13-2024 End: 06-13-2024 [facility]inisync Result Encounter Jaden Antonio MD Work Phone: [facility] Start: 06-12-2024 End: 06-12-2024 Office outpatient visit 15 minutes Jaden Antonio MD Work Phone: [facility] Comment on above: Acute UTI (Primary D x); Class 2 severe obesity due to excess calories with serious comorbidity and body mass index (BMI) of 39.0 to 39.9 in adult (CMS/HCC); Dyslipidemia (CMS/HCC) Start: 06-12-2024 End: 06-12-2024 Bamboo flowsheet Jaden Antonio MD Work Phone: [facility] Start: 06-12-2024 End: 06-12-2024 Bamboo flowsheet Jaden Antonio MD Work Phone: [facility] Start: 06-12-2024 End: 06-12-2024 ambulatory JADEN ANTONIO Not Available Start: 04-11-2024 End: 04-11-2024 ambulatory JOSI PEREYRA Not Available Start: 03-17-2024 End: 03-17-2024 Clinisync Result Encounter Jaden Antonio MD Work Phone: [facility]solic[facility] Start: 03-17-2024 End: 03-17-2024 Clinisync Result Encounter Jaden Antonio MD Work Phone: [facility]olic[facility] Start: 03-17-2024 End: 03-17-2024 Orders Only Jaden Antonio MD Work Phone: [facility] Comment on above: Dyslipidemia (CMS/HC C) (Primary Dx) Start: 03-04-2024 End: 03-04-2024 Office outpatient visit 25 minutes Jaden Antonio MD Work Phone: [facility] Comment on above: Major depressive dis order, recurrent episode, mild (HCC) (CMS/HCC) (Primary Dx); Generalized anxiety disorder (CMS/HCC); Chronic obstructive pulmonary disease, unspecified COPD type (CMS/HCC); Mixed incontinence urge and stress (male)(female); DDD (degenerative disc disease), cervical; Gastroesophageal reflux disease without esophagitis; Obesity (BMI 30-39.9); Annual physical exam Start: 03-04-2024 End: 03-04-2024 Patient encounter procedure Jaden Antonio MD Work Phone: [facility] Start: 03-04-2024 End: 03-04-2024 ambulatory JADEN ANTONIO Not Available Start: 02-11-2024 End: 02-11-2024 ambulatory JOSI RODDY Not Available Start: 10-04-2023 End: 10-04-2023 ambulatory JOSI RODDY Not Available Start: 09-10-2023 End: 09-10-2023 ambulatory JADEN ANTONIO Not Available Start: 08-30-2023 End: 08-30-2023 ambulatory YULY JARQUIN Not Available Start: 08-23-2023 End: 08-23-2023 ambulatory Jaden Antonio Facility:[facility] Start: 08-23-2023 End: 08-23-2023 ambulatory MD Jaden Antonio Work Phone: [facility] Work Phone: Start: 08-23-2023 End: 08-23-2023 Departed Referred MD Jaden Antonio Work Phone: [facility] Start: 08-09-2023 Clinisync Result Encounter Generic External Data Provider [facility]olic[facility] Start: 08-09-2023 Clinisync Result Encounter Generic External Data Provider [facility]olic[facility] Start: 07-24-2023 End: 07-24-2023 ambulatory JOSI PEREYRA Not Available Start: 07-03-2023 End: 07-03-2023 ambulatory Kimberly Scott Other [employer] Other Start: 07-03-2023 Office outpatient vi sit 25 minutes Kimberly Scott [facility] Start: 07-03-2023 Telephone encounter Kimberly Scott [facility] [address] Start: 07-03-2023 End: 07-03-2023 Patient encounter procedure MD Jaden Antonio Work Phone: [facility] Work Phone: Start: 06-18-2023 End: 06-18-2023 ambulatory JADEN ANTONIO Not Available Start: 12-05-2022 End: 12-05-2022 ambulatory Kimberly Scott Other [employer] Other Start: 12-05-2022 Office outpatient ne w 20 minutes Kimberly Scott [facility] Start: 03-13-2022 End: 03-14-[address] JADEN ANTONIO Facility:[facility] Start: 05-28-2021 Encounter for genera l adult medical examination without abnormal findings DR JADEN ANTONIO [facility] Start: 05-19-2021 End: 05-20-[address] JADEN ANTONIO Facility:[facility] Start: 05-19-2021 End: 05-20-2021 Encounter for general adult medical examination without abnormal findings DR JADEN ANTONIO Facility:[facility] Procedures Date Procedure Procedure Detail Performing Clinician Start: 06-13-2024 TBH UA (CLEAN/CATCH) MICROSCOPIC IF INDICATE Jaden Antonio MD Work Phone: Start: 03-17-2024 ALL CBC WITH AUTO DIFF [...] for malign ant neoplasm of colon [facility] Start: 01-22-2026 Screening for malign ant neoplasm of cervix [facility] Start: 03-17-2025 Screening for malign ant neoplasm of breast Mammogram [facility] Start: 02-10-2025 End: 02-10-2025 Patient encounter procedure 02/10/2025 9:00 AM EDT Office Visit [facility] [address] [place] [id number] Josi Pereyra, DO [address] [place] [address] [facility] Start: 09-02-2024 End: 09-02-2024 Patient encounter procedure 09/02/2024 9:00 AM EST Office Visit [facility] [address] [place] [phone] Jaden Antonio MD [address] [place] [phone] [facility] Start: 06-12-2024 End: 06-12-2024 Patient encounter procedure 06/12/2024 2:30 PM EST Office Visit [facility] [address] [place] [phone] Jaden Antonio MD [address] [place] [phone] Arrived [facility] Comment on above: Arrived Start: 06-12-2024 End: 06-12-2025 Bacteria identified in Urine by Culture Urine culture (clean catch) Microbiology Routine Acute UTI Expected: 06/12/2024 (Approximate), Expires: 06/12/2025 [facility] Work Phone: Comment on above: Expected: 06/12/2024 (Approximate), Expires: 06/12/2025 Start: 06-12-2024 End: 06-12-2025 Urinalysis complete panel - Urine Urinalysis with reflex microscopic (clean catch) Lab Routine Acute UTI Expected: 06/12/2024 (Approximate), Expires: 06/12/2025 [facility] Comment on above: Expected: 06/12/2024 (Approximate), Expires: 06/12/2025 Start: 03-16-2024 Screening for malign ant neoplasm of breast Mammogram [facility] Start: 03-04-2024 End: 03-04-2025 Basic metabolic 1998 panel - Serum or Plasma Basic metabolic panel Lab Routine Annual physical exam Expected: 03/04/2024 (Approximate), Expires: 03/04/2025 [facility] Comment on above: Expected: 03/04/2024 (Approximate), Expires: 03/04/2025 Start: 03-04-2024 End: 03-04-2025 CBC W Auto Differential panel - Blood CBC and differential Lab Routine Annual physical exam Expected: 03/04/2024 (Approximate), Expires: 03/04/2025 [facility] Comment on above: Expected: 03/04/2024 (Approximate), Expires: 03/04/2025 Start: 03-04-2024 End: 03-04-2025 Hemoglobin A1c/Hemoglobin.total in Blood Hemoglobin A1c Lab Routine Annual physical exam Expected: 03/04/2024 (Approximate), Expires: 03/04/2025 [facility] Work Phone: Comment on above: Expected: 03/04/2024 (Approximate), Expires: 03/04/2025 Start: 03-04-2024 End: 03-04-2025 Hepatic function 2000 panel - Serum or Plasma Hepatic function panel Lab Routine Annual physical exam Expected: 03/04/2024 (Approximate), Expires: 03/04/2025 [facility] Comment on above: Expected: 03/04/2024 (Approximate), Expires: 03/04/2025 Start: 03-04-2024 End: 03-04-2025 Lipid 1996 panel - Serum or Plasma Lipid panel Lab Routine Annual physical exam Expected: 03/04/2024 (Approximate), Expires: 03/04/2025 [facility] Comment on above: Expected: 03/04/2024 (Approximate), Expires: 03/04/2025 Start: 03-04-2024 End: 03-04-2025 Thyrotropin [Units/volume] in Serum or Plasma TSH Lab Routine Annual physical exam Expected: 03/04/2024 (Approximate), Expires: 03/04/2025 [facility] Comment on above: Expected: 03/04/2024 (Approximate), Expires: 03/04/2025 Start: 2024 Influenza vaccination Influenza Vacc ine (#1) [facility] Start: 09-10-2023 End: 09-10-2023 Patient encounter procedure 09/10/2023 9:45 AM EDT Office Visit [facility] [address] [place] [address] Jaden Antonio MD [address] [place] [address] [facility] Start: 08-30-2023 End: 08-30-2023 Patient encounter procedure 08/30/2023 10:30 AM EST Office Visit [facility] [address] [place] [phone] Yuly Jarquin PA [address] [place] [address] [facility] Start: 2023 Influenza vaccination Influenza Vacc ine (#1) [facility] Start: 2013 Screening for malign ant neoplasm of breast Mammogram [facility] Start: 2003 Screening for malign ant neoplasm of cervix HPV/Cotest [facility] Start: 1973 Screening for malign ant neoplasm of colon [facility] Payers Date Payer Category Payer Self-pay 2016 Medicaid [employer] [place] [id number] 2016-Present [address] [place] [address] [id number] 2016 Private Health Insurance [facility] MEDICAID [id number] 2016 Medicaid [id number] 1973 Unknown [id number]. 593 1973 Unknown [id number] [id number]. 593 1973 Unknown [id number] [id number]. 1258 1973 Unknown [id number] [id number]. 1258 1973 Unknown [id number] [id number]. 1258 1973 Unknown [id number] [id number]. 1258 1973 Unknown [id number] [id number]. 9 1973 Unknown [id number] [id number]. 1258 1973 Unknown [id number] [id number]. 1259 1973 Unknown [id number] [id number]. 1259 1973 Unknown [id number] [id number]. 1259 1959 Unknown [id number] Unknown [id number] Social History Date Type Detail Facility Start: 06-18-2023 End: 03-04-2024 Sex Assigned At [facility] Other Start: 06-18-2023 End: 02-11-2024 Tobacco smoking status [facility] Smokes tobacco daily [facility] History of tobacco use Cigarette Smoker [facility] Start: 06-18-2023 End: 03-04-2024 Cigarettes smoked current (pack per day) - Reported 1.5 [facility] Start: 06-18-2023 End: 02-11-2024 Tobacco use and exposure Smokeless tobacco non-user [facility] Start: 07-20-2023 End: 03-04-2024 Alcohol intake Lifetime non-drinker (finding) [facility] Start: 1973 Sex Assigned At Not on file N [facility] Start: 1973 Sex Assigned At Female F [facility] Medical Equipment Procedure Code Equipment Code Equipment Origin al Text Equipment Identifier Dates USE DIRECTED DAILY [id number] Start: 10-09-2023 Clinical Notes 12-05-2022 to 06-12-2024 Jaden Antonio MD - 06/12/2024 3:07 PM Yadira Antonio MD - 06/12/2024 3:06 PM Yadira Antonio MD - 06/12/2024 2:30 PM Yadira Antonio MD - 03/04/2024 10:09 AM EDT Note Date & Type Note Facility 06-12-2024 History of Presen t illness Narrative Associated Problem(s): Class 2 severe obesity due to excess calories with serious comorbidity and body mass index (BMI) of 39.0 to 39.9 in adult ([facility]) Weight loss indicated Associated Problem(s): Acute UTI History suggestive UTI and treat. Take macrobid for infection and use pyridium for symptoms. Send urine for culture. Increase water intake and cranberry juice. Use motrin or tylenol for discomfort. Images from the original note were not included. Subjective Patient ID: Jenn Mccann is a 49 y.o. female who presents for UTI (Home test positive for uti). Concerned of UTI. C/o pain and burning with urination for several days. Increased frequency and urgency. Feels like not emptying all the way and occasional hesitancy. Afebrile. No nausea or vomiting. Mild pain in flank. Contacted OB 05/12 and given cipro for possible UTI. Reports symptoms improved with treatment but started to return over past few days. Review of Systems Respiratory: Negative for cough, shortness of breath and wheezing. Cardiovascular: Negative for chest pain and palpitations. Gastrointestinal: Negative for abdominal pain, diarrhea, nausea and vomiting. Genitourinary: Negative for dysuria. Objective Physical Exam Constitutional: General: She is not in acute distress. Appearance: Normal appearance. HENT: Head: Normocephalic. Right Ear: Tympanic membrane normal. Left Ear: Tympanic membrane normal. Eyes: Extraocular Movements: Extraocular movements intact. Pupils: Pupils are equal, round, and reactive to light. Cardiovascular: Rate and Rhythm: Normal rate and regular rhythm. Heart sounds: No murmur heard. No friction rub. No gallop. Pulmonary: Effort: Pulmonary effort is normal. Breath sounds: Normal breath sounds. No wheezing, rhonchi or rales. Abdominal: General: Bowel sounds are normal. There is no distension. Palpations: Abdomen is soft. Tenderness: There is no abdominal tenderness. There is no guarding or rebound. Musculoskeletal: Cervical back: Neck supple. Right lower leg: No edema. Left lower leg: No edema. Neurological: Mental Status: She is alert. Assessment/Plan Problem List Items Addressed This Visit Acute UTI - Primary History suggestive UTI and treat. Take macrobid for infection and use pyridium for symptoms. Send urine for culture. Increase water intake and cranberry juice. Use motrin or tylenol for discomfort. Relevant Medications nitrofurantoin, macrocrystal-monohydrate, (Macrobid) 100 MG capsule Other Relevant Orders Urine culture (clean catch) Urinalysis with reflex microscopic (clean catch) documented in this encounter [facility] 03-04-2024 History of Presen t illness Narrative Associated Problem(s): Mixed incontinence urge and stress (male)(female) Symptoms controlled with myrbetriq and continue. Associated Problem(s): Major depressive disorder, recurrent episode, mild (HCC) (CMS/HCC) Symptoms stable without medication and monitor. Associated Problem(s): Generalized anxiety disorder (CMS/HCC) Symptoms stable and use xanax PRN. Associated Problem(s): Gastroesophageal reflux disease without esophagitis Symptoms controlled with omeprazole and continue. Associated Problem(s): DDD (degenerative disc disease), cervical Pain stable and continue celebrex. Perform home ROM exercises. Associated Problem(s): COPD (chronic obstructive pulmonary disease) (CMS/HCC) Breathing stable and continue spiriva. Use albuterol PRN. Stressed need to stop smoking. Images from the original note were not included. Subjective Patient ID: Jenn Mccann is a 49 y.o. female who presents for Follow-up (6m). Follow up depression, anxiety, COPD, neck pain, incontinence, and GERD. Patient stable today. Depression stable. Occasional symptoms and at times down and sad but mild. Overall feels like symptoms mild and tolerable without medication. Anxiety stable. Not as stressed out or overwhelmed. Not as nervous or worry as much. Not as segura or irritable. Using xanax PRN and helps when needed. COPD unchanged. Mild SOB and fatigue with exertion. Occasional cough but no sputum. Using spiriva daily and albuterol PRN which helps. Continues to smoke over 1 PPD and doesn't want to quit. Neck pain stable. Mild pain in base neck and top shoulders. No radiation into arms or hands. Occasional stiffness and decreased ROM. Using celebrex PRN and pain tolerable. GERD controlled with omeprazole. Denies epigastric pain or burning and not waking up with symptoms. Incontinence controlled with medication. Not having as much urgency or frequency. Not dribbling or leaking. Review of Systems Respiratory: Negative for cough, shortness of breath and wheezing. Cardiovascular: Negative for chest pain and palpitations. Gastrointestinal: Negative for abdominal pain, diarrhea, nausea and vomiting. Genitourinary: Negative for dysuria. Objective Physical Exam Constitutional: General: She is not in acute distress. Appearance: Normal appearance. HENT: Head: Normocephalic. Right Ear: Tympanic membrane normal. Left Ear: Tympanic membrane normal. Eyes: Extraocular Movements: Extraocular movements intact. Pupils: Pupils are equal, round, and reactive to light. Cardiovascular: Rate and Rhythm: Normal rate and regular rhythm. Heart sounds: No murmur heard. No friction rub. No gallop. Pulmonary: Effort: Pulmonary effort is normal. Breath sounds: Normal breath sounds. No wheezing, rhonchi or rales. Abdominal: General: Bowel sounds are normal. There is no distension. Palpations: Abdomen is soft. Tenderness: There is no abdominal tenderness. There is no guarding or rebound. Musculoskeletal: Cervical back: Neck supple. Right lower leg: No edema. Left lower leg: No edema. Neurological: Mental Status: She is alert. Assessment/Plan Problem List Items Addressed This Visit COPD (chronic obstructive pulmonary disease) (CMS/HCC) Breathing stable and continue spiriva. Use albuterol PRN. Stressed need to stop smoking. DDD (degenerative disc disease), cervical Pain stable and continue celebrex. Perform home ROM exercises. Generalized anxiety disorder (CMS/HCC) Symptoms stable and use xanax PRN. Gastroesophageal reflux disease without esophagitis Symptoms controlled with omeprazole and continue. Major depressive disorder, recurrent episode, mild (HCC) (CMS/HCC) - Primary Symptoms stable without medication and monitor. Mixed incontinence urge and stress (male)(female) Symptoms controlled with myrbetriq and continue. Obesity (BMI 30-39.9) Annual physical exam Relevant Orders Hemoglobin A1c Basic metabolic panel CBC and differential Hepatic function panel Lipid panel TSH documented in this encounter [facility] 07-03-2023 Evaluation note Encounter Date Diagnosis Assessment [...] treatment plan. Patient left in stable condition [employer] Other 06-06-2023 Evaluation note* Encounter Date Diagnosis Assessment Notes Treatment Notes Treatment Clinical Notes Nov, Rash and nonspecific skin eruption [...] understanding and is agreeable with treatment plan [place] [employer] Other [facility]No [facility] [employer] Other Evaluation noteNo assessment information available [facility] Work Phone: Evaluation note* Diagnosis Dyslipidemia (CMS/HCC)- Primary Other and unspecified hyperlipidemia documented in this encounter [facility] HealthcareEvaluation note* Diagnosis Major depressive disorder, recurrent episode, mild (HCC) (CMS/HCC)- Primary Major depressive disorder, recurrent episode, mild Generalized anxiety disorder (CMS/HCC) Generalized anxiety disorder Chronic obstructive pulmonary disease, unspecified COPD type (CMS/HCC) DDD (degenerative disc disease), cervical Degeneration of cervical intervertebral disc Gastroesophageal reflux disease without esophagitis Esophageal reflux Seasonal allergic rhinitis due to pollen Major depressive disorder, recurrent episode, mild (HCC) (CMS/HCC)- Primary Major depressive disorder, recurrent episode, mild Generalized anxiety disorder (CMS/HCC) Generalized anxiety disorder Chronic obstructive pulmonary disease, unspecified COPD type (CMS/HCC) DDD (degenerative disc disease), cervical Degeneration of cervical intervertebral disc Mixed incontinence urge and stress (male)(female) Gastroesophageal reflux disease without esophagitis Esophageal reflux Seasonal allergic rhinitis due to pollen Major depressive disorder, recurrent episode, mild (HCC) (CMS/HCC)- Primary Major depressive disorder, recurrent episode, mild Generalized anxiety disorder (CMS/HCC) Generalized anxiety disorder Chronic obstructive pulmonary disease, unspecified COPD type (CMS/HCC) Mixed incontinence urge and stress (male)(female) DDD (degenerative disc disease), cervical Degeneration of cervical intervertebral disc Gastroesophageal reflux disease without esophagitis Esophageal reflux Obesity (BMI 30-39.9) Annual physical exam Routine general medical examination at a health care facility Acute UTI- Primary Urinary tract infection, site not specified Class 2 severe obesity due to excess calories with serious comorbidity and body mass index (BMI) of 39.0 to 39.9 in adult (CMS/HCC) Dyslipidemia (CMS/HCC) Other and unspecified hyperlipidemia documented in this encounter [facility] HealthcareEvaluation note* Diagnosis Major depressive disorder, recurrent episode, mild (HCC) (CMS/HCC)- Primary Major depressive disorder, recurrent episode, mild Generalized anxiety disorder (CMS/HCC) Generalized anxiety disorder Chronic obstructive pulmonary disease, unspecified COPD type (CMS/HCC) Mixed incontinence urge and stress (male)(female) DDD (degenerative disc disease), cervical Degeneration of cervical intervertebral disc Gastroesophageal reflux disease without esophagitis Esophageal reflux Obesity (BMI 30-39.9) Annual physical exam Routine general medical examination at a health care facility documented in this encounter [facility] general Narrative - Reported* Type Description Date Medical History Asthma Medical History acid reflux Medical History seasonal allergies Medical History ptsd Medical History depression/anxiety [employer] [facility] [employer] Other History general Narrative - Reported* Type Description Date Medical History Asthma Medical History acid reflux Medical History seasonal allergies Medical History ptsd Medical History depression/anxiety Medical History lupus Surgical History uterine ablation [employer] [facility] [employer] Other Summary Purpose Family History Relationship Condition Age at Onset Recorded Date/T melinda Not Specified Unknown Advance Directives No Advanced Directives Records FoundNo Advanced Directives Records FoundNo Advanced Directives Records Found Additional Source Comments INFORMATION SOURCE (unrecogn ized section and content) DATE CREATED AUTHOR 04/01/[address] [facility] DATE CREATED AUTHOR AUTHOR'S ORGANIZ ATION 09/01/2023 [facility] DATE CREATED AUTHOR AUTHOR'S ORGANIZ ATION 06/15/2024 [facility] EPIC REASON FOR VISIT (unrecogniz ed section and content) Reason Comments UTI Home test positive f or uti Reason Comments Follow-up 6m Care Teams (unrecognized sec tion and content) [employer] Relationship Specialty Start Date End Date Jaden Antonio MD [address] [place] [address] PCP - General Family Medicine 07/24/23 Team [...] 2023 Josi Pereyra Attending Provider Active Start: Maria Victoria [facility] 2023 End: August 23, 2023 [employer] Relationship Specialty Start Date End Date Jaden Antonio MD [address] [place] [phone] PCP - [facility] 07/24/23 [employer] Relationship Specialty Start Date End Date Jaden Antonio MD [address] [place] [phone] PCP - [facility] 07/24/23 [employer] Relationship Specialty Start Date End Date Jaden Antonio MD [address] [place] [phone] PCP - [facility] 07/24/23 Josi Pereyra DO [address] [place] [address] [place] [address] PCP - [facility] 04/01/24 [employer] Relationship Specialty Start Date End Date Jaden Antonio MD [address] [place] [phone] PCP - [facility] 07/24/23 Josi Pereyar DO [address] [place], [place] [address] [place] [address] PCP [facility] 04/01/24 [employer] Relationship Specialty Start Date End Date Jaden Antonio MD [address] [place] [phone] PCP - General Family Medicine 07/24/23 Josi Pereyra DO [address] [place] [address] [place] [address] PCP - [facility] 04/01/24 [employer] Relationship Specialty Start Date End Date Jaden Antonio MD [address] [place] [address] PCP - General Family [facility] 07/24/23 Goals (unrecognized section and content) Goals [...] BE BASED ON THE PRIMARY CLINICAL RECORDS. [facility] [employer] [facility]. provides no warranty or guarantee of the accuracy or completeness of information in this document.
[2024-07-25] MEDS: ACETAMINOPHEN 500 MG TABLET 1000 MG PO (11:52)
== END 2024-07-25 12:36 | disposition home or self-care (01) ==
PROVIDERS: Emergency Provider Emergency Medicine; PCP Family Medicine
DX: S93.601A Unspecified sprain of right foot, initial encounter (principal); S96.911A Strain of unspecified muscle and tendon at ankle and foot level, right foot, initial encounter; S93.401A Sprain of unspecified ligament of right ankle, initial encounter; F17.210 Nicotine dependence, cigarettes, uncomplicated; X50.1XXA Overexertion from prolonged static or awkward postures, initial encounter
CPT/HCPCS: 73610; 73630; 99283

== ENCOUNTER 2025-01-08 07:57 | Outpatient (OUT) | payer OTHER, SELFPAY ==
--- OUTSIDE RECORDS SUMMARY | 2025-01-08 08:07 | XMS_ITS | CCD ---
Author Organization [facility] Care Team Providers Care Harp Action Assembler Name Role Phone DR JADEN ANTONIO Primary [...] Provider MD Jaden Antonio Primary Care Provider [phone] Josi Pereyra Attending Provider [phone] Jaden Antonio Primary Care Unavailable Josi Pereyra Attending Unavailable Josi Pereyra Admitting Unavailable Josi Pereyra DO Unavailable Jaden Antonio MD Unavailable JADEN ANTONIO Attending Unavailable JADEN ANTONIO Attending Unavailable JOSI PEREYRA Attending Unavailable JADEN ANTONIO Attending Unavailable JADEN ANTONIO Attending Unavailable JADEN ANTONIO Attending Unavailable Allergies Allergy Classification Reported Allergen(s) Allergy Type Date of Onset Reaction(s) Facility (3 sources) predniSONE; Translations: [prednisone] Drug Allergy 07-03-2023 Unknown [facility] Repository Medications Current Medications Medication Drug Class(es) Dates Sig (Normalized) Sig (Original) acetaminophen 325 mg / butalbital 50 mg / caffeine 40 mg oral tablet (5 sources) Barbiturate, Central Nervous System Stimulant, Methylxanthine Start: 09-02-2024 take 1 tablet by mouth four times daily as needed for headache butalbital-acetam inophen-caffeine 50-325-40 MG tablet Indications: Migraine without aura and without status migrainosus, not intractable (CMS/HCC) Take 1 tablet by mouth 4 (four) times a day as needed for headaches 30 tablet 1 09/02/2024 Active albuterol 0.83 mg/ml inhalation solution (20 sources) beta2-Adrenergic Agonist Start: 06-18-2023 albuterol (2.5 MG/3ML) 0.083% nebulizer solution Indications: Chronic obstructive pulmonary disease, unspecified COPD type (CMS/HCC) Take 3 mL (2.5 mg) by nebulization [...] hrs Active ALPRAZolam 0.5 mg oral tablet (20 sources) Benzodiazepine Start: 06-18-2023 End: 09-22-2024 take 1 tablet by mouth three times daily as needed for anxiety ALPRAZolam (Xanax) 0.5 MG tablet Indications: Generalized anxiety disorder (CMS/HCC) Take 1 tablet (0.5 mg) by mouth 3 (three) times a day as needed for anxiety for up to 20 days 60 tablet 1 09/02/2024 Active take 1 tablet by ramakrishna th every twelve hours ALPRAZolam 0.5 MG 1 tablet Orally Twice a day Active atorvastatin 40 mg oral tablet (14 sources) HMG-CoA Reductase Inhibitor Start: 09-01-2024 take 1 tablet by mouth at bedtime atorvastatin (Lipitor) 40 MG tablet Indications: Dyslipidemia (CMS/HCC) TAKE 1 TABLET BY MOUTH at AT BEDTIME 30 tablet 5 09/01/2024 Active Start: 03-17-2024 take 1 tablet by ramakrishna th at bedtime atorvastatin (Lipitor) 40 MG tablet Indications: Dyslipidemia (CMS/HCC) Take 1 tablet (40 mg) by mouth at bedtime 30 tablet 5 03/17/2024 Active celecoxib 200 mg oral capsule (18 sources) Nonsteroidal Anti-inflammatory Drug Start: 09-22-2024 take 1 capsule by mouth twice daily as needed celecoxib (CeleBREX) 200 MG capsule Indications: DDD (degenerative disc disease), cervical TAKE 1 CAPSULE BY MOUTH TWICE DAILY NEEDED 60 capsule 3 09/22/2024 Active Start: 05-13-2024 take 1 capsule by mo uth twice [...] Nov, Active cholecalciferol 0.125 mg oral tablet (19 sources) Vitamin D Start: 06-02-2024 take 1 [...] oral tablet (2 sources) alpha-Adrenergic Agonist, Uncompetitive O-ajakfu-A-aspartate Receptor Antagonist, Sigma-1 Agonist Start: 07-03-2023 take 4 tablets by mouth every twenty-four hours as needed Capmist DM 60-15-400 MG as needed Orally every 4-6 hours as needed, max 4 tablets in 24 hours for 5 days Jul, Active escitalopram 20 mg oral tablet (10 sources) Serotonin Reuptake Inhibitor Start: 09-02-2024 take 1 tablet by mouth once daily escitalopram (Lexapro) 20 MG tablet Indications: Major depressive disorder, recurrent, moderate (CMS/HCC) Take 1 tablet (20 mg) by mouth Daily 30 tablet 5 09/02/2024 Active Start: 08-05-2024 End: 09-02-2024 take 1 tablet by mouth once daily escitalopram (Lexapro) 10 MG tablet Indications: Major depressive disorder, recurrent, moderate (CMS/HCC) Take 1 tablet (10 mg) by mouth Daily 30 tablet 2 08/05/2024 09/02/2024 Discontinued (Reorder) estradiol 0.5 mg oral tablet (20 sources) Estrogen Start: 05-28-2023 End: 05-27-2024 take 1 tablet by mouth in the morning estradiol (Estrace) 0.5 MG tablet Indications: Hormone imbalance TAKE 1 TABLET BY MOUTH IN THE MORNING 30 tablet 11 05/20/2024 Active famotidine 20 mg oral tablet (20 sources) Histamine-2 Receptor Antagonist Start: 11-13-2023 famotidine (Pepcid) 20 MG tablet Indications: Gastroesophageal reflux disease without esophagitis Take 1 tablet (20 mg) by mouth if needed for heartburn 30 tablet 5 11/13/2023 Active famotidine (Pepc id) 20 MG tablet Take 20 mg by mouth if needed for heartburn 0 Active fluticasone propionate 0.05 mg/actuat metered dose nasal spray (20 sources) Corticosteroid take 2 spray(s) nasa l route once daily fluticasone (Flonase) 50 MCG/ACT nasal spray instill 2 (TWO) spray nasally DAILY Active Fluticasone Prop ionate 50 MCG/ACT Nasal for 30 Days Active Fluticasone Prop ionate 50 MCG/ACT Nasal for 30 Days Active loratadine 10 mg oral tablet (20 sources) Start: 10-16-2023 End: 10-15-2024 take 1 tablet by mouth once daily Allergy Relief 10 MG tablet Indications: Seasonal allergic rhinitis due to pollen TAKE 1 TABLET BY MOUTH DAILY 30 tablet 11 10/08/2024 Active take 1 tablet by mouth in the mo rning loratadine (Claritin) 10 MG tablet Take 10 mg by mouth in the morning. 0 Active 24 hr metFORMIN hydrochloride 500 mg extended release oral tablet (18 sources) Biguanide Start: 03-08-2023 End: 03-07-2024 take 1 tablet by mouth every twenty-four hours at mealtime metFORMIN XR (Glucophage-XR) 500 MG 24 hr tablet Indications: Insulin resistance TAKE 1 TABLET BY MOUTH IN THE EVENING WITH A MEAL *do not crush, chew, or split* 30 tablet 11 02/21/2024 Active 24 hr mirabegron 50 mg extended release oral tablet (18 sources) beta3-Adrenergi c Agonist Start: 10-14-2024 take 1 tablet by mouth once daily at bedtime Myrbetriq 50 MG 24 hr tablet Indications: Mixed incontinence urge and stress (male)(female) TAKE 1 TABLET BY MOUTH ONCE DAILY AT BEDTIME DO NOT CRUSH, CHEW, OR SPLIT 30 tablet 5 10/14/2024 Active Start: 09-10-2023 take 1 tablet by ramakrishna th every twenty-four hours at bedtime Myrbetriq 50 [...] 0 Active montelukast 10 mg oral tablet (18 sources) Leukotriene Receptor Antagonist Start: 06-09-2024 take [...] 06/19/2024 Active norethindrone 0.35 mg oral tablet (13 sources) Start: take 1 tablet by mouth once daily Deblitane 0.35 MG tablet Indications: Excessive bleeding in the premenopausal period TAKE 1 TABLET BY MOUTH DAILY 28 tablet 07/14/2024 Active Start: 07-16-2023 take 1 tablet by ramakrishna th once daily norethindrone (Milagros) 0.35 MG tablet Indications: Excessive bleeding in the premenopausal period TAKE 1 TABLET BY MOUTH DAILY 28 tablet 07/16/2023 Active Deblitane 0.35 M G Oral for 28 Days Active omeprazole 40 mg delayed release oral capsule (20 sources) Proton Pump Inhibitor Start: 11-04-2024 take 1 capsule by mouth once daily omeprazole (PriLOSEC) [address] capsule Indications: Seasonal allergic rhinitis due to pollen TAKE 1 CAPSULE BY MOUTH ONCE DAILY 30 capsule 3 11/04/2024 Active Start: 07-03-2024 take 1 capsule by mo [facility] once daily omeprazole (PriLOSEC) [address] capsule Indications: Seasonal allergic rhinitis due to pollen TAKE 1 CAPSULE BY MOUTH DAILY 30 capsule 3 07/03/2024 Active Start: 11-19-2023 take 1 capsule by mo uth once daily omeprazole (PriLOSEC) [address] capsule Indications: Seasonal allergic rhinitis due to pollen TAKE 1 CAPSULE BY MOUTH DAILY 30 capsule 3 03/04/2024 Active take 1 capsule by mo uth in the morning omeprazole (PriLOSEC) [address] capsule Take 40 mg by mouth in the morning. 0 Active OXcarbazepine 150 mg oral tablet (2 sources) Anti-epileptic Agent Start: 12-03-2024 take 1 tablet by mouth in the morning OXcarbazepine (Trileptal) 150 MG tablet Indications: Major depressive disorder, recurrent, moderate (CMS/HCC) Take 1 tablet (150 mg) by mouth in the morning and 1 tablet (150 mg) before bedtime. 60 tablet 2 12/03/2024 Active Start: 12-03-2024 take 1 tablet by ramakrishna th in the morning OXcarbazepine (Trileptal) 150 MG tablet Indications: Major depressive disorder, recurrent, moderate (CMS/HCC) Take 1 tablet (150 mg) by mouth in the morning and 1 tablet (150 mg) before bedtime. 60 tablet 2 12/03/2024 Active 24 hr oxybutynin chloride 15 mg extended release oral tablet (1 source) Cholinergic Muscarinic Antagonist take 1 tablet by mouth every twenty-four hours in the morning oxybutynin XL (Ditropan-XL) 15 MG 24 hr tablet Take 15 mg by mouth in the morning. Do not crush, chew, or split.. 0 Active Respiratory Therapy Supplies (Full Kit Nebulizer Set) [facility] (18 sources) Start: 07-13-19 Respiratory Therapy Supplies (Full Kit Nebulizer Set) [facility] [place] Indications: Chronic obstructive pulmonary disease, unspecified COPD type (CMS/HCC) USE DIRECTED WITH compressor 1 each 07/13/2023 Active Start: 07-13-2023 Respiratory Th erapy Supplies (Full Kit Nebulizer Set) [facility] [place] Indications: Chronic obstructive pulmonary disease, unspecified COPD type (CMS/HCC) USE DIRECTED WITH compressor 1 each 0 07/13/2023 Active tiotropium 0.018 mg inhalation powder (20 sources) Anticholinergic Start: 07-28-2024 take 1 capsule by inhalation once daily Spiriva HandiHaler 18 MCG inhalation capsule Indications: Chronic obstructive pulmonary disease, unspecified INHALE CONTENTS OF ONE CAPSULE VIA HANDIHALER DAILY 30 capsule 5 07/28/2024 Active Start: 01-21-2024 take 1 capsule by in halation once [...] Problem Date Documented Date Episodic/Chronic Anxiety disorders (20 sources) Generalized anxiety disorder; Translations: [Generalized anxiety disorder] Onset: 06-18-2023 06-18-2023 Chronic Chronic obstructive pulmonary disease and bronchiectasis (20 sources) Chronic obstructive lung disease; Translations: [Chronic obstructive pulmonary disease, unspecified] Onset: 06-18-2023 06-18-2023 Chronic Diabetes mellitus without complication (20 sources) Prediabetes; Translations: [Prediabetes] Onset: 06-18-2023 06-18-2023 Episodic Disorders of lipid metabolism (20 sources) Dyslipidemia; Translations: [Hyperlipidemia, unspecified] Onset: 06-18-2023 06-18-2023 Chronic Esophageal disorders (20 sources) Gastroesophageal reflux disease without esophagitis; Translations: [Gastro-esophageal reflux disease without esophagitis] Onset: 06-18-2023 06-18-2023 Chronic Genitourinary symptoms and ill-defined conditions (20 sources) Incontinence; Translations: [Mixed incontinence] Onset: 06-18-2023 06-18-2023 Chronic Headache; including migraine (20 sources) Migraine without aura, not refractory ; Translations: [Chronic migraine without aura, not intractable, without status migrainosus] Onset: 06-18-2023 06-18-2023 Chronic Malaise and fatigue (2 sources) Fatigue; Translations: [Other fatigue] 12-03-2024 Episodic Menopausal disorders (18 sources) Menorrhagia; Translations: [Excessive bleeding in the premenopausal period] Onset: 06-18-2023 06-18-2023 Chronic Menstrual disorders (18 sources) Amenorrhea; Translations: [Amenorrhea, unspecified] Onset: 06-18-2023 06-18-2023 Chronic Mood disorders (20 sources) Recurrent major depressive episodes, mild ; Translations: [Major depressive disorder, recurrent, mild] Onset: 06-18-2023 06-18-2023 Chronic Nutritional deficiencies (19 sources) Vitamin D deficiency, unspecified; Translations: [Vitamin D deficiency] Onset: 05-28-2021 06-18-2023 Chronic Other nutritional; endocrine; and metabolic disorders (7 sources) Body mass index 30+ - obesity; Translations: [Obesity, unspecified] Onset: 09-10-2023 09-10-2023 Chronic Other nutritional; endocrine; and metabolic disorders (18 sources) Severe obesity; Translations: [Class 2 severe obesity due to excess calories with serious comorbidity and body mass index (BMI) of 39.0 to 39.9 in adult ([facility])] Onset: 09-10-2023 06-12-2024 Chronic Other screening for suspected conditions (not mental disorders or infectious disease) (4 sources) Encounter for screening mammogram for malignant neoplasm of breast; Translations: [ENC SCR MAMMO MALIG NEOPLASM BREAST] Onset: 03-13-2022 Episodic Other skin disorders (1 source) Rash and other nonspecific skin eruption Episodic Other upper respiratory disease (18 sources) Allergic rhinitis due to pollen; Translations: [...] Classification Problem Date Documented Da te Episodic/Chronic Other non-traumatic joint disorders (18 sources) Pain in left knee; Translations: [Pain in joint, lower leg] Onset: 06-18-2023 06-18-2023 Episodic Other skin disorders (18 sources) Hidradenitis suppurativa; Translations: [Hidradenitis suppurativa] Onset: 06-18-2023 06-18-2023 Episodic Sprains and strains (10 sources) Sprain of right ankle; Translations: [Sprain of unspecified ligament of right ankle, subsequent encounter] Onset: 08-05-2024 Resolved: 09-02-2024 08-05-2024 Episodic Urinary tract infections (14 sources) Acute urinary tract infection; Translations: [Urinary tract infection, site not specified] Onset: 06-12-2024 Resolved: 08-05-2024 06-12-2024 Episodic Viral infection (1 source) COVID-19 Results Test Name Value Interpretation Reference Range Facility TB UA (CLEAN/CATCH) MICROSC OPIC IF INDICATEon 06-13-2024 BILIRUBIN URINE Negative NEGATIVE [facility] with [facility] thcare BLOOD URINE Negative NEGATIVE [facility] re Clarity (U) CLEAR CLEAR [facility] re Color (U) LT. YELLOW YELLOW [facility] GLUCOSE URINE UA Negative NEGATIVE mg/dL [facility] Healthcare Interpretation and review of laboratory results Abnormal [facility] Healthcare Ketones Ql (U) Negative NEGATIVE mg/dL [facility] H ealthcare Leukocyte esterase Test strip Ql (U) Negative NEGATIVE [facility] NITRITE URINE Negative NEGATIVE [facility] Health care pH (U) 6.5 [pH] 5.0 - 9.0 [facility] PROTEIN URINE Negative NEG/TRACE mg/dL [facility] Healthcare SPECIFIC GRAVITY URINE <=1.005 Abnormal 1.005 - 1.025 [facility] Healthcare URINE MICROSCOPIC INDICATED NO [facility] Healthcare UROBILINOGEN URINE 0.2 EU/dL 0.2 - 1.0 EU/dL [facility]car e ALL CBC WITH AUTO DIFFon BASOPHILS ABSOLUTE AUTO 0.1 [facility] Basophils/100 WBC (Bld) 1.1 % 0.2 - 2.0 % [facility] Eosinophils/100 WBC (Bld) 2.1 % 0.9 - 7.0 % [facility] Erythrocyte distribution width (RBC) [Ratio] 15.2 % High 11.0 - 15.0 % [facility] Hematocrit (Bld) [Volume fraction] 44.0 % 36.0 - 48.0 % [facility] e Hemoglobin (Bld) [Mass/Vol] 14.3 g/dL 12.0 - 16.0 g/dL [facility] IMMATURE GRANULOCYTES ABS AUTO 0.02 [facility] Immature granulocytes/100 WBC (Bld) 0.2 % 0.0 - 0.5 % [facility] Interpretation and review of laboratory results Abnormal [facility] LYMPHOCYTES ABSOLUTE AUTO 2.5 [facility] Lymphocytes/100 WBC (Bld) 30.8 % 20.5 - 60.0 % [facility] MCH (RBC) [Entitic mass] 27.8 pg 26.7 - 34.0 pg [facility] MCHC (RBC) [Mass/Vol] 32.5 g/dL 29.9 - 35.2 g/dL [facility] MCV (RBC) [Entitic vol] 85.4 fL 81.0 - 99.0 fL [facility] MONOCYTES ABSOLUTE AUTO 0.5 [facility] Monocytes/100 WBC (Bld) 5.4 % 1.7 - 12.0 % [facility] NEUTROPHILS ABSOLUTE AUTO 5.0 [facility] Neutrophils/100 WBC (Bld) 60.4 % 43.0 - 75.0 % [facility] Platelet mean volume (Bld) [Entitic vol] 9.5 fL 9.5 - 13.5 fL [facility] Healthc are TBH EO # 0.2 [facility] TBH PLT 280 [facility] TB RBC 5.15 [facility] e TB WBC 8.3 [facility] e [facility] e MLR HEMOGLOBIN A1Con 024 Glucose [Mass/Vol] 120 mg/dL [facility] ealthcare HbA1c (Bld) [Mass fraction] 5.8 % 4.5 - 6.2 % [facility] Comment on above: ADA RECOMMENDED LIMI T 4.0 - 6.0 ADA THERAPEUTIC TARGET < 7.0 ACTION SUGGESTED > 7.0 [facility] [place] 08-23-2023 L Specimen: [id number] Received: 08/24/23 Status: BRITTA Lewis Num: [id number] Spec Type: Surgical Subm Dr: Josi Pereyra Tissues: A Uterus w/ or w/o tubes ovaries except neoplastic or prolap (UTERUS PILY FT) Procedures: HE/12, Gross/Micro L5 Age/ Patient Sex Location Account Attending Physician MccannJenn 48/F [facility] [id number] Josi Pereyra SPEC NUM: [id number] RECD: 08/24/23 STATUS: BRITTA LEWIS NUM: [id number] EVI: 08/23/[address]: Josi Pereyra ENTERED: [...] and unremarkable. Sectioning demonstrates a central lumen. Sales Promotion Representative sections are submitted in 6 cassettes as follows: A1 - Posterior cul-de-sac serosa A2 - Anterior and posterior cervix Specimen: [id number] Received: 08/24/23 Status: BRITTA Lewis Num: [id number] Spec Type: Surgical Subm Dr: Josi Pereyra Tissues: A Uterus w/ or w/o tubes ovaries except neoplastic or prolap (UTERUS PILY FT) Procedures: , Gross/Micro L5 Patient: MccannJenn [id number] (Continued) Specimen: [id number] Received: 08/24/23 (Continued) Gross Description (Continued) Signed (signatur e on file) Arminda Vegas MD 08/30/23 2234 Specimen: [id number] Received: 08/24/23 Status: BRITTA Lewis Num: [id number] Spec Type: Surgical Subm Dr: Josi Pereyra Tissues: A Uterus w/ or w/o tubes ovaries except neoplastic or prolap (UTERUS PILY FT) Procedures: , Gross/Micro L5 Patient: RamyJenn A [id number] (Continued) Specimen: [id number] Received: 08/24/23 (Continued) Gross Description (Continued) A3 - Anterior endomyometrium A4 - Posterior endomyometrium A5 - [place] segment of fallopian tube with fimbria entirely submitted A6 - Longer segment of fallopian tube with fimbria entirely submitted CPT Codes 41007 Specimen: [id number] Received: 08/24/23 Status: BRITTA Lewis Num: [id number] Spec Type: Surgical Subm Dr: Josi Pereyra Tissues: A Uterus w/ or w/o tubes ovaries except neoplastic or prolap (UTERUS PILY FT) Procedures: , Gross/Micro L5 Patient: Jenn Mccann [id number] (Continued) Signed (signatur e on file) Arminda Vegas MD 08/30/232233 [facility] ALL CBC WITH AUTO DIFFon BASOPHILS ABSOLUTE AUTO 0.1 [facility] Basophils/100 WBC (Bld) 1.0 % 0.2 - 2.0 % [facility] Eosinophils/100 WBC (Bld) 1.3 % 0.9 - 7.0 % [facility] Erythrocyte distribution width (RBC) [Ratio] 15.6 % High 11.0 - 15.0 % [facility] Hematocrit (Bld) [Volume fraction] 45.1 % 36.0 - 48.0 % [facility] e Hemoglobin (Bld) [Mass/Vol] 14.5 g/dL 12.0 - 16.0 g/dL [facility] IMMATURE GRANULOCYTES ABS AUTO 0.03 [facility] Immature granulocytes/100 WBC (Bld) 0.3 % 0.0 - 0.5 % [facility] Interpretation and review of laboratory results Abnormal [facility] LYMPHOCYTES ABSOLUTE AUTO 3.0 [facility] Lymphocytes/100 WBC (Bld) 30.2 % 20.5 - 60.0 % [facility] MCH (RBC) [Entitic mass] 27.1 pg 26.7 - 34.0 pg [facility] MCHC (RBC) [Mass/Vol] 32.2 g/dL 29.9 - 35.2 g/dL [facility] MCV (RBC) [Entitic vol] 84.3 fL 81.0 - 99.0 fL [facility] MONOCYTES ABSOLUTE AUTO 0.6 [facility] Monocytes/100 WBC (Bld) 6.3 % 1.7 - 12.0 % [facility] NEUTROPHILS ABSOLUTE AUTO 6.1 [facility] Neutrophils/100 WBC (Bld) 60.9 % 43.0 - 75.0 % [facility] Platelet mean volume (Bld) [Entitic vol] 9.3 fL Low 9.5 - 13.5 [facility]L [facility].1 [facility]T 293 [facility] TB RBC 5.35 [facility] e TB WBC 10.0 [facility] e COVID + FLU Quick Testingon 07-03-2023 SARS-CoV-2 (COVID-19) RNA JESSIE+probe Ql (Unsp spec) Positive [facility] Other COVID + FLU Quick Testing Negative [facility] Other MG MAMM SCREEN 3D PILY CADon 03-13-2022 MG MAMM SCREEN 3D PILY CAD Patient: JENN MCCANN Exam Date: 03/13/2022 : 1975 Gender:F Ordering : DR JADEN ANTONIO . Admission #: [id number] Family : Order #: [id number] CLICK HERE TO VIEW EXAM RADIOLOGY REPORT [...] Treatments None Family Cancers None LOCATION: [facility] BREAST COMPOSITION: Scattered areas fibroglandular density. [...] M.D. on 03/14/2022 at 08:50 Normal [facility] CBC AUTO DIFFon 05-19-2021 BASO # 0.1 103/ul Normal 0.0-0.1 [facility] Comment on above: Performed By: #### C BC #### [facility] [address] [place] [address] Dr. Dashawn Mayo Basophils/100 WBC (Bld) 0.9 % Normal 0.2-2.0 [facility] Comment on above: Performed By: #### C BC #### [facility] [address] [address] [address] Dashawn Mayo EO # 0.2 103/ul Normal 0.0-0.7 [facility] Comment on above: Performed By: #### C BC #### [facility] [address] [address] [address] Dashawn Mayo Eosinophils/100 WBC (Bld) 2.3 % Normal 0.9-7.0 [facility] Comment on above: Performed By: #### C BC #### [facility] [address] [place] [address] Dr. Dashawn Mayo Erythrocyte distribution width (RBC) [Ratio] 15.2 % Critically high 11.0-15.0 [facility] Comment on above: Performed By: #### C BC #### [facility] [address] [place] [address] Dr. Dashawn Mayo Hematocrit (Bld) [Volume fraction] 45.5 % Normal 36.0-48.0 [facility] Comment on above: Performed By: #### C BC #### [facility] [address] [place] [address] Dr. Dashawn Mayo Hemoglobin (Bld) [Mass/Vol] 14.4 g/dL Normal 12.0-16.0 [facility] Comment on above: Performed By: #### C BC #### [facility] [address] [place] [address] Dr. Dashawn Mayo IG # 0.03 10e3/ul Normal 0.00-0.03 [facility] Comment on above: Performed By: #### C BC #### [facility] [address] [place] [address] Dr. Dashawn Mayo IG % 0.3 % Normal 0.0-0.5 [facility] Comment on above: Performed By: #### C BC #### [facility] [address] [place] [address] Dr. Dashawn Mayo LYMPH # 2.8 103/ul Normal 1.2-3.8 [facility] Comment on above: Performed By: #### C BC #### [facility] [address] [place] [address] Dr. Dashawn Mayo Lymphocytes/100 WBC (Bld) 27.4 % Normal 20.5-60.0 [facility] Comment on above: Performed By: #### C BC #### [facility] [address] [place] [address] Dr. Dashawn Mayo MANUAL DIFF REQ NO Normal [facility] Comment on above: Performed By: #### C BC #### [facility] [address] [address] [address] Dashawn Mayo MCH (RBC) [Entitic mass] 27.2 pg Normal 26.7-34.0 [facility] Comment on above: Performed By: #### C BC #### [facility] [address] [address] [address] Dashawn Mayo MCHC (RBC) [Mass/Vol] 31.6 g/dL Normal 29.9-35.2 [facility] Comment on above: Performed By: #### C BC #### [facility] [address] [address] [address] Dashawn Mayo MCV (RBC) [Entitic vol] 85.8 fL Normal 81.0-99.0 [facility] Comment on above: Performed By: #### C BC #### [facility] [address] [place] [address] Dr. Dashawn Mayo MONO # 0.5 103/ul Normal 0.3-0.8 [facility] Comment on above: Performed By: #### C BC #### [facility] [address] [address] [address] Dashawn Mayo Monocytes/100 WBC (Bld) 4.5 % Normal 1.7-12.0 [facility] Comment on above: Performed By: #### C BC #### [facility] [address] [address] [address] Dashawn Mayo NEUT # 6.7 103/ul Critically high 1.4-6.5 [facility] Comment on above: Performed By: #### C BC #### [facility] [address] [address] [address] Dashawn Mayo Neutrophils/100 WBC (Bld) 64.6 % Normal 43.0-75.0 [facility] Comment on above: Performed By: #### C BC #### [facility] [address] [place] [address] Dr. Dashawn Mayo Platelet mean volume (Bld) [Entitic vol] 10.3 fL Normal 9.5-13.5 [facility] Comment on above: Performed By: #### C BC #### [facility] [address] [address] [address] Dashawn Mayo PLT 295 103/ul Normal 150-450 [facility] Comment on above: Performed By: #### C BC #### [facility] [address] [address] [address] Dashawn Mayo RBC 5.30 106/ul Normal 4.20-5.40 [facility] Comment on above: Performed By: #### C BC #### [facility] [address] [address] [address] Dashawn Mayo WBC 10.4 103/ul Normal 4.0-11.0 [facility] Comment on above: Performed By: #### C BC #### [facility] [address] [place] [address] Dr. Dashawn Mayo FREE T3on 05-19-2021 FREE T3 2.20 pg/mlL Critically low 2.77-5.27 [facility] Comment on above: Performed By: #### L IVER, LIPID, FT3, BMP, TSH #### [facility] [address] [place] [address] Dr. Dashawn Mayo FREE T4on 05-19-2021 Free T4 [Mass/Vol] 0.97 ng/dL Normal 0.78-2.19 [facility] Comment on above: Performed By: #### V ITAD, FT4 #### [facility] [address] [place] [address] Dr. Dashawn Mayo GLYCOHEMOGLOBIN A1Con 2020 ADA RECOMMENDATION ADA THERAPEUTIC TARGET 6.0 - 7.0 ACTION SUGGESTED > 7.0 Normal [facility] Comment on above: Performed By: #### A 1C #### [facility] [address] [place] [address] Dr. Dashawn Mayo Glucose [Mass/Vol] 126 mg/dL Normal [facility] Comment on above: Performed By: #### A 1C #### [facility] [address] [place] [address] Dr. Dashawn Mayo HbA1c (Bld) [Mass fraction] 6.0 % Normal <=6.0 [facility] Comment on above: Performed By: #### A 1C #### [facility] [address] [place] [address] Dr. Dashawn Mayo LIPID PROFILEon 05-19-2021 CHOL-HDL RATIO NORM SEE BELOW Normal [facility] Comment on above: Result Comment: 3.3 - 4.4 LOW RISK 4.4 - 7.1 AVERAGE RISK 7.1 - 11.0 MODERATE RISK >11.0 HIGH RISK Performed By: #### L IVER, LIPID, FT3, BMP, TSH #### [facility] [address] [place] [address] Dr. Dashawn Mayo Cholesterol [Mass/Vol] 250 mg/dL Critically high <=200 [facility] Comment on above: Performed By: #### L IVER, LIPID, FT3, BMP, TSH #### [facility] [address] [place] [address] Dr. Dashawn Mayo Cholesterol in HDL [Mass/Vol] 41 mg/dL Normal [facility] Comment on above: Performed By: #### L IVER, LIPID, FT3, BMP, TSH #### [facility] [address] [place] [address] Dr. Dashawn Mayo Cholesterol in LDL [Mass/Vol] 188.2 mg/dL Normal [facility] Comment on above: Performed By: #### L IVER, LIPID, FT3, BMP, TSH #### [facility] [address] [place] [address] Dr. Dashawn Mayo Cholesterol.total/Ch olesterol in HDL [Mass ratio] 6.1 {ratio} Normal [facility] Comment on above: Performed By: #### L IVER, LIPID, FT3, BMP, TSH #### [facility] [address] [place] [address] Dr. Dashawn Mayo HDL NORMAL > or = 60 mg/dl - LOW CARDIOVASCULAR RISK <40 mg/dl - HIGH CARDIOVASCULAR RISK Normal [facility] Comment on above: Performed By: #### L IVER, LIPID, FT3, BMP, TSH #### [facility] [address] [address] [address] Dashawn Mayo LDL CALC NORMAL SEE BELOW Normal [facility] Comment on above: Result Comment: <100 mg/dl OPTIMAL 100 - 129 mg/dl NEAR OR ABOVE OPTIMAL 130 - 159 mg/dl BORDERLINE HIGH 160 - 189 mg/dl HIGH >190 mg/dl VERY HIGH Performed By: #### L IVER, LIPID, FT3, BMP, TSH #### [facility] [address] [address] [address] Dashawn Mayo Triglyceride [Mass/Vol] 104 mg/dL Normal <=150 [facility] Comment on above: Performed By: #### L IVER, LIPID, FT3, BMP, TSH #### [facility] [address] [address] [address] Dashawn Mayo VLDL CALC 20.8 mg/dL Normal [facility] Comment on above: Performed By: #### L IVER, LIPID, FT3, BMP, TSH #### [facility] [address] [place] [address] Dr. Dashawn Mayo LIVER PROFILEon 05-19-2021 Albumin [Mass/Vol] 3.6 g/dL Normal 3.5-5.0 [facility] Comment on above: Performed By: #### L IVER, LIPID, FT3, BMP, TSH #### [facility] [address] [place] [address] Dr. Dashawn Mayo Albumin/Globulin [Mass ratio] 0.9 {ratio} Normal [facility] Comment on above: Performed By: #### L IVER, LIPID, FT3, BMP, TSH #### [facility] [address] [place] [address] Dr. Dashawn Mayo ALP [Catalytic activity/Vol] 72 U/L Normal 38-126 [facility] Comment on above: Performed By: #### L IVER, LIPID, FT3, BMP, TSH #### [facility] [address] [address] [address] Dashawn Mayo ALT [Catalytic activity/Vol] 16 U/L Normal 9-52 [facility] Comment on above: Performed By: #### L IVER, LIPID, FT3, BMP, TSH #### [facility] [address] [place] [address] Dr. Dashawn Mayo AST [Catalytic activity/Vol] 13 U/L Critically low 14-36 [facility] Comment on above: Performed By: #### L IVER, LIPID, FT3, BMP, TSH #### [facility] [address] [place] [address] Dr. Dashawn Mayo BILI, CONJUGATED 0.0 mg/dL Normal 0.0-0.3 [facility] Comment on above: Performed By: #### L IVER, LIPID, FT3, BMP, TSH #### [facility] [address] [place] [address] Dr. Dashawn Mayo Bilirubin [Mass/Vol] 0.3 mg/dL Normal 0.2-1.3 [facility] Comment on above: Performed By: #### L IVER, LIPID, FT3, BMP, TSH #### [facility] [address] [place] [address] Dr. Dashawn Mayo Globulin (S) [Mass/Vol] 4.0 g/dL Normal [facility] Comment on above: Performed By: #### L IVER, LIPID, FT3, BMP, TSH #### [facility] [address] [place] [address] Dr. Dashawn Mayo Protein [Mass/Vol] 7.6 g/dL Normal 6.1-8.2 [facility] Comment on above: Performed By: #### L IVER, LIPID, FT3, BMP, TSH #### [facility] [address] [place] [address] Dr. Dashawn Mayo PROF CHEM 8 (BAS METB)on Anion gap [Moles/Vol] 12.6 mmol/L Normal [facility] Comment on above: Performed By: #### L IVER, LIPID, FT3, BMP, TSH #### [facility] [address] [place] [address] Dr. Dashawn Mayo Calcium [Mass/Vol] 9.1 mg/dL Normal 8.4-10.2 [facility] Comment on above: Performed By: #### L IVER, LIPID, FT3, BMP, TSH #### [facility] [address] [address] [address] Dashawn Mayo Chloride [Moles/Vol] 102 mmol/L Normal 98-107 [facility] Comment on above: Performed By: #### L IVER, LIPID, FT3, BMP, TSH #### [facility] [address] [address] [address] Dashawn Mayo CO2 [Moles/Vol] 27.9 mmol/L Normal 22.0-30.0 [facility] Comment on above: Performed By: #### L IVER, LIPID, FT3, BMP, TSH #### [facility] [address] [place] [address] Dr. Dashawn Mayo Creatinine [Mass/Vol] 0.81 mg/dL Normal 0.52-1.04 [facility] Comment on above: Performed By: #### L IVER, LIPID, FT3, BMP, TSH #### [facility] [address] [place] [address] Dr. Dashawn Mayo EGFR-AF PAKISTANI >60 Normal >=60 [facility] Comment on above: Performed By: #### L IVER, LIPID, FT3, BMP, TSH #### [facility] [address] [place] [address] Dr. Dashawn Mayo EGFR-NON AF PAKISTANI >60 Normal >=60 [facility] Comment on above: Performed By: #### L IVER, LIPID, FT3, BMP, TSH #### [facility] [address] [place] [address] Dr. Dashawn Mayo Glucose [Mass/Vol] 94 mg/dL Normal 74-106 [facility] Comment on above: Performed By: #### L IVER, LIPID, FT3, BMP, TSH #### [facility] [address] [place] [address] Dr. Dashawn Mayo Potassium [Moles/Vol] 4.5 mmol/L Normal 3.4-5.0 [facility] Comment on above: Performed By: #### L IVER, LIPID, FT3, BMP, TSH #### [facility] [address] [address] [address] Dashawn Mayo Sodium [Moles/Vol] 138 mmol/L Normal 137-145 [facility] Comment on above: Performed By: #### L IVER, LIPID, FT3, BMP, TSH #### [facility] [address] [place] [address] Dr. Dashawn Mayo Urea nitrogen [Mass/Vol] 8.0 mg/dL Normal 7.0-17.0 [facility] Comment on above: Performed By: #### L IVER, LIPID, FT3, BMP, TSH #### [facility] [address] [place] [address] Dr. Dashawn Mayo Urea nitrogen/Creatinine [Mass ratio] 9.9 mg/mg Normal [facility] Comment on above: Performed By: #### L IVER, LIPID, FT3, BMP, TSH #### [facility] [address] [place] [address] Dr. Dashawn Mayo TSHon 05-19-2021 TSH 1.888 uIU/mL Normal 0.470-4.680 [facility] Comment on above: Performed By: #### L IVER, LIPID, FT3, BMP, TSH #### [facility] [address] [place] [address] Dr. Dashawn Mayo TSH RANGE SEE BELOW Normal [facility] Comment on above: Result Comment: <0.3 4 UIU/ml HYPERTHYROID 0.34-5.60 UIU/ml EUTHYROID >5.60 UIU/ml HYPOTHYROID Performed By: #### L IVER, LIPID, FT3, BMP, TSH #### [facility] [address] [place] [address] Dr. Dashawn Mayo VITAMIN D 25 OHon 05-19-2021 VIT D 25-OH 97.4 ng/mL Normal [facility] Comment on above: Performed By: #### V ITAD, FT4 #### [facility] [address] [place] [address] Dr. Dashawn Mayo VIT D RANGES SEE BELOW Normal [facility] Comment on above: Result Comment: <20 ng/mL Vit D deficient 20 - <30 ng/mL Vit D insufficient 30 - 100 ng/mL Vit D sufficient >100 ng/mL Potential Toxicity Performed By: #### V ASHLEY, FT4 #### [facility] [address] [place] [address] Dr. Dashawn Mayo Vital Signs Date Time Vital Sign Value Performing Clinician Facility 12-03-2024 08:57-0400 Body height 165.1 cm Jaden Antonio MD Work Phone: [facility] 12-03-2024 08:57-0400 Body mass index (BMI) [Ratio] 40.77 kg/m2 Jaden Antonio MD Work Phone: [facility] 12-03-2024 08:57-0400 Body temperature 97.11 [degF] Jaden Antonio MD Work Phone: [facility] 12-03-2024 08:57-0400 Body weight 111.13 kg Jaden Antonio MD Work Phone: [facility] 12-03-2024 08:57-0400 Diastolic blood pressure 76 mm[Hg] Jaden Antonio MD Work Phone: [facility] 12-03-2024 08:57-0400 Heart rate 88 /min Jaden Antonio MD Work Phone: [facility] 12-03-2024 08:57-0400 Respiratory rate 22 /min Jaden Antonio MD Work Phone: [facility] 12-03-2024 08:57-0400 SaO2% (BldA) [Mass fraction] 93 % Jaden Antonio MD Work Phone: [facility] 12-03-2024 08:57-0400 Systolic blood pressure 144 mm[Hg] Jaden Antonio MD Work Phone: [facility] 09-02-2024 09:08-0500 Body height 165.1 cm Jaden Antonio MD Work Phone: [facility] 09-02-2024 09:08-0500 Body mass index (BMI) [Ratio] 39.61 kg/m2 Jaden Antonio MD Work Phone: [facility] 09-02-2024 09:08-0500 Body temperature 98.2 [degF] Jaden Antonio MD Work Phone: [facility] 09-02-2024 09:08-0500 Body weight 107.96 kg Jaden Antonio MD Work Phone: [facility] 09-02-2024 09:08-0500 Diastolic blood pressure 76 mm[Hg] Jaden Antonio MD Work Phone: [facility] 09-02-2024 09:08-0500 Heart rate 104 /min Jaden Antonio MD Work Phone: [facility] 09-02-2024 09:08-0500 Respiratory rate 20 /min Jaden Antonio MD Work Phone: [facility] 09-02-2024 09:08-0500 SaO2% (BldA) [Mass fraction] 93 % Jaden Antonio MD Work Phone: [facility] 09-02-2024 09:08-0500 Systolic blood pressure 138 mm[Hg] Jaden Antonio MD Work Phone: [facility] 08-05-2024 11:38-0500 Body height 165.1 cm Jaden Antonio MD Work Phone: [facility] 08-05-2024 11:38-0500 Body mass index (BMI) [Ratio] 39.27 kg/m2 Jaden Antonio MD Work Phone: [facility] 08-05-2024 11:38-0500 Body temperature 95.7 [degF] Jaden Antonio MD Work Phone: [facility] 08-05-2024 11:38-0500 Body weight 107.05 kg Jaden Antonio MD Work Phone: [facility] 08-05-2024 11:38-0500 Diastolic blood pressure 74 mm[Hg] Jaden Antonio MD Work Phone: [facility] 08-05-2024 11:38-0500 Heart rate 104 /min Jaden Antonio MD Work Phone: [facility] 08-05-2024 11:38-0500 Respiratory rate 20 /min Jaden Antonio MD Work Phone: [facility] 08-05-2024 11:38-0500 SaO2% (BldA) [Mass fraction] 96 % Jaden Antonio MD Work Phone: [facility] 08-05-2024 11:38-0500 Systolic blood pressure 136 mm[Hg] Jaden Antonio MD Work Phone: [facility] 06-12-2024 14:26-0500 Body height 165.1 cm Jaden Antonio MD Work Phone: [facility] 06-12-2024 14:26-0500 Body mass index (BMI) [Ratio] 39.61 kg/m2 Jaden Antonio MD Work Phone: [facility] 06-12-2024 14:26-0500 Body temperature 96.6 [degF] Jaden Antonio MD Work Phone: [facility] 06-12-2024 14:26-0500 Body weight 107.96 kg Jaden Antonio MD Work Phone: [facility] 06-12-2024 14:26-0500 Diastolic blood pressure 68 mm[Hg] Jaden Antonio MD Work Phone: [facility] 06-12-2024 14:26-0500 Heart rate 107 /min Jaden Antonio MD Work Phone: [facility] 06-12-2024 14:26-0500 Respiratory rate 20 /min Jaden Antonio MD Work Phone: [facility] 06-12-2024 14:26-0500 SaO2% (BldA) [Mass fraction] 93 % Jaden Antonio MD Work Phone: [facility] 06-12-2024 14:26-0500 Systolic blood pressure 136 mm[Hg] Jaden Antonio MD Work Phone: [facility] 03-04-2024 09:42-0400 Body height 165.1 cm Jaden Antonio MD Work Phone: [facility] 03-04-2024 09:42-0400 Body mass index (BMI) [Ratio] 39.27 kg/m2 Jaden Antonio MD Work Phone: [facility] 03-04-2024 09:42-0400 Body temperature 97.5 [degF] Jaden Antonio MD Work Phone: [facility] 03-04-2024 09:42-0400 Body weight 107.05 kg Jaden Antonio MD Work Phone: [facility] 03-04-2024 09:42-0400 Diastolic blood pressure 72 mm[Hg] Jaden Antonio MD Work Phone: [facility] 03-04-2024 09:42-0400 Heart rate 102 /min Jaden Antonio MD Work Phone: [facility] 03-04-2024 09:42-0400 Respiratory rate 20 /min Jaden Antonio MD Work Phone: [facility] 03-04-2024 09:42-0400 SaO2% (BldA) [Mass fraction] 93 % Jaden Antonio MD Work Phone: [facility] 03-04-2024 09:42-0400 Systolic blood pressure 130 mm[Hg] Jaden Antonio MD Work Phone: [facility] 07-03-2023 14:40-0500 Body height 160.02 cm Kimberly Scott Other [facility] 07-03-2023 14:40-0500 Body mass index (BMI) [Ratio] 41.45 kg/m2 Kimberly Scott Other [facility] [employer] Other 07-03-2023 14:40-0500 Body temperature 100.9 [degF] Kimberly Scott Other [facility] Other 07-03-2023 14:40-0500 Body weight 106.14 kg Kimberly Scott Other [facility] 07-03-2023 14:40-0500 Respiratory rate 18 /min Kimberly Scott Other [facility] Other 07-03-2023 14:40-0500 SaO2% (BldA) [Mass fraction] 95 % Kimberly Scott Other [facility] Other 12-05-2022 17:40-0400 Body height 160.02 cm Kimberly Scott Other [facility] Other 12-05-2022 17:40-0400 Body mass index (BMI) [Ratio] 45.7 kg/m2 Kimberly Scott Other [facility] Other 12-05-2022 17:40-0400 Body temperature 98.6 [degF] Kimberly Scott Other [facility] Other 12-05-2022 17:40-0400 Body weight 117.03 kg Kimberly Scott Other [facility] Other 12-05-2022 17:40-0400 Diastolic blood pressure 86 mm[Hg] Kimberly Scott Other [facility] Other 12-05-2022 17:40-0400 Respiratory rate 18 /min Kimberly Scott Other [facility] Other 12-05-2022 17:40-0400 SaO2% (BldA) [Mass fraction] 97 % Kimberly Scott Other [facility] Other 12-05-2022 17:40-0400 Systolic blood pressure 145 mm[Hg] Kimberly Scott Other [facility] Other Encounters Encounter Date Encounter Type Care Provider Facility Start: 12-03-2024 End: 12-03-2024 Bamboo flowsheet Jaden Antonio MD Work Phone: [facility] Start: 12-03-2024 End: 12-03-2024 Bamboo Tiny Postheet Jaden Anotnio MD Work Phone: [facility] Start: 12-03-2024 End: 12-03-2024 Office outpatient visit 25 minutes Jaden Antonio MD Work Phone: [facility] Comment on above: Major depressive dis order, recurrent, moderate (CMS/HCC) (Primary Dx); Generalized anxiety disorder (CMS/HCC); Chronic obstructive pulmonary disease, unspecified COPD type (CMS/HCC); Migraine without aura and without status migrainosus, not intractable (CMS/HCC); Mixed incontinence urge and stress (male)(female); Class 3 severe obesity due to excess calories with serious comorbidity and body mass index (BMI) of 40.0 to 44.9 in adult; Pre-diabetes; Fatigue, unspecified type Start: 12-03-2024 End: 12-03-2024 ambulatory JADEN ANTONIO Not Available Start: 09-02-2024 End: 09-02-2024 Bamboo flowsheet Jaden Antonio MD Work Phone: [facility] Start: 09-02-2024 End: 09-02-2024 Bamboo flowsheet Jaden Antonio MD Work Phone: [facility] Start: 09-02-2024 End: 09-02-2024 Office outpatient visit 25 minutes Jaden Antonio MD Work Phone: [facility] Comment on above: Major depressive dis order, recurrent, moderate (CMS/HCC) (Primary Dx); Generalized anxiety disorder (CMS/HCC); Chronic obstructive pulmonary disease, unspecified COPD type (CMS/HCC); Mixed incontinence urge and stress (male)(female); Migraine without aura and without status migrainosus, not intractable (CMS/HCC) Start: 09-02-2024 End: 09-02-2024 ambulatory JADEN ANTONIO Not Available Start: 08-05-2024 End: 08-05-2024 Bamboo flowsheet Jaden Antonio MD Work Phone: [facility] Start: 08-05-2024 End: 08-05-2024 Bamboo flowsheet Jaden Antonio MD Work Phone: [facility] Start: 08-05-2024 End: 08-05-2024 Office outpatient visit 25 minutes Jaden Antonio MD Work Phone: [facility] Comment on above: Sprain of right ankl e, unspecified ligament, subsequent encounter (Primary Dx); Major depressive disorder, recurrent, moderate (CMS/HCC); Generalized anxiety disorder (CMS/HCC); Chronic obstructive pulmonary disease, unspecified COPD type (CMS/HCC); Class 2 severe obesity due to excess calories with serious comorbidity and body mass index (BMI) of 39.0 to 39.9 in adult (CMS/HCC) Start: 08-05-2024 End: 08-05-2024 ambulatory JADEN ANTONIO Not Available Start: 06-13-2024 End: 06-13-2024 Clinisync Result Encounter Jaden Antonio MD Work Phone: [facility] External Department Unsolicited Start: 06-13-2024 End: 06-13-2024 Clinisync Result Encounter Jaden Antonio MD Work Phone: [facility] External Department Unsolicited Start: 06-12-2024 End: 06-12-2024 [...] Not Available Start: 04-11-2024 End: 04-11-2024 ambulatory JADEN ANTONIO Not Available Start: 03-17-2024 End: 03-17-2024 Clinisync Result Encounter Jaden Antonio MD Work Phone: [facility] Unsolicited Start: 03-17-2024 End: 03-17-2024 Clinisync Result Encounter Jaden Antonio MD Work Phone: [facility] Department Unsolicited Start: 03-17-2024 End: 03-17-2024 Orders Only Jaden Antonio MD Work Phone: [facility] Comment on above: Dyslipidemia (CMS/HC C) (Primary Dx) Start: 03-04-2024 End: 03-04-2024 Office outpatient visit 25 minutes Jaden Antonio MD Work Phone: [facility] Comment on above: Major depressive dis order, [...] [facility] Start: 03-04-2024 End: 03-04-2024 ambulatory AJDEN ANTONIO Not Available Start: 02-11-2024 End: 02-11-2024 ambulatory JOSI PEREYRA Not Available Start: 08-23-2023 End: 08-23-2023 ambulatory Jaden Antonio Facility:[facility] Start: 08-23-2023 End: 08-23-2023 ambulatory MD Jaden Antonio Work Phone: [facility] Work Phone: Start: 08-23-2023 End: 08-23-2023 Departed Referred MD Jaden Antonio Work Phone: [facility] Start: 08-09-2023 Clinisync Result Encounter Generic External Data Provider [facility] External Department Unsolicited Start: 08-09-2023 Clinisync Result Encounter Generic External Data Provider [facility] External Department Unsolicited Start: 07-03-2023 End: 07-03-2023 ambulatory Kimberly Scott Other [facility] Other Start: 07-03-2023 Office outpatient vi sit 25 minutes Kimberly Sctot [facility] Start: 07-03-2023 Telephone encounter Kimberly Scott [facility] [address] Start: 07-03-2023 End: 07-03-2023 Patient encounter procedure MD Jaden Antonio Work Phone: [facility] Work Phone: Start: 12-05-2022 End: 12-05-2022 ambulatory Kimberly Scott Other [facility] Other Start: 12-05-2022 Office outpatient ne w 20 minutes Kimberly Scott [facility] Start: 03-13-2022 End: 03-14-[address] JADEN ANTONIO Facility:[facility] Start: 05-28-2021 Encounter for genera l adult medical examination without abnormal findings DR JADEN ANTONIO [facility] Start: 05-19-2021 End: 05-20-[address] [...] DIFF Josi Pereyra DO Work Phone: Start: 03-16-2023 Mammography Jaden swanson MD Work Phone: Start: 01-22-2023 Microscopic observat ion [Identifier] in Cervix by Cyto stain Generic Provider Plan of Treatment Date Care Activity Detail Author Start: 02-01-2026 Screening for malign ant neoplasm of colon [facility] Start: 01-22-2026 Screening for malign ant neoplasm of cervix [facility] Start: 03-17-2025 Screening for malign ant neoplasm of breast Mammogram [facility] Start: 2025 Influenza vaccination Influenz a Vaccine (Season Ended) [facility] Start: 02-10-2025 End: 02-10-2025 Patient encounter procedure 02/10/2025 9:00 AM EDT Office Visit [facility] [address] [place] [address] Josi Pereyra DO [address] [address] [facility] Start: 02-04-2025 End: 02-04-2025 Patient encounter procedure 02/04/2025 8:30 AM EDT Office Visit [facility] [address] [place] [address] Jaden Antonio MD [address] [place] [address] [facility] Start: 12-03-2024 End: 12-03-2025 Basic metabolic 1998 panel - Serum or Plasma Basic metabolic panel Lab Routine Pre-diabetes Expected: 12/03/2024 (Approximate), Expires: 12/03/2025 [facility] Work Phone: Comment on above: Expected: 12/03/2024 (Approximate), Expires: 12/03/2025 Start: 12-03-2024 End: 12-03-2025 CBC W Auto Differential panel - Blood CBC and differential Lab Routine Fatigue, unspecified type Expected: 12/03/2024 (Approximate), Expires: 12/03/2025 [facility] Comment on above: Expected: 12/03/2024 (Approximate), Expires: 12/03/2025 Start: 12-03-2024 End: 12-03-2025 Hemoglobin A1c/Hemoglobin.total in Blood Hemoglobin A1c Lab Routine Pre-diabetes Expected: 12/03/2024 (Approximate), Expires: 12/03/2025 [facility] Comment on above: Expected: 12/03/2024 (Approximate), Expires: 12/03/2025 Start: 12-03-2024 End: 12-03-2025 Thyrotropin [Units/volume] in Serum or Plasma TSH Lab Routine Class 3 severe obesity due to excess calories with serious comorbidity and body mass index (BMI) of 40.0 to 44.9 in adult Expected: 12/03/2024 (Approximate), Expires: 12/03/2025 [facility] Comment on above: Expected: 12/03/2024 (Approximate), Expires: 12/03/2025 Start: 12-03-2024 End: 12-03-2025 Thyroxine (T4) free [Mass/volume] in Serum or Plasma T4, free Lab Routine Class 3 severe obesity due to excess calories with serious comorbidity and body mass index (BMI) of 40.0 to 44.9 in adult Expected: 12/03/2024 (Approximate), Expires: 12/03/2025 [facility] Comment on above: Expected: 12/03/2024 (Approximate), Expires: 12/03/2025 Start: 12-03-2024 End: 12-03-2024 Patient encounter procedure [facility] Comment on above: Arrived Start: 09-02-2024 End: 09-02-2024 Patient encounter procedure [facility] Comment on above: Arrived Start: 08-05-2024 End: 08-05-2024 Patient encounter procedure 08/05/2024 11:30 AM EST Office Visit [facility] [address] [place] [phone] Jaden Antonio MD [address] [place] [phone] Arrived [facility] Comment on above: Arrived Start: 06-12-2024 End: 06-12-2024 Patient encounter procedure 06/12/2024 2:30 PM EST Office Visit [facility] [address] [place] [address] Jaden Antonio MD [address] [place] [phone] Arrived [facility] Comment on above: Arrived Start: 06-12-2024 End: 06-12-2025 Bacteria identified in Urine by Culture Urine culture (clean catch) Microbiology Routine Acute UTI Expected: 06/12/2024 (Approximate), Expires: 06/12/2025 [facility] Work Phone: Comment on above: Expected: 06/12/2024 (Approximate), Expires: 06/12/2025 Start: 06-12-2024 End: 06-12-2025 Urinalysis complete panel - Urine Urinalysis with reflex microscopic (clean catch) Lab Routine Acute UTI Expected: 06/12/2024 (Approximate), Expires: 06/12/2025 [facility] Comment on above: Expected: 06/12/2024 (Approximate), Expires: 06/12/2025 Start: 03-16-2024 Screening for malign ant neoplasm of breast Mammogram [facility] Start: 03-04-2024 End: 03-04-2025 Basic metabolic 1998 panel - Serum or Plasma Basic metabolic panel Lab Routine Annual physical exam Expected: 03/04/2024 (Approximate), Expires: 03/04/2025 [facility] Comment on above: Expected: 03/04/2024 (Approximate), Expires: 03/04/2025 Start: 03-04-2024 End: 03-04-2025 CBC W Auto Differential panel - Blood CBC and differential Lab Routine Annual physical exam Expected: 03/04/2024 (Approximate), Expires: 03/04/2025 [facility] Comment on above: Expected: 03/04/2024 (Approximate), Expires: 03/04/2025 Start: 03-04-2024 End: 03-04-2025 Hemoglobin A1c/Hemoglobin.total in Blood Hemoglobin A1c Lab Routine Annual physical exam Expected: 03/04/2024 (Approximate), Expires: 03/04/2025 [facility] Work Phone: Comment on above: Expected: 03/04/2024 (Approximate), Expires: 03/04/2025 Start: 03-04-2024 End: 03-04-2025 Hepatic function 2000 panel - Serum or Plasma Hepatic function panel Lab Routine Annual physical exam Expected: 03/04/2024 (Approximate), Expires: 03/04/2025 [facility] Comment on above: Expected: 03/04/2024 (Approximate), Expires: 03/04/2025 Start: 03-04-2024 End: 03-04-2025 Lipid 1996 panel - Serum or Plasma Lipid panel Lab Routine Annual physical exam Expected: 03/04/2024 (Approximate), Expires: 03/04/2025 [facility] Comment on above: Expected: 03/04/2024 (Approximate), Expires: 03/04/2025 Start: 03-04-2024 End: 03-04-2025 Thyrotropin [Units/volume] in Serum or Plasma TSH Lab Routine Annual physical exam Expected: 03/04/2024 (Approximate), Expires: 03/04/2025 [facility] Comment on above: Expected: 03/04/2024 (Approximate), Expires: 03/04/2025 Start: 2024 Influenza vaccination Influenza Vacc ine (#1) [facility] Start: 09-10-2023 End: 09-10-2023 Patient encounter procedure 09/10/2023 9:45 AM EDT [facility] [address] [place] [address] Jaden Antonio MD [address] [place] [address] [facility] Start: 08-30-2023 End: 08-30-2023 Patient encounter procedure 08/30/2023 10:30 AM EST Office Visit [facility] [address] [place] [phone] Yuly Gonzalez PA [address] [place], [place] [phone] [facility] Start: 2023 Influenza vaccination Influenza Vacc ine (#1) [facility] Start: 2013 Screening for malign ant neoplasm of breast Mammogram [facility] Start: 2003 Screening for malign ant neoplasm of cervix HPV/Cotest [facility] Start: 1973 Screening for malign ant neoplasm of colon [facility] Payers Date Payer Category Payer Self-pay 2016 Medicaid [employer] [place] [id number] 2016-Present [address] [place] [address] [id number] 2016 Private Health Insurance [facility] [id number] 2016 Medicaid [id number] 1973 Unknown [id number] 593 1973 Unknown [id number]. 593 1973 Unknown [id number] [id number]. 9 1973 Unknown [id number]. 1258 1973 Unknown [id number] [id number]. 1258 1973 Unknown [id number] [id number]. 1258 1973 Unknown [id number] [id number]. 9 1973 Unknown [id number] [id number]. 1258 1973 Unknown [id number] 9 1959 Unknown [id number] Unknown [id number] Social History Date Type Detail Facility Start: 06-18-2023 End: 12-03-[address] [facility] [employer] Other Start: 06-18-2023 End: 02-11-2024 Tobacco smoking status FLIS Smokes tobacco daily [facility] History of tobacco use Cigarette Smoker [facility] Start: 06-18-2023 End: 12-03-2024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
[2025-01-08 08:37] LABS: Hematocrit 42.4 % (36.0-48.0); Hemoglobin 13.8 g/dL (12.0-16.0); Immature Granulocytes Abs Auto 0.01 10^3/uL (0.00-0.03); Immature Granulocytes Pct Auto 0.1 % (0.0-0.5); Lymphocytes Absolute Auto 3.2 10^3/uL (1.2-3.8); Mean Corpuscular HGB Conc 32.5 g/dL (29.9-35.2); Mean Corpuscular Hemoglobin 26.8 pg (26.7-34.0); Mean Corpuscular Volume 82.5 fL (81.0-99.0); Platelet Count 309 10^3/uL (150-450); Red Blood Count 5.14 10^6/uL (4.20-5.40); White Blood Count 8.8 10^3/uL (4.0-11.0)
[2025-01-08 08:59] LABS: Anion Gap 10.8; Blood Urea Nitrogen 18.0 mg/dL (7.0-18.0); Calcium 9.4 mg/dL (8.5-10.1); Carbon Dioxide 31.5 mmol/L (21.0-32.0); Chloride 102 mmol/L (98-107); Estimated GFR (African America >60 (>=60 mL/min/1.73m^2); Estimated GFR (Non-African Ame >60 (>=60 mL/min/1.73m^2); Glucose 110 mg/dL (74-106); Potassium 4.3 mmol/L (3.5-5.1); Sodium 140 mmol/L (136-145); Thyroid Stimulating Hormone 2.298 uIU/mL (0.358-3.740)
== END 2025-01-08 07:58 | disposition home or self-care (01) ==
PROVIDERS: PCP Family Medicine; Visit Provider Family Medicine
DX: R73.03 Prediabetes (principal); R53.83 Other fatigue; E66.813 Obesity, class 3; E66.01 Morbid (severe) obesity due to excess calories; Z68.41 Body mass index [BMI] 40.0-44.9, adult
CPT/HCPCS: 36415; 80048; 83036; 84439; 84443; 85025

== ENCOUNTER 2025-02-10 11:51 | Outpatient (REF) | payer OTHER, SELFPAY ==
[2025-02-13 14:10] LABS: Age Gdln ACOG Testing Note (.); IGP, Aptima HPV, rfx 16/18,45 Note (.)
== END 2025-02-10 11:52 | disposition home or self-care (01) ==
LOC: LAB 11:51
PROVIDERS: PCP Family Medicine; Visit Provider Obstetrics & Gynecology
DX: Z01.419 Encounter for gynecological examination (general) (routine) without abnormal findings (principal); Z90.710 Acquired absence of both cervix and uterus
CPT/HCPCS: 87624; 88175

== ENCOUNTER 2025-03-09 09:54 | Outpatient (OUT) | payer OTHER, SELFPAY ==
--- NOTE | 2025-03-09 09:58 | CT_ITS ---
The [address] [address] Patient Name: JANET DIOP MRN: [id number] date: 1975 Sex: F Assigned Patient Location: CT Current Patient Location: CT Accession/Order Number: [id number] Exam Date: 03/09/2025 10:16 Report Date: 03/09/2025 10:53 At the request of: DARIAN ANTONIO MD Procedure: CT lung screening low-dose LOW-DOSE SCREENING CHEST CT WITHOUT CONTRAST CLINICAL DATA: Current smoker for approximately 30 years. Cough. COMPARISON: None Spiral axial unenhanced low-dose images were obtained through the chest. Images were reviewed using both narrow and wide window settings. This CT exam was performed using one or more following dose reduction techniques: Automated exposure control, adjustment of the mA and/or kV according to patient size, or use of iterative reconstruction technique. The heart is normal size. No pericardial effusion is present. There is minor coronary disease. No aortic aneurysm is visualized. There is a small amount of plaque at the aortic arch. There are small prevascular, AP window and precarinal lymph nodes with short axis dimension up to 9 mm. There is a tiny hiatal hernia. There is mild endplate spurring at the spine. There is mild scarring and/or atelectasis at the lower lungs. No additional consolidation, pleural effusion or pneumothorax is seen. There are a couple tiny 2 mm nodular densities at the upper lobes on the left on image #30 and the right image #42. Limited imaging through the upper abdomen shows no contributory findings. CT/CT lung screening low-dose IMPRESSION: MINOR ATELECTASIS AND/OR SCARRING. TINY PULMONARY NODULES. Lung RADS category 2 - benign Twelve-month low-dose CT follow-up suggested. Impression dictated by: Susan Celaya M.D. 03/09/2025 10:53 AM Dictation Location: [place] [address] Electronically authenticated by: [id number] Date: 03/09/2025 10:53
--- OUTSIDE RECORDS SUMMARY | 2025-03-09 10:03 | XMS_ITS | CCD ---
Author Organization [facility] Care Team Providers Care Child Care Associate Name Role Phone DR JADEN ANTONIO Primary [...] Unavailable Jaden Antonio MD Primary Care Provider [phone] MD Jaden Antonio Primary Care Provider Josi Pereyra Attending Provider Jaden Antonio Primary Care Unavailable Josi Pereyra Attending Unavailable Josi Pereyra Admitting Unavailable Josi Pereyra DO Unavailable Jaden Antonio MD Unavailable JADEN ANTONIO Attending Unavailable MARISELA, JADEN Attending Unavailable JADEN ANTONIO Attending Unavailable JADEN ANTONIO Attending Unavailable JOSI PEREYRA Attending Unavailable JADEN ANTONIO Attending Unavailable MARISELA, JADEN Attending Unavailable Allergies Allergy Classification Reported Allergen(s) Allergy Type Date of Onset Reaction(s) Facility (3 sources) predniSONE; Translations: [prednisone] Drug Allergy 07-03-[address] [facility] Repository Medications Current Medications Medication Drug Class(es) Dates Sig (Normalized) Sig (Original) acetaminophen 325 mg / butalbital 50 mg / caffeine 40 mg oral tablet (13 sources) Barbiturate, Central Nervous System Stimulant, Methylxanthine Start: 09-02-2024 take 1 tablet by mouth four times daily as needed for headache butalbital-acetam inophen-caffeine 50-325-40 MG tablet Indications: Migraine without aura and without status migrainosus, not intractable Take 1 tablet by mouth 4 (four) times a day as needed for headaches 30 tablet 1 09/02/2024 Active albuterol 0.83 mg/ml inhalation solution (20 sources) beta2-Adrenergic Agonist Start: 06-18-2023 albuterol (2.5 MG/3ML) 0.083% nebulizer solution Indications: Chronic obstructive pulmonary disease, unspecified COPD type (HCC) Take 3 mL (2.5 mg) by nebulization [...] 0.5 MG tablet Indications: Generalized anxiety disorder Take 1 tablet (0.5 mg) by mouth 3 (three) times a day as needed for anxiety for up to 20 days 60 tablet 1 09/02/2024 Active take 1 tablet by ramakrishna th every twelve hours ALPRAZolam 0.5 MG 1 tablet Orally Twice a day Active atorvastatin 40 mg oral tablet (20 sources) HMG-CoA Reductase Inhibitor Start: 09-01-2024 take 1 tablet by mouth at bedtime atorvastatin (Lipitor) 40 MG tablet Indications: Dyslipidemia TAKE 1 TABLET BY MOUTH at AT BEDTIME 30 tablet 5 09/01/2024 Active Start: 03-17-2024 take 1 tablet by ramakrishna th at bedtime atorvastatin (Lipitor) 40 MG tablet Indications: Dyslipidemia (CMS/HCC) Take 1 tablet (40 mg) by mouth at bedtime 30 tablet 5 03/17/2024 Active celecoxib 200 mg oral capsule (20 sources) Nonsteroidal Anti-inflammatory Drug Start: 01-19-2025 take 1 capsule by mouth twice daily as needed celecoxib (CeleBREX) 200 MG capsule Indications: DDD (degenerative disc disease), cervical TAKE 1 CAPSULE BY MOUTH TWICE DAILY NEEDED 60 capsule 3 01/19/2025 Active Start: 09-22-2024 take 1 capsule by mo uth twice daily as needed celecoxib (CeleBREX) 200 [...] Nov, Active cholecalciferol 0.125 mg oral tablet (20 sources) Vitamin D Start: 12-23-2024 take 1 tablet by mouth once daily cholecalciferol (Vitamin D-3) 125 MCG (5000 UT) tablet Indications: Vitamin D deficiency, unspecified TAKE 1 TABLET BY MOUTH DAILY 30 tablet 5 12/23/2024 Active Start: 06-02-2024 take 1 tablet by ramakrishna once daily D-5000 125 MCG (5000 UT) tablet Indications: Vitamin D deficiency, unspecified TAKE 1 TABLET BY MOUTH DAILY 30 tablet 5 06/02/2024 Active Start: 12-17-2023 take 1 tablet by ramakrishna th once daily D-5000 125 MCG (5000 UT) tablet Indications: Vitamin D deficiency, unspecified TAKE 1 TABLET BY MOUTH DAILY 30 tablet 5 12/17/2023 Active take 1 tablet by ramakrishna th once daily Vitamin D3 125 MCG (5000 UT) TAKE 1 TABLET BY MOUTH DAILY Oral for 30 Days Active ciprofloxacin 500 mg oral tablet (3 sources) Quinolone Antimicrobial Start: 02-10-2025 End: 02-17-2025 take 1 tablet by mouth in the morning ciprofloxacin (Cipro) 500 MG tablet Indications: Urinary Tract Infection Take 1 tablet (500 mg) by mouth in the morning and 1 tablet (500 mg) before bedtime. Do all this for 7 days. 14 tablet 02/10/2025 02/17/2025 Active dextromethorphan hydrobromide 15 mg / guaiFENesin 400 mg / pseudoephedrine hydrochloride 60 mg oral tablet (2 sources) alpha-Adrenergic Agonist, Uncompetitive B-ecubkn-E-asparta te Receptor Antagonist, Sigma-1 Agonist Start: 07-03-2023 take 4 tablets by mouth every twenty-four hours as needed Capmist DM 60-15-400 MG as needed Orally every 4-6 hours as needed, max 4 tablets in 24 hours for 5 days Jul, Active escitalopram 20 mg oral tablet (14 sources) Serotonin Reuptake Inhibitor Start: 12-30-2024 End: 02-04-2025 take 1 tablet by mouth once daily escitalopram (Lexapro) 20 MG tablet Indications: Major depressive disorder, recurrent, moderate (HCC) Take 1 tablet (20 mg) by mouth Daily 30 tablet 5 12/30/2024 02/04/2025 Discontinued Start: 09-02-2024 take 1 tablet by ramakrishna th once daily escitalopram (Lexapro) 20 MG tablet [...] by mouth in the morning. 0 Active metFORMIN hydrochloride 1000 mg oral tablet (20 sources) Biguanide Start: 02-10-2025 End: 02-10-2026 take 1 tablet by mouth at mealtime metFORMIN (Glucophage) 1000 MG tablet Indications: Insulin resistance Take 1 tablet (1,000 mg) by mouth in the morning. Take with meals. 30 tablet 11 02/10/2025 02/10/2026 Active Start: 12-30-2024 End: 01-29-2025 take 1 tablet by mouth every twenty-four hours at mealtime metFORMIN XR (Glucophage-XR) 500 MG 24 hr tablet Indications: Insulin resistance Take 1 tablet (500 mg) by mouth in the evening. Take with meals Do not crush, chew, or split. 30 tablet 11 12/30/2024 Active Start: 03-08-2023 End: 03-07-2024 take 1 tablet by mouth every twenty-four hours at mealtime metFORMIN XR (Glucophage-XR) 500 MG 24 hr tablet Indications: Insulin resistance TAKE 1 TABLET BY MOUTH IN THE EVENING WITH A MEAL *do not crush, chew, or split* 30 tablet 11 02/21/2024 Active 24 hr mirabegron 50 mg extended release oral tablet (20 sources) beta3-Adrenergic Agonist Start: 10-14-2024 take 1 tablet by [...] 0 Active montelukast 10 mg oral tablet (20 sources) Leukotriene Receptor Antagonist Start: 12-23-2024 take 1 tablet by mouth at bedtime montelukast (Singulair) 10 MG tablet Indications: Allergic rhinitis due to pollen TAKE 1 TABLET BY MOUTH AT BEDTIME 30 tablet 5 12/23/2024 Active Start: 06-09-2024 take 1 tablet by ramakrishna th at [...] 06/19/2024 Active norethindrone 0.35 mg oral tablet (20 sources) Start: take 1 tablet by mouth once daily Deblitane 0.35 MG tablet Indications: Excessive bleeding in the premenopausal period TAKE 1 TABLET BY MOUTH DAILY 28 tablet 12 07/14/2024 Active Start: 07-16-2023 take 1 tablet [...] Start: 07-03-2024 take 1 capsule by mo [facility] once daily omeprazole (PriLOSEC) 40 MG [...] 0 Active OXcarbazepine 150 mg oral tablet (10 sources) Anti-epileptic Agent Start: 12-03-2024 take 1 tablet by mouth in the morning OXcarbazepine (Trileptal) 150 MG tablet Indications: Major depressive disorder, recurrent, moderate (HCC) Take 1 tablet (150 mg) by mouth [...] Respiratory Therapy Supplies (Full Kit Nebulizer Set) [facility] (20 sources) Start: 07-13-2023 Respiratory Therapy Supplies (Full Kit Nebulizer Set) [facility] Indications: Chronic obstructive pulmonary disease, unspecified COPD type (HCC) USE DIRECTED WITH compressor 1 each 07/13/2023 Active Start: 07-13-2023 Respiratory Th erapy Supplies (Full Kit Nebulizer Set) [facility] Indications: Chronic obstructive pulmonary disease, unspecified COPD type (CMS/HCC) USE DIRECTED WITH compressor 1 each 07/13/2023 Active Start: 07-13-2023 Respiratory Th erapy Supplies (Full Kit Nebulizer Set) [facility] Indications: Chronic obstructive pulmonary disease, unspecified COPD type (CMS/HCC) USE DIRECTED WITH compressor 1 each 0 07/13/2023 Active tiotropium 0.018 mg inhalation powder (20 sources) Anticholinergic Start: 01-20-2025 take 1 capsule by inhalation once daily Spiriva HandiHaler 18 MCG inhalation capsule Indications: Chronic obstructive pulmonary disease, unspecified (HCC) INHALE CONTENTS OF 1 (ONE) CAPSULE VIA HANDIHALER DAILY 30 capsule 5 01/20/2025 Active Start: 07-28-2024 take 1 capsule by in halation once daily Spiriva HandiHaler 18 MCG inhalation capsule Indications: Chronic obstructive pulmonary disease, unspecified (HCC) INHALE CONTENTS OF ONE CAPSULE VIA HANDIHALER [...] 06-18-2023 06-18-2023 Chronic Disorders of lipid metabolism (20 sources) Dyslipidemia; Translations: [Hyperlipidemia, unspecified] Onset: 06-18-2023 06-18-2023 Chronic Esophageal disorders (20 sources) Gastroesophageal reflux disease without esophagitis; Translations: [Gastro-esophageal reflux disease without esophagitis] Onset: 06-18-2023 06-18-2023 Chronic Genitourinary symptoms and ill-defined conditions (20 sources) Incontinence; Translations: [Mixed incontinence] Onset: 06-18-2023 06-18-2023 Chronic Genitourinary symptoms and ill-defined conditions (2 sources) Urinary symptoms ; Translations: [Unspecified symptoms and signs involving the genitourinary system] 02-10-2025 Episodic Headache; including migraine (20 sources) Migraine without aura, not refractory ; Translations: [Chronic migraine without aura, not intractable, without status migrainosus] Onset: 06-18-2023 06-18-2023 Chronic Malaise and fatigue (2 sources) Fatigue; Translations: [Other fatigue] 12-03-2024 Episodic Menopausal disorders (20 sources) Menorrhagia; Translations: [Excessive bleeding in the premenopausal period] Onset: 06-18-2023 06-18-2023 Chronic Menstrual disorders (20 sources) Amenorrhea; Translations: [Amenorrhea, unspecified] Onset: 06-18-2023 06-18-2023 Chronic Mood disorders (20 sources) Recurrent major depressive episodes, mild ; Translations: [Major depressive disorder, recurrent, mild] Onset: 06-18-2023 06-18-2023 Chronic Nutritional deficiencies (20 sources) Vitamin D deficiency, unspecified; Translations: [Vitamin D deficiency] Onset: 05-28-2021 06-18-2023 Chronic Other nutritional; endocrine; and metabolic disorders (7 sources) Body mass index 30+ - obesity; Translations: [Obesity, unspecified] Onset: 09-10-2023 09-10-2023 Chronic Other nutritional; endocrine; and metabolic disorders (20 sources) Severe obesity; Translations: [Class 2 severe obesity due to excess calories with serious comorbidity and body mass index (BMI) of 39.0 to 39.9 in adult ([facility])] Onset: 09-10-2023 06-12-2024 Chronic Other nutritional; endocrine; and metabolic disorders (2 sources) Insulin resistance; Translations: [Insulin resistance] 02-10-2025 Chronic Other screening for suspected conditions (not mental disorders or infectious disease) (6 sources) Encounter for screening mammogram for malignant neoplasm of breast; Translations: [Patient encounter status] Onset: 03-13-2022 Episodic Other skin disorders (1 source) Rash and other nonspecific skin eruption Episodic Other upper respiratory disease (20 sources) Allergic rhinitis due to pollen; Translations: [Allergic rhinitis due to pollen] Onset: 06-18-2023 06-18-2023 Chronic Residual codes; unclassified (2 sources) Generalized aches and pains; Translations: [Pain, unspecified] Episodic Residual codes; unclassified (1 source) Pain, unspecified Episodic Spondylosis; intervertebral disc disorders; other back problems (20 sources) Degeneration of cervical intervertebral disc; Translations: [Other cervical disc degeneration, unspecified cervical region] Onset: 06-18-2023 06-18-2023 Chronic Substance-related disorders (10 sources) Cigarette smoker ; Translations: [Nicotine dependence, cigarettes, uncomplicated] Onset: 02-04-2025 02-04-2025 Chronic Past or Other Problems Problem Classification Problem Date Documented Da te Episodic/Chronic Diabetes mellitus without complication (20 sources) Prediabetes; Translations: [Prediabetes] Onset: 06-18-2023 06-18-2023 Episodic Other non-traumatic joint disorders (20 sources) Pain in left knee; Translations: [Pain in joint, lower leg] Onset: 06-18-2023 06-18-2023 Episodic Other skin disorders (20 sources) Hidradenitis suppurativa; Translations: [Hidradenitis suppurativa] Onset: 06-18-2023 06-18-2023 Episodic Sprains and strains (18 sources) Sprain of right ankle; Translations: [Sprain of unspecified ligament of right ankle, subsequent encounter] Onset: 08-05-2024 Resolved: 09-02-2024 08-05-2024 Episodic Urinary tract infections (20 sources) Acute urinary tract infection; Translations: [Urinary tract infection, site not specified] Onset: 06-12-2024 Resolved: 08-05-2024 06-12-2024 Episodic Viral infection (1 source) COVID-19 Results Test Name Value Interpretation Reference Range Facility IGP,APTIMA HPV,AGE GDLNon AGE GDLN ACOG TESTING Note . [facility] Comment on above: TESTS RESULT FLAG UN ITS REF RANGE LAB Clinician Provided Cytology Information Source.............Vagina No. of containers..01 ThinPrep Vial Age Aravind VELIZ Rena... FLAG LEGEND: L-Low Normal,H-High Normal,LL-Alert Low,HH-Alert High <-Panic Low,>-Panic High,A-Abnormal,AA-Critical Abnormal Performed at: 01 =[address] [id number] Tova Munoz MD, HPV APTIMA Negative Negative [facility] Comment on above: This nucleic acid am plification test detects fourteen high- risk HPV types (16,18,31,33,35,39,45,51,52,56,58,59,66,68) without differentiation. Performed at: =[address] [id number] Magisterial District Judge: Tova Munoz MD, Phone: [phone] Performed at: - [address] [id number] Magisterial District Judge: Tova Munoz MD, Phone: [phone] IGP, APTIMA HPV, RFX 16/18,45 Note . [facility] Comment on above: TESTS RESULT FLAG UN ITS REF RANGE LAB DIAGNOSIS: 02 NEGATIVE FOR INTRAEPITHELIAL LESION OR MALIGNANCY. THIS SPECIMEN WAS RESCREENED PART OF OUR SENIOR APPLICATION PROGRAMMER PROGRAM. Specimen adequacy: 02 Satisfactory for evaluation. Performed by: 02 Bakari Gonzalez, Orthodontic Lab Technician ([facility]) QC reviewed by: 02 Bonnie Negron, Orthodontic Lab Technician . 02 Note: Note 02 The Pap smear is a screening test designed to aid in the detection of premalignant and malignant conditions of the uterine cervix. It is not a diagnostic procedure and should not be used as the sole means of detecting cervical cancer. Both false-positive and false-negative reports do occur. Test Methodology: Note 02 This liquid based ThinPrep(R) pap test was screened with the use of an image guided system. HPV Genotype Reflex Note 02 Criteria not met, HPV Genotype not performed. FLAG LEGEND: L-Low Normal,H-High Normal,LL-Alert Low,HH-Alert High <-Panic Low,>-Panic High,A-Abnormal,AA-Critical Abnormal Performed at: [address] [phone] Tova Munoz MD, SPATULA-ALONE VAGINA [facility]ather[facility] ALL CBC WITH AUTO DIFFon BASOPHILS ABSOLUTE AUTO 0.1 [facility] Basophils/100 WBC (Bld) 1 % 0.2 - 2.0 % [facility] Eosinophils/100 WBC (Bld) 2.7 % 0.9 - 7.0 % [facility] Erythrocyte distribution width (RBC) [Ratio] 16.4 % High 11.0 - 15.0 % [facility] Hematocrit (Bld) [Volume fraction] 42.4 % 36.0 - 48.0 % [facility] Hemoglobin (Bld) [Mass/Vol] 13.8 g/dL 12.0 - 16.0 g/dL [facility] IMMATURE GRANULOCYTES ABS AUTO 0.01 [facility] Immature granulocytes/100 WBC (Bld) 0.1 % 0.0 - 0.5 % [facility] Interpretation and review of laboratory results Abnormal [facility] LYMPHOCYTES ABSOLUTE AUTO 3.2 [facility] Lymphocytes/100 WBC (Bld) 36.9 % 20.5 - 60.0 % [facility] MCH (RBC) [Entitic mass] 26.8 pg 26.7 - 34.0 pg [facility] MCHC (RBC) [Mass/Vol] 32.5 g/dL 29.9 - 35.2 g/dL [facility] MCV (RBC) [Entitic vol] 82.5 fL 81.0 - 99.0 fL [facility] MONOCYTES ABSOLUTE AUTO 0.6 [facility] Monocytes/100 WBC (Bld) 6.7 % 1.7 - 12.0 % [facility] NEUTROPHILS ABSOLUTE AUTO 4.6 [facility] Neutrophils/100 WBC (Bld) 52.6 % 43.0 - 75.0 % [facility] Platelet mean volume (Bld) [Entitic vol] 9.7 fL 9.5 - 13.5 fL [facility] EO # 0.2 [facility] PLT 309 [facility] TB RBC 5.14 [facility] WBC 8.8 [facility] UA (CLEAN/CATCH) [facility] IF INDICATEon 06-13-2024 B[facility]UBIN URINE Negative NE[facility] BLOOD URINE Negative NEGATIVE [facility] re Clarity (U) CLEAR CLEAR [facility] Color (U) LT. YELLOW YELLOW [facility] GLUCOSE URINE UA Negative NEGATIVE mg/dL [facility] Healthcare Interpretation and review of laboratory results Abnormal [facility] Ketones Ql (U) Negative NEGATIVE mg/dL [facility] Leukocyte esterase Test strip Ql (U) Negative NEGATIVE [facility] NITRITE URINE Negative NEGATIVE [facility] pH (U) 6.5 [pH] 5.0 - 9.0 [facility] PROTEIN URINE Negative NEG/TRACE mg/dL [facility] SPECIFIC GRAVITY URINE <=1.005 Abnormal 1.005 - 1.025 [facility] URINE MICROSCOPIC INDICATED NO [facility] UROBILINOGEN URINE 0.2 EU/dL 0.2 - 1.0 EU/dL [facility] Healthcar e ALL CBC WITH AUTO DIFFon BASOPHILS ABSOLUTE AUTO 0.1 [facility] Basophils/100 WBC (Bld) 1.1 % 0.2 - 2.0 % [facility] Eosinophils/100 WBC (Bld) 2.1 % 0.9 - 7.0 % [facility] Erythrocyte distribution width (RBC) [Ratio] 15.2 % High 11.0 - 15.0 % [facility] Hematocrit (Bld) [Volume fraction] 44.0 % 36.0 - 48.0 % [facility] Healthcar e Hemoglobin (Bld) [Mass/Vol] 14.3 g/dL 12.0 - 16.0 g/dL [facility] IMMATURE GRANULOCYTES ABS AUTO 0.02 [facility] Immature granulocytes/100 WBC (Bld) 0.2 % 0.0 - 0.5 % [facility] Interpretation and review of laboratory results Abnormal [facility] LYMPHOCYTES ABSOLUTE AUTO 2.5 [facility] Lymphocytes/100 WBC (Bld) 30.8 % 20.5 - 60.0 % [facility] MCH (RBC) [Entitic mass] 27.8 pg 26.7 - 34.0 pg [facility] MCHC (RBC) [Mass/Vol] 32.5 g/dL 29.9 - 35.2 g/dL [facility] MCV (RBC) [Entitic vol] 85.4 fL 81.0 - 99.0 fL [facility] MONOCYTES ABSOLUTE AUTO 0.5 [facility] Monocytes/100 WBC (Bld) 5.4 % 1.7 - 12.0 % [facility] NEUTROPHILS ABSOLUTE AUTO 5.0 [facility] Neutrophils/100 WBC (Bld) 60.4 % 43.0 - 75.0 % [facility] Platelet mean volume (Bld) [Entitic vol] 9.5 fL 9.5 - 13.5 fL [facility] PLT 280 [facility] TB RBC 5.15 [facility] Healthcar e TB WBC 8.3 [facility] Healthcar e [facility] Healthcar e MLR HEMOGLOBIN A1Con 024 Glucose [Mass/Vol] 120 mg/dL [facility]althcare HbA1c (Bld) [Mass fraction] 5.8 % 4.5 - 6.2 % [facility] Comment on above: ADA RECOMMENDED LIMI T 4.0 - 6.0 ADA THERAPEUTIC TARGET < 7.0 ACTION SUGGESTED > 7.0 [facility] Healthcar zachery [place] 08-23-2023 L Specimen: [id number] Received: 08/24/23 Status: SOULovely Req Num: [id number] Spec Type: Surgical Subm Dr: Josi Pereyra Tissues: A Uterus w/ or w/o tubes ovaries except neoplastic or prolap (UTERUS PILY FT) Procedures: HE/12, Gross/Micro L5 Age/ Patient Sex Location Account Attending Physician Jenn Mccann 48/F LABELL [id number] Josi Pereyra SPEC NUM: [id number] RECD: 08/24/23 STATUS: [place] NUM: [id number] EVI: 08/23/[address]: Josi Pereyra ENTERED: 08/24/[address] [facility] [address]: Leonie,Lab SPEC TYPE: Surgical DEPT: CIRA [...] and unremarkable. Sectioning demonstrates a central lumen. Traffic Monitor Specialist sections are submitted in 6 cassettes as follows: A1 - Posterior cul-de-sac serosa A2 - Anterior and posterior cervix Specimen: [id number] Received: 08/24/23 Status: BRITTA Lewis Num: [id number] Spec Type: Surgical Subm Dr: Josi Pereyra Tissues: A Uterus w/ or w/o tubes ovaries except neoplastic or prolap (UTERUS PILY FT) Procedures: , Gross/Micro L5 Patient: MccannJenn [id number] (Continued) Specimen: [id number] Received: 08/24/23 (Continued) Gross Description (Continued) Signed (signature on file) Arminda Vegas MD 02/2233 Specimen: [id number] Received: 08/24/23 Status: BRITTA Lewis Num: [id number] Spec Type: Surgical Subm Dr: Josi Pereyra Tissues: A Uterus w/ or w/o tubes ovaries except neoplastic or prolap (UTERUS PILY FT) Procedures: , Gross/Micro L5 Patient: RamyJenn Ledesma [id number] (Continued) Specimen: [id number] Received: 08/24/23 (Continued) Gross Description (Continued) A3 - Anterior endomyometrium A4 - Posterior endomyometrium A5 - [place] segment of fallopian tube with fimbria entirely submitted A6 - Longer segment of fallopian tube with fimbria entirely submitted CPT Codes 31453 Specimen: [id number] Received: 08/24/23-1240 Status: BRITTA Lewis Num: [id number] Spec Type: Surgical Subm Dr: Josi Pereyra Tissues: A Uterus w/ or w/o tubes ovaries except neoplastic or prolap (UTERUS PILY FT) Procedures: , Gross/Micro L5 Patient: Jenn Mccann [id number] (Continued) Signed (signature on file) Arminda Vegas MD 08/30/232233 [facility] ALL CBC WITH AUTO DIFFon BASOPHILS ABSOLUTE AUTO 0.1 [facility] Basophils/100 WBC (Bld) 1.0 % 0.2 - 2.0 % [facility] Healthcare Eosinophils/100 WBC (Bld) 1.3 % 0.9 - 7.0 % [facility] Erythrocyte distribution width (RBC) [Ratio] 15.6 % High 11.0 - 15.0 % [facility] Hematocrit (Bld) [Volume fraction] 45.1 % 36.0 - 48.0 % [facility] Healthcar e Hemoglobin (Bld) [Mass/Vol] 14.5 g/dL 12.0 - 16.0 g/dL [facility] IMMATURE GRANULOCYTES ABS AUTO 0.03 [facility] Immature granulocytes/100 WBC (Bld) 0.3 % 0.0 - 0.5 % [facility] Interpretation and review of laboratory results Abnormal [facility] LYMPHOCYTES ABSOLUTE AUTO 3.0 [facility] Lymphocytes/100 WBC (Bld) 30.2 % 20.5 - 60.0 % [facility] MCH (RBC) [Entitic mass] 27.1 pg 26.7 - 34.0 pg [facility] MCHC (RBC) [Mass/Vol] 32.2 g/dL 29.9 - 35.2 g/dL [facility] MCV (RBC) [Entitic vol] 84.3 fL 81.0 - 99.0 fL [facility] MONOCYTES ABSOLUTE AUTO 0.6 [facility] Monocytes/100 WBC (Bld) 6.3 % 1.7 - 12.0 % [facility] NEUTROPHILS ABSOLUTE AUTO 6.1 [facility] Neutrophils/100 WBC (Bld) 60.9 % 43.0 - 75.0 % [facility] Platelet mean volume (Bld) [Entitic vol] 9.3 fL Low 9.5 - 13.5 fL [facility] # [facility].1 [facility] PLT 293 [facility] e TB RBC 5.35 [facility] e TB WBC 10.0 [facility] Health[facility] e [facility] Healthcar e COVID + FLU Quick Testingon 07-03-2023 SARS-CoV-2 (COVID-19) RNA JESSIE+probe Ql (Unsp spec) Positive [employer] Other COVID + FLU Quick Testing Negative [employer] Other MG MAMM SCREEN 3D PILY CADon 03-13-2022 MG MAMM SCREEN 3D PILY CAD Patient: JENN MCCANNVince Exam Date: 03/13/2022 : 1975 Gender:F Ordering : DR JADEN ANTONIO . Admission #: [id number] Family : Order #: [id number] CLICK HERE TO VIEW EXAM RADIOLOGY REPORT [...] Treatments None Family Cancers None LOCATION: [facility] BREAST COMPOSITION: Scattered areas fibroglandular density. FINDINGS: [...] LUMP SHOULD BE BIOPSIED. Dictated by: Nate Duarn M.D. on 03/14/2022 at 08:48 Approved by: Nate Duran M.D. on 03/14/2022 at 08:50 Normal [facility] CBC AUTO DIFFon 05-19-2021 BASO # 0.1 103/ul Normal 0.0-0.1 [facility] Comment on above: Performed By: #### C BC #### [facility] [address] [address] [address] Dashawn Mayo Basophils/100 WBC (Bld) 0.9 % Normal 0.2-2.0 [facility] Comment on above: Performed By: #### C BC #### [facility] [address] [address] [address] Dashawn Mayo EO # 0.2 103/ul Normal 0.0-0.7 [facility] Comment on above: Performed By: #### C BC #### [facility] [address] [address] [address] Dashawn Mayo Eosinophils/100 WBC (Bld) 2.3 % Normal 0.9-7.0 [facility] Comment on above: Performed By: #### C BC #### [facility] [address] [place] [address] Dr. Dashawn Mayo Erythrocyte distribution width (RBC) [Ratio] 15.2 % Critically high 11.0-15.0 [facility] Comment on above: Performed By: #### C BC #### [facility] [address] [place] [address] Dr. Dashawn Mayo Hematocrit (Bld) [Volume fraction] 45.5 % Normal 36.0-48.0 [facility] Comment on above: Performed By: #### C BC #### [facility] [address] [place] [address] Dr. Dashawn Mayo Hemoglobin (Bld) [Mass/Vol] 14.4 g/dL Normal 12.0-16.0 [facility] Comment on above: Performed By: #### C BC #### [facility] [address] [place] [address] Dr. Dsahawn Mayo IG # 0.03 10e3/ul Normal 0.00-0.03 [facility] Comment on above: Performed By: #### C BC #### [facility] [address] [place] [address] Dr. Dashawn Mayo IG % 0.3 % Normal 0.0-0.5 [facility] Comment on above: Performed By: #### C BC #### [facility] [address] [place] [address] Dr. Dashawn Mayo LYMPH # 2.8 103/ul Normal 1.2-3.8 [facility] Comment on above: Performed By: #### C BC #### [facility] [address] [place] [address] Dr. Dashawn Mayo Lymphocytes/100 WBC (Bld) 27.4 % Normal 20.5-60.0 [facility] Comment on above: Performed By: #### C BC #### [facility] [address] [place] [address] Dr. Dashawn Mayo MANUAL DIFF REQ NO Normal [facility] Comment on above: Performed By: #### C BC #### [facility] [address] [address] [address] Dashawn Mayo MCH (RBC) [Entitic mass] 27.2 pg Normal 26.7-34.0 [facility] Comment on above: Performed By: #### C BC #### [facility] [address] [address] [address] Dashawn Mayo MCHC (RBC) [Mass/Vol] 31.6 g/dL Normal 29.9-35.2 [facility] Comment on above: Performed By: #### C BC #### [facility] [address] [place] [address] Dr. Dashawn Mayo MCV (RBC) [Entitic vol] 85.8 fL Normal 81.0-99.0 [facility] Comment on above: Performed By: #### C BC #### [facility] [address] [place] [address] Dr. Dashawn Mayo MONO # 0.5 103/ul Normal 0.3-0.8 [facility] Comment on above: Performed By: #### C BC #### [facility] [address] [place] [address] Dr. Dashawn Mayo Monocytes/100 WBC (Bld) 4.5 % Normal 1.7-12.0 [facility] Comment on above: Performed By: #### C BC #### [facility] [address] [place] [address] Dr. Dashawn Mayo NEUT # 6.7 103/ul Critically high 1.4-6.5 [facility] Comment on above: Performed By: #### C BC #### [facility] [address] [place] [address] Dr. Dashawn Mayo Neutrophils/100 WBC (Bld) 64.6 % Normal 43.0-75.0 [facility] Comment on above: Performed By: #### C BC #### [facility] [address] [place] [address] Dr. Dashawn Mayo Platelet mean volume (Bld) [Entitic vol] 10.3 fL Normal 9.5-13.5 [facility] Comment on above: Performed By: #### C BC #### [facility] [address] [address] [address] Dashawn Mayo PLT 295 103/ul Normal 150-450 [facility] Comment on above: Performed By: #### C BC #### [facility] [address] [place] [address] Dr. Dashawn Mayo RBC 5.30 106/ul Normal 4.20-5.40 [facility] Comment on above: Performed By: #### C BC #### [facility] [address] [place] [address] Dr. Dashawn Mayo WBC 10.4 103/ul Normal 4.0-11.0 [facility] Comment on above: Performed By: #### C BC #### [facility] [address] [place] [address] Dr. Dashawn Mayo FREE T3on 05-19-2021 FREE T3 2.20 pg/mlL Critically low 2.77-5.27 [facility] Comment on above: Performed By: #### L IVER, LIPID, FT3, BMP, TSH #### [facility] [address] [place] [address] Dr. Dashawn Mayo FREE T4on 05-19-2021 Free T4 [Mass/Vol] 0.97 ng/dL Normal 0.78-2.19 [facility] Comment on above: Performed By: #### V ITAD, FT4 #### [facility] [address] [place] [address] Dr. Dashawn Mayo GLYCOHEMOGLOBIN A1Con 2020 ADA RECOMMENDATION ADA THERAPEUTIC TARGET 6.0 - 7.0 ACTION SUGGESTED > 7.0 Normal [facility] Comment on above: Performed By: #### A 1C #### [facility] [address] [place] [address] Dr. Dashawn Mayo Glucose [Mass/Vol] 126 mg/dL Normal [facility] Comment on above: Performed By: #### A 1C #### [facility] [address] [place] [address] Dr. Dashawn Mayo HbA1c (Bld) [Mass fraction] 6.0 % Normal <=6.0 [facility] Comment on above: Performed By: #### A 1C #### [facility] [address] [place] [address] Dr. Dashawn Mayo LIPID PROFILEon 05-19-2021 CHOL-HDL RATIO NORM SEE BELOW Normal [facility] Comment on above: Result Comment: 3.3 - 4.4 LOW RISK 4.4 - 7.1 AVERAGE RISK 7.1 - 11.0 MODERATE RISK >11.0 HIGH RISK Performed By: #### L IVER, LIPID, FT3, BMP, TSH #### [facility] [address] [place] [address] Dr. Dashawn Mayo Cholesterol [Mass/Vol] 250 mg/dL Critically high <=200 [facility] Comment on above: Performed By: #### L IVER, LIPID, FT3, BMP, TSH #### [facility] [address] [place] [address] Dr. Dashawn Mayo Cholesterol in HDL [Mass/Vol] 41 mg/dL Normal [facility] Comment on above: Performed By: #### L IVER, LIPID, FT3, BMP, TSH #### [facility] [address] [place] [address] Dr. Dashawn Mayo Cholesterol in LDL [Mass/Vol] 188.2 mg/dL Normal [facility] Comment on above: Performed By: #### L IVER, LIPID, FT3, BMP, TSH #### [facility] [address] [place] [address] Dr. Dashawn Mayo Cholesterol.total/Ch olesterol in HDL [Mass ratio] 6.1 {ratio} Normal [facility] Comment on above: Performed By: #### L IVER, LIPID, FT3, BMP, TSH #### [facility] [address] [place] [address] Dr. Dashawn Mayo HDL NORMAL > or = 60 mg/dl - LOW CARDIOVASCULAR RISK <40 mg/dl - HIGH CARDIOVASCULAR RISK Normal [facility] Comment on above: Performed By: #### L IVER, LIPID, FT3, BMP, TSH #### [facility] [address] [address] [address] Dashawn Mayo LDL CALC NORMAL SEE BELOW Normal [facility] Comment on above: Result Comment: <100 mg/dl OPTIMAL 100 - 129 mg/dl NEAR OR ABOVE OPTIMAL 130 - 159 mg/dl BORDERLINE HIGH 160 - 189 mg/dl HIGH >190 mg/dl VERY HIGH Performed By: #### L IVER, LIPID, FT3, BMP, TSH #### [facility] [address] [address] [address] Dashawn Mayo Triglyceride [Mass/Vol] 104 mg/dL Normal <=150 [facility] Comment on above: Performed By: #### L IVER, LIPID, FT3, BMP, TSH #### [facility] [address] [address] [address] Dashawn Mayo VLDL CALC 20.8 mg/dL Normal [facility] Comment on above: Performed By: #### L IVER, LIPID, FT3, BMP, TSH #### [facility] [address] [address] [address] Dashawn Mayo LIVER PROFILEon 05-19-2021 Albumin [Mass/Vol] 3.6 g/dL Normal 3.5-5.0 [facility] Comment on above: Performed By: #### L IVER, LIPID, FT3, BMP, TSH #### [facility] [address] [address] [address] Dashawn Mayo Albumin/Globulin [Mass ratio] 0.9 {ratio} Normal [facility] Comment on above: Performed By: #### L IVER, LIPID, FT3, BMP, TSH #### [facility] [address] [address] [address] Dashawn Mayo ALP [Catalytic activity/Vol] 72 U/L Normal 38-126 [facility] Comment on above: Performed By: #### L IVER, LIPID, FT3, BMP, TSH #### [facility] [address] [address] [address] Dashawn Mayo ALT [Catalytic activity/Vol] 16 U/L Normal 9-52 [facility] Comment on above: Performed By: #### L IVER, LIPID, FT3, BMP, TSH #### [facility] [address] [place] [address] Dr. Dashawn Mayo AST [Catalytic activity/Vol] 13 U/L Critically low 14-36 [facility] Comment on above: Performed By: #### L IVER, LIPID, FT3, BMP, TSH #### [facility] [address] [place] [address] Dr. Dashawn Mayo BILI, CONJUGATED 0.0 mg/dL Normal 0.0-0.3 [facility] Comment on above: Performed By: #### L IVER, LIPID, FT3, BMP, TSH #### [facility] [address] [place] [address] Dr. Dashawn Mayo Bilirubin [Mass/Vol] 0.3 mg/dL Normal 0.2-1.3 [facility] Comment on above: Performed By: #### L IVER, LIPID, FT3, BMP, TSH #### [facility] [address] [place] [address] Dr. Dashawn Mayo Globulin (S) [Mass/Vol] 4.0 g/dL Normal [facility] Comment on above: Performed By: #### L IVER, LIPID, FT3, BMP, TSH #### [facility] [address] [place] [address] Dr. Dashawn Mayo Protein [Mass/Vol] 7.6 g/dL Normal 6.1-8.2 [facility] Comment on above: Performed By: #### L IVER, LIPID, FT3, BMP, TSH #### [facility] [address] [place] [address] Dr. Dashawn Mayo PROF CHEM 8 (BAS METB)on Anion gap [Moles/Vol] 12.6 mmol/L Normal [facility] Comment on above: Performed By: #### L IVER, LIPID, FT3, BMP, TSH #### [facility] [address] [place] [address] Dr. Dashawn Mayo Calcium [Mass/Vol] 9.1 mg/dL Normal 8.4-10.2 [facility] Comment on above: Performed By: #### L IVER, LIPID, FT3, BMP, TSH #### [facility] [address] [address] [address] Dashawn Mayo Chloride [Moles/Vol] 102 mmol/L Normal 98-107 [facility] Comment on above: Performed By: #### L IVER, LIPID, FT3, BMP, TSH #### [facility] [address] [place] [address] Dr. Dasahwn Mayo CO2 [Moles/Vol] 27.9 mmol/L Normal 22.0-30.0 [facility] Comment on above: Performed By: #### L IVER, LIPID, FT3, BMP, TSH #### [facility] [address] [place] [address] Dr. Dashawn Mayo Creatinine [Mass/Vol] 0.81 mg/dL Normal 0.52-1.04 [facility] Comment on above: Performed By: #### L IVER, LIPID, FT3, BMP, TSH #### [facility] [address] [place] [address] Dr. Dashawn Mayo EGFR-AF AZERBAIJANI >60 Normal >=60 [facility] Comment on above: Performed By: #### L IVER, LIPID, FT3, BMP, TSH #### [facility] [address] [place] [address] Dr. Dashawn Mayo EGFR-NON AF AZERBAIJANI >60 Normal >=60 [facility] Comment on above: Performed By: #### L IVER, LIPID, FT3, BMP, TSH #### [facility] [address] [place] [address] Dr. Dashawn Mayo Glucose [Mass/Vol] 94 mg/dL Normal 74-106 [facility] Comment on above: Performed By: #### L IVER, LIPID, FT3, BMP, TSH #### [facility] [address] [place] [address] Dr. Dashawn Mayo Potassium [Moles/Vol] 4.5 mmol/L Normal 3.4-5.0 [facility] Comment on above: Performed By: #### L IVER, LIPID, FT3, BMP, TSH #### [facility] [address] [address] [address] Dashawn Mayo Sodium [Moles/Vol] 138 mmol/L Normal 137-145 [facility] Comment on above: Performed By: #### L IVER, LIPID, FT3, BMP, TSH #### [facility] [address] [address] [address] Dashawn Mayo Urea nitrogen [Mass/Vol] 8.0 mg/dL Normal 7.0-17.0 [facility] Comment on above: Performed By: #### L IVER, LIPID, FT3, BMP, TSH #### [facility] [address] [place] [address] Dr. Dashawn Mayo Urea nitrogen/Creatinine [Mass ratio] 9.9 mg/mg Normal [facility] Comment on above: Performed By: #### L IVER, LIPID, FT3, BMP, TSH #### [facility] [address] [place] [address] Dr. Dashawn Mayo TSHon 05-19-2021 TSH 1.888 uIU/mL Normal 0.470-4.680 [facility] Comment on above: Performed By: #### L IVER, LIPID, FT3, BMP, TSH #### [facility] [address] [place] [address] Dr. Dashawn Mayo TSH RANGE SEE BELOW Normal [facility] Comment on above: Result Comment: <0.3 4 UIU/ml HYPERTHYROID 0.34-5.60 UIU/ml EUTHYROID >5.60 UIU/ml HYPOTHYROID Performed By: #### L IVER, LIPID, FT3, BMP, TSH #### [facility] [address] [place] [address] Dr. Dashawn Mayo VITAMIN D 25 OHon 05-19-2021 VIT D 25-OH 97.4 ng/mL Normal [facility] Comment on above: Performed By: #### V ITAD, FT4 #### [facility] [address] [place] [address] Dr. Dashawn Mayo VIT D RANGES SEE BELOW Normal [facility] Comment on above: Result Comment: <20 ng/mL Vit D deficient 20 - <30 ng/mL Vit D insufficient 30 - 100 ng/mL Vit D sufficient >100 ng/mL Potential Toxicity Performed By: #### V VANI RAMIREZ4 #### [facility] [address] [place] [address] Dr. Dashawn Mayo Vital Signs Date Time Vital Sign Value Performing Clinician Facility 02-10-2025 09:05-0400 Body mass index (BMI) [Ratio] 42.93 kg/m2 [employer] Work Phone: [facility] 02-10-2025 09:05-0400 Body weight 117.03 kg Josi Roddy DO Work Phone: [facility] 02-10-2025 09:05-0400 Diastolic blood pressure 72 mm[Hg] [employer] Work Phone: [facility] 02-10-2025 09:05-0400 Systolic blood pressure 110 mm[Hg] [employer] Work Phone: [facility] 02-04-2025 08:39-0400 Body height 165.1 cm Jaden Antonio MD Work Phone: [facility] 02-04-2025 08:39-0400 Body mass index (BMI) [Ratio] 42.43 kg/m2 Jaden Antonio MD Work Phone: [facility] 02-04-2025 08:39-0400 Body temperature 97.5 [degF] Jaden Antonio MD Work Phone: [facility] 02-04-2025 08:39-0400 Body weight 115.67 kg Jaden Antonio MD Work Phone: [facility] 02-04-2025 08:39-0400 Diastolic blood pressure 82 mm[Hg] Jaden Antonio MD Work Phone: [facility] 02-04-2025 08:39-0400 Heart rate 96 /min Jaden Antonio MD Work Phone: [facility] 02-04-2025 08:39-0400 Respiratory rate 16 /min Jaden Antonio MD Work Phone: [facility] 02-04-2025 08:39-0400 SaO2% (BldA) [Mass fraction] 92 % Jaden Antonio MD Work Phone: [facility] 02-04-2025 08:39-0400 Systolic blood pressure 140 mm[Hg] Jaden Antonio MD Work Phone: [facility] 12-03-2024 08:57-0400 Body height 165.1 cm Jaden Antonio MD Work Phone: [facility] 12-03-2024 08:57-0400 Body mass index (BMI) [Ratio] 40.77 kg/m2 Jaden Antonio MD Work Phone: [facility] 12-03-2024 08:57-0400 Body temperature 97.11 [degF] Jaden Antonio MD Work Phone: [facility] 12-03-2024 08:57-0400 Body weight 111.13 kg Jaden Antonio MD Work Phone: [facility] 12-03-2024 08:57-0400 Diastolic blood pressure 76 mm[Hg] Jaden Antonio MD Work Phone: [facility] 12-03-2024 08:57-0400 Heart rate 88 /min Jaden Antonio MD Work Phone: [facility] 12-03-2024 08:57-0400 Respiratory rate 22 /min Jaden Antonio MD Work Phone: [facility] 12-03-2024 08:57-0400 SaO2% (BldA) [Mass fraction] 93 % Jaden Antonio MD Work Phone: [facility] 12-03-2024 08:57-0400 Systolic blood pressure 144 mm[Hg] Jaden Antonio MD Work Phone: [facility] 09-02-2024 09:08-0500 Body height 165.1 cm Jaden Antonio MD Work Phone: [facility] 09-02-2024 09:08-0500 Body mass index (BMI) [Ratio] 39.61 kg/m2 Jaden Antonio MD Work Phone: [facility] 09-02-2024 09:08-0500 Body temperature 98.2 [degF] Jaden Antonio MD Work Phone: [facility] 09-02-2024 09:08-0500 Body weight 107.96 kg Jaden Antonio MD Work Phone: [facility] 09-02-2024 09:08-0500 Diastolic blood pressure 76 mm[Hg] Jaden Antonio MD Work Phone: [facility] 09-02-2024 09:08-0500 Heart rate 104 /min Jaden Antonio MD Work Phone: [facility] 09-02-2024 09:08-0500 Respiratory rate 20 /min Jaden Antonio MD Work Phone: [facility] 09-02-2024 09:08-0500 SaO2% (BldA) [Mass fraction] 93 % Jaden Antonio MD Work Phone: [facility] 09-02-2024 09:08-0500 Systolic blood pressure 138 mm[Hg] Jaden Antonio MD Work Phone: [facility] 08-05-2024 11:38-0500 Body height 165.1 cm Jaden Antonio MD Work Phone: [facility] 08-05-2024 11:38-0500 Body mass index (BMI) [Ratio] 39.27 kg/m2 Jaden Antonio MD Work Phone: [facility] 08-05-2024 11:38-0500 Body temperature 95.7 [degF] Jaden Antonio MD Work Phone: [facility] 08-05-2024 11:38-0500 Body weight 107.05 kg Jaden Antonio MD Work Phone: [facility] 08-05-2024 11:38-0500 Diastolic blood pressure 74 mm[Hg] Jaden Antonio MD Work Phone: [facility] 08-05-2024 11:38-0500 Heart rate 104 /min Jaden Antonio MD Work Phone: [facility] 08-05-2024 11:38-0500 Respiratory rate 20 /min Jaden Antonio MD Work Phone: [facility] 08-05-2024 11:38-0500 SaO2% (BldA) [Mass fraction] 96 % Jaden Antonio MD Work Phone: [facility] 08-05-2024 11:38-0500 Systolic blood pressure 136 mm[Hg] Jaden Antonio MD Work Phone: [facility] 06-12-2024 14:26-0500 Body height 165.1 cm Jaden Antonio MD Work Phone: [facility] 06-12-2024 14:26-0500 Body mass index (BMI) [Ratio] 39.61 kg/m2 Jaden Antonio MD Work Phone: [facility] 06-12-2024 14:26-0500 Body temperature 96.6 [degF] Jaden Antonio MD Work Phone: [facility] 06-12-2024 14:26-0500 Body weight 107.96 kg Jaden Antonio MD Work Phone: [facility] 06-12-2024 14:26-0500 Diastolic blood pressure 68 mm[Hg] Jaden Antonio MD Work Phone: [facility] 06-12-2024 14:26-0500 Heart rate 107 /min Jaedn Antonio MD Work Phone: [facility] 06-12-2024 14:26-0500 Respiratory rate 20 /min Jaden Antonio MD Work Phone: [facility] 06-12-2024 14:26-0500 SaO2% (BldA) [Mass fraction] 93 % Jaden Antonio MD Work Phone: [facility] 06-12-2024 14:26-0500 Systolic blood pressure 136 mm[Hg] Jaden Antonio MD Work Phone: [facility] 03-04-2024 09:42-0400 Body height 165.1 cm Jaden Antonio MD Work Phone: [facility] 03-04-2024 09:42-0400 Body mass index (BMI) [Ratio] 39.27 kg/m2 Jaden Antonio MD Work Phone: [facility] 03-04-2024 09:42-0400 Body temperature 97.5 [degF] Jaden Antonio MD Work Phone: [facility] 03-04-2024 09:42-0400 Body weight 107.05 kg Jaden Antonio MD Work Phone: [facility] 03-04-2024 09:42-0400 Diastolic blood pressure 72 mm[Hg] Jaden Antonio MD Work Phone: [facility] 03-04-2024 09:42-0400 Heart rate 102 /min Jaden Antonio MD Work Phone: [facility] 03-04-2024 09:42-0400 Respiratory rate 20 /min Jaden Antonio MD Work Phone: [facility] 03-04-2024 09:42-0400 SaO2% (BldA) [Mass fraction] 93 % Jaden Antonio MD Work Phone: [facility] 03-04-2024 09:42-0400 Systolic blood pressure 130 mm[Hg] Jaden Antonio MD Work Phone: [facility] 07-03-2023 14:40-0500 Body height 160.02 cm Kimberly Scott Other [facility] 07-03-2023 14:40-0500 Body mass index (BMI) [Ratio] 41.45 kg/m2 Kimberly Frank [employer] Other 07-03-2023 14:40-0500 Body temperature 100.9 [degF] Kimberly Scott Other [employer] Other 07-03-2023 14:40-0500 Body weight 106.14 kg Kimberly Scott Other [facility] 07-03-2023 14:40-0500 Respiratory rate 18 /min Kimberly Scott Other [employer] Other 07-03-2023 14:40-0500 SaO2% (BldA) [Mass fraction] 95 % Kimberly Scott Other [employer] Other 12-05-2022 17:40-0400 Body height 160.02 cm Kimberly Scott Other [employer] Other 12-05-2022 17:40-0400 Body mass index (BMI) [Ratio] 45.7 kg/m2 Kimberly Scott Other [employer] Other 12-05-2022 17:40-0400 Body temperature 98.6 [degF] Kimberly Scott Other [employer] Other 12-05-2022 17:40-0400 Body weight 117.03 kg Kimberly Scott Other [employer] Other 12-05-2022 17:40-0400 Diastolic blood pressure 86 mm[Hg] Kimberly Scott Other [employer] Other 12-05-2022 17:40-0400 Respiratory rate 18 /min Kimberly Scott Other [employer] Other 12-05-2022 17:40-0400 SaO2% (BldA) [Mass fraction] 97 % Kimberly Scott Other [employer] Other 12-05-2022 17:40-0400 Systolic blood pressure 145 mm[Hg] Kimberly Scott Other [employer] Other Encounters Encounter Date Encounter Type Care Provider Facility Start: 02-10-2025 End: 02-10-2025 Bamboo flowsheet Josi Roddy DO Work Phone: [facility] Start: 02-10-2025 End: 02-13-2025 Bamboo flowsheet Josi Roddy DO Work Phone: [facility] Start: 02-10-2025 End: 02-13-2025 Clinisync Result Encounter Josi Roddy DO Work Phone: [facility] Unsolicited Start: 02-10-2025 End: 02-10-2025 Patient encounter procedure Josi Roddy DO Work Phone: [facility] Start: 02-10-2025 End: 02-10-2025 Periodic preventive med est patient 40-64yrs Josi Roddy DO Work Phone: [facility] Comment on above: Well woman exam with routine gynecological exam; H/O: hysterectomy; Breast cancer screening by mammogram; Insulin resistance; UTI symptoms Start: 02-10-2025 End: 02-10-2025 ambulatory JOSI RODDY Not Available Start: 02-04-2025 End: 02-04-2025 Bamboo flowsheet Jaden Antonio MD Work Phone: [facility] Start: 02-04-2025 End: 02-04-2025 Bamboo flowsheet Jaden Antonio MD Work Phone: [facility] Start: 02-04-2025 End: 02-04-2025 Office outpatient visit 25 minutes Jaden Antonio MD Work Phone: [facility] Comment on above: Major depressive dis order, recurrent, moderate (HCC) (Primary Dx); Generalized anxiety disorder ; Chronic obstructive pulmonary disease, unspecified COPD type (HCC); Cigarette smoker; Migraine without aura and without status migrainosus, not intractable Start: 02-04-2025 End: 02-04-2025 ambulatory JADEN ANTONIO Not Available Start: 01-08-2025 End: 01-08-2025 Clinisync Result Encounter Jaden Antonio MD Work Phone: [facility] Unsolicited Start: 01-08-2025 End: 01-08-2025 Clinisync Result Encounter Jaden Antonio MD Work Phone: [facility] Unsolicited Start: 12-03-2024 End: 12-03-2024 Bamboo flowsheet Jaden Antonio MD Work Phone: [facility] Start: 12-03-2024 End: 12-03-2024 Bamboo flowsheet Jaden [...] [facility] Start: 08-05-2024 End: 08-05-2024 Bamboo Offbeat Guidesheet Jaden Antonio MD Work Phone: [facility] [...] Result Encounter Jaden Antonio MD Work Phone: [facility] External Department Unsolicited Start: 06-13-2024 End: 06-13-2024 [...] encounter procedure Jaden Antonio MD Work Phone: [facility] Healthcare Start: 03-04-2024 End: 03-04-2024 ambulatory JADEN ANTONIO Not Available Start: 08-23-2023 End: 08-23-2023 ambulatory Jaden Antonio Facility:[facility] Start: 08-23-2023 End: 08-23-2023 ambulatory MD Jaden Antonio Work Phone: [facility] Work Phone: Start: 08-23-2023 End: 08-23-2023 Departed Referred MD Jaden Antonio Work Phone: [facility] Start: 08-09-2023 Clinisync Result Encounter Generic External Data Provider [facility] Unsolicited Start: 08-09-2023 Clinisync Result Encounter Generic External Data Provider [facility] External [facility] Unsolicited Start: 07-03-2023 End: 07-03-2023 ambulatory Kimberly Scott Other [employer] Other Start: 07-03-2023 Office outpatient vi sit 25 minutes Kimberly Scott [facility] Start: 07-03-2023 Telephone encounter Kimberly Scott [facility] [address] Start: 07-03-2023 End: 07-03-2023 Patient encounter procedure MD Jaden Antonio Work Phone: [facility] Work Phone: Start: 12-05-2022 End: 12-05-2022 ambulatory Kimberly Scott Other [employer] Other Start: 12-05-2022 Office outpatient ne w 20 minutes Kimberly Scott [facility] Start: 03-13-2022 End: 03-14-[address] JADEN ANTONIO Facility:[facility] Start: 05-28-2021 Encounter for genera l adult medical examination without abnormal findings DR JADEN ANTONIO [facility] Start: 05-19-2021 End: 05-20-[address] JADEN ANTONIO Facility:[facility] Start: 05-19-2021 End: 05-20-2021 Encounter for general adult medical examination without abnormal findings DR JADEN ANTONIO Facility:[facility] Procedures Date Procedure Procedure Detail Performing Clinician Start: 02-10-2025 IGP,APTIMA HPV,AGE GDLN Generic External Data Provider Start: 01-08-2025 ALL CBC WITH AUTO DIFF Jaden Antonio MD Work Phone: Start: 06-13-2024 TBH UA (CLEAN/CATCH) MICROSCOPIC IF [...] in Cervix by Cyto stain Generic Provider H/O: hysterectomy H/O: hysterectomy Josi Roddy DO Work Phone: Plan of Treatment Date Care Activity Detail Author Start: 02-04-2026 Screening for malign ant neoplasm of lung Lung Cancer Screening Shared Decision Making [facility] Comment on above: Postponed from 03/02 (Other Medical Reasons) Start: 02-01-2026 Screening for malign ant neoplasm of colon [facility] Start: 01-22-2026 Screening for malign ant neoplasm of cervix [facility] Start: 05-06-2025 End: 05-06-2025 Patient encounter procedure 05/06/2025 7:00 AM EST Office Visit [facility] [address] [place] [id number] Jaden Antonio MD [address] [place] [phone] [facility] Start: 03-17-2025 Screening for malign ant neoplasm of breast Mammogram [facility] Start: 2025 Influenza vaccination N [facility] Start: 02-10-2025 End: 04-12-2026 MG Breast - bilateral Screening Bilateral screening mammogram Imaging Routine Breast cancer screening by mammogram Expected: 02/10/2025 (Approximate), Expires: 04/12/2026 [facility] Work Phone: Comment on above: Expected: 02/10/2025 (Approximate), Expires: 04/12/2026 Start: 02-10-2025 End: 02-10-2025 Patient encounter procedure [facility] Comment on above: Arrived Start: 02-04-2025 End: 02-04-2026 CT Chest for screening WO contrast CT lung screening low dose Imaging Routine Cigarette smoker Expected: 02/04/2025, Expires: 02/04/2026 [facility] [employer] Work Phone: Comment on above: Expected: 02/04/2025 , Expires: 02/04/2026 Start: 02-04-2025 End: 02-04-2025 Patient encounter procedure [facility] Comment on above: Arrived Start: 12-03-2024 End: 12-03-2025 Basic metabolic 1998 panel - Serum or Plasma Basic metabolic panel Lab Routine Pre-diabetes Expected: 12/03/2024 (Approximate), Expires: 12/03/2025 [facility] Work Phone: Comment on above: Expected: 12/03/2024 (Approximate), Expires: 12/03/2025 Start: 12-03-2024 End: 12-03-2025 CBC W Auto Differential panel - Blood CBC and differential Lab Routine Fatigue, unspecified type Expected: 12/03/2024 (Approximate), Expires: 12/03/2025 [facility] Comment on above: Expected: 12/03/2024 (Approximate), Expires: 12/03/2025 Start: 12-03-2024 End: 12-03-2025 Hemoglobin A1c/Hemoglobin.total in Blood Hemoglobin A1c Lab Routine Pre-diabetes Expected: 12/03/2024 (Approximate), Expires: 12/03/2025 [facility] Comment on above: Expected: 12/03/2024 (Approximate), Expires: 12/03/2025 Start: 12-03-2024 End: 12-03-2025 Thyrotropin [Units/volume] in Serum or Plasma TSH Lab Routine Class 3 severe obesity due to excess calories with serious comorbidity and body mass index (BMI) of 40.0 to 44.9 in adult Expected: 12/03/2024 (Approximate), Expires: 12/03/2025 [facility] Comment on above: Expected: 12/03/2024 (Approximate), Expires: 12/03/2025 Start: 12-03-2024 End: 12-03-2025 Thyroxine (T4) free [Mass/volume] in Serum or Plasma T4, free Lab Routine Class 3 severe obesity due to excess calories with serious comorbidity and body mass index (BMI) of 40.0 to 44.9 in adult Expected: 12/03/2024 (Approximate), Expires: 12/03/2025 [facility] Comment on above: Expected: 12/03/2024 (Approximate), Expires: 12/03/2025 Start: 12-03-2024 End: 12-03-2024 Patient encounter procedure [facility] Comment on above: Arrived Start: 09-02-2024 End: 09-02-2024 Patient encounter procedure [facility] Comment on above: Arrived Start: 08-05-2024 End: 08-05-2024 Patient encounter procedure 08/05/2024 11:30 AM EST Office Visit [facility] [address] [place] [address] Jaden Antonio MD [address] [place] [address] Arrived [facility] Comment on above: Arrived Start: 06-12-2024 End: 06-12-2024 Patient encounter procedure 06/12/2024 2:30 PM EST Office Visit [facility] [address] [place] [address] Jaden Antonio MD [address] [place] [address] Arrived [facility] Comment on above: Arrived Start: 06-12-2024 End: 06-12-2025 Bacteria identified in Urine by Culture Urine culture (clean catch) Microbiology Routine Acute UTI Expected: 06/12/2024 (Approximate), Expires: 06/12/2025 [facility] Work Phone: Comment on above: Expected: 06/12/2024 (Approximate), Expires: 06/12/2025 Start: 06-12-2024 End: 06-12-2025 Urinalysis complete panel - Urine Urinalysis with reflex microscopic (clean catch) Lab Routine Acute UTI Expected: 06/12/2024 (Approximate), Expires: 06/12/2025 [facility] Comment on above: Expected: 06/12/2024 (Approximate), Expires: 06/12/2025 Start: 03-16-2024 Screening for malign ant neoplasm of breast Mammogram [facility] Start: 03-04-2024 End: 03-04-2025 Basic metabolic 1998 panel - Serum or Plasma Basic metabolic panel Lab Routine Annual physical exam Expected: 03/04/2024 (Approximate), Expires: 03/04/2025 [facility] Comment on above: Expected: 03/04/2024 (Approximate), Expires: 03/04/2025 Start: 03-04-2024 End: 03-04-2025 CBC W Auto Differential panel - Blood CBC and differential Lab Routine Annual physical exam Expected: 03/04/2024 (Approximate), Expires: 03/04/2025 [facility] Comment on above: Expected: 03/04/2024 (Approximate), Expires: 03/04/2025 Start: 03-04-2024 End: 03-04-2025 Hemoglobin A1c/Hemoglobin.total in Blood Hemoglobin A1c Lab Routine Annual physical exam Expected: 03/04/2024 (Approximate), Expires: 03/04/2025 [facility] Work Phone: Comment on above: Expected: 03/04/2024 (Approximate), Expires: 03/04/2025 Start: 03-04-2024 End: 03-04-2025 Hepatic function 2000 panel - Serum or Plasma Hepatic function panel Lab Routine Annual physical exam Expected: 03/04/2024 (Approximate), Expires: 03/04/2025 [facility] Comment on above: Expected: 03/04/2024 (Approximate), Expires: 03/04/2025 Start: 03-04-2024 End: 03-04-2025 Lipid 1996 panel - Serum or Plasma Lipid panel Lab Routine Annual physical exam Expected: 03/04/2024 (Approximate), Expires: 03/04/2025 [facility] Comment on above: Expected: 03/04/2024 (Approximate), Expires: 03/04/2025 Start: 03-04-2024 End: 03-04-2025 Thyrotropin [Units/volume] in Serum or Plasma TSH Lab Routine Annual physical exam Expected: 03/04/2024 (Approximate), Expires: 03/04/2025 [facility] Comment on above: Expected: 03/04/2024 (Approximate), Expires: 03/04/2025 Start: 2024 Influenza vaccination Influenza Vacc ine (#1) [facility] Start: 09-10-2023 End: 09-10-2023 Patient encounter procedure 09/10/2023 9:45 AM EDT Office Visit [facility] [address] [place] [address] Jaden Antonio MD [address] [place] [phone] [facility] Start: 08-30-2023 End: 08-30-2023 Patient encounter procedure 08/30/2023 10:30 AM EST Office Visit [facility] [address] [place] [address] Yuly Gonzalez PA [address] [place] [address] [place] [address] [facility] Start: 2023 Influenza vaccination Influenza Vacc ine (#1) [facility] Start: 2013 Screening for malign ant neoplasm of breast Mammogram [facility] Start: 2003 Screening for malign ant neoplasm of cervix HPV/Cotest [facility] Start: 1973 Screening for malign ant neoplasm of colon [facility] Start: 1973 Screening for malign ant neoplasm of lung Lung Cancer Screening Shared Decision Making [facility] THIN PREP TIS PAP AN D HR HPV DNA THIN PREP TIS PAP AND HR HPV DNA Pathology and Cytology Routine Well woman exam with routine gynecological exam H/O: hysterectomy Ordered: 02/10/2025 [facility] Comment on above: Ordered: 02/10/2025 Payers Date Payer Category Payer Self-pay 2016 Medicaid [employer] [place] [id number] 2016-Present [address] [place] [address] [id number] 2016 Private Health Insurance [facility] MEDICAID [id number] 2016 Medicaid [id number] 1973 Unknown [id number] 593 1973 Unknown [id number]. 593 1973 Unknown [id number] [id number]. 1258 1973 Unknown [id number] [id number]. 9 1973 Unknown [id number]. 1258 1973 Unknown [id number] [id number]. 1258 1973 Unknown [id number] [id number]. 1258 1973 Unknown [id number] [id number]. 1258 1973 Unknown [id number] [id number]. 1258 1973 Unknown [id number] [id number]. 9 1959 Unknown [id number] Unknown [id number] Social History Date Type Detail Facility Start: 06-18-2023 End: 02-04-2025 Sex Assigned At [facility] Other Start: 06-18-2023 End: 02-11-2024 Tobacco smoking status [facility] Smokes tobacco daily [facility] History of tobacco use Cigarette Smoker [facility] Start: 06-18-2023 End: 02-04-2025 Cigarettes smoked current (pack per day) - Reported 1.5 [facility] Start: 06-18-2023 End: 02-11-2024 Tobacco use and exposure Smokeless tobacco non-user [facility] Start: 07-20-2023 End: 02-10-2025 Alcohol intake Lifetime non-drinker (finding) [facility] Start: 1975 Sex Assigned At Not on file [facility] Start: 1975 Sex Assigned At Female [facility] Medical Equipment Procedure Code Equipment Code Equipment Origin al Text Equipment Identifier Dates USE DIRECTED DAILY [id number] Start: 10-09-2023 Clinical Notes 12-05-2022 to 02-10-2025 Susan JonesSERA - 02/10/2025 9:00 AM Regis Antonio MD - 02/04/2025 9:29 AM Regis Antonio MD - 02/04/2025 9:29 AM Regis Antonio MD - 02/04/2025 9:29 AM EDT Note Date & Type Note Facility 02-10-2025 History of Presen t illness Narrative Reason for Appointment: Patient ID: Jenn Mccann is a 49 y.o. female who presents for Gynecologic Exam Patient presents today for Annual Exam. MEDICATIONS Current Outpatient Medications Medication Instructions albuterol HFA 90 mcg/act inhaler 2 puffs, Inhalation, Every 4 hours PRN albuterol 2.5 mg, Nebulization, Every 4 hours PRN Allergy Relief 10 mg, Oral, Daily ALPRAZolam (XANAX) 0.5 mg, Oral, 3 times daily PRN atorvastatin (Lipitor) 40 MG tablet TAKE 1 TABLET BY MOUTH at AT BEDTIME tpwqgndtol-klvrxswzgjdgo-zixbyhvq 50-325-40 MG tablet 1 tablet, Oral, 4 times daily PRN celecoxib (CELEBREX) 200 mg, Oral, 2 times daily cholecalciferol (VITAMIN D-3) 125 mcg, Oral, Daily Deblitane 0.35 mg, Oral, Daily estradiol (ESTRACE) 0.5 mg, Oral, Every morning famotidine (PEPCID) 20 mg, Oral, As needed fluticasone (Flonase) 50 MCG/ACT nasal spray instill 2 (TWO) spray nasally DAILY Lancets (OneTouch Delica Plus [id number]) misc USE DIRECTED DAILY metFORMIN XR (GLUCOPHAGE-XR) 500 mg, Oral, Daily with evening meal, Do not crush, chew, or split. montelukast (SINGULAIR) 10 mg, Oral, Nightly Myrbetriq 50 MG 24 hr tablet TAKE 1 TABLET BY MOUTH ONCE DAILY AT BEDTIME DO NOT CRUSH, CHEW, OR SPLIT omeprazole (PRILOSEC) 40 mg, Oral, Daily OXcarbazepine (TRILEPTAL) 150 mg, Oral, 2 times daily Respiratory Therapy Supplies (Full Kit Nebulizer Set) misc USE DIRECTED WITH compressor Spiriva HandiHaler 18 MCG inhalation capsule INHALE CONTENTS OF 1 (ONE) CAPSULE VIA HANDIHALER DAILY ALLERGIES No Known Allergies PROBLEMS Active Ambulatory Problems Diagnosis Date Noted Amenorrhea 06/18/2023 Migraine without aura and without status migrainosus, not intractable 06/18/2023 Chronic pain of left knee 06/18/2023 COPD (chronic obstructive pulmonary disease) (HCC) 06/18/2023 DDD (degenerative disc disease), cervical 06/18/2023 DDD (degenerative disc disease), lumbar 06/18/2023 Dyslipidemia 06/18/2023 Generalized anxiety disorder 06/18/2023 Gastroesophageal reflux disease without esophagitis 06/18/2023 Hidradenitis suppurativa 06/18/2023 Major depressive disorder, recurrent, moderate ([facility]) 06/18/2023 Mixed incontinence urge and stress (male)(female) 06/18/2023 Pre-diabetes 06/18/2023 Premenopausal menorrhagia 06/18/2023 Vitamin D deficiency 06/18/2023 Seasonal allergic rhinitis due to pollen 06/18/2023 Class 3 severe obesity due to excess calories with serious comorbidity and body mass index (BMI) of 40.0 to 44.9 in adult ([facility]) 09/10/2023 Annual physical exam 03/04/2024 Cigarette smoker 02/04/2025 Resolved Ambulatory Problems Diagnosis Date Noted Acute UTI 06/12/2024 Right ankle sprain 08/05/2024 Past Medical History: Diagnosis Date Abnormal EKG Chronic migraine without aura without status migrainosus, not intractable Chronic seasonal allergic rhinitis due to pollen COPD, mild ([facility]) [facility] (generalized anxiety disorder) Hidradenitis History of colposcopy 03/08/2023 Insomnia LGSIL of cervix of undetermined significance 01/22/2023 Low grade squamous intraepith lesion on cytologic smear cervix (lgsil) MDD (major depressive disorder) Mixed stress and urge urinary incontinence Obesity Vaginal discharge HISTORY PAST MEDICAL HISTORY SOCIAL HISTORY Past Medical History: Diagnosis Date Abnormal EKG Amenorrhea Chronic migraine without aura without status migrainosus, not intractable Chronic pain of left knee Chronic seasonal allergic rhinitis due to pollen COPD, mild (HCC) DDD (degenerative disc disease), cervical DDD (degenerative disc disease), lumbar Dyslipidemia [facility] (generalized anxiety disorder) Gastroesophageal reflux disease without esophagitis Hidradenitis History of colposcopy 03/08/2023 lgsil Insomnia LGSIL of cervix of undetermined significance 01/22/2023 Low grade squamous intraepith lesion on cytologic smear cervix (lgsil) MDD (major depressive disorder) Mixed stress and urge urinary incontinence Obesity Premenopausal menorrhagia Vaginal discharge Vitamin D deficiency Social History Tobacco Use Smoking status: Every Day Current packs/day: 1.50 Average packs/day: 1.5 packs/day for 20.0 years (30.0 ttl pk-yrs) Types: Cigarettes Smokeless tobacco: Never Substance Use Topics Alcohol use: Never Drug use: Never FAMILY HISTORY Family History Problem Relation Name Age of Onset Learning disabilities Mother Learning disabilities Father SURGICAL HISTORY Past Surgical History: Procedure Laterality Date CERVICAL BIOPSY W/ LOOP ELECTRODE EXCISION 05/11/2023 ROBOTIC ASSISTED HYSTERECTOMY 08/23/2023 REVIEW OF SYSTEMS Review of Systems: Review of Systems Constitutional: Negative. HENT: Negative. Eyes: Negative. Respiratory: Negative. Cardiovascular: Negative. Gastrointestinal: Negative. Genitourinary: Negative. Musculoskeletal: Negative. Skin: Negative. Neurological: Negative. All other systems reviewed and are negative. Hematological: Negative. Endocrine: Negative. Allergic/Immunologic: Negative. OBJECTIVE Objective: Physical Exam Constitutional: Appearance: Normal appearance. She is well-developed. Genitourinary: Vulva normal. Vaginal cuff intact. Cervix is absent. Uterus is absent. Cardiovascular: Rate and Rhythm: Normal rate and regular rhythm. Abdominal: General: Bowel sounds are normal. There is no distension. Palpations: Abdomen is soft. Tenderness: There is no abdominal tenderness. There is no guarding or rebound. Musculoskeletal: General: No swelling. Normal range of motion. Right lower leg: No edema. Left lower leg: No edema. Neurological: Mental Status: She is alert and oriented to person, place, and time. Skin: General: Skin is warm and dry. Psychiatric: Mood and Affect: Mood normal. Behavior: Behavior normal. Vitals and nursing note reviewed. Exam conducted with a real estate transaction coordinator present. Vitals: Estimated body mass index is 42.93 kg/m as calculated from the following: Height as of 02/04/25: 5' 5 . Weight as of this encounter: 258 lb. BP: 110/72 No LMP recorded. Patient has had a hysterectomy. ASSESSMENT & PLAN ICD-10-CM 1. Well woman exam with routine gynecological exam Z01.419 THIN PREP TIS PAP AND HR HPV DNA 2. H/O: hysterectomy Z90.710 THIN PREP TIS PAP AND HR HPV DNA 3. Breast cancer screening by mammogram Z12.31 Bilateral screening mammogram Bilateral screening mammogram Orders Placed This Encounter Procedures Bilateral screening mammogram Annual Wellness Exam (Post Hysterectomy): Patient presents today for routine annual exam. Patient states she has complaints of uti symptoms, rx for cipro faxed to pharmacy. Pt has complaints of being tired, reviewed labs from PCP, hgba1c 6.3 increased metformin to 1000mg. Patients vitals were reviewed and within normal limits. Growth and development is noted to be appropriate for age. Menstrual history is noted to be obsolete due to patients history of hysterectomy. No mental health concerns was expressed. Pap Smear: Speculum was inserted into the vagina and pap was obtained without difficulty. HPV testing was performed per guidelines. Patient was advised that pap results could take anywhere from 7 to 10 days to receive and our office will reach out to the patient with those once we have them. Patient can also view results via [employer]. I reinforced importance of condom use for STI prevention. Patient declined cultures to be performed with today's visit. Breast Exam: Upon examination, clinical breast exam was noted to be normal. Patient was counseled on breast self-awareness, including the importance of knowing what is normal for her own breasts and promptly reporting any changes such as new lumps, skin dimpling, nipple discharge, or pain. Screening mammogram recommended annually beginning at age 40 or earlier if risk factors are present. Discussed signs and symptoms of breast cancer and when to seek medical attention. Answered all patient questions. Follow Up: Patient is to return to our office in one year for annual exam unless needed otherwise. Documented by Susan Jones LPN on behalf of: Josi Pereyra DO documented in this encounter [facility] 02-04-2025 History of Presen t illness Narrative Associated Problem(s): Migraine without aura and without status migrainosus, not intractable CLARKE stable and use fioricet PRN. Associated Problem(s): Major depressive disorder, recurrent, moderate (HCC) Still symptoms but feels like tolerable and continue trileptal. Associated Problem(s): Generalized anxiety disorder Still symptoms but feels like tolerable and continue trileptal. Use xanax PRN. Associated Problem(s): COPD (chronic obstructive pulmonary disease) (HCC) Breathing stable and continue spiriva. Use albuterol PRN. Need to stop smoking. Associated Problem(s): Cigarette smoker Smoked 1 PPD for over 30 years and check LDCT chest. Images from the original note were not included. Subjective Patient ID: Jenn Mccann is a 49 y.o. female who presents for Follow-up (2m). Follow up depression, anxiety, COPD, and migraines. Patient stable today. Stopped lexapro due to sedation and mood unchanged. Mild symptoms but tolerable. Down, sad, and no motivation. Not want to do anything or be around others. Anxiety stable. Not as stressed out or overwhelmed. Not as nervous or worry as much. Not as segura or irritable. Using xanax PRN and helps when needed. COPD stable. Still smoking about 1 PPD. Mild SOB and fatigue with exertion. Occasional cough but no sputum. Using spiriva daily and albuterol PRN which helps. Started smoking around age 18 and over 30 plus pack year history. Migraines unchanged. CLARKE 3-4 times a week. Throbbing pain in entire head associated with photophobia, phonophobia and nausea. Using fioricet PRN and mild relief. Review of Systems Respiratory: Negative for cough, [...] aura and without status migrainosus, not intractable CLARKE stable and use fioricet PRN. COPD (chronic obstructive pulmonary disease) (HCC) Breathing stable and continue spiriva. Use albuterol PRN. Need to stop smoking. Generalized anxiety disorder Still symptoms but feels like tolerable and continue trileptal. Use xanax PRN. Major depressive disorder, recurrent, moderate (HCC) - Primary Still symptoms but feels like tolerable and continue trileptal. Cigarette smoker Smoked 1 PPD for over 30 years and check LDCT chest. Relevant Orders CT lung screening low dose documented in this encounter [facility] 12-03-2024 History of Presen t illness Narrative [...] CBC and differential documented in this encounter [facility] 09-02-2024 History of Presen t illness Narrative [...] aura and without status migrainosus, not intractable ([facility]) Worsening CLARKE due to stress and use fioricet PRN. Relevant Medications hbqlvpdqmo-eksliucnwcpjn-vsiubdjb 50-325-40 MG tablet COPD (chronic obstructive pulmonary disease) (CMS/HCC) Breathing worse with increased smoking and needs to stop. Continue spiriva. Use albuterol PRN. Generalized anxiety disorder ([facility]) Continued symptoms and not functioning well. Increase [...] myrbetriq and continue. documented in this encounter [facility] 08-05-2024 History of Presen t illness Narrative Associated Problem(s): Class 2 severe obesity due to excess calories with serious comorbidity and body mass index (BMI) of 39.0 to 39.9 in adult ([facility]) Weight loss indicated Associated Problem(s): COPD (chronic obstructive pulmonary disease) ([facility]) Breathing stable and continue spiriva. [...] and elevate PRN. documented in this encounter [facility] 06-12-2024 History of Presen t illness Narrative [...] microscopic (clean catch) documented in this encounter [facility] 03-04-2024 History of Presen t illness Narrative [...] Lipid panel TSH documented in this encounter [facility] 07-03-2023 Evaluation note Encounter Date Diagnosis Assessment [...] treatment plan. Patient left in stable condition [employer] Other [id number] Evaluation note* Encounter Date Diagnosis Assessment Notes [...] understanding and is agreeable with treatment plan [employer] Other Evaluation noteNo [employer] Other Evaluation noteNo assessment information available [facility] Work Phone: Evaluation note* Diagnosis Dyslipidemia (CMS/HCC)- [...] health care facility documented in this encounter [facility] HealthcareEvaluation note* Diagnosis Major depressive disorder, [...] (BMI) of 39.0 to 39.9 in adult ([facility]) Dyslipidemia ([facility]/HCC) Other and unspecified hyperlipidemia Sprain of right ankle, unspecified ligament, subsequent encounter- Primary Major depressive disorder, recurrent, moderate (CMS/HCC) Major depressive disorder, recurrent episode, moderate Generalized anxiety disorder (CMS/HCC) Generalized anxiety disorder Chronic obstructive pulmonary disease, unspecified COPD type (CMS/HCC) Class 2 severe obesity due to excess calories with serious comorbidity and body mass index (BMI) of 39.0 to 39.9 in adult ([facility]) documented in this encounter [facility] HealthcareEvaluation note* Diagnosis Major depressive disorder, recurrent episode, mild (HCC) ([facility]/HCC)- Primary Major depressive disorder, recurrent episode, mild [...] exam Routine general medical examination at a [facility] care facility Acute UTI- Primary Urinary tract infection, site not specified Class 2 severe obesity due to excess calories with serious comorbidity and body mass index (BMI) of 39.0 to 39.9 in adult ([facility]) Dyslipidemia (CMS/HCC) Other and unspecified hyperlipidemia Sprain of right ankle, unspecified ligament, subsequent encounter- Primary Major depressive disorder, recurrent, moderate (CMS/HCC) Major depressive disorder, recurrent episode, moderate Generalized anxiety disorder (CMS/HCC) Generalized anxiety disorder Chronic obstructive pulmonary disease, unspecified COPD type ([facility]/HCC) Class 2 severe obesity due to excess calories with serious comorbidity and body mass index (BMI) of 39.0 to 39.9 in adult ([facility]) Major depressive disorder, recurrent, moderate (CMS/HCC)- Primary Major depressive disorder, recurrent episode, moderate Generalized anxiety disorder (CMS/HCC) Generalized anxiety disorder Chronic obstructive pulmonary disease, unspecified COPD type (CMS/HCC) Mixed incontinence urge and stress (male)(female) Migraine without aura and without status migrainosus, not intractable (CMS/HCC) Major depressive disorder, recurrent, moderate (CMS/HCC)- Primary Major depressive disorder, recurrent episode, moderate Generalized anxiety disorder ([facility]/HCC) Generalized anxiety disorder Chronic obstructive pulmonary disease, unspecified COPD type ([facility]) Migraine without aura and without status migrainosus, not intractable ([facility]) Mixed incontinence urge and stress (male)(female) Class 3 severe obesity due to excess calories with serious comorbidity and body mass index (BMI) of 40.0 to 44.9 in adult Pre-diabetes Other abnormal glucose Fatigue, unspecified type documented [facility] Diagnosis Major depressive disorder, recurrent episode, mild- Primary Major depressive disorder, recurrent episode, mild Generalized anxiety disorder Generalized anxiety disorder Chronic obstructive pulmonary disease, unspecified COPD type (HCC) DDD (degenerative disc disease), cervical Degeneration of cervical intervertebral disc Gastroesophageal reflux disease without esophagitis Esophageal reflux Seasonal allergic rhinitis due to pollen Major depressive disorder, recurrent episode, mild- Primary Major depressive disorder, recurrent episode, mild Generalized anxiety disorder Generalized anxiety disorder Chronic obstructive pulmonary disease, unspecified COPD type (HCC) DDD (degenerative disc disease), cervical Degeneration of cervical intervertebral disc Mixed incontinence urge and stress (male)(female) Gastroesophageal reflux disease without esophagitis Esophageal reflux Seasonal allergic rhinitis due to pollen Major depressive disorder, recurrent episode, mild- Primary Major depressive disorder, recurrent episode, mild Generalized anxiety disorder Generalized anxiety disorder Chronic obstructive pulmonary disease, unspecified COPD type (HCC) Mixed incontinence urge and stress (male)(female) DDD [...] (BMI) of 39.0 to 39.9 in adult ([facility]) Dyslipidemia Other and unspecified hyperlipidemia Sprain of right ankle, unspecified ligament, subsequent encounter- Primary Major depressive disorder, recurrent, moderate (HCC) Major depressive disorder, recurrent episode, moderate Generalized anxiety disorder Generalized anxiety disorder Chronic obstructive pulmonary disease, unspecified COPD type (HCC) Class 2 severe obesity due to excess calories with serious comorbidity and body mass index (BMI) of 39.0 to 39.9 in adult ([facility]) Major depressive disorder, recurrent, moderate (HCC)- Primary Major depressive disorder, recurrent episode, moderate Generalized anxiety disorder Generalized anxiety disorder Chronic obstructive pulmonary disease, unspecified COPD type (HCC) Mixed incontinence urge and stress (male)(female) Migraine without aura and without status migrainosus, not intractable Major depressive disorder, recurrent, moderate (HCC)- Primary Major depressive disorder, recurrent episode, moderate Generalized anxiety disorder Generalized anxiety disorder Chronic obstructive pulmonary disease, unspecified COPD type (HCC) Migraine without aura and without status migrainosus, not intractable Mixed incontinence urge and stress (male)(female) Class 3 severe obesity due to excess calories with serious comorbidity and body mass index (BMI) of 40.0 to 44.9 in adult ([facility] Pre-diabetes Other abnormal glucose Fatigue, unspecified type Major depressive disorder, recurrent, moderate (HCC)- Primary Major depressive disorder, recurrent episode, moderate Generalized anxiety disorder Generalized anxiety disorder Chronic obstructive pulmonary disease, unspecified COPD type (HCC) Cigarette smoker Tobacco use disorder Migraine without aura and without status migrainosus, not intractable documented in this encounter [facility]* Diagnosis Major depressive disorder, recurrent episode, mild- Primary Major depressive disorder, recurrent episode, mild Generalized anxiety disorder Generalized anxiety disorder Chronic obstructive pulmonary disease, unspecified COPD type (HCC) DDD (degenerative disc disease), cervical Degeneration of cervical intervertebral disc Gastroesophageal reflux disease without esophagitis Esophageal reflux Seasonal allergic rhinitis due to pollen Major depressive disorder, recurrent episode, mild- Primary Major depressive disorder, recurrent episode, mild Generalized anxiety disorder Generalized anxiety disorder Chronic obstructive pulmonary disease, unspecified COPD type (HCC) DDD (degenerative disc disease), cervical Degeneration of cervical intervertebral disc Mixed incontinence urge and stress (male)(female) Gastroesophageal reflux disease without esophagitis Esophageal reflux Seasonal allergic rhinitis due to pollen Major depressive disorder, recurrent episode, mild- Primary Major depressive disorder, recurrent episode, mild Generalized anxiety disorder Generalized anxiety disorder Chronic obstructive pulmonary disease, unspecified COPD type (HCC) Mixed incontinence urge and stress (male)(female) DDD [...] (BMI) of 39.0 to 39.9 in adult ([facility]) Dyslipidemia Other and unspecified hyperlipidemia Sprain of right ankle, unspecified ligament, subsequent encounter- Primary Major depressive disorder, recurrent, moderate (HCC) Major depressive disorder, recurrent episode, moderate Generalized anxiety disorder Generalized anxiety disorder Chronic obstructive pulmonary disease, unspecified COPD type (HCC) Class 2 severe obesity due to excess calories with serious comorbidity and body mass index (BMI) of 39.0 to 39.9 in adult ([facility]) Major depressive disorder, recurrent, moderate (HCC)- Primary Major depressive disorder, recurrent episode, moderate Generalized anxiety disorder Generalized anxiety disorder Chronic obstructive pulmonary disease, unspecified COPD type (HCC) Mixed incontinence urge and stress (male)(female) Migraine without aura and without status migrainosus, not intractable Major depressive disorder, recurrent, moderate (HCC)- Primary Major depressive disorder, recurrent episode, moderate Generalized anxiety disorder Generalized anxiety disorder Chronic obstructive pulmonary disease, unspecified COPD type (HCC) Migraine without aura and without status migrainosus, not intractable Mixed incontinence urge and stress (male)(female) Class 3 severe obesity due to excess calories with serious comorbidity and body mass index (BMI) of 40.0 to 44.9 in adult ([facility]) Pre-diabetes Other abnormal glucose Fatigue, unspecified type Major depressive disorder, recurrent, moderate (HCC)- Primary Major depressive disorder, recurrent episode, moderate Generalized anxiety disorder Generalized anxiety disorder Chronic obstructive pulmonary disease, unspecified COPD type (HCC) Cigarette smoker Tobacco use disorder Migraine without aura and without status migrainosus, not intractable Well woman exam with routine gynecological exam Routine gynecological examination H/O: hysterectomy Acquired absence of both cervix and uterus Breast cancer screening by mammogram Insulin resistance Other abnormal glucose UTI symptoms documented [facility] N[facility]ative - Reported* Type Description Date Medical History Asthma Medical History acid reflux Medical History seasonal allergies Medical History ptsd Medical History depression/anxiety [employer] Other History general Narrative - Reported* Type Description Date Medical History Asthma Medical History acid reflux Medical History seasonal allergies Medical History ptsd Medical History depression/anxiety Medical History lupus Surgical History uterine ablation [employer] Other Summary Purpose Family History Relationship Condition Age at Onset Recorded Date/T melinda Not Specified Unknown Advance Directives No Advanced Directives Records FoundNo Advanced Directives Records FoundNo Advanced Directives Records Found Additional Source Comments INFORMATION SOURCE (unrecogn ized section and content) DATE CREATED AUTHOR 04/01/2022 [facility] DATE CREATED AUTHOR AUTHOR'S ORGANIZ ATION 09/01/2023 [facility] DATE CREATED AUTHOR AUTHOR'S ORGANIZ ATION 02/11/2025 [facility] EPIC REASON FOR VISIT (unrecogniz ed section and content) Reason Comments UTI Home test positive f or uti Reason Comments Follow-up 6m Reason Comments Follow-up Er f/u Reason Comments Follow-up Depression Reason Comments Follow-up 3 m Reason Comments Follow-up 2m Reason Comments Gynecologic Exam Care Teams (unrecognized sec tion and content) Child Care Associate Relationship Specialty Start Date End Date Jaden Antonio MD [address] [place] [phone] PCP - General Family Medicine 07/24/23 Team [...] Victoria templeton 2023 End: August 23, 2023 Child Care Associate Relationship Specialty Start Date End Date Jaden Antonio MD [address] [place] [phone] PCP - General Family Medicine 07/24/23 Child Care Associate Relationship Specialty Start Date End Date Jaden Antonio MD [address] [place] [phone] PCP - General Family Medicine 07/24/23 Child Care Associate Relationship Specialty Start Date End Date Jaden Antonio MD [address] [place] [phone] PCP - General Family Medicine 07/24/23 Josi Pereyra DO [address] [place] [address] PCP - [facility] 04/01/24 Child Care Associate Relationship Specialty Start Date End Date Jaden Antonio MD [address] [place] [phone] PCP - [facility] 07/24/23 Josi Pereyra DO [address] [place] [address] PCP [facility] 04/01/24 Child Care Associate Relationship Specialty Start Date End Date Jaden Antonio MD [address] [place] [phone] PCP - [facility] 07/24/23 Josi Pereyra DO [address] [place] [address] PCP [facility] 04/01/24 Child Care Associate Relationship Specialty Start Date End Date Jaden Antonio MD [address] [place] [phone] PCP - [facility] 07/24/23 Child Care Associate Relationship Specialty Start Date End Date Jaden Antonio MD [address] [place] [phone] PCP - [facility] 07/24/23 Josi Pereyra DO [address] [place] [address] [facility] 04/01/24 Child Care Associate Relationship Specialty Start Date End Date Jaden Antonio MD [address] [place] [address] PCP - [facility] 07/24/23 Josi Pereyra DO [address] [place] [address] [place] [address] PCP [facility] 04/01/24 Child Care Associate Relationship Specialty Start Date End Date Jaden Antonio MD [address] [place] [address] PCP [facility] 07/24/23 Jaden Antonio MD [address] [place] [address] [facility] 07/02/24 Child Care Associate Relationship Specialty Start Date End Date Jaden Antonio MD [address] [place] [address] PCP [facility] 07/24/23 Jaden Antonio MD [address] [place] [address] [facility] 07/02/24 Child Care Associate Relationship Specialty Start Date End Date Jaden Antonio MD [address] [place] [address] PCP [facility] 07/24/23 Jaden Antonio MD [address] [place] [phone] [facility] 07/02/24 Child Care Associate Relationship Specialty Start Date End Date Jaden Antonio MD [address] [place] [phone] PCP [facility] 07/24/23 Jaden Antonio MD [address] [place] [address] [facility] 07/02/24 Child Care Associate Relationship Specialty Start Date End Date Jaden Antonio MD [address] [place] [phone] [facility] 07/24/23 Jaden Antonio MD [address] [place] [address] [facility] 07/02/24 Child Care Associate Relationship Specialty Start Date End Date Jaden Antonio MD [address] [place] [phone] PCP [facility] 07/24/23 Jaden Antonio MD [address] [place] [phone] [facility] 07/02/24 Child Care Associate Relationship Specialty Start Date End Date Jaden Antonio MD [address] [place] [phone] [facility] 07/24/23 Jaden Antonio MD [address] [place] [phone] [facility] 07/02/24 Child Care Associate Relationship Specialty Start Date End Date Jaden Antonio MD [address] [place] [phone] [facility] 07/24/23 Jaden Antonio MD [address] [place] [phone] [facility] 07/02/24 Child Care Associate Relationship Specialty Start Date End Date Jaden Antonio MD [address] [place] [phone] [facility] 07/24/23 Jaden Antonio MD [address] [place] [phone] [facility] 07/02/24 Goals (unrecognized section and content) Goals [...] BE BASED ON THE PRIMARY CLINICAL RECORDS. [facility]. provides no warranty or guarantee of the accuracy or completeness of information in this document.
== END 2025-03-09 09:55 | disposition home or self-care (01) ==
LOC: CT 09:54
PROVIDERS: PCP Family Medicine; Visit Provider Family Medicine
DX: F17.210 Nicotine dependence, cigarettes, uncomplicated (principal)
CPT/HCPCS: 71271

== ENCOUNTER 2025-03-19 13:07 | Outpatient (OUT) | payer OTHER, SELFPAY ==
--- OUTSIDE RECORDS SUMMARY | 2025-03-19 13:09 | XMS_ITS | Encounter Summary ---
Author Organization [facility] Address [address] [place] [address] Care Team Providers Care Bridge Carpenter Name Role Phone Jaden Chew MD Primary Care Provider [phone] Jaden Chew MD Unavailable Encounter Details Date Type Department Care Team (Late st Contact Info) Description 02/20/2025 Orders Only [facility] [address] [phone] Laura Wan LPN [address] [place] [id number] Social History Tobacco Use Types Packs/Day Years Used Date Smoking Tobacco: Every Day Cigarettes 1.5 20 Smokeless Tobacco: Never Alcohol Use Standard Drinks/Week Comments Never 0 (1 standard drink = 0.6 oz pur e alcohol) Comments No Sex and Gender Information Value Date Recorded Sex Assigned at Not on file Legal Sex Female 7:17 PM EDT Gender Identity Not on file Sexual Orientation Not on file documented as of this encounter Plan of Treatment Not on file documented as of this encounter Procedures Procedure Name Priority Date/Time Associated Diagnosis Comments PAP SMEAR Routine 02/10/2025 12:00 AM EDT documented in this encounter Results * Pap Smear (02/10/2025 12:00 AM EDT) Swab Cervical swab / Unknown us Roddy Nurse [facility] CYTOLOGY ORDERABLES Final Result EXTERNAL LAB documented in this encounter Visit Diagnoses Not on filedocumented in this encounter Care Teams Bridge Carpenter Relationship Specialty Start Date End Date Jaden Chew MD PCP - General Family Medicine 07/24/23 Jaden Chew MD [address] [facility] [place] [address] PCP - [facility] 07/02/24 documented as of this encounter
--- OUTSIDE RECORDS SUMMARY | 2025-03-19 13:09 | XMS_ITS | Clinical Summary ---
Author Organization [facility] Address [id number] [address] [place] [address] Care Team Providers Care Underwriting Manager Name Role Phone Unavailable Primary Care Provider Unavailabl e Allergies No known active allergies Medications loratadine (CLARITIN) 10 mg tablet Take 10 mg by mouth in the morning. Active fluticasone propionate (FLONASE) 50 mcg/actuation nasal spray Administer 1 spray into each nostril daily. Active omeprazole (PriLOSEC) 40 mg capsule Take 40 mg by mouth in the morning. Active cholecalciferol, vitamin D3, 5,000 units tablet Take 5,000 Units by mouth in the morning. Active tiotropium (SPIRIVA) 18 mcg per inhalation capsule Place 1 capsule into inhaler and inhale once daily. Active famotidine (PEPCID) 20 mg tablet Take 20 mg by mouth as needed for heartburn. Active ALPRAZolam (XANAX) 0.5 mg tablet Take 0.5 mg by mouth 3 (three) times a day as needed for anxiety. Active albuterol (PROVENTIL HFA;VENTOLIN HFA) 90 mcg/actuation inhaler Inhale 2 puffs every 6 (six) hours as needed for wheezing. Active albuterol (PROVENTIL,VENTOL IN) 2.5 mg /3 mL (0.083 %) nebulizer solution Inhale 2.5 mg by nebulization every 6 (six) hours as needed for wheezing. Active naproxen (NAPROSYN) 500 mg tablet Take 500 mg by mouth as needed for pain. Active clindamycin (CLEOCIN) 300 mg capsule Take 300 mg by mouth in the morning and at bedtime. Active norethindrone (MICRONOR) 0.35 mg tabletIndications :Surveillance of previously prescribed contraceptive pill Take 1 tablet (0.35 mg total) by mouth in the morning. 28 tablet 12 03/28/20 22 Active Active Problems Problem Noted Date Diagnosed Date Smoker 03/28/2022 Overview (03/28/2022): Encouraged cessation BMI 40.0-44.9, adult 03/28/2022 Overview (03/28/2022): Discussed BMI at well woman visit Family History Medical History Relation Name Comments Diabetes Maternal Grandmother Heart disease Maternal Grandmother Hyperlipidemia Maternal Grandmother Kidney cancer Paternal Grandmother Relation Name Status Comments Maternal Grandmother Paternal Grandmother Social History Tobacco Use Types Packs/Day Years Used Date Smoking Tobacco: Every Day Cigarettes Smokeless Tobacco: Never Alcohol Use Standard Drinks/Week Comments Never 0 (1 standard drink = 0.6 oz pur e alcohol) Comments No Sex and Gender Information Value Date Recorded Sex Assigned at Not on file Legal Sex Female 10:59 AM EDT Gender Identity Not on file Sexual Orientation Not on file Last Filed Vital Signs Vital Sign Reading Time Taken Comments Blood Pressure 126/84 03/28/2022 11:05 AM EDT Pulse - - Temperature - - Respiratory Rate - - Oxygen Saturation - - Inhaled Oxygen Concentration - - Weight 106.6 kg (235 lb) 03/28/2022 11:05 AM EDT Height 161.3 cm (5' 3.5 ) 03/28/2022 11:05 AM ED T Body Mass Index 40.98 03/28/2022 11:05 AM EDT Plan of Treatment Health Maintenance Due Date Last Done Comments Depression Screening 1985 Tobacco Screening 1985 DTaP,Tdap and Td Vaccines (1 - Tdap) 1992 Mammogram 2013 Zoster (Shingles) Vaccine (1 of 2) 2023 Adult BMI Screening 03/28/2023 03/28/2022 COVID-19 Vaccine (3 - season) 03/02/202511/2020, 03/16/2021 Influenza Vaccine 2025 Pap Smear 03/28/2025 03/28/2022, 03/28/2022 Medical Devices Not on file Procedures Procedure Name Priority Date/Time Associated Diagnosis Comments HIGH RISK HPV W/SANDRA Routine 03/28/2022 10:26 AM EDT from Last 3 Months or Most Recently Relevant to Health Maintenance Results * (ABNORMAL) High risk HPV w/sandra (03/28/2022 10:26 AM EDT) Hpv specimen type ThinPrep 03/29/2022 10:26 AM EDT [facility] Hpv 16 Negative Negative^ Negative 03/30/2022 2:46 PM EDT [facility] Hpv 18 Negative Negative^ Negative 03/30/2022 2:46 PM EDT [facility] Other high risk hpv Positive(A) Negative^ Negative 03/30/2022 2:46 PM EDT [facility] Comment: For the DNA of any or combination of the following HPV types: 31,33,35,45, 52,56,58,59,66 and 68. THINP 03/28/2022 10:2 6 AM EDT 03/29/2022 10:26 AM EDT us Faye Patel [employer] LAB BLOOD ORDERABLES Fin al Result [facility] [address] [facility] [address] [place] [address] from Last 3 Months or Most Recently Relevant to Health Maintenance Insurance [facility] MEDICAID
--- OUTSIDE RECORDS SUMMARY | 2025-03-19 13:09 | XMS_ITS | Clinical Summary ---
Author Organization [facility] Address [address] [place] [address] Care Team Providers Care Bulk Delivery Driver Name Role Phone Jaden Chew MD Primary Care Provider [phone] Jaden Chew MD Unavailable Allergies No known active allergies Medications fluticasone (Flonase) 50 MCG/ACT nasal spray instill 2 (TWO) spray nasally DAILY Active albuterol HFA 90 mcg/act inhaler Inhale 2 puffs every 4 (four) hours if needed for wheezing Active albuterol (2.5 MG/3ML) 0.083% nebulizer solutionIndicatio ns:Chronic obstructive pulmonary disease, unspecified COPD type (HCC) Take 3 mL (2.5 mg) by nebulization every 4 (four) hours if needed for wheezing 75 mL 3 06/18/20 23 Active Respiratory Therapy Supplies (Full Kit Nebulizer Set) miscIndications:C hronic obstructive pulmonary disease, unspecified COPD type (HCC) USE DIRECTED WITH compressor 1 each 07/13/19 24 Active Lancets (OneTouch Delica Plus [id number]) miscIndications:P re-diabetes USE DIRECTED DAILY 204 each 11 10/09/19 24 Active famotidine (Pepcid) 20 MG tabletIndications :Gastroesophageal reflux disease without esophagitis Take 1 tablet (20 mg) by mouth if needed for heartburn 30 tablet 5 11/13/19 24 Active estradiol (Estrace) 0.5 MG tabletIndications :Hormone imbalance TAKE 1 TABLET BY MOUTH IN THE MORNING 30 tablet 11 05/20/20 24 Active Deblitane 0.35 MG tabletIndications :Excessive bleeding in the premenopausal period TAKE 1 TABLET BY MOUTH DAILY 28 tablet 12 07/14/19 25 Active atorvastatin (Lipitor) 40 MG tabletIndications :Dyslipidemia TAKE 1 TABLET BY MOUTH at AT BEDTIME 30 tablet 09/02/19 25 Active ALPRAZolam (Xanax) 0.5 MG tabletIndications :Generalized anxiety disorder Take 1 tablet (0.5 mg) by mouth 3 (three) times a day as needed for anxiety for up to 20 days 60 tablet 1 09/03/19 25 Active butalbital-acetam inophen-caffeine 50-325-40 MG tabletIndications :Migraine without aura and without status migrainosus, not intractable Take 1 tablet by mouth 4 (four) times a day as needed for headaches 30 tablet 1 09/03/19 25 Active Allergy Relief 10 MG tabletIndications :Seasonal allergic rhinitis due to pollen TAKE 1 TABLET BY MOUTH DAILY 30 tablet 11 10/09/19 25 Active Myrbetriq 50 MG 24 hr tabletIndications :Mixed incontinence urge and stress (male)(female) TAKE 1 TABLET BY MOUTH ONCE DAILY AT BEDTIME DO NOT CRUSH, CHEW, OR SPLIT 30 tablet 10/15/19 25 Active omeprazole (PriLOSEC) [address] capsuleIndication s:Seasonal allergic rhinitis due to pollen TAKE 1 CAPSULE BY MOUTH ONCE DAILY 30 capsule 3 11/05/19 25 Active OXcarbazepine (Trileptal) 150 MG tabletIndications :Major depressive disorder, recurrent, moderate (HCC) Take 1 tablet (150 mg) by mouth in the morning and 1 tablet (150 mg) before bedtime. 60 tablet 2 12/04/19 25 Active cholecalciferol (Vitamin D-3) 125 MCG (5000 UT) tabletIndications :Vitamin D deficiency, unspecified TAKE 1 TABLET BY MOUTH DAILY 30 tablet 5 12/24/19 25 Active montelukast (Singulair) 10 MG tabletIndications :Allergic rhinitis due to pollen TAKE 1 TABLET BY MOUTH AT BEDTIME 30 tablet 12/24/19 25 Active metFORMIN XR (Glucophage-XR) 500 MG 24 hr tabletIndications :Insulin resistance Take 1 tablet (500 mg) by mouth in the evening. Take with meals Do not crush, chew, or split. 30 tablet 11 12/31/19 25 Active celecoxib (CeleBREX) 200 MG capsuleIndication s:DDD (degenerative disc disease), cervical TAKE 1 CAPSULE BY MOUTH TWICE DAILY NEEDED 60 capsule 3 01/20/20 25 Active Spiriva HandiHaler 18 MCG inhalation capsuleIndication s:Chronic obstructive pulmonary disease, unspecified (HCC) INHALE CONTENTS OF 1 (ONE) CAPSULE VIA HANDIHALER DAILY 30 capsule 5 01/21/20 25 Active metFORMIN (Glucophage) 1000 MG tabletIndications :Insulin resistance Take 1 tablet (1,000 mg) by mouth in the morning. Take with meals. 30 tablet 11 02/11/20 25 026 Active ciprofloxacin (Cipro) 500 MG tabletIndications :Urinary Tract Infection Take 1 tablet (500 mg) by mouth in the morning and 1 tablet (500 mg) before bedtime. Do all this for 7 days. 14 tablet 02/11/20 25 025 Active Problems Problem Noted Date Diagnosed Date Cigarette smoker 02/04/2025 Assessment & Plan (02/04/2025 9:29 AM EDT): Smoked 1 PPD for over 30 years and check LDCT chest. Annual physical exam 03/04/2024 Class 3 severe obesity due t o excess calories with serious comorbidity and body mass index (BMI) of 40.0 to 44.9 in adult 09/10/2023 Assessment & Plan (12/03/2024 9:28 AM EDT): Weight loss indicated Assessment & Plan (08/05/2024 12:28 PM EST): Weight loss indicated Assessment & Plan (06/12/2024 3:07 PM EST): Weight loss indicated Amenorrhea 06/18/2023 Migraine without aura and wi thout status migrainosus, not intractable 06/18/2023 Assessment & Plan (02/04/2025 9:29 AM EDT): CLARKE stable and use fioricet PRN. Assessment & Plan (12/03/2024 9:29 AM EDT): Worsening stable and use fioricet PRN. Assessment & Plan (09/02/2024 9:34 AM EST): Worsening CLARKE due to stress and use fioricet PRN. Chronic pain of left knee 06/18/2023 COPD (chronic obstructive pulmonary disease) Assessment & Plan (02/04/2025 9:29 AM EDT): Breathing stable and continue spiriva. Use albuterol PRN. Need to stop smoking. Assessment & Plan (12/03/2024 9:28 AM EDT): Breathing stable and continue spiriva. Use albuterol PRN. Need to stop smoking. Assessment & Plan (09/02/2024 9:33 AM EST): Breathing worse with increased smoking and needs to stop. Continue spiriva. Use albuterol PRN. Assessment & Plan (08/05/2024 12:27 PM EST): Breathing stable and continue spiriva. Use albuterol PRN. Stressed need to stop smoking. Assessment & Plan (03/04/2024 10:08 AM EDT): Breathing stable and continue spiriva. Use albuterol PRN. Stressed need to stop smoking. Assessment & Plan (09/10/2023 10:43 AM EDT): Breathing stable and continue spiriva. Use albuterol PRN. Assessment & Plan (06/18/2023 9:46 AM EST): Breathing stable and continue spiriva. Use albuterol PRN. DDD (degenerative disc disease), cervical 2022 Assessment & Plan (03/04/2024 10:09 AM EDT): Pain stable and continue celebrex. Perform home ROM exercises. Assessment & Plan (09/10/2023 10:43 AM EDT): Pain stable and continue celebrex. Perform home ROM exercises. Assessment & Plan (06/18/2023 9:46 AM EST): Pain stable and continue celebrex. DDD (degenerative disc disease), lumbar 06/18/20 23 Dyslipidemia 06/18/2023 Generalized anxiety disorder 06/18/2023 Assessment & Plan (02/04/2025 9:29 AM EDT): Still symptoms but feels like tolerable and continue trileptal. Use xanax PRN. Assessment & Plan (12/03/2024 9:29 AM EDT): Continued symptoms and not functioning well. Add trileptal and continue lexapro. Warned will take 2-3 weeks to notice improvement in mood. Use xanax PRN. Assessment & Plan (09/02/2024 9:34 AM EST): Continued symptoms and not functioning well. Increase lexapro and warned will take 2-3 weeks to notice improvement in mood. Use xanax PRN. Assessment & Plan (08/05/2024 12:27 PM EST): Severe symptoms and not functioning well. Start lexapro and warned will take 2-3 weeks to notice improvement in mood. Use xanax PRN. Assessment & Plan (03/04/2024 10:09 AM EDT): Symptoms stable and use xanax PRN. Assessment & Plan (09/10/2023 10:44 AM EDT): Symptoms stable and use xanax PRN. Assessment & Plan (06/18/2023 9:46 AM EST): Symptoms stable and use xanax PRN. Gastroesophageal reflux disease without esophagi tis 06/18/2023 Assessment & Plan (03/04/2024 10:09 AM EDT): Symptoms controlled with omeprazole and continue. Assessment & Plan (09/10/2023 10:43 AM EDT): Symptoms controlled with pepcid and continue. Assessment & Plan (06/18/2023 9:46 AM EST): Symptoms controlled with omeprazole and continue. Hidradenitis suppurativa 06/18/2023 Major depressive disorder, recurrent, moderate 1 08/19/2022 Assessment & Plan (02/04/2025 9:29 AM EDT): Still symptoms but feels like tolerable and continue trileptal. Assessment & Plan (12/03/2024 9:29 AM EDT): Continued symptoms and not functioning well. Increase lexapro and warned will take 2-3 weeks to notice improvement in mood. Assessment & Plan (09/02/2024 9:34 AM EST): Continued symptoms and not functioning well. Increase lexapro and warned will take 2-3 weeks to notice improvement in mood. Assessment & Plan (08/05/2024 12:27 PM EST): Severe symptoms and not functioning well. Start lexapro and warned will take 2-3 weeks to notice improvement in mood. Assessment & Plan (03/04/2024 10:09 AM EDT): Symptoms stable without medication and monitor. Assessment & Plan (09/10/2023 10:44 AM EDT): Symptoms stable without medication and monitor. Assessment & Plan (06/18/2023 9:46 AM EST): Symptoms stable without medication and monitor. Mixed incontinence urge and stress (male)(female ) 06/18/2023 Assessment & Plan (12/03/2024 9:29 AM EDT): Symptoms controlled with myrbetriq and continue. Assessment & Plan (09/02/2024 9:34 AM EST): Symptoms controlled with myrbetriq and continue. Assessment & Plan (03/04/2024 10:09 AM EDT): Symptoms controlled with myrbetriq and continue. Assessment & Plan (09/10/2023 10:44 AM EDT): Symptoms controlled with myrbetriq and continue. Pre-diabetes 06/18/2023 Premenopausal menorrhagia 06/18/2023 Vitamin D deficiency 06/18/2023 Seasonal allergic rhinitis due to pollen 023 Assessment & Plan (09/10/2023 10:44 AM EDT): Symptoms controlled with medication and continue. Assessment & Plan (06/18/2023 9:46 AM EST): Symptoms controlled with medication and continue. Resolved Problems Problem Noted Date Diagnosed Date Resolved Date Right ankle sprain 08/05/2024 Assessment & Plan (08/05/2024 12:27 PM EST): Recent injury but improving. Continue celebrex. Ice and elevate PRN. Acute UTI 06/12/2024 08/05/2024 Assessment & Plan (06/12/2024 3:06 PM EST): History suggestive UTI and treat. Take macrobid for infection and use pyridium for symptoms. Send urine for culture. Increase water intake and cranberry juice. Use motrin or tylenol for discomfort. Encounters Date Type Department Care Team Description 02/25/2025 Telephone [facility] [address] [place] [address] Chandrakant Pereyra, 02/20/2025 [place] [address] Laura Wan LPN 02/10/2025 9:00 AM EDT [place] [address] Chandrakant Pereyra, Well woman exam with routine gynecological exam; H/O: hysterectomy; Breast cancer screening by mammogram; Insulin resistance; UTI symptoms 02/10/2025 Clinisync Result Encounter [facility] External Department Unsolicited Chandrakant Pereyra, 02/10/2025 Bamboo flowsheet [facility] [address] [place] [phone] Chandrakant Pereyra, DO 02/04/2025 8:30 AM EDT Office Visit [facility] [address] [place] [address] Jaden Chew MD Major depressive disorder, recurrent, moderate (HCC) (Primary Dx); Generalized anxiety disorder ; Chronic obstructive pulmonary disease, unspecified COPD type (HCC); Cigarette smoker; Migraine without aura and without status migrainosus, not intractable 02/04/2025 Bamboo flowsheet [facility] [address] [place] [phone] Jaden Chew MD 01/20/2025 Refill [facility] [address] [place] [address] Jaden Chew MD Chronic obstructive pulmonary disease, unspecified (HCC) 01/19/2025 Refill [facility] [address] [place] [address] Jaden Chew MD DDD (degenerative disc disease), cervical 01/08/2025 Results Follow-Up [facility] [address] [place] [address] Jaden Chew MD ALL CBC WITH AUTO DIFF, MLR HEMOGLOBIN A1C, ALL BASIC METABOLIC PANEL, Additional followed-up results: 2 01/08/2025 Clinisync Result Encounter [facility] External Department Unsolicited Jaden Chew MD 12/30/2024 Telephone [facility] [address] [place] [phone] RoddyChandrakant aguilar DO 12/21/2024 Refill [facility] [place] [facility] [address] [facility] [place] [address] Jaden Chew MD Vitamin D deficiency, unspecified; Allergic rhinitis due to pollen from Last 3 Months Family History Medical History Relation Name Comments Learning disabilities Father Learning disabilities Mother Relation Name Status Comments Father Mother Social History Tobacco Use Types Packs/Day Years Used Date Smoking Tobacco: Every Day Cigarettes 1.5 20 Smokeless Tobacco: Never Tobacco Cessation:Ready to Q uit: Not Asked; Counseling Given: Not Answered Alcohol Use Standard Drinks/Week Comments Never 0 (1 standard drink = 0.6 oz pur e alcohol) Comments No Sex and Gender Information Value Date Recorded Sex Assigned at Not on file Legal Sex Female 7:17 PM EDT Gender Identity Not on file Sexual Orientation Not on file Last Filed Vital Signs Vital Sign Reading Time Taken Comments Blood Pressure 110/72 02/10/2025 9:05 AM EDT Pulse 96 02/04/2025 8:39 AM EDT Temperature 36.4 C (97.5 F) 02/04/2025 8:39 AM EDT Respiratory Rate 16 02/04/2025 8:39 AM EDT Oxygen Saturation 92% 02/04/2025 8:39 AM EDT Inhaled Oxygen Concentration - - Weight 117 kg (258 lb) 02/10/2025 9:05 AM EDT Height 165.1 cm (5' 5 ) 02/04/2025 8:39 AM EDT Body Mass Index 42.93 02/04/2025 8:39 AM EDT Plan of Treatment Health Maintenance Due Date Last Done Comments CT Colonography 1975 Colonoscopy 1975 FIT 1975 FOBT 1975 Sigmoidoscopy 1975 Influenza Vaccine (#1) 2025 Mammogram 03/17/2025 03/17/2024, 03/16/2023 Colorectal Cancer Screening 02/01/2026 FIT-DNA 02/01/2026 02/01/2023 Lung Cancer Screening Shared Decision Making 02/04/2026 Postponed from 1973 (Other Medical Reasons) Cervical Cancer Screening Discontinued Pap Smear Discontinued 02/10/2025, 01/30, 01/22/2023, Additional history exists HPV/Cotest Discontinued Procedures Procedure Name Priority Date/Time Associated Diagnosis Comments IGP,APTIMA HPV,AGE GDLN Routine 02/10/2025 8:59 AM EDT PAP SMEAR Routine 02/10/2025 12:00 AM EDT ALL THYROXINE (T4) FREE Routine 01/08/2025 8:12 AM EDT ALL THYROID STIM HORMONE Routine 01/08/2025 8:12 AM EDT ALL BASIC METABOLIC PANEL Routine 01/08/2025 8:12 AM EDT MLR HEMOGLOBIN A1C Routine 01/08/2025 8: 12 AM EDT ALL CBC WITH AUTO DIFF Routine 8:12 AM EDT MM TOMOSYNTHESIS SCREENING BI 03/17/2024 10:54 AM EDT from Last 3 Months or Most Recently Relevant to Health Maintenance Results * IGP,APTIMA HPV,AGE GDLN (02/10/2025 8:59 AM EDT) AGE GDLN ACOG TESTING Note . [facility] Comment: TESTS RESULT FLAG UNITS REF RANGE LAB Clinician Provided Cytology Information Source.............Vagina No. of containers..01 ThinPrep Vial Billie VELIZ Rena... FLAG LEGEND: L-Low Normal,H-High Normal,LL-Alert Low,HH-Alert High <-Panic Low,>-Panic High,A-Abnormal,AA-Critical Abnormal Performed at: 01 =[facility] [place] [address] Tova Munoz MD, IGP, APTIMA HPV, RFX 16/18,45 Note . [facility] Comment: TESTS RESULT FLAG UNITS REF RANGE LAB DIAGNOSIS: 02 NEGATIVE FOR INTRAEPITHELIAL LESION OR MALIGNANCY. THIS SPECIMEN WAS RESCREENED PART OF OUR [employer] OPERATIONS INTELLIGENCE CHIEF PROGRAM. Specimen adequacy: 02 Satisfactory for evaluation. Performed by: 02 Bakari Gonzalez, Sap Technical Architect (ASCP) QC reviewed by: 02 Bonnie Negron, Sap Technical Architect . 02 Note: Note 02 The Pap [...] <-Panic Low,>-Panic High,A-Abnormal,AA-Critical Abnormal Performed at: [address] [address] Tova Munoz MD, HPV APTIMA Negative Negative [facility] Comment: This nucleic acid amplification test detects fourteen high- risk HPV types (16,18,31,33,35,39,45,51,52,56,58,59,66,68) without differentiation. Performed at: =[facility] [id number] Prep Manager: Tova Munoz MD, Phone: [phone] Performed at: [address] [id number] Prep Manager: Tova Munoz MD, Phone: [phone] 02/10/2025 8:59 AM EDT 02/10/2025 11:54 AM EDT Narrative [facility] - 02/13/2025 2:10 PM EDT SPATULA-ALONE VAGINA Generic External Data Provider LAB BLOOD ORDERAB LES Final Result Performing Organization Address [facility] Co de Phone Number [facility] * Pap Smear (02/10/2025 12:00 AM EDT) Swab Cervical swab / Unknown Roddy Nurse [facility] Ob LAB CYTOLOGY ORDERABLES Final Result Performing Organization Address [facility] Co de Phone Number EXTERNAL LAB * (ABNORMAL) MLR HEMOGLOBIN A1C (01/08/2025 8:12 AM EDT) GLYCOHEMOGLOBIN A1C 6.3(H) 4.5 - 6.2 % [facility] Comment: ADA RECOMMENDED LIMIT 4.0 - 6.0 ADA THERAPEUTIC TARGET < 7.0 ACTION SUGGESTED > 7.0 ESTIMATED AVERAGE GLUCOSE 134 mg/dL [facility] 01/08/2025 8:12 AM EDT 01/08/2025 8:29 AM EDT Narrative [facility] - 01/08/2025 8:56 AM EDT Jaden TAYLOR Final Result Performing Organization Address [facility] de Phone Number [facility] * ALL THYROXINE (T4) FREE (01/08/2025 8:12 AM EDT) FREE T4 1.08 0.76 - 1.46 ng/dL TB 01/08/2025 8:12 AM EDT 01/08/2025 8:29 AM EDT Narrative [facility] - 01/08/2025 10:04 AM EDT Jaden TAYLOR Final Result Performing Organization Address [facility] Phone Number [facility] * ALL THYROID STIM HORMONE (01/08/2025 8:12 AM EDT) THYROID STIMULATING HORMONE 2.298 0.358 - 3.740 uIU/mL [facility] 01/08/2025 8:12 AM EDT 01/08/2025 8:29 AM EDT Narrative [facility] - 01/08/2025 9:11 AM EDT Jaden OSULLIVANISYSHEBA Final Result Performing Organization Address [facility] de Phone Number [facility]IN[facility] * (ABNORMAL) ALL CBC WITH AUTO DIFF (01/08/2025 8:12 AM EDT) TBH WBC 8.8 4.0 - 11.0 10 3/uL TBH TBH RBC 5.14 4.20 - 5.40 10 6/uL TBH TBH HGB 13.8 12.0 - 16.0 g/dL TBH TBH HCT 42.4 36.0 - 48.0 % TBH TBH MCV 82.5 81.0 - 99.0 fL TBH TBH MCH 26.8 26.7 - 34.0 pg TBH TBH MCHC 32.5 29.9 - 35.2 g/dL TBH TBH RDW 16.4(H) 11.0 - 15.0 % TBH TBH PLT 309 150 - 450 10 3/uL TBH TBH MPV 9.7 9.5 - 13.5 fL TBH NEUTROPHILS PERCENT AUTO 52.6 43.0 - 75.0 % TBH LYMPHOCYTES PERCENT AUTO 36.9 20.5 - 60.0 % TBH MONOCYTES PERCENT AUTO 6.7 1.7 - 12.0 % TBH TBH EO % 2.7 0.9 - 7.0 % TBH BASOPHILS PERCENT AUTO 1.0 0.2 - 2.0 % TBH IMMATURE GRANULOCYTES PCT AUTO 0.1 0.0 - 0.5 % TBH NEUTROPHILS ABSOLUTE AUTO 4.6 1.4 - 6.5 10 3/uL TBH LYMPHOCYTES ABSOLUTE AUTO 3.2 1.2 - 3.8 10 3/uL TBH MONOCYTES ABSOLUTE AUTO 0.6 0.3 - 0.8 10 3/uL TBH TBH EO # 0.2 0.0 - 0.7 10 3/uL TBH BASOPHILS ABSOLUTE AUTO 0.1 0.0 - 0.1 10 3/uL TBH IMMATURE GRANULOCYTES ABS AUTO 0.01 0.00 - 0.03 10 3/uL TB[facility] 01/08/2025 8:12 AM EDT 01/08/2025 8:29 AM EDT Narrative [facility] - 01/08/2025 8:37 AM EDT us Jaden Chew MD [facility] Final Result [facility] * (ABNORMAL) ALL BASIC METABOLIC PANEL (01/08/2025 8:12 AM EDT) SODIUM 140 136 - 145 mmol/L TBH POTASSIUM 4.3 3.5 - 5.1 mmol/L TBH CHLORIDE 102 98 - 107 mmol/L TBH CARBON DIOXIDE 31.5 21.0 - 32.0 mmol/L TBH ANION GAP 10.8 TBH GLUCOSE 110(H) 74 - 106 mg/dL TBH BLOOD UREA NITROGEN 18.0 7.0 - 18.0 mg/dL TBH CREATININE 0.72 0.55 - 1.02 mg/dL TBH TBH EGFR-AF PALAUAN >60 >=60 mL/min/1.7 3m 2 TBH TBH EGFR-NON AF PALAUAN >60 >=60 mL/min/1.7 3m 2 TBH BUN CREATININE RATIO 25.0 TBH CALCIUM 9.4 8.5 - 10.1 mg/dL [facility] 01/08/2025 8:12 AM EDT 01/08/2025 8:29 AM EDT Narrative [facility] - 01/08/2025 9:11 AM EDT Jaden TAYLOR Final Result [facility] * MM TOMOSYNTHESIS SCREENING BI (03/17/2024 10:54 AM EDT) Anatomical Region Laterality Modality Other 03/17/2024 10:5 4 AM EDT Narrative 03/17/2024 10:55 [place] [address] Mammography Report Signed Patient: JENN MCCANN MR#: [id number] : 1975 Acct:[id number] Age/Sex: 49 / F ADM Date: 03/17/24 Loc: MAMMO Attending Dr: Chandrakant Pereyra D.O. Ordering Physician: Chandrakant Pereyra D.O. Results: Date of Service: 03/17/24 Follow Up: Procedure(s): MM tomosynthesis screening BI Accession Number(s): [id number] cc: Chandrakant Pereyra D.O.; Jaden Chew M.D. Patient Name: JENN MCCANN MR#: [id number] : 1975 Exam Date: 03/17/2024 Ordering Doctor: DR Chandrakant Pereyra . RADIOLOGY REPORT PROCEDURE: MM TOMOSYNTHESIS SCREENING BI COMPARISON: MG MAMM SCREEN 3D PILY CAD, 03/13/2022. MM TOMOSYNTHESIS SCREENING BI, 03/16/2023. INDICATIONS: Screening Calculator Name NCI Breast Cancer Risk Assessment Tool 5 Year Breast Cancer Risk 1.00% Lifetime Breast Cancer Risk 8.90% Personal Breast Cancer No Personal Ovarian Cancer No Treatments None Family Cancers None LOCATION: [facility] BREAST COMPOSITION: There are scattered areas of fibroglandular density. FINDINGS: DIAGNOSTIC CATEGORY 2--BENIGN FINDING. NO CHANGE FROM COMPARISON. Scattered benign-appearing calcifications are present. Scattered benign-appearing lymph nodes are present. Scattered benign-appearing nodules are present. RIGHT BREAST: No significant suspicious finding. LEFT BREAST: No significant suspicious finding. RECOMMENDATIONS: ROUTINE MAMMOGRAM AND CLINICAL EVALUATION IN 12 MONTHS. PLEASE NOTE: A NORMAL MAMMOGRAM DOES NOT EXCLUDE THE POSSIBILITY OF BREAST CANCER. A CLINICALLY SUSPICIOUS PALPABLE LUMP SHOULD BE BIOPSIED. Dictated by: Iggy Patterson MD on 03/17/2024 at 10:52 Approved by: Iggy Patterson MD on 03/17/2024 at 10:54 Dictated By: Iggy Patterson M.D. Signed By: 03/17/24 1055 DD/ 1054 TD/TT: Rn Documentation: Procedure Note Radiology, Radiologist, MD - 03/17/2024 [place] [address] Mammography Report Signed Patient: JENN MCCANN AMR#: [id number] : 1975Acct:[id number] Age/Sex: 49 / FADM Date: 03/17/24 Loc: MAMMO Attending Dr: Chandrakant Pereyra D.O. Ordering Physician: Chandrakant Pereyra D.O.Results: Date of Service: 03/17/24Follow Up: Procedure(s): MM tomosynthesis screening BI Accession Number(s): [id number] cc: Chandrakant Pereyra D.O.; Jaden Chew M.D. Patient Name: JENN MCCANN MR#: [id number] : 1975 Exam Date: 03/17/2024 Ordering Doctor: DR Chandrakant Pereyra . RADIOLOGY REPORT PROCEDURE: MM TOMOSYNTHESIS SCREENING BI COMPARISON: MG MAMM SCREEN 3D PILY CAD, 03/13/2022. MM TOMOSYNTHESIS SCREENING BI, 03/16/2023. INDICATIONS: Screening Calculator Name NCI Breast Cancer Risk Assessment Tool 5 Year Breast Cancer Risk 1.00% Lifetime Breast Cancer Risk 8.90% Personal Breast Cancer No Personal Ovarian Cancer No Treatments None Family Cancers None LOCATION: [facility] BREAST COMPOSITION: There are scattered areas of fibroglandulardensity. FINDINGS: DIAGNOSTIC CATEGORY 2--BENIGN FINDING. NO CHANGE FROM COMPARISON. Scattered benign-appearing calcifications are present. Scattered benign-appearing lymph nodes are present. Scattered benign-appearingnodules are present. RIGHT BREAST: No significant suspicious finding. LEFT BREAST: No significant suspicious finding. RECOMMENDATIONS: ROUTINE MAMMOGRAM AND CLINICAL EVALUATION IN 12 MONTHS. PLEASE NOTE: A NORMAL MAMMOGRAM DOES NOT EXCLUDE THE POSSIBILITY OFBREAST CANCER. A CLINICALLY SUSPICIOUS PALPABLE LUMP SHOULD BE BIOPSIED. Dictated by: Iggy Patterson MD on 03/17/2024 at 10:52 Approved by: Iggy Patterson MD on 03/17/2024 at 10:54 Dictated By: Iggy Patterson M.D. Signed By:03/17/24 1055 DD/ 1054 TD/TT: Rn Documentation: Generic External Data Provider [facility] Final Result from Last 3 Months or Most Recently Relevant to Health Maintenance Insurance [employer] Care Teams Bulk Delivery Driver Relationship Specialty Start Date End Date Jaden Chew MD PCP - General Family Medicine 07/24/23 Jaden Chew MD [address] [facility] [place] [address] [facility] 07/02/24
--- OUTSIDE RECORDS SUMMARY | 2025-03-19 13:09 | XMS_ITS | Encounter Summary ---
Author Organization [facility] Address [address] [place] [address] Care Team Providers Care Financial Management Name Role Phone Jaden Chew MD Primary Care Provider [phone] Chandrakant Pereyra DO Unavailable Jaden Chew MD Unavailable Encounter Details Date Type Department Care Team (Late st Contact Info) Description 02/19/2024 Orders Only ASHLEE MESA [address] [facility] [place] [address] Lisa Ma MA [address] [facility] [place] [address] Social History Tobacco Use Types Packs/Day Years [...] Date/Time Associated Diagnosis Comments PAP SMEAR Routine 02/11/2024 12:00 AM EDT documented in this encounter Results * Pap Smear (02/11/2024 12:00 AM EDT) Swab Cervical swab / Unknown us Chandrakant Pereyra DO LAB CYTOLOGY ORDERABLES Final Re sult EXTERNAL LAB documented in this encounter Visit Diagnoses Not on filedocumented in this encounter Care Teams Financial Management Relationship Specialty Start Date End Date Jaden Chew MD PCP - General Family Medicine 07/24/23 Chandrakant Pereyra DO [address] [place] [address] [place] [address] PCP - [facility] 04/01/24 Jaden Chew MD [address] [place] [address] PCP - [facility] 07/02/24 documented as of this encounter
--- OUTSIDE RECORDS SUMMARY | 2025-03-19 13:10 | XMS_ITS | Encounter Summary ---
Author Organization [facility] Address [address] [place] [address] Care Team Providers Care Towel Distributor Name Role Phone Jaden Chew MD Primary Care Provider [phone] Jaden Chew MD Unavailable Reason for Visit * Reason Comments Med Refill Encounter Details Date Type Department Care Team (Late st Contact Info) Description 09/21/2024 [facility] [address] [facility] [place] [place] [address] Jaden Chew MD [address] [place] [address] DDD (degenerative disc disease), cervical Social History Tobacco Use Types Packs/Day Years [...] on file documented as of this encounter Miscellaneous Notes * Telephone Encounter - Laura Padilla MA - 09/22/2024 9:01 AM EDT MEDICATION SENT TO [facility] documented in this encounter Plan of Treatment Not on file documented as of this encounter Visit Diagnoses Diagnosis DDD (degenerative disc disease), cervical Degeneration of cervical intervertebral disc documented in this encounter Care Teams Towel Distributor Relationship Specialty Start Date End Date Jaden Chew MD PCP - General Family Medicine 07/24/23 Jaden Chew MD [address] [facility] [place] [address] PCP - [facility] 07/02/24 documented as of this encounter
--- OUTSIDE RECORDS SUMMARY | 2025-03-19 13:10 | XMS_ITS | Encounter Summary ---
Author Organization [facility] Address [address] [place] [address] Care Team Providers Care Grinder Set Up Operator External Name Role Phone Jaden Chew MD Primary Care Provider [phone] Chandrakant Pereyra DO Unavailable Jaden Chew MD Unavailable Encounter Details Date Type Department Care Team (Late st Contact Info) Description 04/14/2024 Abstract NOMLinda MESA [address] [place] [phone] Chandrakant Pereyra DO [address] [place], [place] [id number] Social History Tobacco Use Types Packs/Day Years [...] documented as of this encounter Visit Diagnoses Not on filedocumented in this encounter Care Teams Grinder Set Up Operator External Relationship Specialty Start Date End Date Jaden Chew MD PCP - General Family Medicine 07/24/23 Chandrakant Pereyra DO [address] [place], [place] [id number] PCP - [facility] 04/01/24 Jaden Chew MD [address] [place] [address] PCP - [facility] 07/02/24 documented as of this encounter
--- OUTSIDE RECORDS SUMMARY | 2025-03-19 13:10 | XMS_ITS | Encounter Summary ---
Author Organization [facility] Address [address] [place] [address] Care Team Providers Care Outside B2B Sales Name Role Phone Jaden Chew MD Primary Care Provider [phone] Josi Pereyra DO Unavailable Jaden Chew MD Unavailable Encounter Details Date Type Department Care Team (Late st Contact Info) Description 04/10/2024 Clinisync Result Encounter [facility] External Department Unsolicited Provider, Generic External Data Social History Tobacco Use Types Packs/Day Years [...] Procedure Name Priority Date/Time Associated Diagnosis Comments XR DEXA AXIAL SKELETON 04/10/2024 9:11 AM EDT documented in this encounter Results * XR DEXA AXIAL SKELETON (04/10/2024 9:11 AM EDT) Anatomical Region Laterality Modality Other 04/10/2024 9:11 AM EDT Narrative 04/10/2024 9:14 AM EDT The [address] [address] XRay Report Signed Patient: JENN MCCANN MR#: [id number] : 1975 Acct:[id number] Age/Sex: 49 / F ADM Date: 04/10/24 Loc: EMELY Attending Dr: Josi Pereyra D.O. Ordering Physician: Josi Pereyra D.O. Date of Service: 04/10/24 Procedure(s): XR DEXA axial skeleton Accession Number(s): [id number] cc: Josi Pereyra D.O.; Jaden Chew M.D. [place] [id number] Patient Name: JENN MCCANN MRN: [id number] date: 1975 Sex: F Assigned Patient Location: [facility] Current Patient Location: [facility] Accession/Order Number: [id number] Exam Date: 04/10/2024 08:53 Report Date: 04/10/2024 09:11 At the request of: JOSI PEREYRA Procedure: XR DEXA axial skeleton EXAMINATION: XR DEXA axial skeleton HISTORY: Osteoporosis COMPARISON: No relevant comparison available. TECHNIQUE: Dual-energy X-ray absorptiometry (DXA) was performed. FINDINGS: SPINE ANALYSIS: Average bone mineral density is 1.379 g/cm2. T-score (standard deviation relative to young adult mean): 1.7 . HIP ANALYSIS: Lowest bone mineral density is within the left femoral neck, 0.974 g/cm2. T-score (standard deviation relative to young adult mean): -0.5 . XR/XR DEXA axial skeleton IMPRESSION: World Health Organization Classification: Normal - Low Fracture Risk FRAX: Cannot be calculated. Pharmacologic treatment recommendations * No uniform recommendation applies to all patients. Management plans must be individualized. * Consider initiating pharmacologic treatment in postmenopausal women and men >= 50 years of age who have the following: Primary fracture prevention: * T-score <= - 2.5 at the femoral neck, total hip, lumbar spine, 33% radius (some uncertainty with existing data) by DXA. * Low bone mass (osteopenia: T-score between - 1.0 and - 2.5) at the femoral neck or total hip by DXA with a 10-year hip fracture risk >= 3% or a 10-year major osteoporosis-related fracture risk >= 20% (i.e., clinical vertebral, hip, forearm, or proximal humerus) based on the US-adapted FRAXregistered model. Secondary fracture prevention: * Fracture of the hip or vertebra regardless of BMD [4, 5]. * Fracture of proximal humerus, pelvis, or distal forearm in persons with low bone mass (osteopenia: T-score between - 1.0 and - 2.5). The decision to treat should be individualized in persons with a fracture of the proximal humerus, pelvis, or distal forearm who do not have osteopenia or low BMD [12, 13]. Gael MS, Alma SL, Kimi KL, Ellen EM, Brendan KG, AJ, Radha ES. The clinician's guide to prevention and treatment of osteoporosis. Osteoporos Int. 2021;3310):2868-5884. doi: 10.1007/q04105-036-22927-c. Epub 2021Oct 27. Erratum in: Osteoporos Int. 2021Jan 26;: PMID: 56351629; PMCID: [id number]. Electronically authenticated by: NATE DURAN Date: 04/10/2024 09:11 Dictated By: Nate Duran M.D. Signed By: 04/10/24913 DD/ 0 TD/TT: Supervisor Particleboard: Procedure Note Radiology, Radiologist, - 04/10/2024 [place] [address] XRay Report Signed Patient: JENN MCCANN [facility]#: [id number] : 1975Acct:[id number] Age/Sex: 49 / FADM Date: 04/10/24 Loc: RAD Attending Dr: Josi Pereyra D.O. Ordering Physician: Josi Pereyra D.O. Date of Service: 04/10/24 Procedure(s): XR DEXA axial skeleton Accession Number(s): [id number] cc: Josi Pereyra D.O.; Jaden Chew M.D. The [place] [id number] Patient Name: JENN MCCANN MRN: [id number] date: 1975 Sex: F Assigned Patient Location: [facility] Current Patient Location: [facility] Accession/Order Number: [id number] Exam Date: 04/10/2024 08:53 Report Date: 04/10/2024 09:11 At the request of: JOSI PEREYRA Procedure: XR DEXA axial skeleton EXAMINATION: XR DEXA axial skeleton HISTORY: Osteoporosis COMPARISON: No relevant comparison available. TECHNIQUE: Dual-energy X-ray absorptiometry (DXA) was performed. FINDINGS: SPINE ANALYSIS: Average bone mineral density is 1.379 g/cm2. T-score (standard deviation relative to young adult mean): 1.7 . HIP ANALYSIS: Lowest bone mineral density is within the left femoral neck, 0.974 g/cm2. T-score (standard deviation relative to young adult mean): -0.5 . XR/XR DEXA axial skeleton IMPRESSION: World Health Organization Classification: Normal - Low Fracture Risk FRAX: Cannot be calculated. Pharmacologic treatment recommendations * No uniform recommendation applies to all patients. Management plans mustbe individualized. * Consider initiating pharmacologic treatment in postmenopausal women andmen >= 50 years of age who have the following: Primary fracture prevention: * T-score <= - 2.5 at the femoral neck, total hip, lumbar spine, 33%radius (some uncertainty with existing data) by DXA. * Low bone mass (osteopenia: T-score between - 1.0 and - 2.5) at thefemoral neck or total hip by DXA with a 10-year hip fracture risk >= 3% or [id number] major osteoporosis-related fracture risk >= 20% (i.e., clinical vertebral, hip, forearm, or proximal humerus) based on the US-adapted FRAXregisteredmodel. Secondary fracture prevention: * Fracture of the hip or vertebra regardless of BMD [4, 5]. * Fracture of proximal humerus, pelvis, or distal forearm in persons withlow bone mass (osteopenia: T-score between - 1.0 and - 2.5). The decision totreat should be individualized in persons with a fracture of the proximalhumerus, pelvis, or distal forearm who do not have osteopenia or low BMD [12, 13]. Gael MS, Alma SL, Kimi KL, Ellen EM, Brendan KG, AJ,Radha ES. The clinician's guide to prevention and treatment of osteoporosis.Osteoporos Int. 2021;33(10):4231-3595. doi: 10.1007/b13532-096-74537-u. Epub . Erratum in: Osteoporos Int. 2021Jan 26;: PMID: 50098576; PMCID: [id number]. Electronically authenticated by: NATE DURAN Date: 04/10/2024 09:11 Dictated By: Nate Duran M.D. Signed By:04/10/24913 DD/ 0 TD/TT: Supervisor Particleboard: us Generic External Data Provider [facility] Final Result documented in this encounter Visit Diagnoses Not on filedocumented in this encounter Care Teams Outside B2B Sales Relationship Specialty Start Date End Date Jaden Chew MD PCP - General Family Medicine 07/24/23 Josi Pereyra DO [address] [place] [address] [place] [address] PCP - [facility] BUS AIDE 04/01/24 Jaden Chew MD [address] [place] [address] PCP - [facility] BUS AIDE 07/02/24 documented as of this encounter
--- OUTSIDE RECORDS SUMMARY | 2025-03-19 13:10 | XMS_ITS | Encounter Summary ---
Author Organization [facility] Address [address] [place] [address] Care Team Providers Care Viticulturist Name Role Phone Jaden Chew MD Primary Care Provider [phone] Jaden Chew MD Primary Care Provider [phone] Josi Pereyra DO Unavailable Jaden Chew MD Unavailable Encounter Details Date Type Department Care Team (Late st Contact Info) Description 04/27/2023 Clinisync Result Encounter [facility] External Department Unsolicited Josi Pereyra, DO [address] [facility] [place] [address] Social History Tobacco Use Types Packs/Day Years Used Date Smoking Tobacco: Never Assessed Comments Unknown Sex and Gender Information Value Date Recorded Sex Assigned at Not on file Legal Sex Female 7:17 PM EDT Gender Identity Not on file Sexual Orientation Not on file documented as of this encounter Plan of Treatment Not on file documented as of this encounter Procedures Procedure Name Priority Date/Time Associated Diagnosis Comments XR CHEST 2V 04/27/2023 9:36 AM EDT documented in this encounter Results * XR CHEST 2V (04/27/2023 9:36 AM EDT) Anatomical Region Laterality Modality Other 04/27/2023 9:36 AM EDT Narrative 04/27/2023 9:36 AM EDT The [address] [address] XRay Report Signed Patient: JENN MCCANN MR#: [id number] : 1975 Acct:[id number] Age/Sex: 48 / F ADM Date: 04/27/23 Loc: PST Attending Dr: Josi Pereyra D.O. Ordering Physician: Josi Pereyra D.O. Date of Service: 04/27/23 Procedure(s): XR chest 2V Accession Number(s): [id number] cc: Josi Pereyra D.O.; Jaden Chew M.D. The [place] [address] Patient Name: JENN MCCANN MRN: [id number] date: 1975 Sex: F Assigned Patient Location: [facility] Current Patient Location: [facility] Accession/Order Number: [id number] Exam Date: 04/27/2023 08:50 Report Date: 04/27/2023 09:36 At the request of: JOSI PEREYRA Procedure: XR chest 2V EXAM: XR chest 2V HISTORY: Preop exam COMPARISON: None. TECHNIQUE: PA and lateral views of the chest. FINDINGS: The cardiomediastinal silhouette is normal. No focal consolidation is identified. There is no pneumothorax. No pleural effusion is noted. The osseous structures are intact. XR/XR chest 2V IMPRESSION: No acute cardiopulmonary process. Electronically authenticated by: MILKA BENITEZ Date: 04/27/2023 09:36 Dictated By: Milka Benitez M.D. Signed By: 04/27/23937 DD/ 5 TD/TT: Vp Foundation: Procedure Note Radiology, Radiologist, MD - 04/27/2023 [place] [address] XRay Report Signed Patient: JENN MCCANN AMR#: [id number] : 1975Acct:[id number] Age/Sex: 48 / FADM Date: 04/27/23 Loc: PST Attending Dr: Josi Pereyra D.O. Ordering Physician: Josi Pereyra D.O. Date of Service: 04/27/23 Procedure(s): XR chest 2V Accession Number(s): [id number] cc: Josi Pereyra D.O.; Jaden Cehw M.D. The [address] [address] Patient Name: JENN MCCANN MRN: [id number] date: 1975 Sex: F Assigned Patient Location: [facility] Current Patient Location: [facility] Accession/Order Number: [id number] Exam Date: 04/27/2023 08:50 Report Date: 04/27/2023 09:36 At the request of: JOSI PEREYRA Procedure: XR chest 2V EXAM: XR chest 2V HISTORY: Preop exam COMPARISON: None. TECHNIQUE: PA and lateral views of the chest. FINDINGS: The cardiomediastinal silhouette is normal. No focal consolidation is identified. There is no pneumothorax. No pleural effusion is noted. The osseous structures are intact. XR/XR chest 2V IMPRESSION: No acute cardiopulmonary process. Electronically authenticated by: MILKA BENITEZ Date: 04/27/2023 09:36 Dictated By: Milka Benitez M.D. Signed By:04/27/23937 DD/ 5 TD/TT: Vp Foundation: Josi Pereyra DO [facility] Final Result documented in this encounter Visit Diagnoses Not on filedocumented in this encounter Care Teams Viticulturist Relationship Specialty Start Date End Date Jaden Chew MD PCP - General Family Medicine 12/22/22 07/23/23 Jaden Chew MD PCP - General Family Medicine 07/24/23 Josi Pereyra DO [address] [place] [address] [place] [address] [facility]CP - [facility] 04/01/24 Jaden Chew MD [address] [place] [address] [facility] 07/02/24 documented as of this encounter
--- OUTSIDE RECORDS SUMMARY | 2025-03-19 13:10 | XMS_ITS | Encounter Summary ---
Author Organization [facility] Address [address] [place] [address] Care Team Providers Care Olive Knocker Name Role Phone Jaden Chew MD Primary Care Provider [phone] Jaden Chew MD Unavailable Encounter Details Date Type Department Care Team (Late st Contact Info) Description 07/28/2024 Orders Only [facility] [address] [place] [address] Corbin Dobbins MD [address] [facility] Social History Tobacco Use Types Packs/Day Years [...] Name Priority Date/Time Associated Diagnosis Comments XR FOOT 3+ VIEWS RIGHT Routine 07/28/2024 10:02 AM EST XR ANKLE 2 VIEWS RIGHT Routine 07/25/2024 10:28 AM EST documented in this encounter Results * XR foot 3+ views right (07/28/2024 10:02 AM EST) Anatomical Region Laterality Modality Lower Extremities, Foot Right Radiogra phic Imaging us Corbin Dobbins MD IMG XR PROCEDURES Final Result * XR ankle 2 views right (07/25/2024 10:28 AM EST) Anatomical Region Laterality Modality Lower Extremities, Ankle Right Radiogr aphic Imaging us Corbin Dobbins MD IMG XR PROCEDURES Final Result documented in this encounter Visit Diagnoses Not on filedocumented in this encounter Care Teams Olive Knocker Relationship Specialty Start Date End Date Jaden Chew MD PCP - General Family Medicine 07/24/23 Jaden Chew MD [address] [place] [address] PCP - [facility] 07/02/24 documented as of this encounter
--- OUTSIDE RECORDS SUMMARY | 2025-03-19 13:10 | XMS_ITS | Encounter Summary ---
Author Organization [facility] Address [address] [place] [address] Care Team Providers Care Brine Plant Operator Name Role Phone Jaden Chew MD Primary Care Provider [phone] Chandrakant Pereyra DO Unavailable Jaden Chew MD Unavailable Encounter Details Date Type Department Care Team (Late st Contact Info) Description 03/17/2024 Clinisync Result Encounter [facility] External Department Unsolicited [...] Procedure Name Priority Date/Time Associated Diagnosis Comments MM TOMOSYNTHESIS SCREENING BI 03/17/2024 10:54 AM EDT documented in this encounter Results * MM TOMOSYNTHESIS SCREENING BI (03/17/2024 10:54 AM EDT) Anatomical Region Laterality Modality Other 03/17/2024 10:5 4 AM EDT Narrative 03/17/2024 10:55 AM EDT The [address] [address] Mammography Report Signed Patient: JENN MCCANN MR#: [id number] : 1975 Acct:[id number] Age/Sex: 49 / F ADM Date: 03/17/24 Loc: MAMMO Attending Dr: Chandrakant Pereyra D.O. Ordering Physician: Chandrakant Pereyra D.O. Results: Date of Service: 03/17/24 Follow Up: Procedure(s): MM tomosynthesis screening BI Accession Number(s): [id number] cc: Chandrakant Pereyra D.O.; Jaden Chew M.D. Patient Name: JENN MCCANN MR#: [id number] : 1975 Exam Date: 03/17/2024 Ordering Doctor: [...] Family Cancers None LOCATION: The [facility] BREAST COMPOSITION: There are scattered areas of [...] Signed By: 03/17/24 1055 DD/ 1054 TD/TT: Interior Mechanic: Procedure Note Radiology, Radiologist, - 03/17/2024 [place] [address] Mammography Report Signed Patient: JENN MCCANN AMR#: [id number] : 1975Acct:[id number] Age/Sex: 49 / FADM Date: 03/17/24 Loc: MAMMO Attending Dr: Chandrakant Pereyra D.O. Ordering Physician: Chandrakant Pereyra D.O.Results: Date of Service: 03/17/24Follow Up: Procedure(s): MM tomosynthesis screening BI Accession Number(s): [id number] cc: Chandrakant Pereyra D.O.; Jaden Chew M.D. Patient Name: JENN MCCANN MR#: [id number] : 1975 Exam Date: 03/17/2024 Ordering Doctor: [...] Family Cancers None LOCATION: The [facility] BREAST COMPOSITION: There are scattered areas of [...] M.D. Signed By:03/17/24 1055 DD/ 1054 TD/TT: Interior Mechanic: us Generic External Data Provider [facility] Final Result documented in this encounter Visit Diagnoses Not on filedocumented in this encounter Care Teams Brine Plant Operator Relationship Specialty Start Date End Date Jaden Chew MD PCP - General Family Medicine 07/24/23 Chandrakant Pereyra DO [address] [place] [address] [place] [address] PCP - [facility] 04/01/24 Jaden Chew MD [address] [place] [address] PCP - [facility] 07/02/24 documented as of this encounter
--- OUTSIDE RECORDS SUMMARY | 2025-03-19 13:10 | XMS_ITS | Encounter Summary ---
Author Organization [facility] Address [address] [place] [address] Care Team Providers Care Terrazzo Mechanic Helper Name Role Phone Jaden Chew MD Primary Care Provider [phone] Chandrakant Pereyra DO Unavailable Jaden Chew MD Unavailable Encounter Details Date Type Department Care Team (Late st Contact Info) Description 11/28/2023 Orders Only [facility] [address] [place] [address] Jaden Chew MD [address] [place] [address] Social History Tobacco Use Types Packs/Day Years [...] on filedocumented in this encounter Care Teams Terrazzo Mechanic Helper Relationship Specialty Start Date End Date Jaden Chew MD PCP - General Family Medicine 07/24/23 Chandrakant Pereyra DO [address] [place] [address] [place] [address] PCP - [facility] 04/01/24 Jaden Chew MD [address] [place] [address] PCP - [facility] 07/02/24 documented as of this encounter
--- OUTSIDE RECORDS SUMMARY | 2025-03-19 13:10 | XMS_ITS | Encounter Summary ---
Author Organization [facility] Address [address] [place] [address] Care Team Providers Care Education Technician Name Role Phone Jaden Chew MD Primary Care Provider [phone] Jaden Chew MD Primary Care Provider [phone] Josi Pereyra DO Unavailable Jaden Chew MD Unavailable Encounter Details Date Type Department Care Team (Late st Contact Info) Description 04/27/2023 Clinisync Result Encounter [facility] Department Unsolicited Josi Pereyra, DO [address] [facility] [place] [address] Social History Tobacco Use Types Packs/Day Years [...] Procedure Name Priority Date/Time Associated Diagnosis Comments ECG 12-LEAD 04/27/2023 8:35 AM EDT documented in this encounter Results * ECG 12-LEAD (04/27/2023 8:35 AM EDT) Anatomical Region Laterality Modality Other 04/27/2023 8:35 AM EDT Narrative 04/27/2023 8:35 AM EDT The [address] [address] Electrocardiograph Report Signed Patient: JENN MCCANN MR#: [id number] : 1975 Acct:[id number] Age/Sex: 48 / F ADM Date: 04/27/23 Loc: PST Attending Dr: Josi Pereyra D.O. Ordering Physician: Josi Pereyra D.O. Date of Service: 04/27/23 Procedure(s): ECG 12 lead Accession Number(s): [id number] cc: [facility] Test Date: 2023-04-27 Pat Name: JENN MCCANN Department: Room: - Gender: Female Tankroom Worker: : 1975 Requested By: JOSI PEREYRA Order Number: [id number] [place] MD: ROMÁN NUNEZ Measurements Intervals [place] Rate: 73 P: 53 MT: 146 QRS: 27 QRSD: 87 T: 10 QT: 377 QTc: 418 Interpretive Statements SINUS RHYTHM Possible inf wall ischemia with inverrted T in III and aVF No previous ECG available for comparison Electronically Signed On 04-28-2023 7:07:35 EDT by ROMÁN NUNEZ Dictated By: Román Nunez M.D. Signed By: 04/28/23 0707 DD/ 0835 TD/TT: Dentures Lab Technician: Procedure Note Radiology, Radiologist, MD - 04/28/2023 [facility] [place] [id number] Electrocardiograph Report Signed Patient: JENN MCCANN AMR#: [id number] : 1975Acct:[id number] Age/Sex: 48 / FADM Date: 04/27/23 Loc: PST Attending Dr: Josi Pereyra D.O. Ordering Physician: Josi Pereyra D.O. Date of Service: 04/27/23 Procedure(s): ECG 12 lead Accession Number(s): [id number] cc: [facility] Test Date: 2023-04-27 Pat Name: JENN MCCANN Department: Room: - Gender: Female Tankroom Worker: : 1975 Requested By: JOSI PEREYRA Order Number: [id number] [place] MD: ROMÁN NUNEZ Measurements Intervals [place] Rate: 73 P: 53 MT: 146 QRS: 27 QRSD: 87 T: 10 QT: 377 QTc: 418 Interpretive Statements SINUS RHYTHM Possible inf wall ischemia with inverrted T in III and aVF No previous ECG available for comparison Electronically Signed On 04-28-2023 7:07:35 EDT by ROMÁN NUNEZ Dictated By: Román Nunez M.D. Signed By:04/28/23 0707 DD/ 0835 TD/TT: Dentures Lab Technician: us Josi Pereyra DO [facility] Final Result documented in this encounter Visit Diagnoses Not on filedocumented in this encounter Care Teams Education Technician Relationship Specialty Start Date End Date Jaden Chew MD PCP - General [facility] Medicine 12/22/22 07/23/23 Jaden Chew MD PCP - [facility] 07/24/23 Josi Pereyra DO [address] [place] [address] [place] [address] PCP - [facility] 04/01/24 Jaden Chew MD [address] [place] [address] PCP - [facility] 07/02/24 documented as of this encounter
--- NOTE | 2025-03-19 13:11 | MM_ITS ---
Patient Name: JANET DIOP MR#: [id number] : 1975 Exam Date: 03/19/2025 Ordering Doctor: DR JOSI YOUSIF . RADIOLOGY REPORT PROCEDURE: MM TOMOSYNTHESIS SCREENING BI COMPARISON: MM TOMOSYNTHESIS SCREENING BI, 03/17/2024. MM TOMOSYNTHESIS SCREENING BI, 03/16/2023. MG MAMM SCREEN 3D PILY CAD, 03/13/2022. MAMMO PILY SCREEN, 02/22/2015. INDICATIONS: Screening Calculator Name NCI Breast Cancer Risk Assessment Tool 5 Year Breast Cancer Risk 1.10% Lifetime Breast Cancer Risk 8.80% Personal Breast Cancer No Personal Ovarian Cancer No Treatments None Family Cancers None LOCATION: [facility] BREAST COMPOSITION: The breasts are almost entirely fatty. FINDINGS: DIAGNOSTIC CATEGORY 1--NEGATIVE. RIGHT BREAST: No significant suspicious finding. LEFT BREAST: No significant suspicious finding. RECOMMENDATIONS: ROUTINE MAMMOGRAM AND CLINICAL EVALUATION IN 12 MONTHS. Dictated by: Magnus Bautista MD on 03/19/2025 at 14:29 Approved by: Magnus Bautista MD on 03/19/2025 at 14:32
--- OUTSIDE RECORDS SUMMARY | 2025-03-19 13:13 | XMS_ITS | CCD ---
Author Organization [facility] Care Team Providers Care Front Counter Attendant Name Role Phone DR JADEN ANTONIO Primary Care Unavailable MARISELA, DR JADEN Ledesma Admitting Unavailable MARISELA, DR JADEN Ledesma Attending Unavailable MARISELA, DR JADEN Ledesma Consulting Unavailable MARISELA, DR JADEN Ledesma Primary Care Unavailable MARISELA, DR JADEN Ledesma Admitting Unavailable MARISELA, DR JADEN Ledesma Attending Unavailable DORON, DR NATE Morales Consulting Unavailable MARISELA, DR JAEDN Ledesma Consulting Unavailable Kimberly Scott Unavailable Jaden Antonio MD Primary Care Provider MD Jaden Antonio Primary Care Provider [phone] Josi Pereyra Attending Provider [phone] Jaden Antonio Primary Care Unavailable Josi Pereyra [...] predniSONE; Translations: [prednisone] Drug Allergy 07-03-2023 Unknown [facility] Repository Medications Current Medications Medication Drug [...] oral tablet (2 sources) alpha-Adrenergic Agonist, Uncompetitive V-flndwp-V-asparta te Receptor Antagonist, Sigma-1 Agonist Start: 07-03-2023 [...] Start: 07-03-2024 take 1 capsule by mo [facility] once daily omeprazole (PriLOSEC) [address] [...] Respiratory Therapy Supp[place]Full Kit Nebul[place] [facility] [place] sources[place] Start: 07-13-2023 Respiratory Therapy Supplies (Full Kit Nebulizer Set[place] [facility] Indications: Chronic obstructive pulmonary disease, unspecified COPD type (HCC) USE DIRECTED WITH compressor 1 each 07/13/2023 Active Start: 07-13-2023 Respiratory Th erapy Supplies (Full Kit Nebulizer Set[place] [facility] [place] [place]ications: Chronic obstructive pulmonary disease, unspecified COPD type (CMS/HCC) USE DIRECTED WITH compressor 1 each 07/13/2023 Active Start: 07-13-2023 Respiratory Th erapy Supplies (Full Kit Nebulizer Set[place] [facility] Indications: Chronic obstructive pulmonary disease, unspecified COPD [...] (BMI) of 39.0 to 39.9 in adult ([facility])] Onset: 09-10-2023 06-12-2024 Chronic Other nutritional; endocrine; [...] <-Panic Low,>-Panic High,A-Abnormal,AA-Critical Abnormal Performed at: 01 =[address] [address] Tova Munoz MD, HPV APTIMA Negative Negative [facility] Comment on above: This nucleic acid am plification test detects fourteen high- risk HPV types (16,18,31,33,35,39,45,51,52,56,58,59,66,68) without differentiation. Performed at: =[address] [id number] Lumber Yard Worker: Tova Munoz MD, Phone: [phone] Performed at: - [address] [id number] Lumber Yard Worker: Tova Munoz MD, Phone: [phone] IGP, APTIMA HPV, RFX 16/18,45 Note . [facility] Comment on above: TESTS RESULT FLAG UN ITS REF RANGE LAB DIAGNOSIS: 02 NEGATIVE FOR INTRAEPITHELIAL LESION OR MALIGNANCY. THIS SPECIMEN WAS RESCREENED PART OF OUR EL TEACHER PROGRAM. Specimen adequacy: 02 Satisfactory for evaluation. Performed by: 02 Bakari Gonazlez, Long Wall Shear Operator ([facility]) QC reviewed by: 02 Bonnie Negron, Long Wall Shear Operator . 02 Note: Note 02 The Pap [...] High,A-Abnormal,AA-Critical Abnormal Performed at: [address] [address] Tova Munoz MD, SPATULA-ALONE VAGINA [facility] ALL CBC WITH AUTO DIFFon BASOPHILS ABSOLUTE AUTO 0.1 [facility] Basophils/100 WBC (Bld) 1 % 0.2 - 2.0 % [facility] Eosinophils/100 WBC (Bld) 2.7 % 0.9 - 7.0 % [facility] Erythrocyte distribution width (RBC) [Ratio] 16.4 % High 11.0 - 15.0 % [facility] Hematocrit (Bld) [Volume fraction] 42.4 % 36.0 - 48.0 % [facility] Hemoglobin (Bld) [Mass/Vol] 13.8 g/dL 12.0 - 16.0 g/dL [facility] IMMATURE GRANULOCYTES ABS AUTO 0.01 [facility] Immature granulocytes/100 WBC (Bld) 0.1 % 0.0 - 0.5 % [facility] Interpretation and review of laboratory results Abnormal [facility] LYMPHOCYTES ABSOLUTE AUTO 3.2 [facility] Lymphocytes/100 WBC (Bld) 36.9 % 20.5 - 60.0 % [facility] MCH (RBC) [Entitic mass] 26.8 pg 26.7 [...] [facility] UA (CLEAN/CATCH) [facility] IF INDICATEon 06-13-2024 BILIRUBIN URINE Negative [facility] BLOOD URINE Negative NEGATIVE [facility] Clarity (U) CLEAR CLEAR [facility] Color (U) LT. YELLOW YELLOW [facility] GLUCOSE URINE UA Negative NEGATIVE mg/dL [facility] Interpretation and review of laboratory results [...] URINE 0.2 EU/dL 0.2 - 1.0 EU/dL [facility] ALL CBC WITH AUTO DIFFon BASOPHILS ABSOLUTE AUTO 0.1 [facility] Basophils/100 WBC (Bld) 1.1 % 0.2 - 2.0 % [facility] Eosinophils/100 WBC (Bld) 2.1 % 0.9 - 7.0 % [facility] Erythrocyte distribution width (RBC) [Ratio] 15.2 % High 11.0 - 15.0 % [facility] Hematocrit (Bld) [Volume fraction] 44.0 % 36.0 - 48.0 % [facility] Hemoglobin (Bld) [Mass/Vol] 14.3 g/dL 12.0 - 16.0 g/dL [facility] IMMATURE GRANULOCYTES ABS AUTO 0.02 [facility] Immature granulocytes/100 WBC (Bld) 0.2 % 0.0 - 0.5 % [facility] Interpretation and review of laboratory results Abnormal [facility] LYMPHOCYTES ABSOLUTE AUTO 2.5 [facility] Lymphocytes/100 WBC (Bld) 30.8 % 20.5 - 60.0 % [facility] MCH (RBC) [Entitic mass] 27.8 pg 26.7 - 34.0 pg [facility] MCHC (RBC) [Mass/Vol] 32.5 g/dL 29.9 - 35.2 g/dL [facility] MCV (RBC) [Entitic vol] 85.4 fL 81.0 - 99.0 fL [facility] MONOCYTES ABSOLUTE AUTO 0.5 [facility] Monocytes/100 WBC (Bld) 5.4 % 1.7 - 12.0 % [facility] NEUTROPHILS ABSOLUTE AUTO 5.0 [facility] Neutrophils/100 WBC (Bld) 60.4 % 43.0 - 75.0 % [facility] Platelet mean volume (Bld) [Entitic vol] 9.5 fL 9.5 - 13.5 fL [facility] EO # 0.2 [facility] PLT 280 [facility] TB RBC 5.15 [facility] TB WBC 8.3 [facility] MLR HEMOGLOBIN A1Con 024 Glucose [Mass/Vol] 120 mg/dL [facility] HbA1c (Bld) [Mass fraction] 5.8 % 4.5 - 6.2 % [facility] Comment on above: ADA RECOMMENDED LIMI T 4.0 - 6.0 ADA THERAPEUTIC TARGET < 7.0 ACTION SUGGESTED > 7.0 [facility] zachery [place] 08-23-2023 L Specimen: [id number] Received: 08/24/23 Status: SOULovely Req Num: [id number] Spec Type: Surgical Subm Dr: Josi Pereyra Tissues: A Uterus w/ or w/o tubes ovaries except neoplastic or prolap (UTERUS PILY FT) Procedures: HE/12, Gross/Micro L5 Age/ Patient Sex Location Account Attending Physician Jenn Mccann 48/F LABELL [id number] Josi Pereyra SPEC NUM: [id number] RECD: 08/24/23 STATUS: [place] NUM: [id number] EVI: 08/23/[address]: Josi Pereyra ENTERED: 08/24/23 [facility] DR: Leonie,Lab SPEC TYPE: Surgical DEPT: CIRA [...] and unremarkable. Sectioning demonstrates a central lumen. Cigar Head Perforator sections are submitted in 6 cassettes as follows: A1 - Posterior cul-de-sac serosa A2 - Anterior and posterior cervix Specimen: [id number] Received: 08/24/23 Status: BRITTA Lewis Num: [id number] Spec Type: Surgical Subm Dr: Josi Pereyra Tissues: A Uterus w/ or w/o tubes ovaries except neoplastic or prolap (UTERUS PILY FT) Procedures: , Gross/Micro L5 Patient: MccannJenn [id number] (Continued) Specimen: [id number] Received: 08/24/23 (Continued) Gross Description (Continued) Signed (signature on file) Arminda Vegas MD 02/2233 Specimen: [id number] Received: 08/24/23 Status: BRITTA Lewis Num: [id number] Spec Type: Surgical Subm Dr: Josi Pereyra Tissues: A Uterus w/ or w/o tubes ovaries except neoplastic or prolap (UTERUS PILY FT) Procedures: , Gross/Micro L5 Patient: RamyJenn Ledesma [id number] (Continued) Specimen: [id number] Received: 08/24/23 (Continued) Gross Description (Continued) A3 - Anterior endomyometrium A4 - Posterior endomyometrium A5 - [place] segment of fallopian tube with fimbria entirely submitted A6 - Longer segment of fallopian tube with fimbria entirely submitted CPT Codes 01178 Specimen: [id number] Received: 08/24/23-1240 Status: BRITTA Lewis Num: [id number] Spec Type: Surgical Subm Dr: Josi Pereyra Tissues: A Uterus w/ or w/o tubes ovaries except neoplastic or prolap (UTERUS PILY FT) Procedures: , Gross/Micro L5 Patient: Jenn Mccann [id number] (Continued) Signed (signature on file) Arminda Vegas MD 08/30/232233 [facility] ALL CBC WITH AUTO DIFFon BASOPHILS ABSOLUTE [facility]O 0.1 [facility] Basophils/100 WBC (Bld) 1.0 % 0.2 - 2.0 % [facility] Eosinophils/100 WBC (Bld) 1.3 % 0.9 - 7.0 % [facility] Erythrocyte distribution width (RBC) [Ratio] 15.6 % High 11.0 - 15.0 % [facility] Hematocrit (Bld) [Volume fraction] 45.1 % 36.0 - 48.0 % [facility] Hemoglobin (Bld) [Mass/Vol] 14.5 g/dL 12.0 - 16.0 g/dL [facility] IMMATURE GRANULOCYTES ABS AUTO 0.03 [facility] Immature granulocytes/100 WBC (Bld) 0.3 % 0.0 - 0.5 % [facility] Interpretation and review of laboratory results Abnormal [facility] LYMPHOCYTES ABSOLUTE AUTO 3.0 [facility] Lymphocytes/100 WBC (Bld) 30.2 % 20.5 - 60.0 % [facility] MCH (RBC) [Entitic mass] 27.1 pg 26.7 - 34.0 pg [facility] MCHC (RBC) [Mass/Vol] 32.2 g/dL 29.9 - 35.2 g/dL [facility] MCV (RBC) [Entitic vol] 84.3 fL 81.0 - 99.0 fL [facility] MONOCYTES ABSOLUTE AUTO 0.6 [facility] Monocytes/100 WBC (Bld) 6.3 % 1.7 - 12.0 % [facility] NEUTROPHILS ABSOLUTE AUTO 6.1 [facility] Neutrophils/100 WBC (Bld) 60.9 % 43.0 - 75.0 % [facility] Platelet mean volume (Bld) [Entitic vol] 9.3 fL Low 9.5 - 13.5 fL [facility] EO # 0.1 [facility] PLT 293 [facility] e TB RBC 5.35 [facility] TB WBC 10.0 [facility] COVID + FLU Quick Testingon 07-03-2023 SARS-CoV-2 (COVID-19) RNA JESSIE+probe Ql (Unsp spec) Positive [facility] Other COVID + FLU Quick Testing Negative [employer] Other MG MAMM SCREEN 3D PILY CADon 03-13-2022 MG MAMM SCREEN 3D PILY CAD Patient: JENN MCCANNVince Exam Date: 03/13/2022 : 1975 Gender:F Ordering : DR JADEN ANTONIO . Admission #: [id number] Family : Order #: [id number] CLICK HERE TO VIEW EXAM RADIOLOGY REPORT [...] Treatments None Family Cancers None LOCATION: [facility] BREAST COMPOSITION: Scattered areas fibroglandular density. [...] M.D. on 03/14/2022 at 08:50 Normal [facility] CBC AUTO DIFFon 05-19-2021 BASO # 0.1 103/ul Normal 0.0-0.1 [facility] Comment on above: Performed By: #### C BC #### [facility] [address] [address] [address] Dashawn Mayo Basophils/100 WBC (Bld) 0.9 % Normal 0.2-2.0 [facility] Comment on above: Performed By: #### C BC #### [facility] [address] [address] [address] Dashawn Mayo EO # 0.2 103/ul Normal 0.0-0.7 [facility] Comment on above: Performed By: #### C BC #### [facility] [address] [address] [address] Dashawn Mayo Eosinophils/100 WBC (Bld) 2.3 % Normal 0.9-7.0 [facility] Comment on above: Performed By: #### C BC #### [facility] [address] [place] [address] Dr. Dashawn Mayo Erythrocyte distribution width (RBC) [Ratio] 15.2 % Critically high 11.0-15.0 [facility] Comment on above: Performed By: #### C BC #### [facility] [address] [place] [address] Dr. Dashawn Mayo Hematocrit (Bld) [Volume fraction] 45.5 % Normal 36.0-48.0 [facility] Comment on above: Performed By: #### C BC #### [facility] [address] [place] [address] Dr. Dashawn Mayo Hemoglobin (Bld) [Mass/Vol] 14.4 g/dL Normal 12.0-16.0 [facility] Comment on above: Performed By: #### C BC #### [facility] [address] [place] [address] Dr. Dashawn Mayo IG # 0.03 10e3/ul Normal 0.00-0.03 [facility] Comment on above: Performed By: #### C BC #### [facility] [address] [place] [address] Dr. Dashawn Mayo IG % 0.3 % Normal 0.0-0.5 [facility] Comment on above: Performed By: #### C BC #### [facility] [address] [place] [address] Dr. Dashawn Mayo LYMPH # 2.8 103/ul Normal 1.2-3.8 [facility] Comment on above: Performed By: #### C BC #### [facility] [address] [place] [address] Dr. Dashawn Mayo Lymphocytes/100 WBC (Bld) 27.4 % Normal 20.5-60.0 [facility] Comment on above: Performed By: #### C BC #### [facility] [address] [place] [address] Dr. Dashawn Mayo MANUAL DIFF REQ NO Normal [facility] Comment on above: Performed By: #### C BC #### [facility] [address] [address] [address] Dashawn Mayo MCH (RBC) [Entitic mass] 27.2 pg Normal 26.7-34.0 [facility] Comment on above: Performed By: #### C BC #### [facility] [address] [address] [address] Dashawn Mayo MCHC (RBC) [Mass/Vol] 31.6 g/dL Normal 29.9-35.2 [facility] Comment on above: Performed By: #### C BC #### [facility] [address] [place] [address] Dr. Dashawn Mayo MCV (RBC) [Entitic vol] 85.8 fL Normal 81.0-99.0 [facility] Comment on above: Performed By: #### C BC #### [facility] [address] [place] [address] Dr. Dashawn Mayo MONO # 0.5 103/ul Normal 0.3-0.8 [facility] Comment on above: Performed By: #### C BC #### [facility] [address] [place] [address] Dr. Dashawn Mayo Monocytes/100 WBC (Bld) 4.5 % Normal 1.7-12.0 [facility] Comment on above: Performed By: #### C BC #### [facility] [address] [place] [address] Dr. Dashawn Mayo NEUT # 6.7 103/ul Critically high 1.4-6.5 [facility] Comment on above: Performed By: #### C BC #### [facility] [address] [place] [address] Dr. Dashawn Mayo Neutrophils/100 WBC (Bld) 64.6 % Normal 43.0-75.0 [facility] Comment on above: Performed By: #### C BC #### [facility] [address] [place] [address] Dr. Dashawn Mayo Platelet mean volume (Bld) [Entitic vol] 10.3 fL Normal 9.5-13.5 [facility] Comment on above: Performed By: #### C BC #### [facility] [address] [address] [address] Dashawn Mayo PLT 295 103/ul Normal 150-450 [facility] Comment on above: Performed By: #### C BC #### [facility] [address] [place] [address] Dr. Dashawn Mayo RBC 5.30 106/ul Normal 4.20-5.40 [facility] Comment on above: Performed By: #### C BC #### [facility] [address] [place] [address] Dr. Dashawn Mayo WBC 10.4 103/ul Normal 4.0-11.0 [facility] Comment on above: Performed By: #### C BC #### [facility] [address] [place] [address] Dr. Dashawn Mayo FREE T3on 05-19-2021 FREE T3 2.20 pg/mlL Critically low 2.77-5.27 [facility] Comment on above: Performed By: #### L IVER, LIPID, FT3, BMP, TSH #### [facility] [address] [place] [address] Dr. Dashawn Mayo FREE T4on 05-19-2021 Free T4 [Mass/Vol] 0.97 ng/dL Normal 0.78-2.19 [facility] Comment on above: Performed By: #### V ITAD, FT4 #### [facility] [address] [place] [address] Dr. Dashawn Mayo GLYCOHEMOGLOBIN A1Con 2020 ADA RECOMMENDATION ADA THERAPEUTIC TARGET 6.0 - 7.0 ACTION SUGGESTED > 7.0 Normal [facility] Comment on above: Performed By: #### A 1C #### [facility] [address] [place] [address] Dr. Dashawn Mayo Glucose [Mass/Vol] 126 mg/dL Normal [facility] Comment on above: Performed By: #### A 1C #### [facility] [address] [place] [address] Dr. Dashawn Mayo HbA1c (Bld) [Mass fraction] 6.0 % Normal <=6.0 [facility] Comment on above: Performed By: #### A 1C #### [facility] [address] [place] [address] Dr. Dashawn Mayo LIPID PROFILEon 05-19-2021 CHOL-HDL RATIO NORM SEE BELOW Normal [facility] Comment on above: Result Comment: 3.3 - 4.4 LOW RISK 4.4 - 7.1 AVERAGE RISK 7.1 - 11.0 MODERATE RISK >11.0 HIGH RISK Performed By: #### L IVER, LIPID, FT3, BMP, TSH #### [facility] [address] [place] [address] Dr. Dashawn Mayo Cholesterol [Mass/Vol] 250 mg/dL Critically high <=200 [facility] Comment on above: Performed By: #### L IVER, LIPID, FT3, BMP, TSH #### [facility] [address] [place] [address] Dr. Dashawn Mayo Cholesterol in HDL [Mass/Vol] 41 mg/dL Normal [facility] Comment on above: Performed By: #### L IVER, LIPID, FT3, BMP, TSH #### [facility] [address] [place] [address] Dr. Dashawn Mayo Cholesterol in LDL [Mass/Vol] 188.2 mg/dL Normal [facility] Comment on above: Performed By: #### L IVER, LIPID, FT3, BMP, TSH #### [facility] [address] [place] [address] Dr. Dasahwn Mayo Cholesterol.total/Ch olesterol in HDL [Mass ratio] 6.1 {ratio} Normal [facility] Comment on above: Performed By: #### L IVER, LIPID, FT3, BMP, TSH #### [facility] [address] [place] [address] Dr. Dashawn Mayo HDL NORMAL > or = 60 mg/dl - LOW CARDIOVASCULAR RISK <40 mg/dl - HIGH CARDIOVASCULAR RISK Normal [facility] Comment on above: Performed By: #### L IVER, LIPID, FT3, BMP, TSH #### [facility] [address] [address] [address] Dashawn Mayo LDL CALC NORMAL SEE BELOW Normal [facility] Comment on above: Result Comment: <100 mg/dl OPTIMAL 100 - 129 mg/dl NEAR OR ABOVE OPTIMAL 130 - 159 mg/dl BORDERLINE HIGH 160 - 189 mg/dl HIGH >190 mg/dl VERY HIGH Performed By: #### L IVER, LIPID, FT3, BMP, TSH #### [facility] [address] [address] [address] Dashawn Mayo Triglyceride [Mass/Vol] 104 mg/dL Normal <=150 [facility] Comment on above: Performed By: #### L IVER, LIPID, FT3, BMP, TSH #### [facility] [address] [address] [address] Dashawn Mayo VLDL CALC 20.8 mg/dL Normal [facility] Comment on above: Performed By: #### L IVER, LIPID, FT3, BMP, TSH #### [facility] [address] [address] [address] Dashawn Mayo LIVER PROFILEon 05-19-2021 Albumin [Mass/Vol] 3.6 g/dL Normal 3.5-5.0 [facility] Comment on above: Performed By: #### L IVER, LIPID, FT3, BMP, TSH #### [facility] [address] [address] [address] Dashawn Mayo Albumin/Globulin [Mass ratio] 0.9 {ratio} Normal [facility] Comment on above: Performed By: #### L IVER, LIPID, FT3, BMP, TSH #### [facility] [address] [address] [address] Dashawn Mayo ALP [Catalytic activity/Vol] 72 U/L Normal 38-126 [facility] Comment on above: Performed By: #### L IVER, LIPID, FT3, BMP, TSH #### [facility] [address] [address] [address] Dashawn Mayo ALT [Catalytic activity/Vol] 16 U/L Normal 9-52 [facility] Comment on above: Performed By: #### L IVER, LIPID, FT3, BMP, TSH #### [facility] [address] [place] [address] Dr. Dashawn Mayo AST [Catalytic activity/Vol] 13 U/L Critically low 14-36 [facility] Comment on above: Performed By: #### L IVER, LIPID, FT3, BMP, TSH #### [facility] [address] [place] [address] Dr. Dashawn Mayo BILI, CONJUGATED 0.0 mg/dL Normal 0.0-0.3 [facility] Comment on above: Performed By: #### L IVER, LIPID, FT3, BMP, TSH #### [facility] [address] [place] [address] Dr. Dashawn Mayo Bilirubin [Mass/Vol] 0.3 mg/dL Normal 0.2-1.3 [facility] Comment on above: Performed By: #### L IVER, LIPID, FT3, BMP, TSH #### [facility] [address] [place] [address] Dr. Dashawn Mayo Globulin (S) [Mass/Vol] 4.0 g/dL Normal [facility] Comment on above: Performed By: #### L IVER, LIPID, FT3, BMP, TSH #### [facility] [address] [place] [address] Dr. Dashawn Mayo Protein [Mass/Vol] 7.6 g/dL Normal 6.1-8.2 [facility] Comment on above: Performed By: #### L IVER, LIPID, FT3, BMP, TSH #### [facility] [address] [place] [address] Dr. Dashawn Mayo PROF CHEM 8 (BAS METB)on Anion gap [Moles/Vol] 12.6 mmol/L Normal [facility] Comment on above: Performed By: #### L IVER, LIPID, FT3, BMP, TSH #### [facility] [address] [place] [address] Dr. Dashawn Mayo Calcium [Mass/Vol] 9.1 mg/dL Normal 8.4-10.2 [facility] Comment on above: Performed By: #### L IVER, LIPID, FT3, BMP, TSH #### [facility] [address] [address] [address] Dashawn Mayo Chloride [Moles/Vol] 102 mmol/L Normal 98-107 [facility] Comment on above: Performed By: #### L IVER, LIPID, FT3, BMP, TSH #### [facility] [address] [place] [address] Dr. Dashawn Mayo CO2 [Moles/Vol] 27.9 mmol/L Normal 22.0-30.0 [facility] Comment on above: Performed By: #### L IVER, LIPID, FT3, BMP, TSH #### [facility] [address] [place] [address] Dr. Dashawn Mayo Creatinine [Mass/Vol] 0.81 mg/dL Normal 0.52-1.04 [facility] Comment on above: Performed By: #### L IVER, LIPID, FT3, BMP, TSH #### [facility] [address] [place] [address] Dr. Dashawn Mayo EGFR-AF QATARI >60 Normal >=60 [facility] Comment on above: Performed By: #### L IVER, LIPID, FT3, BMP, TSH #### [facility] [address] [place] [address] Dr. Dashawn Mayo EGFR-NON AF QATARI >60 Normal >=60 [facility] Comment on above: Performed By: #### L IVER, LIPID, FT3, BMP, TSH #### [facility] [address] [place] [address] Dr. Dashawn Mayo Glucose [Mass/Vol] 94 mg/dL Normal 74-106 [facility] Comment on above: Performed By: #### L IVER, LIPID, FT3, BMP, TSH #### [facility] [address] [place] [address] Dr. Dashawn Mayo Potassium [Moles/Vol] 4.5 mmol/L Normal 3.4-5.0 [facility] Comment on above: Performed By: #### L IVER, LIPID, FT3, BMP, TSH #### [facility] [address] [address] [address] Dashawn Mayo Sodium [Moles/Vol] 138 mmol/L Normal 137-145 [facility] Comment on above: Performed By: #### L IVER, LIPID, FT3, BMP, TSH #### [facility] [address] [address] [address] Dashawn Mayo Urea nitrogen [Mass/Vol] 8.0 mg/dL Normal 7.0-17.0 [facility] Comment on above: Performed By: #### L IVER, LIPID, FT3, BMP, TSH #### [facility] [address] [place] [address] Dr. Dashawn Mayo Urea nitrogen/Creatinine [Mass ratio] 9.9 mg/mg Normal [facility] [facility] Comment on above: Performed By: #### L IVER, LIPID, FT3, BMP, TSH #### [facility] [address] [place] [address] Dr. Dashawn Mayo TSHon 05-19-2021 TSH 1.888 uIU/mL Normal 0.470-4.680 [facility] Comment on above: Performed By: #### L IVER, LIPID, FT3, BMP, TSH #### [facility] [address] [place] [address] Dr. Dashawn Mayo TSH RANGE SEE BELOW Normal [facility] Comment on above: Result Comment: <0.3 4 UIU/ml HYPERTHYROID 0.34-5.60 UIU/ml EUTHYROID >5.60 UIU/ml HYPOTHYROID Performed By: #### L IVER, LIPID, FT3, BMP, TSH #### [facility] [address] [place] [address] Dr. Dashawn Mayo VITAMIN D 25 OHon 05-19-2021 VIT D 25-OH 97.4 ng/mL Normal [facility] Comment on above: Performed By: #### V ITAD, FT4 #### [facility] [address] [place] [address] Dr. Dashawn Mayo VIT D RANGES SEE BELOW Normal [facility] Comment on above: Result Comment: <20 ng/mL Vit D deficient 20 - <30 ng/mL Vit D insufficient 30 - 100 ng/mL Vit D sufficient >100 ng/mL Potential Toxicity Performed By: #### V VANI RAMIREZ4 #### [facility] [address] [place] [address] Dr. Dashawn Mayo Vital Signs Date Time Vital Sign Value Performing Clinician Facility 02-10-2025 09:05-0400 Body mass index (BMI) [Ratio] 42.93 kg/m2 [employer] Work Phone: [facility] 02-10-2025 09:05-0400 Body weight 117.03 kg Josi Roddy DO Work Phone: [facility] 02-10-2025 09:05-0400 Diastolic blood pressure 72 mm[Hg] [employer] Work Phone: [facility] 02-10-2025 09:05-0400 Systolic blood pressure 110 mm[Hg] [employer] Work Phone: [facility] 02-04-2025 08:39-0400 Body height 165.1 cm Jaden Antonio MD Work Phone: [facility] 02-04-2025 08:39-0400 Body mass index (BMI) [Ratio] 42.43 kg/m2 Jaden Antonio MD Work Phone: [facility] 02-04-2025 08:39-0400 Body temperature 97.5 [degF] Jaden Antonio MD Work Phone: [facility] 02-04-2025 08:39-0400 Body weight 115.67 kg Jaden Antonio MD Work Phone: [facility] 02-04-2025 08:39-0400 Diastolic blood pressure 82 mm[Hg] Jaden Antonio MD Work Phone: [facility] 02-04-2025 08:39-0400 Heart rate 96 /min Jaden Antonio MD Work Phone: [facility] 02-04-2025 08:39-0400 Respiratory rate 16 /min Jaden Antonio MD Work Phone: [facility] 02-04-2025 08:39-0400 SaO2% (BldA) [Mass fraction] 92 % Jaden Antonio MD Work Phone: [facility] 02-04-2025 08:39-0400 Systolic blood pressure 140 mm[Hg] Jaden Antonio MD Work Phone: [facility] 12-03-2024 08:57-0400 Body height 165.1 cm Jaden Antonio MD Work Phone: [facility] 12-03-2024 08:57-0400 Body mass index (BMI) [Ratio] 40.77 kg/m2 Jaden Antonio MD Work Phone: [facility] 12-03-2024 08:57-0400 Body temperature 97.11 [degF] Jaden Antonio MD Work Phone: [facility] 12-03-2024 08:57-0400 Body weight 111.13 kg Jaden Antonio MD Work Phone: [facility] 12-03-2024 08:57-0400 Diastolic blood pressure 76 mm[Hg] Jaden Antonio MD Work Phone: [facility] 12-03-2024 08:57-0400 Heart rate 88 /min Jaden Antonio MD Work Phone: [facility] 12-03-2024 08:57-0400 Respiratory rate 22 /min Jaden Antonio MD Work Phone: [facility] 12-03-2024 08:57-0400 SaO2% (BldA) [Mass fraction] 93 % Jaden Antonio MD Work Phone: [facility] 12-03-2024 08:57-0400 Systolic blood pressure 144 mm[Hg] Jaden Antonio MD Work Phone: [facility] 09-02-2024 09:08-0500 Body height 165.1 cm Jaden Antonio MD Work Phone: [facility] 09-02-2024 09:08-0500 Body mass index (BMI) [Ratio] 39.61 kg/m2 Jaden Antonio MD Work Phone: [facility] 09-02-2024 09:08-0500 Body temperature 98.2 [degF] Jaden Antonio MD Work Phone: [facility] 09-02-2024 09:08-0500 Body weight 107.96 kg Jaden Antonio MD Work Phone: [facility] 09-02-2024 09:08-0500 Diastolic blood pressure 76 mm[Hg] Jaden Antonio MD Work Phone: [facility] 09-02-2024 09:08-0500 Heart rate 104 /min Jaden Antonio MD Work Phone: [facility] 09-02-2024 09:08-0500 Respiratory rate 20 /min Jaden Antonio MD Work Phone: [facility] 09-02-2024 09:08-0500 SaO2% (BldA) [Mass fraction] 93 % Jaden Antonio MD Work Phone: [facility] 09-02-2024 09:08-0500 Systolic blood pressure 138 mm[Hg] Jaden Antonio MD Work Phone: [facility] 08-05-2024 11:38-0500 Body height 165.1 cm Jaden Antonio MD Work Phone: [facility] 08-05-2024 11:38-0500 Body mass index (BMI) [Ratio] 39.27 kg/m2 Jaden Antonio MD Work Phone: [facility] 08-05-2024 11:38-0500 Body temperature 95.7 [degF] Jaden Antonio MD Work Phone: [facility] 08-05-2024 11:38-0500 Body weight 107.05 kg Jaden Antonio MD Work Phone: [facility] 08-05-2024 11:38-0500 Diastolic blood pressure 74 mm[Hg] Jaden Antonio MD Work Phone: [facility] 08-05-2024 11:38-0500 Heart rate 104 /min Jaden Antonio MD Work Phone: [facility] 08-05-2024 11:38-0500 Respiratory rate 20 /min Jaden Antonio MD Work Phone: [facility] 08-05-2024 11:38-0500 SaO2% (BldA) [Mass fraction] 96 % Jaden Antonio MD Work Phone: [facility] 08-05-2024 11:38-0500 Systolic blood pressure 136 mm[Hg] Jaden Antonio MD Work Phone: [facility] 06-12-2024 14:26-0500 Body height 165.1 cm Jaden Antonio MD Work Phone: [facility] 06-12-2024 14:26-0500 Body mass index (BMI) [Ratio] 39.61 kg/m2 Jaden Antonio MD Work Phone: [facility] 06-12-2024 14:26-0500 Body temperature 96.6 [degF] Jaden Antonio MD Work Phone: [facility] 06-12-2024 14:26-0500 Body weight 107.96 kg Jaden Antonio MD Work Phone: [facility] 06-12-2024 14:26-0500 Diastolic blood pressure 68 mm[Hg] Jaden Antonio MD Work Phone: [facility] 06-12-2024 14:26-0500 Heart rate 107 /min Jaden Antonio MD Work Phone: [facility] 06-12-2024 14:26-0500 Respiratory rate 20 /min Jaden Antonio MD Work Phone: [facility] 06-12-2024 14:26-0500 SaO2% (BldA) [Mass fraction] 93 % Jaden Antonio MD Work Phone: [facility] 06-12-2024 14:26-0500 Systolic blood pressure 136 mm[Hg] Jaden Antonio MD Work Phone: [facility] 03-04-2024 09:42-0400 Body height 165.1 cm Jaden Antonio MD Work Phone: [facility] 03-04-2024 09:42-0400 Body mass index (BMI) [Ratio] 39.27 kg/m2 Jaden Antonio MD Work Phone: [facility] 03-04-2024 09:42-0400 Body temperature 97.5 [degF] Jaden Antonio MD Work Phone: [facility] 03-04-2024 09:42-0400 Body weight 107.05 kg Jaden Antonio MD Work Phone: [facility] 03-04-2024 09:42-0400 Diastolic blood pressure 72 mm[Hg] Jaden Antonio MD Work Phone: [facility] 03-04-2024 09:42-0400 Heart rate 102 /min Jaden Antonio MD Work Phone: [facility] 03-04-2024 09:42-0400 Respiratory rate 20 /min Jaden Antonio MD Work Phone: [facility] 03-04-2024 09:42-0400 SaO2% (BldA) [Mass fraction] 93 % Jaden Antonio MD Work Phone: [facility] 03-04-2024 09:42-0400 Systolic blood pressure 130 mm[Hg] Jaden Antonio MD Work Phone: [facility] 07-03-2023 14:40-0500 Body height 160.02 cm Kimberly Scott Other [facility] 07-03-2023 14:40-0500 Body mass index (BMI) [Ratio] 41.45 kg/m2 Kimberly Frank [employer] Other 07-03-2023 14:40-0500 Body temperature 100.9 [degF] Kimberly Scott Other [employer] Other 07-03-2023 14:40-0500 Body weight 106.14 kg Kimberly Scott Other [facility] 07-03-2023 14:40-0500 Respiratory rate 18 /min Kimberly Scott Other [employer] Other 07-03-2023 14:40-0500 SaO2% (BldA) [Mass fraction] 95 % Kimberly Scott Other [employer] Other 12-05-2022 17:40-0400 Body height 160.02 cm Kimberly Scott Other [employer] Other 12-05-2022 17:40-0400 Body mass index (BMI) [Ratio] 45.7 kg/m2 Kimberly Scott Other [employer] Other 12-05-2022 17:40-0400 Body temperature 98.6 [degF] Kimberly Scott Other [employer] Other 12-05-2022 17:40-0400 Body weight 117.03 kg Kimberly Scott Other [employer] Other 12-05-2022 17:40-0400 Diastolic blood pressure 86 mm[Hg] Kimberly Scott Other [employer] Other 12-05-2022 17:40-0400 Respiratory rate 18 /min Kimberly Scott Other [employer] Other 12-05-2022 17:40-0400 SaO2% (BldA) [Mass fraction] 97 % Kimberly Scott Other [employer] Other 12-05-2022 17:40-0400 Systolic blood pressure 145 mm[Hg] Kimberly Scott Other [employer] Other Encounters Encounter Date Encounter Type Care [...] [facility] Start: 08-05-2024 End: 08-05-2024 [employer] Jaden Antonio MD Work Phone: [facility] [...] Result Encounter Jaden Antonio MD Work Phone: [facility] External Department Unsolicited Start: 06-13-2024 End: [...] encounter procedure Jaden Antonio MD Work Phone: [facility] Healthcare Start: 03-04-2024 End: 03-04-2024 ambulatory JADEN ANTONIO Not Available Start: 08-23-2023 End: 08-23-2023 ambulatory Jaden Antonio Facility:[facility] Start: 08-23-2023 End: 08-23-2023 ambulatory MD Jaden Antonio Work Phone: [facility] Work Phone: Start: 08-23-2023 End: 08-23-2023 Departed Referred MD Jaden Antonio Work Phone: [facility] Start: 08-09-2023 Clinisync Result Encounter Generic External Data Provider [facility] External Department Unsolicited Start: 08-09-2023 [employer]inis[employer] Result Encounter Generic External Data Provider [facility] External Department Unsolicited Start: 07-03-2023 End: 07-03-2023 ambulatory Kimberly Scott Other [employer] Other Start: 07-03-2023 Office outpatient vi sit 25 minutes Kimberly Scott [facility] Start: 07-03-2023 Telephone encounter Kimberly Scott [facility] [address] Start: 07-03-2023 End: 07-03-2023 Patient encounter procedure MD Jaden Antonio Work Phone: [facility] Work Phone: Start: 12-05-2022 End: 12-05-2022 ambulatory Kimberly Scott Other [employer] Other Start: 12-05-2022 Office outpatient ne w 20 minutes Kimberly Scott [facility] Start: 03-13-2022 End: 03-14-[address] JADEN ANTONIO Facility:[facility] Start: 05-28-2021 Encounter for genera l adult medical examination without abnormal findings DR JADEN ANTONIO [facility] Start: 05-19-2021 End: 05-20-[address] JADEN [...] lung Lung Cancer Screening Shared Decision Making [facility] Comment on above: Postponed from 03/02 (Other Medical Reasons) Start: 02-01-2026 Screening for malign ant neoplasm of colon [facility] Start: 01-22-2026 Screening for malign ant neoplasm of cervix [facility] Start: 05-06-2025 End: 05-06-2025 Patient encounter procedure 05/06/2025 7:00 AM EST Office Visit [facility] [address] [place] [id number] Jaden Antonio MD [address] [place] [id number] [facility] Start: 03-17-2025 Screening for malign ant neoplasm of breast Mammogram [facility] Start: 2025 Influenza vaccination N [facility] Start: 02-10-2025 End: 04-12-2026 MG Breast - bilateral Screening Bilateral screening mammogram Imaging Routine Breast cancer screening by mammogram Expected: 02/10/2025 (Approximate), Expires: 04/12/2026 [facility] Work Phone: Comment on above: Expected: 02/10/2025 (Approximate), Expires: 04/12/2026 Start: 02-10-2025 End: 02-10-2025 Patient encounter procedure [facility] Comment on above: Arrived Start: 02-04-2025 End: 02-04-2026 CT Chest for screening WO contrast CT lung screening low dose Imaging Routine Cigarette smoker Expected: 02/04/2025, Expires: 02/04/2026 [facility] [employer] Work Phone: Comment on above: Expected: 02/04/2025 , Expires: 02/04/2026 Start: 02-04-2025 End: 02-04-2025 Patient encounter procedure [facility] Comment on above: Arrived Start: 12-03-2024 End: 12-03-2025 Basic metabolic 1998 panel - Serum or Plasma Basic metabolic panel Lab Routine Pre-diabetes Expected: 12/03/2024 (Approximate), Expires: 12/03/2025 [facility] Work Phone: Comment on above: Expected: 12/03/2024 (Approximate), Expires: 12/03/2025 Start: 12-03-2024 End: 12-03-2025 CBC W Auto Differential panel - Blood CBC and differential Lab Routine Fatigue, unspecified type Expected: 12/03/2024 (Approximate), Expires: 12/03/2025 [facility] Comment on above: Expected: 12/03/2024 (Approximate), Expires: 12/03/2025 Start: 12-03-2024 End: 12-03-2025 Hemoglobin A1c/Hemoglobin.total in Blood Hemoglobin A1c Lab Routine Pre-diabetes Expected: 12/03/2024 (Approximate), Expires: 12/03/2025 [facility] Comment on above: Expected: 12/03/2024 (Approximate), Expires: 12/03/2025 Start: 12-03-2024 End: 12-03-2025 Thyrotropin [Units/volume] in Serum or Plasma TSH Lab Routine Class 3 severe obesity due to excess calories with serious comorbidity and body mass index (BMI) of 40.0 to 44.9 in adult Expected: 12/03/2024 (Approximate), Expires: 12/03/2025 [facility] Comment on above: Expected: 12/03/2024 (Approximate), Expires: 12/03/2025 Start: 12-03-2024 End: 12-03-2025 Thyroxine (T4) free [Mass/volume] in Serum or Plasma T4, free Lab Routine Class 3 severe obesity due to excess calories with serious comorbidity and body mass index (BMI) of 40.0 to 44.9 in adult Expected: 12/03/2024 (Approximate), Expires: 12/03/2025 [facility] Comment on above: Expected: 12/03/2024 (Approximate), Expires: 12/03/2025 Start: 12-03-2024 End: 12-03-2024 Patient encounter procedure [facility] Comment on above: Arrived Start: 09-02-2024 End: 09-02-2024 Patient encounter procedure [facility] Comment on above: Arrived Start: 08-05-2024 End: 08-05-2024 Patient encounter procedure 08/05/2024 11:30 AM EST Office Visit [facility] [address] [place] [address] Jaden Antonio MD [address] [place] [address] Arrived [facility] Comment on above: Arrived Start: 06-12-2024 End: 06-12-2024 Patient encounter procedure 06/12/2024 2:30 PM EST Office Visit [facility] [address] [place] [phone] Jaden Antonio MD [address] [place] [address] Arrived [facility] Comment on above: Arrived Start: 06-12-2024 End: 06-12-2025 Bacteria identified in Urine by Culture Urine culture (clean catch) Microbiology Routine Acute UTI Expected: 06/12/2024 (Approximate), Expires: 06/12/2025 [facility] Work Phone: Comment on above: Expected: 06/12/2024 (Approximate), Expires: 06/12/2025 Start: 06-12-2024 End: 06-12-2025 Urinalysis complete panel - Urine Urinalysis with reflex microscopic (clean catch) Lab Routine Acute UTI Expected: 06/12/2024 (Approximate), Expires: 06/12/2025 [facility] Comment on above: Expected: 06/12/2024 (Approximate), Expires: 06/12/2025 Start: 03-16-2024 Screening for malign ant neoplasm of breast Mammogram [facility] Start: 03-04-2024 End: 03-04-2025 Basic metabolic 1998 panel - Serum or Plasma Basic metabolic panel Lab Routine Annual physical exam Expected: 03/04/2024 (Approximate), Expires: 03/04/2025 [facility] Comment on above: Expected: 03/04/2024 (Approximate), Expires: 03/04/2025 Start: 03-04-2024 End: 03-04-2025 CBC W Auto Differential panel - Blood CBC and differential Lab Routine Annual physical exam Expected: 03/04/2024 (Approximate), Expires: 03/04/2025 [facility] Comment on above: Expected: 03/04/2024 (Approximate), Expires: 03/04/2025 Start: 03-04-2024 End: 03-04-2025 Hemoglobin A1c/Hemoglobin.total in Blood Hemoglobin A1c Lab Routine Annual physical exam Expected: 03/04/2024 (Approximate), Expires: 03/04/2025 [facility] Work Phone: Comment on above: Expected: 03/04/2024 (Approximate), Expires: 03/04/2025 Start: 03-04-2024 End: 03-04-2025 Hepatic function 2000 panel - Serum or Plasma Hepatic function panel Lab Routine Annual physical exam Expected: 03/04/2024 (Approximate), Expires: 03/04/2025 [facility] Comment on above: Expected: 03/04/2024 (Approximate), Expires: 03/04/2025 Start: 03-04-2024 End: 03-04-2025 Lipid 1996 panel - Serum or Plasma Lipid panel Lab Routine Annual physical exam Expected: 03/04/2024 (Approximate), Expires: 03/04/2025 [facility] Comment on above: Expected: 03/04/2024 (Approximate), Expires: 03/04/2025 Start: 03-04-2024 End: 03-04-2025 Thyrotropin [Units/volume] in Serum or Plasma TSH Lab Routine Annual physical exam Expected: 03/04/2024 (Approximate), Expires: 03/04/2025 [facility] Comment on above: Expected: 03/04/2024 (Approximate), Expires: 03/04/2025 Start: 2024 Influenza vaccination Influenza Vacc ine (#1) [facility] Start: 09-10-2023 End: 09-10-2023 Patient encounter procedure 09/10/2023 9:45 AM EDT Office Visit [facility] [address] [place] [address] Jaden Antonio MD [address] [place] [phone] [facility] Start: 08-30-2023 End: 08-30-2023 Patient encounter procedure 08/30/2023 10:30 AM EST Office Visit [facility] [address] [place] [address] Yuly Gonzalez PA [address] [place] [address] [place] [address] [facility] Start: 2023 Influenza vaccination Influenza Vacc ine (#1) [facility] Start: 2013 Screening for malign ant neoplasm of breast Mammogram [facility] Start: 2003 Screening for malign ant neoplasm of cervix HPV/Cotest [facility] Start: 1973 Screening for malign ant neoplasm of colon [facility] Start: 1973 Screening for malign ant neoplasm of lung Lung Cancer Screening Shared Decision Making [facility] THIN PREP TIS PAP AN D HR HPV DNA THIN PREP TIS PAP AND HR HPV DNA Pathology and Cytology Routine Well woman exam with routine gynecological exam H/O: hysterectomy Ordered: 02/10/2025 [facility] Comment on above: Ordered: 02/10/2025 Payers Date Payer Category Payer Self-pay 2016 Medicaid [employer] [place] [id number] 2016-Present [address] [place] [address] [id number] 2016 Private Health Insurance [facility] MEDICA[facility] [id number] 2016 Medicaid [id number] 1973 Unknown [id number]. 593 1973 Unknown [id number] [id number]. 593 1973 Unknown [id number] [id number]. 1258 1973 Unknown [id number] [id number]. 9 1973 Unknown [id number] [id number]. 1258 1973 Unknown [id number] [id number]. 1258 1973 Unknown [id number] [id number]. 1258 1973 Unknown [id number] [id number]. 1258 1973 Unknown [id number] [id number]. 1258 1973 Unknown [id number] [id number]. 9 1959 Unknown [id number] Unknown [id number] Social History Date Type Detail Facility Start: 06-18-2023 End: 02-04-2025 Sex Assigned At [facility] [employer] Other Start: 06-18-2023 End: 02-11-2024 Tobacco smoking status RUST Smokes tobacco daily [facility] History of tobacco use Cigarette [...] Start: 1975 Sex Assigned At Female F [facility] Medical Equipment Procedure Code Equipment Code Equipment Origin al Text Equipment Identifier Dates USE DIRECTED DAILY [id number] Start: 10-09-2023 Clinical Notes 12-05-2022 to 02-10-2025 [...] 1 TABLET BY MOUTH at AT BEDTIME hyveqokdbi-vzigxwkvvznkt-dsyomktp 50-325-40 MG tablet 1 tablet, Oral, 4 times daily PRN celecoxib (CELEBREX) 200 mg, Oral, 2 times daily cholecalciferol (VITAMIN D-3) 125 mcg, Oral, Daily Deblitane 0.35 mg, Oral, Daily estradiol (ESTRACE) 0.5 mg, Oral, Every morning famotidine (PEPCID) 20 mg, Oral, As needed fluticasone (Flonase) 50 MCG/ACT nasal spray instill 2 (TWO) spray nasally DAILY Lancets (OneTouch Delica Plus [id number]) misc USE DIRECTED DAILY metFORMIN XR (GLUCOPHAGE-XR) [...] suppurativa 06/18/2023 Major depressive disorder, recurrent, moderate ([facility]) 06/18/2023 Mixed incontinence urge and stress (male)(female) 06/18/2023 Pre-diabetes 06/18/2023 Premenopausal menorrhagia 06/18/2023 Vitamin D deficiency 06/18/2023 Seasonal allergic rhinitis due to pollen 06/18/2023 Class 3 severe obesity due to excess calories with serious comorbidity and body mass index (BMI) of 40.0 to 44.9 in adult ([facility]) 09/10/2023 Annual physical exam 03/04/2024 Cigarette smoker 02/04/2025 Resolved Ambulatory Problems Diagnosis Date Noted Acute UTI 06/12/2024 Right ankle sprain 08/05/2024 Past Medical History: Diagnosis Date Abnormal EKG Chronic migraine without aura without status migrainosus, not intractable Chronic seasonal allergic rhinitis due to pollen COPD, mild ([facility]) [facility] (generalized anxiety disorder) Hidradenitis History of [...] nursing note reviewed. Exam conducted with a distance learning administrator present. Vitals: Estimated body mass index is [...] them. Patient can also view results via [employer]. I reinforced importance of condom use for [...] Josi Pereyra DO documented in this encounter [facility] 02-04-2025 History of Presen t illness Narrative [...] screening low dose documented in this encounter [facility] 12-03-2024 History of Presen t illness Narrative [...] CBC and differential documented in this encounter [facility] 09-02-2024 History of Presen t illness [...] aura and without status migrainosus, not intractable ([facility]/HCC) Worsening CLARKE due to stress and use fioricet PRN. Relevant Medications xwfjlcrjzj-owntkdbigzofi-uvagvttn 50-325-40 MG tablet COPD (chronic obstructive pulmonary disease) (CMS/HCC) Breathing worse with increased smoking and needs to stop. Continue spiriva. Use albuterol PRN. Generalized anxiety disorder ([facility]) Continued symptoms and not functioning well. Increase [...] myrbetriq and continue. documented in this encounter [facility] 08-05-2024 History of Presen t illness Narrative Associated Problem(s): Class 2 severe obesity due to excess calories with serious comorbidity and body mass index (BMI) of 39.0 to 39.9 in adult ([facility]) Weight loss indicated Associated Problem(s): COPD (chronic obstructive pulmonary disease) ([facility]) Breathing stable and continue spiriva. Use albuterol [...] and elevate PRN. documented in this encounter [facility] 06-12-2024 History of Presen t illness [...] microscopic (clean catch) documented in this encounter [facility] 03-04-2024 History of Presen t illness [...] Lipid panel TSH documented in this encounter [facility] 07-03-2023 Evaluation note Encounter Date Diagnosis [...] treatment plan. Patient left in stable condition [employer] Other [id number] Evaluation note* Encounter Date Diagnosis Assessment Notes [...] understanding and is agreeable with treatment plan [employer] Other Evaluation noteNo InformationNort [employer] Other Evaluation noteNo assessment information available [facility] Work Phone: Evaluation note* Diagnosis Dyslipidemia (CMS/HCC)- [...] health care facility documented in this encounter [facility] HealthcareEvaluation note* Diagnosis Major depressive disorder, [...] (BMI) of 39.0 to 39.9 in adult ([facility]) Dyslipidemia ([facility]/HCC) Other and unspecified hyperlipidemia Sprain of right ankle, unspecified ligament, subsequent encounter- Primary Major depressive disorder, recurrent, moderate (CMS/HCC) Major depressive disorder, recurrent episode, moderate Generalized anxiety disorder (CMS/HCC) Generalized anxiety disorder Chronic obstructive pulmonary disease, unspecified COPD type (CMS/HCC) Class 2 severe obesity due to excess calories with serious comorbidity and body mass index (BMI) of 39.0 to 39.9 in adult ([facility]) documented in this encounter [facility] HealthcareEvaluation note* Diagnosis Major depressive disorder, recurrent episode, mild (HCC) ([facility]/HCC)- Primary Major depressive disorder, recurrent episode, mild [...] exam Routine general medical examination at a [facility] Acute UTI- Primary Urinary tract infection, site not specified Class 2 severe obesity due to excess calories with serious comorbidity and body mass index (BMI) of 39.0 to 39.9 in adult ([facility]) Dyslipidemia (CMS/HCC) Other and unspecified hyperlipidemia Sprain of right ankle, unspecified ligament, subsequent encounter- Primary Major depressive disorder, recurrent, moderate (CMS/HCC) Major depressive disorder, recurrent episode, moderate Generalized anxiety disorder (CMS/HCC) Generalized anxiety disorder Chronic obstructive pulmonary disease, unspecified COPD type ([facility]/HCC) Class 2 severe obesity due to excess calories with serious comorbidity and body mass index (BMI) of 39.0 to 39.9 in adult ([facility]) Major depressive disorder, recurrent, moderate (CMS/HCC)- Primary Major depressive disorder, recurrent episode, moderate Generalized anxiety disorder (CMS/HCC) Generalized anxiety disorder Chronic obstructive pulmonary disease, unspecified COPD type (CMS/HCC) Mixed incontinence urge and stress (male)(female) Migraine without aura and without status migrainosus, not intractable (CMS/HCC) Major depressive disorder, recurrent, moderate (CMS/HCC)- Primary Major depressive disorder, recurrent episode, moderate Generalized anxiety disorder ([facility]/HCC) Generalized anxiety disorder Chronic obstructive pulmonary disease, unspecified COPD type ([facility]) Migraine without aura and without status migrainosus, not intractable (CMS/[facility]) Mixed incontinence urge and stress (male)(female) Class [...] (BMI) of 39.0 to 39.9 in adult ([facility]) Dyslipidemia Other and unspecified hyperlipidemia Sprain of right ankle, unspecified ligament, subsequent encounter- Primary Major depressive disorder, recurrent, moderate (HCC) Major depressive disorder, recurrent episode, moderate Generalized anxiety disorder Generalized anxiety disorder Chronic obstructive pulmonary disease, unspecified COPD type (HCC) Class 2 severe obesity due to excess calories with serious comorbidity and body mass index (BMI) of 39.0 to 39.9 in adult ([facility]) Major depressive disorder, recurrent, moderate (HCC)- Primary [...] (BMI) of 40.0 to 44.9 in adult [place] Pre-diabetes Other abnormal glucose Fatigue, unspecified type [...] (BMI) of 39.0 to 39.9 in adult [place] Dyslipidemia Other and unspecified hyperlipidemia Sprain of right ankle, unspecified ligament, subsequent encounter- Primary Major depressive disorder, recurrent, moderate (HCC) Major depressive disorder, recurrent episode, moderate Generalized anxiety disorder Generalized anxiety disorder Chronic obstructive pulmonary disease, unspecified COPD type (HCC) Class 2 severe obesity due to excess calories with serious comorbidity and body mass index (BMI) of 39.0 to 39.9 in adult [place] Major depressive disorder, recurrent, moderate (HCC)- Primary [...] (BMI) of 40.0 to 44.9 in adult [place] Pre-diabetes Other abnormal glucose Fatigue, unspecified type [...] allergies Medical History ptsd Medical History depression/anxiety [employer] Other History general Narrative - Reported* Type Description Date Medical History Asthma Medical History acid reflux Medical History seasonal allergies Medical History ptsd Medical History depression/anxiety Medical History lupus Surgical History uterine ablation [employer] Other Summary Purpose Family History Relationship Condition Age at Onset Recorded Date/T melinda Not Specified Unknown Advance Directives No Advanced Directives Records FoundNo Advanced Directives Records FoundNo Advanced Directives Records Found Additional Source Comments INFORMATION SOURCE (unrecogn ized section and content) DATE CREATED AUTHOR 04/01/2022 [facility] DATE CREATED AUTHOR AUTHOR'S ORGANIZ ATION 09/01/2023 [facility] DATE CREATED AUTHOR AUTHOR'S ORGANIZ ATION 02/11/2025 [facility] EPIC REASON FOR VISIT (unrecogniz ed section and content) Reason Comments UTI Home test positive f or uti Reason Comments Follow-up 6m Reason Comments Follow-up Er f/u Reason Comments Follow-up Depression Reason Comments Follow-up 3 m Reason Comments Follow-up 2m Reason Comments Gynecologic Exam Care Teams (unrecognized sec tion and content) Front Counter Attendant Relationship Specialty Start Date End Date Jaden Antonio MD [address] [place] [phone] PCP - General Family Medicine 07/24/23 Team [...] [place] 2023 End: August 23, 2023 Front Counter Attendant Relationship Specialty Start Date End Date Jaden Antonio MD [address] [place] [phone] PCP - General Family Medicine 07/24/23 Front Counter Attendant Relationship Specialty Start Date End Date Jaden Antonio MD [address] [place] [phone] PCP - General Family Medicine 07/24/23 Front Counter Attendant Relationship Specialty Start Date End Date Jaden Antonio MD [address] [place] [phone] PCP - General Family Medicine 07/24/23 Josi Pereyra DO [address] [place] [address] PCP - [facility] 04/01/24 Front Counter Attendant Relationship Specialty Start Date End Date Jaden Antonio MD [address] [place] [phone] PCP - [facility] 07/24/23 Josi Pereyra DO [address] [place] [address] PCP [facility] 04/01/24 Front Counter Attendant Relationship Specialty Start Date End Date Jaden Antonio MD [address] [place] [phone] PCP - [facility] 07/24/23 Josi Pereyra DO [address] [place] [address] PCP [facility] 04/01/24 Front Counter Attendant Relationship Specialty Start Date End Date Jaden Antonio MD [address] [place] [phone] PCP - [facility] 07/24/23 Front Counter Attendant Relationship Specialty Start Date End Date Jaden Antonio MD [address] [place] [phone] PCP - [facility] 07/24/23 Josi Pereyra DO [address] [place] [address] [facility] 04/01/24 Front Counter Attendant Relationship Specialty Start Date End Date Jaden Antonio MD [address] [place] [address] PCP - [facility] 07/24/23 Josi Pereyra DO [address] [place] [address] [place] [address] PCP [facility] 04/01/24 Front Counter Attendant Relationship Specialty Start Date End Date Jaden Antonio MD [address] [place] [address] PCP [facility] 07/24/23 Jaden Antonio MD [address] [place] [address] [facility] 07/02/24 Front Counter Attendant Relationship Specialty Start Date End Date Jaden Antonio MD [address] [place] [address] PCP [facility] 07/24/23 Jaden Antonio MD [address] [place] [address] [facility] 07/02/24 Front Counter Attendant Relationship Specialty Start Date End Date Jaden Antonio MD [address] [place] [address] PCP [facility] 07/24/23 Jaden Antonio MD [address] [place] [phone] [facility] 07/02/24 Front Counter Attendant Relationship Specialty Start Date End Date Jaden Antonio MD [address] [place] [phone] PCP [facility] 07/24/23 Jaden Antonio MD [address] [place] [phone] [facility] 07/02/24 Front Counter Attendant Relationship Specialty Start Date End Date Jaden Antonio MD [address] [place] [phone] [facility] 07/24/23 Jaden Antonio MD [address] [place] [phone] [facility] 07/02/24 Front Counter Attendant Relationship Specialty Start Date End Date Jaden Antonio MD [address] [place] [phone] PCP [facility] 07/24/23 Jaden Antonio MD [address] [place] [phone] [facility] 07/02/24 Front Counter Attendant Relationship Specialty Start Date End Date Jaden Antonio MD [address] [place] [phone] [facility] 07/24/23 Jaden Antonio MD [address] [place] [phone] [facility] 07/02/24 Front Counter Attendant Relationship Specialty Start Date End Date Jaden Antonio MD [address] [place] [phone] [facility] 07/24/23 Jaden Antonio MD [address] [place] [phone] [facility] 07/02/24 Front Counter Attendant Relationship Specialty Start Date End Date Jaden Antonio MD [address] [place] [phone] [facility] 07/24/23 Jaden Antonio MD [address] [place] [phone] [facility] 07/02/24 Goals (unrecognized section and content) [...] BE BASED ON THE PRIMARY CLINICAL RECORDS. [facility] [employer] [facility]. provides no warranty or guarantee of the accuracy or completeness of information in this document.
== END 2025-03-19 13:08 | disposition home or self-care (01) ==
LOC: MAMMO 13:07
PROVIDERS: PCP Family Medicine; Visit Provider Obstetrics & Gynecology
DX: Z12.31 Encounter for screening mammogram for malignant neoplasm of breast (principal)
CPT/HCPCS: 77063; 77067